=== PATIENT | female | born 1930 | race Caucasian/White ===

== ENCOUNTER 2017-07-23 19:52 | Emergency (ER) | payer MEDICARE, OTHER ==
[2017-07-23 20:24] LABS: #Basophils 0.1 thou/uL (0.0-0.2); #Eosinphils 0.2 thou/uL (0.0-0.7); #Lymphocytes 1.8 thou/uL (1.20-3.40); #Monocytes 0.6 thou/uL (0.11-0.59); #Neutrophils 4.8 thou/uL (1.40-6.50); %Basophils 0.7 % (0.0-1.0); %Eosinophils 2.1 % (0.0-10.0); %Lymphocytes 23.7 % (21.0-51.0); %Monocytes 8.1 % (0.0-10.0); %Neutrophils 65.4 % (42.0-75.0); Hemoglobin 13.2 g/dL (12.0-16.0); Mean Corpuscular HGB CONC 34.9 g/dL (32.0-36.0); Mean Corpuscular Hemoglobin 32.6 pg (27.0-31.0); Mean Corpuscular Volume 93.4 fl (81.0-99.0); Mean Platelet Volume 7.9 fL (7.4-10.4); Platelet Count 274 thou/uL (130-400); RBC Distribution Width 12.7 % (11.5-14.5); Red Blood Cell (RBC) Count 4.04 mill/uL (4.20-5.40); White Blood Cell (WBC) Count 7.4 thou/uL (4.8-10.8)
[2017-07-23 20:48] LABS: ALT (SGPT) 10 U/L (8-55); AST (SGOT) 12 U/L (5-34); Albumin 4.3 g/dL (3.4-4.8); Alkaline Phosphatase 98 U/L (40-150); Anion Gap 15 mmol/L (10-20); BUN (Urea Nitrogen) 11 mg/dL (9.8-20.1); Bilirubin, Total 0.3 mg/dL (0.2-1.2); CK (CPK) 121 U/L (29-168); Calc. Creatinine Clearance 0 mL/min (70-130); Carbon Dioxide 26 mmol/L (23-31); Chloride 98 mmol/L (98-107); Estimated GFR-MDRD 63; Globulin 3.3 g/dL (2.4-3.5); Glucose 270 mg/dL (83-110); Potassium 4.3 mmol/L (3.5-5.1); Protein, Total 7.6 g/dL (6.0-8.3); Sodium 135 mmol/L (136-145)
[2017-07-23 21:02] LABS: Bilirubin Negative (Negative); Blood, Urine Trace (Negative); Clarity CLOUDY (Clear); Glucose, Urine (Dipstick) 100 mg/dL (Negative); Leukocyte Trace (Negative); Nitrite Negative (Negative); Protein, Urine (Dipstick) Trace mg/dL (Neg-Trace); Specific Gravity, Urine 1.006 (1.002-1.036); Urobilinogen 0.2 mg/dL (0.2-1.0); pH, Urine 6.5 (5.0-9.0)
[2017-07-23 21:04] LABS: Bacteria/HPF None Seen HPF (None Seen); Hyaline Casts/LPF 0-3 HYALINE CAST LPF (0-3 Hyaline); Pathc Cast-AUWi Flag 0.14 (0-2.49); RBC/HPF 0-3 HPF (0-3); Squamous Epithelial 0-3 HPF (0-3)
[2017-07-23] MEDS ORDERED: Cyclobenzaprine 10 MG TAB ONE (22:18)
[2017-07-24 00:18] LABS: Lactic Acid 1.5 mmol/L (0.5-2.2)
== END 2017-07-24 00:30 | disposition home or self-care (01) ==
LOC: ERS 19:52
DX: M62.838 Other muscle spasm (principal); E78.5 Hyperlipidemia, unspecified; I10 Essential (primary) hypertension; F17.210 Nicotine dependence, cigarettes, uncomplicated; Z79.82 Long term (current) use of aspirin; Z79.899 Other long term (current) drug therapy; Z79.4 Long term (current) use of insulin
CPT/HCPCS: 36415; 80053; 81003; 81015; 82550; 83605; 85025; 87086; 93005; 96360; 96361; 99406

== ENCOUNTER 2018-03-22 16:27 | Emergency (ER) | payer MEDICARE, OTHER ==
[2018-03-22 17:18] LABS: #Eosinphils 0.3 thou/uL (0.0-0.7); #Monocytes 0.7 thou/uL (0.11-0.59); #Neutrophils 4.3 thou/uL (1.40-6.50); %Basophils 0.7 % (0.0-1.0); %Lymphocytes 27.3 % (21.0-51.0); %Monocytes 9.2 % (0.0-10.0); %Neutrophils 58.9 % (42.0-75.0); Hemoglobin 11.4 g/dL (12.0-16.0); Mean Corpuscular HGB CONC 34.7 g/dL (32.0-36.0); Mean Corpuscular Hemoglobin 31.7 pg (27.0-31.0); Mean Corpuscular Volume 91.3 fL (78.0-98.0); Mean Platelet Volume 7.8 fL (7.4-10.4); Platelet Count 289 thou/uL (130-400); RBC Distribution Width 13.3 % (11.5-14.5); Red Blood Cell (RBC) Count 3.59 mill/uL (4.20-5.40); White Blood Cell (WBC) Count 7.3 thou/uL (4.8-10.8)
[2018-03-22 17:45] LABS: ALT (SGPT) 10 U/L (8-55); AST (SGOT) 13 U/L (5-34); Alkaline Phosphatase 112 U/L (40-150); Anion Gap 14 mmol/L (10-20); BUN (Urea Nitrogen) 10 mg/dL (9.8-20.1); Bilirubin, Total 0.5 mg/dL (0.2-1.2); Calc. Creatinine Clearance 0 mL/min (70-130); Calcium 9.9 mg/dL (7.8-10.44); Carbon Dioxide 27 mmol/L (23-31); Chloride 98 mmol/L (98-107); Estimated GFR-MDRD 60; Globulin 3.2 g/dL (2.4-3.5); Glucose 147 mg/dL (83-110); Potassium 4.4 mmol/L (3.5-5.1); Protein, Total 7.2 g/dL (6.0-8.3); Sodium 135 mmol/L (136-145)
--- NOTE | 2018-03-22 18:06 | RAD ---
LEFT FOOT RADIOGRAPHS THREE VIEWS: 03/22/2018 PROVIDED CLINICAL HISTORY: Fifth digit ulcer. COMPARISON: 11/05/2016 FINDINGS: There is no evidence for fracture. There is no evidence for a lytic or blastic process. Alignment a ppears anatomic. Joint spaces appear preserved. There is a small metallic density, having the appea ame of a needle, measuring about 7 mm, at the plantar aspect of the great toe, in the region of the distal aspects of the proximal phalanx. Soft tissues appear otherwise unremarkable. Alignment appe ars anatomic. Joint spaces appear preserved. IMPRESSION: 1. No evidence for an acute osseous abnormality. 2. Soft tissue foreign body, as above. POS: [facility]
[2018-03-22 18:56] LABS: Bilirubin Negative (Negative); Blood, Urine Small (Negative); Clarity CLOUDY (Clear); Glucose, Urine (Dipstick) Negative (Negative); Leukocyte Large (Negative); Nitrite Negative (Negative); Protein, Urine (Dipstick) Negative (Neg-Trace); Specific Gravity, Urine 1.005 (1.002-1.036); Urobilinogen 0.2 mg/dL (0.2-1.0)
[2018-03-22 19:00] LABS: Bacteria/HPF Rare-Few HPF (None Seen); Hyaline Casts/LPF 0-3 HYALINE CAST LPF (0-3 Hyaline); WBC/HPF 21-50 HPF (0-3)
== END 2018-03-22 19:15 | disposition home or self-care (01) ==
LOC: ERS 16:27
DX: E11.621 Type 2 diabetes mellitus with foot ulcer (principal); Z79.4 Long term (current) use of insulin; E78.5 Hyperlipidemia, unspecified; I10 Essential (primary) hypertension; F17.210 Nicotine dependence, cigarettes, uncomplicated; Z79.899 Other long term (current) drug therapy; Z79.82 Long term (current) use of aspirin
CPT/HCPCS: 80053; 81003; 81015; 84484; 85025; 85652; 86140; 87086; 93005; 96360

== ENCOUNTER 2018-05-19 07:17 | Inpatient (IN) | payer MEDICARE, OTHER ==
[2018-05-19 08:01] LABS: #Basophils 0.1 thou/uL (0.0-0.2); #Eosinphils 0.2 thou/uL (0.0-0.7); #Lymphocytes 2.3 thou/uL (1.20-3.40); #Monocytes 0.8 thou/uL (0.11-0.59); #Neutrophils 3.1 thou/uL (1.40-6.50); %Basophils 1.3 % (0.0-1.0); %Eosinophils 3.2 % (0.0-10.0); %Lymphocytes 35.2 % (21.0-51.0); %Monocytes 12.1 % (0.0-10.0); %Neutrophils 48.2 % (42.0-75.0); Hemoglobin 11.6 g/dL (12.0-16.0); Mean Corpuscular HGB CONC 34.1 g/dL (32.0-36.0); Mean Corpuscular Hemoglobin 31.3 pg (27.0-31.0); Mean Corpuscular Volume 91.6 fL (78.0-98.0); Mean Platelet Volume 7.7 fL (7.4-10.4); Platelet Count 288 thou/uL (130-400); White Blood Cell (WBC) Count 6.4 thou/uL (4.8-10.8)
[2018-05-19 08:15] LABS: ALT (SGPT) 9 U/L (8-55); AST (SGOT) 12 U/L (5-34); Albumin 3.9 g/dL (3.4-4.8); Alkaline Phosphatase 109 U/L (40-150); Anion Gap 13 mmol/L (10-20); BUN (Urea Nitrogen) 14 mg/dL (9.8-20.1); Bilirubin, Total 0.2 mg/dL (0.2-1.2); CK (CPK) 62 U/L (29-168); Calc. Creatinine Clearance 0 mL/min (70-130); Calcium 9.8 mg/dL (7.8-10.44); Carbon Dioxide 28 mmol/L (23-31); Chloride 102 mmol/L (98-107); Estimated GFR-MDRD 64; Globulin 3.5 g/dL (2.4-3.5); Glucose 91 mg/dL (83-110); Lipase 17 U/L (8-78); Potassium 4.2 mmol/L (3.5-5.1); Protein, Total 7.4 g/dL (6.0-8.3); Sodium 139 mmol/L (136-145)
--- NOTE | 2018-05-19 08:29 | RAD ---
CHEST 1 VIEW: Date: 05/19/18 HISTORY: Chest pain. COMPARISON: Chest radiograph from 2012. FINDINGS: Heart size is enlarged. Mild pulmonary edema. Small effusions. No pneumothorax. Severe degenerative of the left glenohumeral joint with partial backing-out of the left superior tend on suture anchor. IMPRESSION: Cardiomegaly and mild pulmonary venous congestion. POS: [facility]
[2018-05-19] MEDS ORDERED: Ondansetron PF 4 MG/2 ML Vial ONE (09:49)
[2018-05-19] MEDS ORDERED: Aspirin Chewable 81 MG TAB ONE (10:12)
[2018-05-19] MEDS ORDERED: cefTRIAXone\\ROCEPHIN 2 GM VIAL ONE (10:12)
[2018-05-19] MEDS ORDERED: Morphine 4 MG/ML VIAL ONE (10:18)
[2018-05-19] MEDS ORDERED: Azithromycin 500 MG VIAL ONE (11:28)
[2018-05-19] MEDS ORDERED: Acetaminophen 650 MG Suppository PR PRN (11:36)
[2018-05-19] MEDS ORDERED: Acetaminophen 325 MG TAB PO PRN (11:36)
[2018-05-19] MEDS ORDERED: Bisacodyl 5 MG TAB PO PRN (11:36)
[2018-05-19] MEDS ORDERED: Ondansetron PF 4 MG/2 ML Vial IVP PRN (11:36)
[2018-05-19] MEDS ORDERED: Nitroglycerin 0.4 MG TAB (25 Tab Bottle) PO PRN (11:36)
[2018-05-19] MEDS ORDERED: Dextrose 5% in Water 1,000 ML IV PRN (11:44)
[2018-05-19] MEDS ORDERED: Dextrose 50% Abboject 50 ML SYRINGE SLOW IVP PRN (11:44)
[2018-05-19] MEDS ORDERED: HumaLOG 300 UNITS/3 ML VIAL SC PRN (11:44)
[2018-05-19] MEDS ORDERED: methylPREDNISolone Sod Succ 40 MG VIAL ONE (12:10)
[2018-05-19] MEDS: methylPREDNISolone Sod Succ 40 MG VIAL IVP SCH ×2 (12:51→20:08)
--- NOTE | 2018-05-19 14:09 | HP ---
PRIMARY CARE PROVIDER: Mellissa Engel DO CHIEF COMPLAINT: Chest pain. HISTORY OF PRESENT ILLNESS: Ms. Mckinnon is a pleasant 87-year-old lady, who was seen at [facility] on May 19, 2018 She reports that she had neck surgery in February 2015. At baseline, she does not walk but uses a wheelchair. She lives with her . She reports that she has had cough for the last one month, productive of clear sputum. She denies any wheezing. Emergency room physician reports that she had yellow sputum in the emergency room. Last night, Ms. Mckinnon made supper. When she went to her bedroom to watch TV, she had a strange feeling in her body, which she cannot describe. She found that her blood sugar was high. She took the insulin. Subsequently, her blood sugar went from 570s range to 270s range. She then started having retrosternal chest pressure. She describes it as constant, 9/10 at its worst, nonradiating, accompanied by nausea and palpitations. She denies any shortness of breath. She cannot recall any aggravating or relieving factors for the chest discomfort. REVIEW OF SYSTEMS: All systems were reviewed and found to be negative. PAST MEDICAL HISTORY: Coronary artery disease, COPD, degenerative joint disease , chronic pain, diabetes mellitus, central cord syndrome, cervical stenosis. PAST SURGICAL HISTORY: Bilateral total hip replacement, coronary artery bypass graft x3, right shoulder surgery, hysterectomy, and C-spine surgery. SOCIAL HISTORY: The patient reports occasional tobacco use. She denies any alcohol use or recreational drug use. She lives at home with her . CODE STATUS: I discussed her code status. She is full code. FAMILY HISTORY: Significant for heart disease on her mother's side. ALLERGIES: IODINE, SULFA, TORADOL, ZOLOFT. CURRENT MEDICATIONS: 1. Amlodipine 5 mg daily. 2. Atorvastatin 40 mg daily. 3. Duloxetine 60 mg daily. 4. Levemir insulin, dose unknown. 5. NovoLog insulin, dose unknown. 6. Labetalol 100 mg three times a day. 7. Aspirin 81 mg daily. 8. Flexeril 5 mg three times a day. PHYSICAL EXAMINATION: GENERAL: On examination, Ms. Mckinnon is awake and alert, not in acute distress. VITAL SIGNS: Blood pressure is 146/57, pulse 67, respiratory rate 19 and oxygen saturation 98% on room air. She is afebrile. EYES: No scleral icterus, no conjunctival pallor. ENT: Dry mucosal membranes, no oropharyngeal erythema or exudates. NECK: Supple, nontender, trachea is midline. RESPIRATORY: Accessory muscles of breathing are not active. Chest wall movements are symmetric bilaterally. Lung examination reveals expiratory wheezing. CARDIOVASCULAR: S1 and S2 are heard, regular. Peripheral pulses palpable. No carotid bruit. No pericardial rub. ABDOMEN: Soft, nontender, bowel sounds heard, no hepatomegaly, no splenomegaly. NEUROLOGIC: Cranial nerves 2 through 12 are intact. Deep tendon reflexes 2+. Power is 3/5 in the left lower extremity, 4/5 in the right lower extremity and 4 +/5 in both upper extremities. MUSCULOSKELETAL: Power in the four extremities as described above. SKIN: No rashes or subcutaneous nodules. LYMPHATIC: No cervical lymphadenopathy. PSYCHIATRIC: Normal mood, normal affect, the patient is oriented to person, place, and time. LABORATORY FINDINGS: Ms. Mckinnon' labs and investigations were reviewed. I reviewed her electrocardiogram, which shows normal sinus rhythm, no ST changes to suggest an acute coronary syndrome. I also reviewed her chest x-ray, which does not show any pulmonary infiltrates. She has normal white count, normocytic anemia with hemoglobin 11.6, normal platelet count, unremarkable comprehensive metabolic profile, normal BNP and normal troponin-I. ASSESSMENT AND PLAN: Ms. Mckinnon is a pleasant 87-year-old lady, who was seen at [facility] on May 19, 2018. Her problem list includes: 1. Chest pain: Etiology is unclear at this time. She will be admitted to the hospital for further investigations, including telemetry monitoring and stress test. Further management depending on outcome of the stress test. 2. Acute bronchitis: Ms. Mckinnon is also presenting with acute bronchitis. She reports receiving antibiotics as outpatient, but has not improved. She will be treated with ceftriaxone and azithromycin for now. She does not know the names of the antibiotic she has used as outpatient. 3. Diabetes mellitus type 2: We will start Accu-Chek and insulin sliding scale. 4. Hypertension: We will monitor vital signs and titrate antihypertensives as needed. 5. Dyslipidemia: We will continue statin. Many thanks for allowing me to participate in your patient's care. Please feel free to contact me with any questions or concerns. LEVEL OF RISK: High. LEVEL OF COMPLEXITY: High. Job ID: [id number] MTDD
[2018-05-19] MEDS ORDERED: Acetaminophen 325 MG TAB ONE (14:13)
[2018-05-19] MEDS ORDERED: Morphine 2 MG/ML SYRINGE ONE (15:03)
[2018-05-19 16:03] LABS: Troponin I 0.011 ng/mL (< 0.028)
[2018-05-19] MEDS: Sodium Chloride 0.9% 1,000 ML IV SCH (18:53)
[2018-05-19] MEDS: HumaLOG 300 UNITS/3 ML VIAL SC PRN (20:59)
[2018-05-19] MEDS: Nicotine 7 MG PATCH TOP SCH (22:27)
[2018-05-19] MEDS: Morphine 4 MG/ML VIAL SLOW IVP PRN (23:57)
[2018-05-20] MEDS: methylPREDNISolone Sod Succ 40 MG VIAL IVP SCH ×5 (00:42→22:59)
[2018-05-20] MEDS: HumaLOG 300 UNITS/3 ML VIAL SC PRN ×3 (06:11→22:52)
[2018-05-20 06:39] LABS: #Lymphocytes 0.9 thou/uL (1.20-3.40); #Monocytes 0.1 thou/uL (0.11-0.59); %Basophils 0.1 % (0.0-1.0); %Eosinophils 0.1 % (0.0-10.0); %Lymphocytes 10.9 % (21.0-51.0); %Monocytes 0.6 % (0.0-10.0); %Neutrophils 88.3 % (42.0-75.0); Mean Corpuscular Hemoglobin 31.4 pg (27.0-31.0); Mean Corpuscular Volume 94.9 fL (78.0-98.0); Mean Platelet Volume 8.4 fL (7.4-10.4); Platelet Count 271 thou/uL (130-400); RBC Distribution Width 13.1 % (11.5-14.5); Red Blood Cell (RBC) Count 3.82 mill/uL (4.20-5.40); White Blood Cell (WBC) Count 7.9 thou/uL (4.8-10.8)
[2018-05-20 06:52] LABS: Anion Gap 16 mmol/L (10-20); BUN (Urea Nitrogen) 16 mg/dL (9.8-20.1); Calc. Creatinine Clearance 55 mL/min (70-130); Calcium 9.8 mg/dL (7.8-10.44); Carbon Dioxide 23 mmol/L (23-31); Chloride 96 mmol/L (98-107); Estimated GFR-MDRD 55; Glucose 371 mg/dL (83-110); Potassium 4.2 mmol/L (3.5-5.1); Sodium 131 mmol/L (136-145)
[2018-05-20] MEDS ORDERED: Prevnar 13-Val Conj/PF 0.5 ML SYRINGE IM ONE (09:00)
[2018-05-20] MEDS: Morphine 4 MG/ML VIAL SLOW IVP PRN ×2 (09:14→20:28)
[2018-05-20] MEDS: Enoxaparin Sodium 40 MG/0.4 ML SYRINGE SC SCH (09:16)
[2018-05-20] MEDS: cefTRIAXone\\ROCEPHIN 1 GM in Sodium Chloride 0.9% 100 ML IVPB SCH (10:50)
[2018-05-20] MEDS ORDERED: Azithromycin 500 MG in Sodium Chloride 0.9% 250 ML 250 ML IVPB SCH (11:00)
[2018-05-20] MEDS: Sodium Chloride 0.9% 1,000 ML IV SCH (11:47)
[2018-05-20] MEDS ORDERED: HumaLOG 300 UNITS/3 ML VIAL SC SCH (13:15)
--- NOTE | 2018-05-20 15:47 | PDOC.PN ---
- Subjective Encounter Start Date: 05/20/18 Encounter Start Time: 10:40 Pt seen for followup re: chest pain. c/o L shoulder pain. No fevers or chills. - Objective Resuscitation Status - Order Detail: 05/19/18 11:36 Resuscitation Status Routine Resuscitation Status: FULL: Full Resuscitation Discussed with: patient ABE Reviewed: Yes Vital Signs & Weight: Vital Signs (12 hours) Temp Pulse Resp BP Pulse Ox 05/20/18 08:00 98.2 F 100 17 153/67 H 94 L 05/20/18 06:44 93 L 05/20/18 06:42 103 H 18 93 L 05/20/18 04:00 97.6 F 98 20 142/65 H 94 L Weight Weight 181 lb 9.6 oz I&O: 05/19/18 05/20/18 05/21/18 06:59 06:59 06:59 Intake Total 1080 Output Total 2150 Balance -1070 Result Diagrams: 05/20/18 04:55 05/20/18 04:55 Additional Labs: Accuchecks 05/20/18 05/20/18 05/20/18 10:44 05:38 00:42 POC Glucose 432 H 356 H 353 H 05/19/18 20:12 POC Glucose 446 H EKG Reviewed by me: Yes (Tele: NSR) Phys Exam - Physical Examination Constitutional: NAD HEENT: moist MMs Neck: supple Respiratory: clear to auscultation bilateral Cardiovascular: RRR Gastrointestinal: soft Neurological: moves all 4 limbs Psychiatric: normal affect Dx/Plan (1) Chest pain Code(s): R07.9 - CHEST PAIN, UNSPECIFIED Status: Acute Comment: awaiting stress test (2) HLD (hyperlipidemia) Code(s): E78.5 - HYPERLIPIDEMIA, UNSPECIFIED Status: Chronic Comment: continue statin (3) HTN (hypertension) Code(s): I10 - ESSENTIAL (PRIMARY) HYPERTENSION Status: Chronic Comment: resume home medications - Plan * . Review of Systems - Review of Systems Cardiovascular: negative: chest pain, palpitations, orthopnea, paroxysmal nocturnal dyspnea, edema, light headedness Gastrointestinal: negative: Nausea, Vomiting, Abdominal Pain, Diarrhea, Constipation, Melena, Hematochezia Musculoskeletal: Shoulder Pain - Medications/Allergies Allergies/Adverse Reactions: Allergies Allergy/AdvReac Type Severity Reaction Status Date / Time iodine Allergy Verified 05/19/18 20:35 ketorolac tromethamine Allergy Verified 05/19/18 20:35 [From Toradol] sertraline HCl [From Zoloft] Allergy Verified 05/19/18 20:35 Sulfa (Sulfonamide Allergy Verified 05/19/18 20:35 Antibiotics) Medications: Current Medications Acetaminophen (Tylenol) 650 mg PO Q4H PRN PRN Reason: Headache/Fever/Mild Pain (1-3) Acetaminophen (Tylenol) 650 mg MS Q4H PRN PRN Reason: Headache/Fever/Mild Pain (1-3) Albuterol/Ipratropium (Duoneb) 3 ml NEB [id number] [facility] Last Admin: 05/20/18 13:06 Dose: Not Given Albuterol/Ipratropium (Duoneb) 3 ml NEB [id number] PRN PRN Reason: SOB &/or Wheezing Bisacodyl (Dulcolax) 10 mg PO DAILYPRN PRN PRN Reason: Constipation Dextrose/Water (Dextrose 50%) 25 gm SLOW IVP PRN PRN PRN Reason: Hypoglycemia Enoxaparin Sodium (Lovenox) 40 mg SC 0900 [facility] Last Admin: 05/20/18 09:16 Dose: 40 mg Glucagon (Glucagon) 1 mg IM PRN PRN PRN Reason: Hypoglycemia Azithromycin 500 mg/ Sodium (Chloride) 250 mls @ 250 mls/hr IVPB Q24HR [facility] Last Admin: 05/20/18 11:47 Dose: Not Given Ceftriaxone Sodium 1 gm/ (Sodium Chloride) 100 mls @ 200 mls/hr IVPB Q24HR [facility] Last Admin: 05/20/18 10:50 Dose: 100 mls Dextrose/Water (D5w) 1,000 mls @ 0 mls/hr IV .Q0M PRN PRN Reason: Hypoglycemia Sodium Chloride (Normal Saline 0.9%) 1,000 mls @ 50 mls/hr IV .Q20H [facility] Last Admin: 05/20/18 11:47 Dose: Not Given Insulin Human Lispro (Humalog) 0 units SC .MODERATE SLIDING SC PRN PRN Reason: Moderate Correctional Scale Last Admin: 05/20/18 06:11 Dose: 10 unit Methylprednisolone Sodium Succinate (Solu-Medrol) 40 mg IVP Q6HR [facility] Last Admin: 05/20/18 12:00 Dose: Not Given Morphine Sulfate (Morphine) 2 mg SLOW IVP Q6H PRN PRN Reason: Moderate to Severe Pain (6-10) Last Admin: 05/20/18 09:14 Dose: 2 mg Nicotine (Nicoderm Patch) 7 mg TOP Q24HR [facility] Last Admin: 05/19/18 22:27 Dose: Not Given Nitroglycerin (Nitrostat) 0.4 mg PO Q5MIN PRN PRN Reason: Chest Pain Ondansetron HCl (Zofran) 4 mg IVP Q6H PRN PRN Reason: Nausea/Vomiting Last Admin: 05/20/18 14:55 Dose: 4 mg Sodium Chloride (Flush - Normal Saline) 10 ml IVF Q12HR [facility] Last Admin: 05/20/18 09:16 Dose: Not Given Sodium Chloride (Flush - Normal Saline) 10 ml IVF PRN PRN PRN Reason: Saline Flush Last Admin: 05/20/18 00:05 Dose: 10 ml
[2018-05-20] MEDS: Nicotine 7 MG PATCH TOP SCH (16:11)
--- NOTE | 2018-05-20 16:38 | NM ---
NUCLEAR MEDICINE CARDIAC STRESS TEST WITH EJECTION FRACTION 05/20/18 HISTORY: Chest pain. CABG, coronary artery disease, smoker, hypertension, COPD, dyslipidemia. COMPARISON: None available. TECHNIQUE: Stress and rest performed after the intravenous administration of 27 and 9.3 millicuries of technetiu m 99m Sestamibi, respectively. Nuclear medicine cardiac stress test with ejection fraction. FINDINGS: Stress and rest was performed after the intravenous administration of 27 and 9.3 millicuries techneti um 99m Sestamibi. On the stress images, there is ischemia of the apex and inferior wall which was not seen on the rest images. There is normal wall motion. Ejection fraction is 68%. IMPRESSION: Reversible ischemia, moderate volume, of inferior wall and apex. POS: [facility]
[2018-05-20] MEDS ORDERED: Regadenoson 0.4 MG/5 ML SYRINGE ONE (16:48)
[2018-05-20 18:04] LABS: Glucose 501 mg/dL (83-110)
[2018-05-20] MEDS: Azithromycin 500 MG in Sodium Chloride 0.9% 250 ML 250 ML IVPB SCH (18:12)
[2018-05-20] MEDS: Labetalol 100 MG TAB PO SCH (20:43)
[2018-05-20] MEDS ORDERED: Non-Formulary Item 1 EACH (Insulin Detemir [Levemir] 18 UNIT) SQ SCH (21:00)
[2018-05-20] MEDS: Insulin Glargine 18 UNITS in Pre-Filled Syringe 1 EACH SC SCH (22:27)
[2018-05-21] MEDS: Cyclobenzaprine 10 MG TAB PO PRN ×3 (01:19→23:28)
[2018-05-21] MEDS: Morphine 4 MG/ML VIAL SLOW IVP PRN ×2 (02:13→11:01)
[2018-05-21 05:14] LABS: #Lymphocytes 0.8 thou/uL (1.20-3.40); #Monocytes 0.3 thou/uL (0.11-0.59); #Neutrophils 9.4 thou/uL (1.40-6.50); %Basophils 0.1 % (0.0-1.0); %Eosinophils 0.1 % (0.0-10.0); %Lymphocytes 7.4 % (21.0-51.0); %Monocytes 2.5 % (0.0-10.0); %Neutrophils 89.9 % (42.0-75.0); Hemoglobin 11.7 g/dL (12.0-16.0); Mean Corpuscular HGB CONC 33.6 g/dL (32.0-36.0); Mean Corpuscular Hemoglobin 31.7 pg (27.0-31.0); Mean Corpuscular Volume 94.3 fL (78.0-98.0); Mean Platelet Volume 8.1 fL (7.4-10.4); Platelet Count 282 thou/uL (130-400); RBC Distribution Width 13.2 % (11.5-14.5); Red Blood Cell (RBC) Count 3.69 mill/uL (4.20-5.40); White Blood Cell (WBC) Count 10.5 thou/uL (4.8-10.8)
[2018-05-21 05:33] LABS: Anion Gap 14 mmol/L (10-20); BUN (Urea Nitrogen) 18 mg/dL (9.8-20.1); Calc. Creatinine Clearance 61 mL/min (70-130); Calcium 9.7 mg/dL (7.8-10.44); Carbon Dioxide 25 mmol/L (23-31); Chloride 99 mmol/L (98-107); Estimated GFR-MDRD 61; Glucose 373 mg/dL (83-110); Potassium 4.1 mmol/L (3.5-5.1); Sodium 134 mmol/L (136-145)
[2018-05-21] MEDS: methylPREDNISolone Sod Succ 40 MG VIAL IVP SCH ×3 (06:03→17:54)
[2018-05-21] MEDS: HumaLOG 300 UNITS/3 ML VIAL SC PRN ×3 (06:10→21:51)
[2018-05-21] MEDS ORDERED: Non-Formulary Item 1 EACH (Insulin Detemir [Levemir] 20 UNIT) SQ SCH (09:00)
[2018-05-21] MEDS: Amlodipine 5 MG TAB PO SCH (09:17)
[2018-05-21] MEDS: Atorvastatin Calcium 40 MG TAB PO SCH (09:17)
[2018-05-21] MEDS: Aspirin 81 mg Enteric Coated Tablet PO SCH (09:17)
[2018-05-21] MEDS: Labetalol 100 MG TAB PO SCH ×3 (09:17→21:51)
[2018-05-21] MEDS: DULoxetine 60 MG CAP PO SCH (09:17)
[2018-05-21] MEDS: Insulin Glargine 20 UNITS in Pre-Filled Syringe 1 EACH SC SCH ×2 (10:57→12:00)
[2018-05-21] MEDS: cefTRIAXone\\ROCEPHIN 1 GM in Sodium Chloride 0.9% 100 ML IVPB SCH (11:01)
[2018-05-21] MEDS: Enoxaparin Sodium 40 MG/0.4 ML SYRINGE SC SCH ×2 (11:02→15:44)
[2018-05-21] MEDS: Nicotine 7 MG PATCH TOP SCH (11:59)
[2018-05-21 13:43] VITALS: BMI 30.6
--- NOTE | 2018-05-21 15:40 | CON ---
DATE OF CONSULTATION: 05/21/2018 REASON FOR CONSULTATION: Abnormal stress study. HISTORY OF PRESENT ILLNESS: Ms. Mckinnon is an 87-year-old woman with previous history of CAD, status post bypass surgery in 2001. She had four-vessel bypass. She has been seen by Dr. Richmond Oleary per history. She recently presented with mainly shortness of breath. She has had cough and congestion. She has clear sputum at present. She then admitted to a chest pain. During my interview, she states her pain is mainly noted to the right and left shoulder. It is worse with movement. She states she did not have pain in her mid chest. Subsequently, she underwent a noninvasive stress study, and it was felt to be consistent with ischemia present along the inferior wall. LVEF was felt to be normal, estimated at 68%. PAST MEDICAL HISTORY: As described above including, 1. COPD. 2. Diabetes mellitus. 3. Cervical stenosis. 4. Previous neck surgery. SOCIAL HISTORY: Positive tobacco use. No alcohol use. ALLERGIES: TORADOL, ZOLOFT, AND IODINE. FAMILY HISTORY: Positive for CAD. HOME MEDICATIONS: Include, 1. Amlodipine. 2. Atorvastatin. 3. Duloxetine. 4. Levemir. 5. NovoLog. 6. Labetalol. 7. Aspirin. 8. Flexeril. REVIEW OF SYSTEMS: Ten-point review of systems is reviewed and as above, otherwise negative. PHYSICAL EXAMINATION: GENERAL: The patient is a pleasant female, who is in no acute distress. The patient appears their stated age. VITAL SIGNS: Blood pressure 147/65, pulse 81, and temperature 91. NEUROLOGIC: The patient is alert and oriented x3 with no focal neurologic deficits. HEENT: Sclerae without icterus. Mouth has moist mucous membranes with normal pallor. NECK: No JVD. Carotid upstroke brisk. No bruits bilaterally. LUNGS: Rhonchi and rales bilaterally. BACK: No scoliosis or kyphosis. CARDIAC: Regular rate and rhythm with normal S1 and S2. No S3 or S4 noted. No significant rubs, murmurs, thrills, or gallops noted throughout the precordium. PMI is not displaced. There is no parasternal heave. ABDOMEN: Soft, nontender, nondistended. No peritoneal signs present. No hepatosplenomegaly. No abnormal striae. EXTREMITIES: 2+ femoral and 2+ dorsalis pedis pulses. No cyanosis, clubbing, or edema. SKIN: No gross abnormalities. PERTINENT LABORATORY DATA: Hemoglobin 11.7, creatinine 0.88. Stress and rest myocardial perfusion study with ischemia present along the inferior wall. LVEF 68%. IMPRESSION: 1. Chest pain. 2. Abnormal stress study. 3. Coronary artery disease, status post bypass surgery. 4. Chronic obstructive pulmonary disease. 5. ? pneumonia. RECOMMENDATIONS: Ms. Munoz symptoms are not consistent with angina. Her symptoms are felt to be positional. She states that when she moves her left arm, she has significant pain. She admits to me of not having any chest pressure in the midsternal region. I discussed medical therapy versus coronary angiography. She does have a dye allergy. I would recommend a more conservative approach given the age of her grafts, no current symptoms of angina. It is important that she is to stop tobacco use. We would recommend statin therapy, aspirin, plus or minus beta amarilis therapy. There was no asthma present and may benefit. We will also recommend low-dose nitrates. We will make changes as above. If stable overnight, I would sign off and have the patient follow up with Dr. Richmond Oleary as an outpatient. Job ID: [id number]
[2018-05-21] MEDS: Sodium Chloride 0.9% 1,000 ML IV SCH ×2 (15:44→21:52)
[2018-05-21] MEDS: Azithromycin 500 MG in Sodium Chloride 0.9% 250 ML 250 ML IVPB SCH (17:54)
--- NOTE | 2018-05-21 19:49 | PDOC.PN ---
- Subjective Encounter Start Date: 05/21/18 Encounter Start Time: 19:47 (late entry) Subjective: feels well. does not want any cardiac w/u done -: explained the abnormal stress results but she feels it was her high blood u -: no ON events. no CP/SOB - Objective Resuscitation Status - Order Detail: 05/19/18 11:36 Resuscitation Status Routine Resuscitation Status: FULL: Full Resuscitation Discussed with: patient MAR Reviewed: Yes Vital Signs & Weight: Vital Signs (12 hours) Temp Pulse Resp BP Pulse Ox 05/21/18 18:17 69 18 94 L 05/21/18 16:00 98.2 F 85 18 147/66 H 94 L 05/21/18 15:44 85 05/21/18 12:45 85 20 95 05/21/18 12:00 98.1 F 81 18 147/65 H 93 L 05/21/18 09:17 89 05/21/18 08:00 98.0 F 92 16 158/60 H 94 L Weight Admit Weight 184 lb 2 oz Weight 178 lb 5 oz I&O: 05/20/18 05/21/18 05/22/18 06:59 06:59 06:59 Intake Total 1080 2310 720 Output Total 2150 2000 1000 Balance -1070 310 -280 Result Diagrams: 05/21/18 04:52 05/21/18 04:52 Additional Labs: Accuchecks 05/21/18 05/21/18 05/21/18 16:18 10:50 05:46 POC Glucose 333 H 263 H 393 H 05/20/18 21:17 POC Glucose 333 H Microbiology 05/19/18 10:34 Venous blood - Right Hand Blood Culture - Preliminary Specimen has been received and culture in progress. No Growth to date. 05/19/18 10:27 Venous blood - Right Arm Blood Culture - Preliminary Specimen has been received and culture in progress. No Growth to date. Laboratory Tests 05/19/18 05/19/18 05/19/18 07:45 11:55 15:28 Troponin I 0.015 Less than 0.010 0.011 Phys Exam - Physical Examination Constitutional: NAD HEENT: PERRLA, moist MMs, sclera anicteric, oral pharynx no lesions Neck: no nodes, no JVD, supple, full ROM Respiratory: no wheezing, no rales, no rhonchi, clear to auscultation bilateral Cardiovascular: RRR, no significant murmur, no rub Gastrointestinal: soft, non-tender, no distention, positive bowel sounds Musculoskeletal: no edema, pulses present Neurological: non-focal, normal sensation, moves all 4 limbs Psychiatric: normal affect, A&O x 3 Dx/Plan (1) Abnormal stress ECG Code(s): R94.39 - ABNORMAL RESULT OF OTHER CARDIOVASCULAR FUNCTION STUDY Status: Acute (2) Central cord syndrome Code(s): S14.129A - CENTRAL CORD SYND AT UNSP LEVEL OF CERV SPINAL CORD, INIT Status: Chronic (3) Cervical stenosis of spinal canal Code(s): M48.02 - SPINAL STENOSIS, CERVICAL REGION Status: Chronic (4) Anxiety Code(s): F41.9 - ANXIETY DISORDER, UNSPECIFIED Status: Chronic (5) CAD (coronary artery disease) Code(s): I25.10 - ATHSCL HEART DISEASE OF [place] CORONARY ARTERY W/O ANG PCTRS Status: Chronic (6) DM type 2 (diabetes mellitus, type 2) Status: Chronic Comment: uncontrolled (7) H/O TIA (transient ischemic attack) and stroke Code(s): Z86.73 - PRSNL HX OF TIA (TIA), AND CEREB INFRC W/O RESID DEFICITS Status: Chronic (8) HLD (hyperlipidemia) Code(s): E78.5 - HYPERLIPIDEMIA, UNSPECIFIED Status: Chronic Comment: continue statin (9) HTN (hypertension) Code(s): I10 - ESSENTIAL (PRIMARY) HYPERTENSION Status: Chronic Comment: resume home medications (10) History of right-sided carotid endarterectomy Code(s): Z98.89 - OTHER SPECIFIED POSTPROCEDURAL STATES * DO NOT USE * Status : Chronic (11) PVD (peripheral vascular disease) Code(s): I73.9 - PERIPHERAL VASCULAR DISEASE, UNSPECIFIED Status: Chronic - Plan DVT proph w/SCDs cardiology consult. NPO for now.cont medical management -: ASA,statin ,BB -: reduce solumedrol to PO -: taper ABx tomorrow if afebrile -: HD stable.tobacco cessation advised * . Review of Systems - Review of Systems Constitutional: negative: fever, chills, sweats, weakness, malaise, other Respiratory: negative: Cough, Dry, Shortness of Breath, Hemoptysis, SOB with Excertion, Pleuritic Pain, Sputum, Wheezing Cardiovascular: negative: chest pain, palpitations, orthopnea, paroxysmal nocturnal dyspnea, edema, light headedness, other Gastrointestinal: negative: Nausea, Vomiting, Abdominal Pain, Diarrhea, Constipation, Melena, Hematochezia, Other Genitourinary: negative: Dysuria, Frequency, Incontinence, Hematuria, Retention , Other Musculoskeletal: negative: Neck Pain, Shoulder Pain, Arm Pain, Back Pain, Hand Pain, Leg Pain, Foot Pain, Other Neurological: negative: Weakness, Numbness, Incoordination, Change in Speech, Confusion, Seizures, Other - Medications/Allergies Allergies/Adverse Reactions: Allergies Allergy/AdvReac Type Severity Reaction Status Date / Time iodine Allergy Verified 05/19/18 20:35 ketorolac tromethamine Allergy Verified 05/19/18 20:35 [From Toradol] sertraline HCl [From Zoloft] Allergy Verified 05/19/18 20:35 Sulfa (Sulfonamide Allergy Verified 05/19/18 20:35 Antibiotics) Medications: Current Medications Acetaminophen (Tylenol) 650 mg PO Q4H PRN PRN Reason: Headache/Fever/Mild Pain (1-3) Acetaminophen (Tylenol) 650 mg GA Q4H PRN PRN Reason: Headache/Fever/Mild Pain (1-3) Albuterol/Ipratropium (Duoneb) 3 ml NEB [id number] [facility] Last Admin: 05/21/18 18:17 Dose: 3 ml Albuterol/Ipratropium (Duoneb) 3 ml NEB [id number] PRN PRN Reason: SOB &/or Wheezing Amlodipine Besylate (Norvasc) 5 mg PO DAILY [facility] Last Admin: 05/21/18 09:17 Dose: 5 mg Aspirin (Ecotrin) 81 mg PO DAILY [facility] Last Admin: 05/21/18 09:17 Dose: 81 mg Atorvastatin Calcium (Lipitor) 40 mg PO DAILY [facility] Last Admin: 05/21/18 09:17 Dose: 40 mg Bisacodyl (Dulcolax) 10 mg PO DAILYPRN PRN PRN Reason: Constipation Cyclobenzaprine HCl (Flexeril) 10 mg PO TID PRN PRN Reason: Muscle Spasm Last Admin: 05/21/18 06:21 Dose: 10 mg Dextrose/Water (Dextrose 50%) 25 gm SLOW IVP PRN PRN PRN Reason: Hypoglycemia Duloxetine HCl (Cymbalta) 60 mg PO DAILY [facility] Last Admin: 05/21/18 09:17 Dose: 60 mg Enoxaparin Sodium (Lovenox) 40 mg SC 0900 [facility] Last Admin: 05/21/18 15:44 Dose: 40 mg Glucagon (Glucagon) 1 mg IM PRN PRN PRN Reason: Hypoglycemia Ceftriaxone Sodium 1 gm/ (Sodium Chloride) 100 mls @ 200 mls/hr IVPB Q24HR [facility] Last Admin: 05/21/18 11:01 Dose: 100 mls Dextrose/Water (D5w) 1,000 mls @ 0 mls/hr IV .Q0M PRN PRN Reason: Hypoglycemia Sodium Chloride (Normal Saline 0.9%) 1,000 mls @ 50 mls/hr IV .Q20H [facility] Last Admin: 05/21/18 15:44 Dose: 1,000 mls Insulin Glargine 18 units/ (Miscellaneous Medication) 0.18 mls @ 0 mls/hr SC HS [facility] Last Admin: 05/20/18 22:27 Dose: 0.18 mls Insulin Glargine 20 units/ (Miscellaneous Medication) 0.2 mls @ 0 mls/hr SC QAM [facility] Last Admin: 05/21/18 12:00 Dose: 0.2 mls Azithromycin 500 mg/ Sodium (Chloride) 250 mls @ 250 mls/hr IVPB Q24HR [facility] Last Admin: 05/21/18 17:54 Dose: 250 mls Insulin Human Lispro (Humalog) 0 units SC .MODERATE SLIDING SC PRN PRN Reason: Moderate Correctional Scale Last Admin: 05/21/18 17:55 Dose: 8 unit Insulin Human Lispro (Humalog) 0 units SC .BEDTIME SLIDING SC PRN PRN Reason: Bedtime Correctional Scale Last Admin: 05/20/18 22:52 Dose: 4 unit Labetalol HCl (Normodyne) 100 mg PO TID [facility] Last Admin: 05/21/18 15:44 Dose: 100 mg Morphine Sulfate (Morphine) 2 mg SLOW IVP Q6H PRN PRN Reason: Moderate to Severe Pain (6-10) Last Admin: 05/21/18 11:01 Dose: 2 mg Nicotine (Nicoderm Patch) 7 mg TOP Q24HR [facility] Last Admin: 05/21/18 11:59 Dose: 7 mg Nitroglycerin (Nitrostat) 0.4 mg PO Q5MIN PRN PRN Reason: Chest Pain Ondansetron HCl (Zofran) 4 mg IVP Q6H PRN PRN Reason: Nausea/Vomiting Last Admin: 05/20/18 14:55 Dose: 4 mg Prednisone (Prednisone) 40 mg PO QA-[facility] Sodium Chloride (Flush - Normal Saline) 10 ml IVF Q12HR [facility] Last Admin: 05/21/18 09:17 Dose: Not Given Sodium Chloride (Flush - Normal Saline) 10 ml IVF PRN PRN PRN Reason: Saline Flush Last Admin: 05/20/18 00:05 Dose: 10 ml
[2018-05-21] MEDS: Insulin Glargine 18 UNITS in Pre-Filled Syringe 1 EACH SC SCH (21:50)
[2018-05-22 07:56] LABS: #Lymphocytes 1.5 thou/uL (1.20-3.40); #Monocytes 0.8 thou/uL (0.11-0.59); #Neutrophils 7.3 thou/uL (1.40-6.50); %Eosinophils 0.2 % (0.0-10.0); %Lymphocytes 15.8 % (21.0-51.0); %Neutrophils 75.9 % (42.0-75.0); Hemoglobin 11.5 g/dL (12.0-16.0); Mean Corpuscular HGB CONC 32.8 g/dL (32.0-36.0); Mean Corpuscular Hemoglobin 30.9 pg (27.0-31.0); Mean Corpuscular Volume 94.2 fL (78.0-98.0); Mean Platelet Volume 8.1 fL (7.4-10.4); Platelet Count 277 thou/uL (130-400); RBC Distribution Width 12.7 % (11.5-14.5); Red Blood Cell (RBC) Count 3.72 mill/uL (4.20-5.40); White Blood Cell (WBC) Count 9.6 thou/uL (4.8-10.8)
[2018-05-22] MEDS ORDERED: predniSONE 20 MG TAB PO SCH (08:00)
[2018-05-22] MEDS: Labetalol 100 MG TAB PO SCH ×3 (08:14→21:33)
[2018-05-22] MEDS: Amlodipine 5 MG TAB PO SCH (08:14)
[2018-05-22] MEDS: Aspirin 81 mg Enteric Coated Tablet PO SCH (08:14)
[2018-05-22] MEDS: Atorvastatin Calcium 40 MG TAB PO SCH (08:14)
[2018-05-22] MEDS: DULoxetine 60 MG CAP PO SCH (08:14)
[2018-05-22] MEDS: HumaLOG 300 UNITS/3 ML VIAL SC PRN ×3 (08:15→21:33)
[2018-05-22] MEDS: Insulin Glargine 20 UNITS in Pre-Filled Syringe 1 EACH SC SCH (08:15)
[2018-05-22 08:19] LABS: Anion Gap 14 mmol/L (10-20); BUN (Urea Nitrogen) 19 mg/dL (9.8-20.1); Calc. Creatinine Clearance 61 mL/min (70-130); Calcium 9.2 mg/dL (7.8-10.44); Carbon Dioxide 24 mmol/L (23-31); Chloride 99 mmol/L (98-107); Estimated GFR-MDRD 63; Glucose 306 mg/dL (83-110); Potassium 3.7 mmol/L (3.5-5.1); Sodium 133 mmol/L (136-145)
[2018-05-22] MEDS: cefTRIAXone\\ROCEPHIN 1 GM in Sodium Chloride 0.9% 100 ML IVPB SCH (10:33)
--- NOTE | 2018-05-22 11:49 | PDOC.PN ---
- Subjective Encounter Start Date: 05/22/18 Encounter Start Time: 11:45 Ms. Mckinnon was seen today in follow-up of shortness of breath. She says she is about the same, but denies ever having shortness of breath. She says it was the spasms in her chest that she was concerned about. - Objective Resuscitation Status - Order Detail: 05/19/18 11:36 Resuscitation Status Routine Resuscitation Status: FULL: Full Resuscitation Discussed with: patient MAR Reviewed: Yes Vital Signs & Weight: Vital Signs (12 hours) Temp Pulse Resp BP BP Pulse Ox 05/22/18 08:14 84 174/74 H 05/22/18 08:00 96.3 F L 90 16 176/79 H 97 05/22/18 06:44 84 18 93 L 05/22/18 03:51 97.6 F 78 13 162/62 H 92 L 05/22/18 00:11 83 16 95 Weight Admit Weight 184 lb 2 oz Weight 177 lb I&O: 05/21/18 05/22/18 05/23/18 06:59 06:59 07:59 Intake Total 2310 1620 Output Total 2000 1450 Balance 310 170 Result Diagrams: 05/22/18 07:28 05/22/18 07:28 Additional Labs: Accuchecks 05/22/18 05/22/18 05/21/18 10:43 05:14 20:03 POC Glucose 283 H 304 H 427 H 05/21/18 16:18 POC Glucose 333 H Phys Exam - Physical Examination HEENT: PERRLA Respiratory: wheezing present, clear to auscultation bilateral Cardiovascular: RRR, no significant murmur, no rub Gastrointestinal: soft, non-tender, no distention, positive bowel sounds Musculoskeletal: no edema Dx/Plan (1) Chest pain Code(s): R07.9 - CHEST PAIN, UNSPECIFIED Status: Acute Comment: awaiting stress test (2) DM type 2 (diabetes mellitus, type 2) Status: Chronic Comment: uncontrolled (3) Former smoker Status: Chronic (4) HLD (hyperlipidemia) Code(s): E78.5 - HYPERLIPIDEMIA, UNSPECIFIED Status: Chronic Comment: continue statin (5) HTN (hypertension) Code(s): I10 - ESSENTIAL (PRIMARY) HYPERTENSION Status: Chronic Comment: resume home medications - Plan * Chest pain- probable non-cardiac- awaiting final Cardiology opinion regarding cath * HTN - blood pressure is a bit elevated- will continue her current medications today, and monitor the trend- may need to adjust her home medications * Acute bronchitis- can transition her to all oral medications- will therefore discontinue Rocephin and continue Azithromycin orally * CAD- stable * Hopefully home in the AM.
--- NOTE | 2018-05-22 11:51 | PDOC.CTH ---
Cardiology Progress Note - Subjective Patient without complaints. Reports no chest pain. - Objective Vital Signs Temp Pulse Resp BP BP Pulse Ox 05/22/18 08:14 84 174/74 H 05/22/18 08:00 96.3 F L 90 16 176/79 H 97 05/22/18 06:44 84 18 93 L 05/22/18 03:51 97.6 F 78 13 162/62 H 92 L 05/22/18 00:11 83 16 95 Admit Weight 184 lb 2 oz Weight 177 lb 05/21/18 05/22/18 05/23/18 06:59 06:59 07:59 Intake Total 2310 1620 Output Total 2000 1450 Balance 310 170 - Physical Examination General/Neuro: alert & oriented x3 Neck: no JVD present Lungs: CTA Heart: RRR Abdomen: NT/ND - Telemetry Telemetry Rhythm: SR - Labs Result Diagrams: 05/22/18 07:28 05/22/18 07:28 Troponin/CKMB Troponin I 0.011 ng/mL (< 0.028) 05/19/18 15:28 - Assessment/Plan 1. Abnormal stress test with inferior wall ischemia 2. HTN 3. CAD s/p CABG 4. DM Patient with history of contrast allergy and would prefer medical management. I think this is feasible as trops were negative and she is pain free. Will add ImDur. Ok for discharge if she remains pain free and HTN controlled. Can f/u with Dr. Oleary as outpatient. Pt seen and examined. Pt would like to proceed with meds. Agree with above. Fu with Dr. Oleary. PLease call if other questions arise.
[2018-05-22] MEDS: Nicotine 7 MG PATCH TOP SCH (12:46)
[2018-05-22] MEDS: Azithromycin 500 MG in Sodium Chloride 0.9% 250 ML 250 ML IVPB SCH (18:10)
--- NOTE | 2018-05-22 20:33 | EKG ---
Test Reason : Blood Pressure : / mmHG Vent. Rate : 072 BPM Atrial Rate : 072 BPM P-R Int : 132 ms QRS Dur : 118 ms QT Int : 448 ms P-R-T Axes : 086 -61 030 degrees QTc Int : 490 ms Normal sinus rhythm Pulmonary disease pattern Left anterior fascicular block Prolonged QT Abnormal ECG Confirmed by GERARDO MILES, HANY ([id number]), online content editor STEPHANY APARICIO ([id number]) on 05/22/2018 8:32:48 PM Referred By: Confirmed By:HANY CARRILLO MD
[2018-05-22] MEDS: Cyclobenzaprine 10 MG TAB PO PRN (21:33)
[2018-05-22] MEDS: Insulin Glargine 18 UNITS in Pre-Filled Syringe 1 EACH SC SCH (21:33)
[2018-05-23] MEDS: Morphine 4 MG/ML VIAL SLOW IVP PRN (00:17)
[2018-05-23] MEDS ORDERED: predniSONE 20 MG TAB PO SCH (08:00)
[2018-05-23] MEDS: Labetalol 100 MG TAB PO SCH ×2 (08:07→15:52)
[2018-05-23] MEDS: DULoxetine 60 MG CAP PO SCH (08:08)
[2018-05-23] MEDS: Amlodipine 5 MG TAB PO SCH (08:08)
[2018-05-23] MEDS: Aspirin 81 mg Enteric Coated Tablet PO SCH (08:08)
[2018-05-23] MEDS: Atorvastatin Calcium 40 MG TAB PO SCH (08:08)
[2018-05-23] MEDS: Insulin Glargine 20 UNITS in Pre-Filled Syringe 1 EACH SC SCH (08:09)
[2018-05-23] MEDS: Enoxaparin Sodium 40 MG/0.4 ML SYRINGE SC SCH (08:09)
--- NOTE | 2018-05-23 09:59 | PDOC.PN ---
- Subjective Encounter Start Date: 05/23/18 Encounter Start Time: 09:57 Ms. Mckinnon was seen today in follow-up of chest pain. She does not have any complaints today. - Objective Resuscitation Status - Order Detail: 05/19/18 11:36 Resuscitation Status Routine Resuscitation Status: FULL: Full Resuscitation Discussed with: patient ABE Reviewed: Yes Vital Signs & Weight: Vital Signs (12 hours) Temp Pulse Resp BP BP Pulse Ox 05/23/18 08:08 83 183/77 H 05/23/18 08:07 82 183/77 H 05/23/18 06:40 57 L 18 92 L 05/23/18 05:00 97.6 F 80 16 174/71 H 94 L 05/23/18 00:39 67 16 95 Weight Admit Weight 184 lb 2 oz Weight 177 lb I&O: 05/22/18 05/23/18 05/24/18 05:59 06:59 06:59 Intake Total Output Total Balance Result Diagrams: 05/22/18 07:28 05/22/18 07:28 Additional Labs: Accuchecks 05/23/18 05/22/18 05/22/18 05:11 20:08 16:32 POC Glucose 119 H 293 H 124 H 05/22/18 10:43 POC Glucose 283 H Phys Exam - Physical Examination HEENT: PERRLA Respiratory: no wheezing, no rales, no rhonchi, clear to auscultation bilateral Cardiovascular: RRR, no significant murmur, no rub Gastrointestinal: soft, non-tender, positive bowel sounds Musculoskeletal: no edema Dx/Plan (1) Chest pain Code(s): R07.9 - CHEST PAIN, UNSPECIFIED Status: Acute Comment: awaiting stress test (2) DM type 2 (diabetes mellitus, type 2) Status: Chronic Comment: uncontrolled (3) Former smoker Status: Chronic (4) HLD (hyperlipidemia) Code(s): E78.5 - HYPERLIPIDEMIA, UNSPECIFIED Status: Chronic Comment: continue statin (5) HTN (hypertension) Code(s): I10 - ESSENTIAL (PRIMARY) HYPERTENSION Status: Chronic Comment: resume home medications - Plan * Chest pain- ? etiology- patient does not want a cardiac cath. * Imdur will be added which may help with her blood pressure as well * Stable for discharge home.
[2018-05-23] MEDS: Nicotine 7 MG PATCH TOP SCH (15:51)
[2018-05-23 15:53] VITALS: BP 136/64
[2018-05-23 16:51] VITALS: TEMP 98.5
--- NOTE | 2018-05-24 11:56 | DIS ---
DATE OF ADMISSION: 05/21/2018 DATE OF DISCHARGE: 05/23/2018 PRIMARY CARE PHYSICIAN: Mellissa Engel, DISCHARGE DISPOSITION: Home. DISCHARGE DIAGNOSES: 1. Chest pain. 2. Acute bronchitis. 3. Coronary artery disease. 4. Chronic obstructive pulmonary disease. 5. Degenerative joint disease. 6. Diabetes mellitus, type 2. 7. Cervical spinal stenosis. DISCHARGE MEDICATIONS: Include; 1. Azithromycin 250 mg daily for 3 days. 2. Prednisone 10 mg daily for three days. 3. Imdur extended release 30 mg daily. 4. Aspirin 81 mg daily. 5. Labetalol 100 mg t.i.d. 6. Levemir insulin 20 units in the morning, 18 units in the evening. 7. Duloxetine 60 mg daily. 8. Flexeril 10 mg t.i.d. 9. Atorvastatin 40 mg daily. 10. Amlodipine 5 mg daily. PROCEDURES DONE DURING ADMISSION: The patient had a nuclear stress test in which there was some reversible ischemia, a moderate amount in the inferior wall and apex. CODE STATUS: Full code. ALLERGIES: TO IODINE, KETORALAC, SERTRALINE, AND SULFA. HOSPITAL COURSE: Ms. Mckinnon is a pleasant 87-year-old female who presented to the hospital due to an elevated blood glucose that she had noted and also due to some retrosternal chest pressure that she had, which was accompanied by nausea and palpitations. She was admitted and started on medications, sliding scale in order to control her blood glucose. She also had some wheezing on exam and it is felt that she likely has an acute bronchitis. She was treated with IV antibiotics, steroids, and DuoNeb. Due to the chest pain and her history of coronary artery disease, a stress test was obtained. She was found to have some reversible ischemia in the inferior wall and apex. For this reason, Cardiology was consulted. The patient was offered cardiac catheterization to further evaluate the abnormal stress test. However, the patient had concerns for iodine allergy and refused any further evaluation at this time. The patient was allowed to think about this again overnight. The following day, she continued to decline cardiac catheterization. Therefore, we will try to maximize her medical management and improve her blood pressure control as well as place her on Imdur hopefully to help with her angina symptoms, and she will also be sent home on antibiotics for continued treatment of the bronchitis. She is to follow up with her primary care physician in 1 to 2 weeks and also with Cardiology as recommended. Job ID: [id number]
== END 2018-05-23 16:45 | disposition home or self-care (01) | DRG 313 ==
LOC: ERS 07:17 → ERHOLD 12:09 → 2NO 17:35 → OBSVTOIN 05-21 11:09
PROVIDERS: ADMIT Internal Medicine; ATTEND Internal Medicine
DX: R07.9 Chest pain, unspecified (principal); J20.9 Acute bronchitis, unspecified; I25.10 Atherosclerotic heart disease of native coronary artery without angina pectoris; M19.90 Unspecified osteoarthritis, unspecified site; M48.02 Spinal stenosis, cervical region; I10 Essential (primary) hypertension; E78.5 Hyperlipidemia, unspecified; J44.9 Chronic obstructive pulmonary disease, unspecified; G89.29 Other chronic pain; F41.9 Anxiety disorder, unspecified; R94.39 Abnormal result of other cardiovascular function study; E11.51 Type 2 diabetes mellitus with diabetic peripheral angiopathy without gangrene; Z96.643 Presence of artificial hip joint, bilateral; Z88.2 Allergy status to sulfonamides; Z91.041 Radiographic dye allergy status; Z95.1 Presence of aortocoronary bypass graft; Z90.710 Acquired absence of both cervix and uterus; Z98.890 Other specified postprocedural states; Z86.73 Personal history of transient ischemic attack (TIA), and cerebral infarction without residual deficits; Z87.891 Personal history of nicotine dependence
CPT/HCPCS: 36415; 36416; 71045; 78452; 80048; 80053; 82550; 83690; 83880; 84484; 85025; 87040; 93005; 93017; 94640; 94760; 96361; 96365; 96367; 96375; 96376; A9500; J0456; J0696; J1650; J1825; J2270; J2405; J2785; J2920; J7050; J7620

== ENCOUNTER 2018-09-24 12:40 | Emergency (ER) | payer MEDICARE, OTHER ==
[2018-09-24] MEDS ORDERED: Ondansetron PF 4 MG/2 ML Vial ONE (15:05)
[2018-09-24 15:12] LABS: #Eosinphils 0.1 thou/uL (0.0-0.7); #Lymphocytes 1.4 thou/uL (1.20-3.40); #Monocytes 0.4 thou/uL (0.11-0.59); #Neutrophils 6.2 thou/uL (1.40-6.50); %Basophils 0.4 % (0.0-1.0); %Eosinophils 1.3 % (0.0-10.0); %Lymphocytes 17.2 % (21.0-51.0); %Monocytes 4.8 % (0.0-10.0); %Neutrophils 76.3 % (42.0-75.0); Hemoglobin 12.2 g/dL (12.0-16.0); Mean Corpuscular HGB CONC 33.8 g/dL (32.0-36.0); Mean Corpuscular Hemoglobin 31.1 pg (27.0-31.0); Mean Corpuscular Volume 92.2 fL (78.0-98.0); Mean Platelet Volume 7.3 fL (7.4-10.4); Platelet Count 315 thou/uL (130-400); RBC Distribution Width 12.6 % (11.5-14.5); Red Blood Cell (RBC) Count 3.93 mill/uL (4.20-5.40); White Blood Cell (WBC) Count 8.1 thou/uL (4.8-10.8)
--- NOTE | 2018-09-24 15:27 | CT ---
CT Stone Protocol HISTORY: Abdominal pain. History of allergy to contrast COMPARISON: 04/24/2012 study FINDINGS: A 3 to 4 mm right lower lobe pulmonary nodule and small 2 to 3 mm left pulmonary nodules ar e stable. No infiltrative process. Some mild interstitial scarring noted. The liver and spleen show no focal findings. Pancreas region is unremarkable as is the gallbladder. Right adrenal gland shows an area of dense calcification adjacent to the left adrenal is normal. Thes e findings are stable. Right and left kidneys are normal in size vascular calcifications are noted but no renal calculi. The re is no significant periaortic or mesenteric adenopathy. Fairly pronounced atherosclerotic disease of the aorta as well as the celiac and superior mesenteric arteries are present. CT of pelvis performed without contrast enhancement: There is no evidence of adenopathy, mass or free fluid. Bilateral hip prostheses are present. Artifact obscures some detail. Marked arthritic changes of the spine. IMPRESSION: No acute findings of the abdomen or pelvis.
[2018-09-24 15:35] LABS: ALT (SGPT) 9 U/L (8-55); AST (SGOT) 9 U/L (5-34); Alkaline Phosphatase 84 U/L (40-150); Anion Gap 13 mmol/L (10-20); BUN (Urea Nitrogen) 13 mg/dL (9.8-20.1); Bilirubin, Total 0.3 mg/dL (0.2-1.2); Calc. Creatinine Clearance 0 mL/min (70-130); Calcium 9.7 mg/dL (7.8-10.44); Carbon Dioxide 25 mmol/L (23-31); Chloride 97 mmol/L (98-107); Estimated GFR-MDRD 62; Globulin 3.2 g/dL (2.4-3.5); Glucose 299 mg/dL (83-110); Lipase 26 U/L (8-78); Potassium 4.4 mmol/L (3.5-5.1); Protein, Total 7.2 g/dL (6.0-8.3); Sodium 131 mmol/L (136-145)
[2018-09-24] MEDS ORDERED: methylPREDNISolone Sod Succ/PF 125 MG/2 ML VIAL ONE (16:33)
[2018-09-24] MEDS ORDERED: Ketorolac Tromethamine 30 MG/ML VIAL ONE (16:36)
--- NOTE | 2018-09-25 17:01 | EKG ---
Test Reason : Blood Pressure : / mmHG Vent. Rate : 071 BPM Atrial Rate : 071 BPM P-R Int : 156 ms QRS Dur : 112 ms QT Int : 432 ms P-R-T Axes : 080 -61 -04 degrees QTc Int : 469 ms Normal sinus rhythm Left axis deviation Pulmonary disease pattern Nonspecific ST abnormality Abnormal ECG Confirmed by ALBINA MILES, LEONARD ([id number]), editor at large LANI LIMON ([id number]) on 09/25/2018 5:00:50 PM Referred By: Confirmed By:LEONARD MONTEMAYOR MD
== END 2018-09-24 19:19 | disposition home or self-care (01) ==
LOC: ERS 12:40
DX: R51 Headache (principal); R10.9 Unspecified abdominal pain; E11.9 Type 2 diabetes mellitus without complications; E78.5 Hyperlipidemia, unspecified; I10 Essential (primary) hypertension; Z87.891 Personal history of nicotine dependence; Z79.899 Other long term (current) drug therapy; Z79.4 Long term (current) use of insulin; Z79.82 Long term (current) use of aspirin
CPT/HCPCS: 36415; 74176; 80053; 83690; 85025; 93005; 96374; 96375; J1885; J2405; J2930

== ENCOUNTER 2019-03-13 20:58 | Inpatient (IN) | payer MEDICARE, OTHER ==
[~2019-03-13 20:58] MED LIST: Iopamidol 370 76% 100 ML VIAL ONE
[2019-03-13] MEDS ORDERED: diphenhydrAMINE 50 MG/ML VIAL ONE (21:16)
[2019-03-13] MEDS ORDERED: Diltiazem 125 MG/25 ML ONE (21:16)
[2019-03-13] MEDS ORDERED: Famotidine/PF 20 mg/2ml Vial ONE (21:16)
[2019-03-13] MEDS ORDERED: Fentanyl 100 MCG/2 ML VIAL ONE ×2 (21:16→22:20)
[2019-03-13] MEDS ORDERED: methylPREDNISolone Sod Succ/PF 125 MG/2 ML VIAL ONE (21:16)
--- NOTE | 2019-03-13 21:35 | RAD ---
Portable frontal chest radiograph: 03/13/2019 COMPARISON: 11/13/2018 HISTORY: Rapid heart rate with shortness of breath and weakness FINDINGS: Diffuse increased linear interstitial density with pulmonary hyperinflation suggests COPD i n the proper clinical setting, stable. Stable shoulder arthroplasty on the right. No pneumothorax or pleural fluid. No lobar consolidation or alveolar edema. Stable enlargement of the cardiac silhoue tte. Midline sternotomy wires are noted. IMPRESSION: Chronic findings as detailed above.
[2019-03-13 21:37] LABS: INR-International Normal Ratio 1.1; PTT 39.7 SEC (22.9-36.1); Prothrombin Time 14.3 SEC (12.0-14.7)
[2019-03-13 21:44] LABS: #Eosinphils 0.2 thou/uL (0.0-0.7); #Lymphocytes 1.5 thou/uL (1.20-3.40); #Monocytes 0.8 thou/uL (0.11-0.59); #Neutrophils 5.2 thou/uL (1.40-6.50); %Basophils 0.5 % (0.0-1.0); %Eosinophils 2.4 % (0.0-10.0); %Lymphocytes 19.2 % (21.0-51.0); %Monocytes 10.5 % (0.0-10.0); %Neutrophils 67.4 % (42.0-75.0); Hemoglobin 11.5 g/dL (12.0-16.0); Mean Corpuscular HGB CONC 33.9 g/dL (32.0-36.0); Mean Corpuscular Hemoglobin 31.5 pg (27.0-31.0); Mean Corpuscular Volume 92.9 fL (78.0-98.0); Mean Platelet Volume 8.3 fL (7.4-10.4); Platelet Count 298 thou/uL (130-400); RBC Distribution Width 13.1 % (11.5-14.5); Red Blood Cell (RBC) Count 3.64 mill/uL (4.20-5.40); White Blood Cell (WBC) Count 7.7 thou/uL (4.8-10.8)
[2019-03-13 21:51] LABS: ALT (SGPT) 7 U/L (8-55); AST (SGOT) 8 U/L (5-34); Albumin 3.9 g/dL (3.4-4.8); Alkaline Phosphatase 102 U/L (40-110); Anion Gap 13 mmol/L (10-20); BUN (Urea Nitrogen) 12 mg/dL (9.8-20.1); Bilirubin, Total 0.4 mg/dL (0.2-1.2); Calc. Creatinine Clearance 0 mL/min (70-130); Calcium 9.5 mg/dL (7.8-10.44); Carbon Dioxide 26 mmol/L (23-31); Chloride 101 mmol/L (98-107); Estimated GFR-MDRD 70; Glucose 186 mg/dL (83-110); Lipase 31 U/L (8-78); Magnesium 1.6 mg/dL (1.6-2.6); Potassium 3.8 mmol/L (3.5-5.1); Protein, Total 6.9 g/dL (6.0-8.3); Sodium 136 mmol/L (136-145)
[2019-03-13] MEDS ORDERED: Ondansetron PF 4 MG/2 ML Vial ONE (21:57)
[2019-03-13] MEDS ORDERED: Furosemide 100 MG/10 ML VIAL ONE (23:02)
[2019-03-13 23:04] LABS: Bilirubin Negative (Negative); Blood, Urine Negative (Negative); Clarity Clear (Clear); Glucose, Urine (Dipstick) 50 mg/dL (Negative); Leukocyte Negative Leu/uL (Negative); Nitrite Negative (Negative); Protein, Urine (Dipstick) Negative (Neg-Trace); Urobilinogen Normal mg/dL (Less than 2)
--- NOTE | 2019-03-13 23:22 | CT ---
CT ANGIOGRAM OF THE ABDOMEN AND CHEST: Date: 03-13-19 Comparison: None History: Rapid heart rate for one week, evaluate for aortic dissection. Technique: Axial CT imaging at 2.5 mm intervals through the abdomen and chest with IV contrast using CT angiogram protocol with coronal and sagittal 3D reformatted imaging. FINDINGS: There is severe degenerative change involving the left shoulder. There is a right shoulder arthroplas ty. No axillary lymphadenopathy. Nonspecific mildly enlarged lymph nodes are noted in the AP window, right paratracheal region, subcarinal region. Lymph nodes measure up to 1.2 cm in short axis dimensio n within the subcarinal region. There is no evidence for aneurysm or dissection of the thoracic aorta . There is scattered atherosclerotic calcification of the distal aortic arch and the descending thora cic aorta. There is also diffuse atherosclerotic calcification of the coronary arterial vasculature. The patient is status post midline sternotomy. Small bilateral pleural effusions are noted. There is linear increased interstitial density noted alexandr aterally. This combination of findings suggest interstitial pulmonary edema. No focal consolidation i s seen. No discrete/dominant pulmonary parenchymal mass lesion or nodule noted. Peripheral nodularity within the anterior lateral upper aspect of the right middle lobe suggests mild volume loss or could be related to edema as well. The heart size appears enlarged. No free air or fluid seen in the abdomen. The pelvis is not imaged on this examination. There is wall thickening of the gallbladder and there is stranding of the fat adjacent to the gallbla dder extending into the fat inferior to the left lobe of the liver. Findings are suspicious for acute cholecystitis. The spleen, pancreas, adrenal glands, and kidneys demonstrate no acute findings. Ther e is atherosclerotic calcification involving the renal arterial structures. Nonspecific calcification is noted adjacent to the adrenal gland on the right which may reflect a remote insult. There is severe multifocal atherosclerotic calcification of the abdominal aorta and its branches. The re is severe stenosis at the origin of the superior mesenteric artery. There is severe stenosis invol ving the proximal aspect of the right renal artery and there are two left renal arteries, both of whi ch demonstrate probable hemodynamically significant stenosis. There is a focal non-flow limiting diss ection of the abdominal aorta in the infrarenal region, best seen on axial image 134 and coronal imag e 97. There is severe atherosclerotic calcification of the distal abdominal aorta and visualized port ions of bilateral common iliac arteries. Review of the osseous structures demonstrate severe degenerative change throughout the imaged spine. No worrisome lytic or blastic bone lesions. IMPRESSION: 1. Diffuse interstitial prominence with small bilateral pleural effusions and prominence of the heart suggests interstitial pulmonary edema. 2. The gallbladder wall appears thickened and there is pericholecystic inflammatory change. These fin dings are suspicious for acute cholecystitis. 3. Severe atherosclerotic disease as detailed above. No evidence for aortic aneurysm. 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 Code T POS: HAYLIE
[2019-03-13] MEDS ORDERED: HumaLOG 300 UNITS/3 ML VIAL SC PRN (23:26)
[2019-03-13] MEDS ORDERED: Acetaminophen 325 MG TAB PO PRN (23:26)
[2019-03-13] MEDS ORDERED: Bisacodyl 10 MG SUPP PR PRN (23:26)
[2019-03-13] MEDS ORDERED: Dextrose 5% in Water 1,000 ML IV PRN (23:26)
[2019-03-13] MEDS ORDERED: Ondansetron PF 4 MG/2 ML Vial IVP PRN (23:26)
[2019-03-13] MEDS ORDERED: Guaifenesin DM 100-10/5 ML UDCUP PO PRN (23:26)
[2019-03-13] MEDS ORDERED: Dextrose 50% Abboject 50 ML SYRINGE SLOW IVP PRN (23:26)
[2019-03-13] MEDS ORDERED: Enoxaparin Sodium 40 MG/0.4 ML SYRINGE SC SCH (23:30)
--- NOTE | 2019-03-13 23:57 | ULT ---
Right upper quadrant ultrasound: 03/13/2019 COMPARISON: None HISTORY: Right upper quadrant pain TECHNIQUE: Multiplanar grayscale sonographic imaging of the right upper quadrant provided. FINDINGS: The pancreas is poorly visualized secondary to bowel gas. No focal liver lesion is identifi ed. Partially visualized right pleural effusion noted. The appeals analyst reports a positive Bowles's sign. There is small volume pericholecystic fluid. There is prominent gallbladder wall thickening. No discrete gallstones noted. Common bile duct measures 5 mm, within normal limits. Right kidney measures 12.4 cm in craniocaudal dimension and demonstrates no stone, hydronephrosis, or mass lesion. IMPRESSION: Gallbladder wall thickening with pericholecystic fluid and positive Bowles's sign, suspic ious for acute cholecystitis. No cholelithiasis appreciated.
[2019-03-14] MEDS ORDERED: Piperacillin/Tazobactam 4.5 GM VIAL ONE (00:07)
--- NOTE | 2019-03-14 00:27 | HP ---
REASON FOR ADMISSION: Atrial fibrillation with RVR, CHF exacerbation, generalized anasarca, possible acute cholecystitis. HISTORY OF PRESENTING ILLNESS: The patient was initially sent over from her home by her home health nurse after she found her to be in atrial fibrillation with RVR. This has been ongoing off and on from last 2 days. The patient also developed generalized abdominal pain, which is nonspecific in any area as such. Her last bowel movement was this morning. She is also feeling tired and weak and developed palpitations at home. The patient mentions that she has been feeling weak for almost a week now. EMS found her to be in atrial fibrillation with RVR. They gave her 6 mg, then 12, and another 12 mg of adenosine, and 20 mg of Cardizem IV push prior to arrival here in the ER. On arrival, the patient was placed on Cardizem 5 mg an hour for atrial fibrillation. This is currently rate controlled around 86 per minute at present. Initial atrial fibrillation RVR in the EMS was 167 per minute. En route, the patient also developed some chest pressure for a few minutes, which has completely resolved at present. PAST MEDICAL AND SURGICAL HISTORY: History of CABG in 2001, coronary artery disease, bypass was four vessel disease, COPD, diabetes mellitus type 2, history of cervical stenosis, prior neck surgery. Prior stress test done in May 2018 showed reversible ischemia in the inferior wall and apex. Ejection fraction was 68%. Bilateral hip procedures, right shoulder surgery, hysterectomy. The patient has had C3-C6 posterior cervical laminectomy done by Dr. Boykin in February 2015, dyslipidemia, hypertension, peripheral vascular disease. Upper endoscopy done in April 2012 was normal. Had a HIDA scan in April 2012, which was normal, carpal tunnel surgery, left rotator cuff surgery done in March 2012, right carotid endarterectomy. PERSONAL HISTORY: Former smoker. Does not abuse alcohol or drugs. Lives with her . FAMILY HISTORY: Mother of heart disease in her 50s. Father from stroke in his 60s. Son of complications from diabetes. CURRENT MEDICATIONS: The patient is on; 1. Atorvastatin 40 mg p.o. daily. 2. Norvasc 5 mg p.o. daily. 3. Flexeril 10 mg p.o. three times daily p.r.n. 4. Duloxetine 60 mg p.o. daily. 5. Levemir 20 units subcu daily and 18 units subcu at bedtime. 6. Labetalol 100 mg p.o. three times daily. 7. Aspirin 81 mg p.o. daily. 8. Imdur extended release 30 mg p.o. daily. ALLERGIES: ALLERGIC TO IODINE, KETOROLAC, SERTRALINE, AND SULFA. CODE STATUS: Full. Power of attorney general is her . REVIEW OF SYSTEMS: CONSTITUTIONAL: Negative for weight loss or gain, ability to conduct usual activities. SKIN: Negative for rash, itching. EYES: Negative for double vision, pain. ENT/MOUTH: Negative for nose bleeding, neck stiffness, pain, tenderness. CARDIOVASCULAR: Negative for palpitations, dyspnea on exertion, orthopnea. RESPIRATORY: Negative for shortness of breath, wheezing, cough, hemoptysis, fever or night sweats. GASTROINTESTINAL: Negative for poor appetite, abdominal pain, heartburn, nausea , vomiting, constipation, or diarrhea. GENITOURINARY: Negative for urgency, frequency, dysuria, nocturia. MUSCULOSKELETAL: Negative for pain, swelling. NEUROLOGIC/PSYCHIATRIC: Negative for anxiety, depression. ALLERGY/IMMUNOLOGIC: Negative for skin rash, bleeding tendency. PHYSICAL EXAMINATION: GENERAL: The patient is an 88-year-old female, who is currently in mild abdominal distress. VITAL SIGNS: Blood pressure 152/50, pulse 106 per minute, respiratory rate 20 per minute, temperature 97.8 degrees Fahrenheit, saturating 96% on 2 L oxygen. NECK: Supple. No elevated JVD. HEENT: Eyes; extraocular muscles intact. Pupils reacting to light. Oral cavity, mucous membranes are dry. No exudates or congestion. CARDIOVASCULAR: S1 and S2 heard. Irregular rhythm. RESPIRATORY: Air entry 1+ bilateral. Scattered rhonchi plus. No rales or wheezes. ABDOMEN: Soft. There is mild tenderness, which is generalized. No rebound or guarding. EXTREMITIES: Left lower extremity is externally rotated and short. There is peripheral edema in both lower extremities. No calf tenderness. VASCULAR SYSTEM: Peripheral pulses 1+ bilateral. No ischemic ulcerations or gangrene. CENTRAL NERVOUS SYSTEM: No gross focal deficits noted. The patient is lethargic, but oriented well. PSYCHIATRIC: The patient's mood is euthymic. No hallucinations or delusions. LABORATORY DATA: Chest x-ray done shows signs of COPD. CT dissection protocol done shows interstitial prominence with small bilateral pleural effusion and pulmonary edema. Gallbladder wall appears to be thickened with pericholecystic fluid suspicious for acute cholecystitis. There is severe atherosclerosis seen. No aortic aneurysm seen. Right upper quadrant abdominal ultrasound results are pending. Urinalysis shows no evidence of UTI. TSH is 5.64, free T4 1.0, BNP 218. Liver enzymes are within normal limits. Albumin is 3.9, serum glucose 186, BUN 12, creatinine 0.7, T bilirubin 0.4, AST 8, ALT 7, alkaline phosphatase 102. Electrolytes stable. PT/INR 14 and 1.1, PTT 39. White count of 7, H and H 11 and 33, platelet count 298 with 67% neutrophils, MCV is 92. EKG done shows atrial fibrillation with ventricular rate of 90, incomplete LBBB seen. CLINICAL IMPRESSION AND PLAN: The patient will be admitted to telemetry for initial atrial fibrillation with RVR, which is rate controlled on Cardizem 5 mg an hour drip. We will continue her home dose of labetalol 100 mg three times daily. No anticoagulation will be given now in view of findings of acute cholecystitis on the CAT scan. We will also diurese her with Lasix 40 mg at 6 a.m. and 2 p.m. for a total of 4 doses. The patient is not sure if she is taking prednisone. In view of her current acute symptoms, we will not risk adrenal insufficiency and we will continue 10 mg for now. This needs to be confirmed with the pharmacy in the morning. We will also consult Dr. Berger, who is on-call for General Surgery. Echo with 2D Doppler for LV function. Bilateral lower extremity ultrasound to rule out DVT. Lipid profile with a repeat TSH in the morning. We will continue Lipitor, Flexeril p.r.n., Cymbalta, DuoNeb q.6 hourly, Imdur extended release 30 mg daily as before. She will be on Lantus 18 units subcu at bedtime along with Humalog moderate scale. The patient has multiple medical issues and will be a high risk for surgery. If the patient does have acute cholecystitis, she needs to be medically optimized prior to surgery. We will obtain consultation with Dr. Candelario for Cardiology as well. The patient apparently sees Dr. Richmond Oleary. Job ID: [id number] [facility]
[2019-03-14] MEDS ORDERED: Fentanyl 100 MCG/2 ML VIAL ONE ×2 (01:35→08:09)
[2019-03-14] MEDS: Fentanyl 100 MCG/2 ML VIAL SLOW IVP PRN ×2 (01:40→08:15)
[2019-03-14 03:15] LABS: #Lymphocytes 0.6 thou/uL (1.20-3.40); #Monocytes 0.1 thou/uL (0.11-0.59); #Neutrophils 7.7 thou/uL (1.40-6.50); %Basophils 0.5 % (0.0-1.0); %Eosinophils 0.3 % (0.0-10.0); %Monocytes 0.8 % (0.0-10.0); %Neutrophils 91.5 % (42.0-75.0); Hemoglobin 11.3 g/dL (12.0-16.0); Mean Corpuscular HGB CONC 33.9 g/dL (32.0-36.0); Mean Corpuscular Hemoglobin 31.4 pg (27.0-31.0); Mean Corpuscular Volume 92.6 fL (78.0-98.0); Mean Platelet Volume 8.1 fL (7.4-10.4); Platelet Count 292 thou/uL (130-400); RBC Distribution Width 13.1 % (11.5-14.5); White Blood Cell (WBC) Count 8.4 thou/uL (4.8-10.8)
[2019-03-14 03:50] LABS: Anion Gap 14 mmol/L (10-20); BUN (Urea Nitrogen) 12 mg/dL (9.8-20.1); Calc. Creatinine Clearance 0 mL/min (70-130); Calcium 9.7 mg/dL (7.8-10.44); Carbon Dioxide 29 mmol/L (23-31); Cardiac Risk 3.4 (Less than 4.5); Chloride 98 mmol/L (98-107); Cholesterol 137 mg/dl (< 200 Desired); Estimated GFR-MDRD 62; Glucose 313 mg/dL (83-110); HDL Cholesterol 40 mg/dL (>60 Neg Risk); LDL Cholesterol, Calculated 82 mg/dL; Sodium 137 mmol/L (136-145); Triglycerides 73 mg/dL (Less than 150)
[2019-03-14] MEDS ORDERED: Furosemide 40 MG/4 ML VIAL ONE (06:31)
[2019-03-14] MEDS ORDERED: Piperacillin/Tazobactam 3.375 GM VIAL ONE (06:31)
[2019-03-14] MEDS: Furosemide 40 MG/4 ML VIAL SLOW IVP SCH ×2 (06:39→15:36)
[2019-03-14] MEDS: Piperacillin/Tazobactam 3.375 GM in Sodium Chloride 0.9% 100 ML IVPB SCH ×3 (06:39→18:30)
[2019-03-14] MEDS ORDERED: Insulin Glargine 20 UNITS in Pre-Filled Syringe 1 EACH SC SCH (07:15)
[2019-03-14] MEDS ORDERED: predniSONE 5 MG TAB PO SCH (08:00)
[2019-03-14] MEDS ORDERED: predniSONE 20 MG TAB ONE (08:10)
[2019-03-14] MEDS ORDERED: Atorvastatin Calcium 40 MG TAB PO SCH (09:00)
[2019-03-14] MEDS ORDERED: Aspirin 81 mg Enteric Coated Tablet PO SCH (09:00)
--- NOTE | 2019-03-14 09:38 | CON ---
DATE OF CONSULTATION: 03/14/2019 CHIEF COMPLAINT: Rapid heart rate. HISTORY OF PRESENT ILLNESS: This is an 88-year-old female who presents with a history of atrial fibrillation and RVR, seen in the emergency department, where she was also found to have abdominal pain. The patient notes chronic abdominal pain that is more of a spasm. She relates this to chronic neck and back issues. She describes the abdominal pain is diffuse, mostly in the upper center of her abdomen, associated with nausea, no vomiting, no anorexia, no chronic diarrhea. She denies history of known jaundice, gallstones, pancreatitis. She did have an ultrasound in the emergency room, which showed pericholecystic fluid, gallbladder wall thickening, suspicious for cholecystitis. She had CT scan as well dissection protocol that showed similar findings around the gallbladder. Her liver function tests and lipase are normal. PAST MEDICAL HISTORY: Includes coronary artery disease, peripheral vascular disease, COPD, and cervical stenosis. PAST SURGICAL HISTORY: CABG in 2001, neck surgery, right shoulder, hysterectomy, bilateral hips, carpal tunnel, left rotator cuff, and right carotid endarterectomy. SOCIAL HISTORY: Former smoker. No alcohol or other drugs. Lives at home with her . FAMILY HISTORY: Noncontributory to GI malignancy or anesthetic-related complication. MEDICATIONS: At home: 1. Statin. 2. Norvasc. 3. Flexeril. 4. Duloxetine. 5. Levemir. 6. Labetalol. 7. Aspirin. 8. Imdur. ALLERGIES: IODINE, KETOROLAC, SERTRALINE, AND SULFA. REVIEW OF SYSTEMS: Review of systems is otherwise negative. 10-system review of systems is otherwise negative unless described above. PHYSICAL EXAMINATION: VITAL SIGNS: Her blood pressure is 140/80. Her pulse is 105. Respirations 12. She is afebrile. HEENT: Sclerae are anicteric. Oropharynx clear. NECK: No lymphadenopathy. CHEST: Clear. HEART: Increased rate. Regular rhythm. ABDOMEN: Soft. Diffusely more tender in the right upper quadrant. EXTREMITIES: No ischemia or edema to extremities. LABORATORY DATA: Her sodium is 137, potassium 4.0, creatinine 0.87. Liver function tests were normal. Lipase normal last night. DIAGNOSTIC DATA: Ultrasound and CT scan as above. ASSESSMENT: 1. Atrial fibrillation with rapid ventricular response. 2. History of coronary artery disease. 3. Hypertension. 4. Hyperlipidemia. 5. Right upper quadrant pain with ultrasound and CT findings consistent with acalculous cholecystitis. PLAN: Management options likely do not include surgery at this point. She could be managed medically with pain control and antibiotics. Alternatively, if symptoms persist, could have a cholecystostomy tube placed by Interventional Radiology. We will follow with you and decide once her condition stabilizes more. She certainly does not act septic at this time, so I do not think that she needs any urgent intervention in terms of the gallbladder today. Dr. Berger is going to be seen her for me in the next few days. We will discuss with him as well. Job ID: [id number]
[2019-03-14] MEDS: Isosorbide Mononitrate (ER) 30 MG TAB PO SCH (10:04)
[2019-03-14] MEDS: Senokot S 8.6-50 MG TAB PO SCH ×2 (10:04→21:00)
[2019-03-14] MEDS: Famotidine 20 MG TAB PO SCH ×2 (10:21→20:59)
[2019-03-14] MEDS: Labetalol 100 MG TAB PO SCH ×3 (10:21→21:00)
[2019-03-14] MEDS: DULoxetine 60 MG CAP PO SCH (10:21)
[2019-03-14] MEDS: Cyclobenzaprine 10 MG TAB PO PRN ×2 (10:22→21:00)
--- NOTE | 2019-03-14 12:09 | ULT ---
EXAM: Bilateral lower extremity venous ultrasound HISTORY: Bilateral lower extremity pain and edema COMPARISON: 02/28/2015 TECHNIQUE: Multiplanar grayscale and color Doppler images were obtained in a bilateral lower extremit y venous ultrasound. Spectral analysis of the Doppler waveforms were performed. FINDINGS: The bilateral common femoral vein, profunda femoral veins, superficial femoral veins, and p opliteal veins are normal in appearance without visible thrombus. These vessels demonstrate normal compression, flow, and augmentation. The bilateral posterior tibial veins and greater saphenous veins are patent without evidence of throm bus. IMPRESSION: No evidence of DVT.
[2019-03-14] MEDS: HumaLOG 300 UNITS/3 ML VIAL SC PRN ×4 (13:07→21:28)
[2019-03-14 13:46] LABS: Glucose Accucheck Confirmation 601 mg/dl (83-110)
--- NOTE | 2019-03-14 15:34 | PDOC.HOSPP ---
- Subjective Encounter Date: 03/14/19 Encounter Time: 15:32 Subjective: Continues to have some generalized abdominal pain. Had several days of pain and distention. Did not eat much. Was not constipated. - Objective Vital Signs & Weight: Vital Signs (12 hours) Temp Pulse Resp BP BP Pulse Ox 03/14/19 12:41 98.0 F 74 18 139/58 L 97 03/14/19 12:24 74 18 97 03/14/19 10:21 75 117/57 L 03/14/19 08:56 98.1 F 78 18 148/65 H 95 03/14/19 08:12 102 H 20 98 Weight Weight 186 lb 11.2 oz Result Diagrams: 03/14/19 02:54 03/14/19 02:54 Additional Labs: Accuchecks 03/14/19 03/14/19 11:01 06:45 POC Glucose Greater than 550 H* 386 H Hospitalist ROS - Medication Medications: Active Medications Generic Name Dose Route Start Last Admin Trade Name Freq PRN Reason Stop Dose Admin Albuterol/Ipratropium 3 ml 03/14/19 01:00 03/14/19 12:24 Duoneb NEB 3 ml [id number] VISHAL Administration Cyclobenzaprine HCl 10 mg 03/13/19 23:26 03/14/19 10:22 Flexeril PO 10 mg TID PRN Administration Muscle Spasm Duloxetine HCl 60 mg 03/14/19 09:00 03/14/19 10:21 Cymbalta PO 60 mg DAILY VISHAL Administration Famotidine 20 mg 03/14/19 09:00 03/14/19 10:21 Pepcid PO 20 mg BID VISHAL Administration Fentanyl 25 mcg 03/14/19 01:10 03/14/19 08:15 Sublimaze SLOW IVP 25 mcg Q6H PRN Administration Severe Pain (7-10) Furosemide 40 mg 03/14/19 06:00 03/14/19 06:39 Lasix SLOW IVP 03/15/19 14:01 40 mg 0600,1400 VISHAL Administration Piperacillin Sod/Tazobactam 100 mls @ 200 mls/hr 03/14/19 06:00 03/14/19 13: 11 Sod 3.375 gm/ Sodium Chloride IVPB 100 mls Q6HR VISHAL Administration Insulin Human Lispro 0 units 03/14/19 12:34 03/14/19 13:07 Humalog SC 13 unit .AGGRESSIVE SLIDING PRN Administration AGGRESSIVE SLIDING SCALE Protocol Isosorbide Mononitrate 30 mg 03/14/19 09:00 03/14/19 10:04 Imdur Er PO Not Given DAILY VISHAL Labetalol HCl 100 mg 03/14/19 09:00 03/14/19 10:21 Normodyne PO 100 mg TID VISHAL Administration Prednisone 10 mg 03/14/19 08:00 03/14/19 10:04 Prednisone PO Not Given QAM-WM VISHAL Senna/Docusate Sodium 2 tab 03/14/19 09:00 03/14/19 10:04 Senokot S PO Not Given BID VISHAL Sodium Chloride 10 ml 03/14/19 09:00 03/14/19 10:22 Flush - Normal Saline IVF 10 ml Q12HR VISHAL Administration - Exam General Appearance: NAD, awake alert, ill appearing Heart: no murmur, no gallops, no rubs, normal peripheral pulses, irregular Respiratory: CTAB, no wheezes, no rales, no ronchi, normal chest expansion, no tachypnea, normal percussion Gastrointestinal: soft, tender to palpation (diffusely.), distended (mildly, diffusely) Extremities: no cyanosis, no clubbing, no edema Musculoskeletal: normal tone Psychiatric: normal affect Hosp A/P (1) Abdominal pain Code(s): R10.9 - UNSPECIFIED ABDOMINAL PAIN Status: Acute (2) Cholecystitis Code(s): K81.9 - CHOLECYSTITIS, UNSPECIFIED Status: Acute (3) Atrial fibrillation with rapid ventricular response Code(s): I48.91 - UNSPECIFIED ATRIAL FIBRILLATION Status: Acute (4) DM type 2 (diabetes mellitus, type 2) Status: Chronic (5) H/O TIA (transient ischemic attack) and stroke Code(s): Z86.73 - PRSNL HX OF TIA (TIA), AND CEREB INFRC W/O RESID DEFICITS Status: Chronic (6) HLD (hyperlipidemia) Code(s): E78.5 - HYPERLIPIDEMIA, UNSPECIFIED Status: Chronic (7) HTN (hypertension) Code(s): I10 - ESSENTIAL (PRIMARY) HYPERTENSION Status: Chronic (8) PVD (peripheral vascular disease) Code(s): I73.9 - PERIPHERAL VASCULAR DISEASE, UNSPECIFIED Status: Chronic (9) S/P CABG (coronary artery bypass graft) Code(s): Z95.1 - PRESENCE OF AORTOCORONARY BYPASS GRAFT Status: Chronic - Plan Diffuse abdominal pain. D/W CVS. Mesenteric vessels with significant atherosclerotic dz, but had adequate flow. Not concerned with the very small infra-renal dissection. Surgery does not intend cholecystectomy. Continue IV Abx and monitoring. Pain control with IV morphine and bentyl. Good rate control now on Cardizem gtt. Cards consult pending. Blood sugars are very high. Received steroids in the ED. Not clear to me why. Will continue to pursue the hyperglycemia with aggressive insulin.
[2019-03-14] MEDS ORDERED: Morphine 2 MG/ML SYRINGE SLOW IVP SCH (16:15)
[2019-03-14 16:54] LABS: Troponin I 0.021 ng/mL (< 0.028)
[2019-03-14] MEDS: Atorvastatin Calcium 40 MG TAB PO SCH (21:00)
[2019-03-14] MEDS ORDERED: Non-Formulary Item 1 EACH (Insulin Detemir [Levemir] 18 UNIT) SQ SCH (21:00)
[2019-03-14] MEDS: Insulin Glargine 18 UNITS in Pre-Filled Syringe 1 EACH SC SCH (21:27)
[2019-03-14] MEDS: Morphine 2 MG/ML SYRINGE SLOW IVP PRN (23:31)
[2019-03-14] MEDS: Diltiazem 125 MG in Sodium Chloride 0.9% 100 ML IVPB SCH (23:31)
[2019-03-15 00:34] LABS: Troponin I 0.057 ng/mL (< 0.028)
[2019-03-15] MEDS: Piperacillin/Tazobactam 3.375 GM in Sodium Chloride 0.9% 100 ML IVPB SCH ×5 (01:22→23:31)
[2019-03-15] MEDS: Furosemide 40 MG/4 ML VIAL SLOW IVP SCH (05:50)
[2019-03-15 08:55] LABS: #Lymphocytes 1.8 thou/uL (1.20-3.40); #Monocytes 0.8 thou/uL (0.11-0.59); #Neutrophils 5.4 thou/uL (1.40-6.50); %Basophils 0.5 % (0.0-1.0); %Eosinophils 0.5 % (0.0-10.0); %Lymphocytes 22.8 % (21.0-51.0); %Monocytes 9.9 % (0.0-10.0); %Neutrophils 66.4 % (42.0-75.0); Mean Corpuscular Hemoglobin 31.8 pg (27.0-31.0); Mean Corpuscular Volume 96.3 fL (78.0-98.0); Mean Platelet Volume 8.2 fL (7.4-10.4); Platelet Count 322 thou/uL (130-400); RBC Distribution Width 13.3 % (11.5-14.5); Red Blood Cell (RBC) Count 3.45 mill/uL (4.20-5.40); White Blood Cell (WBC) Count 8.1 thou/uL (4.8-10.8)
[2019-03-15] MEDS: Labetalol 100 MG TAB PO SCH ×3 (09:07→21:13)
[2019-03-15] MEDS: Senokot S 8.6-50 MG TAB PO SCH ×2 (09:08→21:13)
[2019-03-15] MEDS: Famotidine 20 MG TAB PO SCH (09:08)
[2019-03-15] MEDS: DULoxetine 60 MG CAP PO SCH (09:08)
[2019-03-15] MEDS: Isosorbide Mononitrate (ER) 30 MG TAB PO SCH (09:09)
[2019-03-15 09:10] LABS: Anion Gap 20 mmol/L (10-20); BUN (Urea Nitrogen) 16 mg/dL (9.8-20.1); Calc. Creatinine Clearance 48 mL/min (70-130); Calcium 8.9 mg/dL (7.8-10.44); Carbon Dioxide 24 mmol/L (23-31); Chloride 95 mmol/L (98-107); Estimated GFR-MDRD 46; Glucose 216 mg/dL (83-110); Potassium 3.5 mmol/L (3.5-5.1); Sodium 135 mmol/L (136-145)
[2019-03-15] MEDS: Morphine 2 MG/ML SYRINGE SLOW IVP PRN ×3 (09:10→23:41)
[2019-03-15] MEDS: Cyclobenzaprine 10 MG TAB PO PRN ×2 (11:36→23:34)
[2019-03-15] MEDS: HumaLOG 300 UNITS/3 ML VIAL SC PRN ×3 (11:36→21:16)
--- NOTE | 2019-03-15 16:19 | PDOC.HOSPP ---
- Subjective Subjective: Doing a little better with her abdominal pain. Has had some shoulder pain and took her muscle relaxer for that. - Objective Vital Signs & Weight: Vital Signs (12 hours) Temp Pulse Pulse Pulse Resp BP BP 03/15/19 15:05 97.8 F 89 20 03/15/19 13:25 85 16 03/15/19 11:31 97.3 F L 77 20 03/15/19 09:38 89 87 112/56 L 137/62 03/15/19 08:55 97.7 F 87 20 03/15/19 07:14 79 20 BP Pulse Ox Pulse Ox Pulse Ox 03/15/19 15:05 149/65 H 96 03/15/19 13:25 94 L 03/15/19 11:31 128/61 98 03/15/19 09:38 95 97 03/15/19 08:55 143/65 H 96 03/15/19 07:14 95 Weight Admit Weight 186 lb 11.2 oz Weight 186 lb 11.2 oz I&O: 03/14/19 03/15/19 03/16/19 06:59 06:59 06:59 Intake Total 1340 Output Total 1600 Balance -260 Result Diagrams: 03/15/19 08:33 03/15/19 08:33 Additional Labs: Accuchecks 03/15/19 03/15/19 03/15/19 10:52 06:00 02:23 POC Glucose 237 H 174 H 135 H 03/14/19 03/14/19 03/14/19 21:17 18:08 12:39 POC Glucose 344 H 417 H Greater than 550 H* Hospitalist ROS - Medication Medications: Active Medications Generic Name Dose Route Start Last Admin Trade Name Freq PRN Reason Stop Dose Admin Albuterol/Ipratropium 3 ml 03/14/19 01:00 03/15/19 13:25 Duoneb NEB 3 ml [id number] VISHAL Administration Atorvastatin Calcium 40 mg 03/14/19 21:00 03/14/19 21:00 Lipitor PO 40 mg HS VISHAL Administration Cyclobenzaprine HCl 10 mg 03/13/19 23:26 03/15/19 11:36 Flexeril PO 10 mg TID PRN Administration Muscle Spasm Duloxetine HCl 60 mg 03/14/19 09:00 03/15/19 09:08 Cymbalta PO 60 mg DAILY VISHAL Administration Guaifenesin/Dextromethorphan 15 ml 03/13/19 23:26 03/15/19 15:08 Robitussin Dm PO 15 ml Q4H PRN Administration Cough Diltiazem HCl 125 mg/ Sodium 125 mls @ 5 mls/hr 03/13/19 23:30 03/14/19 23:31 Chloride IVPB 125 mls INF VISHAL Administration Protocol 5 MG/HR Insulin Glargine 18 units/ 0.18 mls @ 0 mls/hr 03/14/19 21:00 03/14/19 21:27 Miscellaneous Medication SC 0.18 mls HS VISHAL Administration Piperacillin Sod/Tazobactam 100 mls @ 200 mls/hr 03/14/19 06:00 03/15/19 11: 37 Sod 3.375 gm/ Sodium Chloride IVPB 100 mls Q6HR VISHAL Administration Insulin Human Lispro 0 units 03/14/19 12:34 03/15/19 11:36 Humalog SC 6 unit .AGGRESSIVE SLIDING PRN Administration AGGRESSIVE SLIDING SCALE Protocol Isosorbide Mononitrate 30 mg 03/14/19 09:00 03/15/19 09:09 Imdur Er PO Not Given DAILY VISHAL Labetalol HCl 100 mg 03/14/19 09:00 03/15/19 15:08 Normodyne PO 100 mg TID VISHAL Administration Morphine Sulfate 2 mg 03/14/19 15:53 03/15/19 15:08 Morphine SLOW IVP 2 mg Q4H PRN Administration Moderate to Severe Pain (6-10) Ondansetron HCl 4 mg 03/13/19 23:26 03/15/19 09:10 Zofran IVP 4 mg Q6H PRN Administration Nausea/Vomiting Senna/Docusate Sodium 2 tab 03/14/19 09:00 03/15/19 09:08 Senokot S PO 2 tab BID VISHAL Administration Sodium Chloride 10 ml 03/14/19 09:00 03/15/19 09:08 Flush - Normal Saline IVF 10 ml Q12HR VISHAL Administration - Exam General Appearance: NAD, awake alert Heart: no murmur, no gallops, no rubs, normal peripheral pulses, irregular Respiratory: CTAB, no wheezes, no rales, no ronchi, normal chest expansion, no tachypnea, normal percussion Gastrointestinal: soft Gastrointestinal - other findings: Hyperactive BS. Modest distention. Mild gen TTP. Decreased. Extremities: no cyanosis, no clubbing, no edema Musculoskeletal: normal tone, normal strength, no muscle wasting Psychiatric: normal affect, lethargic Hosp A/P (1) Abdominal pain Code(s): R10.9 - UNSPECIFIED ABDOMINAL PAIN Status: Acute (2) Cholecystitis Code(s): K81.9 - CHOLECYSTITIS, UNSPECIFIED Status: Acute (3) Atrial fibrillation with rapid ventricular response Code(s): I48.91 - UNSPECIFIED ATRIAL FIBRILLATION Status: Acute (4) DM type 2 (diabetes mellitus, type 2) Status: Chronic (5) H/O TIA (transient ischemic attack) and stroke Code(s): Z86.73 - PRSNL HX OF TIA (TIA), AND CEREB INFRC W/O RESID DEFICITS Status: Chronic (6) HLD (hyperlipidemia) Code(s): E78.5 - HYPERLIPIDEMIA, UNSPECIFIED Status: Chronic (7) HTN (hypertension) Code(s): I10 - ESSENTIAL (PRIMARY) HYPERTENSION Status: Chronic (8) PVD (peripheral vascular disease) Code(s): I73.9 - PERIPHERAL VASCULAR DISEASE, UNSPECIFIED Status: Chronic (9) S/P CABG (coronary artery bypass graft) Code(s): Z95.1 - PRESENCE OF AORTOCORONARY BYPASS GRAFT Status: Chronic - Plan Diffuse abdominal pain. D/W CVS. Mesenteric vessels with significant atherosclerotic dz, but had adequate flow. Not concerned with the very small infra-renal dissection. Surgery does not intend cholecystectomy. Continue IV Abx and monitoring. Pain control with IV morphine and bentyl. Seems to be little better today. Afebrile. Nml WBC. Good rate control now on Cardizem gtt. Cards consult pending. Blood sugars were very high. Now improved. Received steroids in the ED. Not clear to me why. Resume eye gtts for glaucoma.
[2019-03-15] MEDS: Dicyclomine 10 MG/5 ML UDCUP PO PRN (17:30)
[2019-03-15] MEDS: Insulin Glargine 18 UNITS in Pre-Filled Syringe 1 EACH SC SCH (21:12)
[2019-03-15] MEDS: Brimonidine Tartrate 0.2% Ophth Soln 5 ml Bottle EA EYE SCH (21:12)
[2019-03-15] MEDS: Atorvastatin Calcium 40 MG TAB PO SCH (21:12)
[2019-03-15] MEDS: Timolol 0.5% Ophth Soln 5 ml Bottle EA EYE SCH (21:13)
[2019-03-15] MEDS: Latanoprost 0.005% Ophth Soln 2.5 ml Bottle EA EYE SCH (21:16)
[2019-03-15] MEDS: Diltiazem 125 MG in Sodium Chloride 0.9% 100 ML IVPB SCH (23:32)
[2019-03-16] MEDS: Piperacillin/Tazobactam 3.375 GM in Sodium Chloride 0.9% 100 ML IVPB SCH ×4 (05:06→23:54)
[2019-03-16] MEDS: Morphine 2 MG/ML SYRINGE SLOW IVP PRN ×4 (05:06→17:18)
[2019-03-16 05:12] LABS: #Basophils 0.1 thou/uL (0.0-0.2); #Eosinphils 0.3 thou/uL (0.0-0.7); #Lymphocytes 2.4 thou/uL (1.20-3.40); #Neutrophils 3.9 thou/uL (1.40-6.50); %Eosinophils 3.4 % (0.0-10.0); %Lymphocytes 31.3 % (21.0-51.0); %Monocytes 13.3 % (0.0-10.0); Hemoglobin 10.7 g/dL (12.0-16.0); Mean Corpuscular HGB CONC 32.4 g/dL (32.0-36.0); Mean Corpuscular Hemoglobin 30.8 pg (27.0-31.0); Mean Platelet Volume 8.1 fL (7.4-10.4); Platelet Count 297 thou/uL (130-400); RBC Distribution Width 13.3 % (11.5-14.5); Red Blood Cell (RBC) Count 3.47 mill/uL (4.20-5.40); White Blood Cell (WBC) Count 7.6 thou/uL (4.8-10.8)
[2019-03-16 05:34] LABS: Anion Gap 13 mmol/L (10-20); BUN (Urea Nitrogen) 13 mg/dL (9.8-20.1); Calc. Creatinine Clearance 59 mL/min (70-130); Carbon Dioxide 33 mmol/L (23-31); Chloride 96 mmol/L (98-107); Estimated GFR-MDRD 59; Glucose 109 mg/dL (83-110); Potassium 3.2 mmol/L (3.5-5.1); Sodium 139 mmol/L (136-145)
[2019-03-16] MEDS ORDERED: Potassium Chloride 20 MEQ TAB PO SCH (07:45)
[2019-03-16] MEDS: Brimonidine Tartrate 0.2% Ophth Soln 5 ml Bottle EA EYE SCH ×2 (08:26→21:29)
[2019-03-16] MEDS: Famotidine 20 MG TAB PO SCH (08:27)
[2019-03-16] MEDS: DULoxetine 60 MG CAP PO SCH (08:27)
[2019-03-16] MEDS: Isosorbide Mononitrate (ER) 30 MG TAB PO SCH (08:27)
[2019-03-16] MEDS: Labetalol 100 MG TAB PO SCH ×3 (08:27→21:29)
[2019-03-16] MEDS: Timolol 0.5% Ophth Soln 5 ml Bottle EA EYE SCH ×2 (08:28→21:29)
[2019-03-16] MEDS: Senokot S 8.6-50 MG TAB PO SCH ×2 (08:28→21:30)
[2019-03-16] MEDS: Cyclobenzaprine 10 MG TAB PO PRN ×2 (09:36→17:08)
[2019-03-16] MEDS: HumaLOG 300 UNITS/3 ML VIAL SC PRN ×2 (11:31→21:30)
[2019-03-16] MEDS: Dicyclomine 10 MG/5 ML UDCUP PO PRN (12:33)
--- NOTE | 2019-03-16 20:54 | PDOC.HOSPP ---
- Subjective Subjective: Continues to report generalized abdominal pain. Does not feel that it is localized. Says at home she is able to get to her wheelchair, but that is about all of the activity she gets. Has had normal bowel movements. - Objective Vital Signs & Weight: Vital Signs (12 hours) Temp Pulse Resp BP BP Pulse Ox 03/16/19 19:31 97.7 F 80 20 116/53 L 98 03/16/19 19:05 16 03/16/19 15:17 97.5 F L 76 18 122/60 95 03/16/19 14:33 79 119/58 L 03/16/19 12:45 84 16 03/16/19 11:24 97.2 F L 74 18 114/56 L 96 Weight Admit Weight 186 lb 11.2 oz Weight 186 lb 11.2 oz I&O: 03/15/19 03/16/19 03/17/19 06:59 06:59 06:59 Intake Total 1340 1600 1180 Output Total 1600 2750 1050 Balance -260 -1150 130 Result Diagrams: 03/16/19 04:33 03/16/19 04:32 Additional Labs: Accuchecks 03/16/19 03/16/19 03/16/19 16:39 10:29 05:41 POC Glucose 140 H 259 H 133 H 03/15/19 20:08 POC Glucose 297 H Hospitalist ROS - Medication Medications: Active Medications Generic Name Dose Route Start Last Admin Trade Name Freq PRN Reason Stop Dose Admin Albuterol/Ipratropium 3 ml 03/14/19 01:00 03/16/19 19:05 Duoneb NEB 3 ml [id number] VISHAL Administration Atorvastatin Calcium 40 mg 03/14/19 21:00 03/15/19 21:12 Lipitor PO 40 mg HS VISHAL Administration Brimonidine Tartrate 0 drop 03/15/19 21:00 03/16/19 08:26 Alphagan 0.2% Ophth Soln EA EYE 1 drop BID VISHAL Administration Cyclobenzaprine HCl 10 mg 03/13/19 23:26 03/16/19 17:08 Flexeril PO 10 mg TID PRN Administration Muscle Spasm Dicyclomine HCl 10 mg 03/14/19 15:53 03/16/19 12:33 Bentyl PO 10 mg QIDPRN PRN Administration Pain Duloxetine HCl 60 mg 03/14/19 09:00 03/16/19 08:27 Cymbalta PO 60 mg DAILY VISHAL Administration Famotidine 20 mg 03/16/19 09:00 03/16/19 08:27 Pepcid PO 20 mg DAILY VISHAL Administration Guaifenesin/Dextromethorphan 15 ml 03/13/19 23:26 03/15/19 15:08 Robitussin Dm PO 15 ml Q4H PRN Administration Cough Insulin Glargine 18 units/ 0.18 mls @ 0 mls/hr 03/14/19 21:00 03/15/19 21:12 Miscellaneous Medication SC 0.18 mls HS VISHAL Administration Piperacillin Sod/Tazobactam 100 mls @ 200 mls/hr 03/14/19 06:00 03/16/19 17: 02 Sod 3.375 gm/ Sodium Chloride IVPB 100 mls Q6HR VISHAL Administration Insulin Human Lispro 0 units 03/13/19 23:26 03/15/19 21:16 Humalog SC 3 unit .BEDTIME SLIDING SC PRN Administration Bedtime Correctional Scale Insulin Human Lispro 0 units 03/14/19 12:34 03/16/19 11:31 Humalog SC 9 unit .AGGRESSIVE SLIDING PRN Administration AGGRESSIVE SLIDING SCALE Protocol Isosorbide Mononitrate 30 mg 03/14/19 09:00 03/16/19 08:27 Imdur Er PO 30 mg DAILY VISHAL Administration Labetalol HCl 100 mg 03/14/19 09:00 03/16/19 14:33 Normodyne PO 100 mg TID VISHAL Administration Latanoprost 1 drop 03/15/19 21:00 03/15/19 21:16 Xalatan 0.005% Ophth Soln EA EYE 1 drop HS VISHAL Administration Morphine Sulfate 2 mg 03/14/19 15:53 03/16/19 17:18 Morphine SLOW IVP 2 mg Q4H PRN Administration Moderate to Severe Pain (6-10) Ondansetron HCl 4 mg 03/13/19 23:26 03/15/19 09:10 Zofran IVP 4 mg Q6H PRN Administration Nausea/Vomiting Senna/Docusate Sodium 2 tab 03/14/19 09:00 03/16/19 08:28 Senokot S PO Not Given BID VISHAL Sodium Chloride 10 ml 03/14/19 09:00 03/16/19 08:28 Flush - Normal Saline IVF 10 ml Q12HR VISHAL Administration Timolol Maleate 0 drop 03/15/19 21:00 03/16/19 08:28 Timoptic 0.5% Ophth Soln EA EYE 1 drop BID VISHAL Administration - Exam General Appearance: NAD, awake alert General - other findings: Uncomfortable feeling. Heart: no murmur, irregular Respiratory: CTAB, no wheezes, no rales, no ronchi, normal chest expansion, no tachypnea, normal percussion Gastrointestinal: normal bowel sounds, no palpable masses, no hepatomegaly, no splenomegaly, no bruit Extremities: no cyanosis, no clubbing, no edema Skin: normal turgor Musculoskeletal: generalized weakness Hosp A/P (1) Abdominal pain Code(s): R10.9 - UNSPECIFIED ABDOMINAL PAIN Status: Acute Qualifiers: Abdominal location: generalized Qualified Code(s): R10.84 - Generalized abdominal pain (2) Cholecystitis Code(s): K81.9 - CHOLECYSTITIS, UNSPECIFIED Status: Acute (3) Atrial fibrillation with rapid ventricular response Code(s): I48.91 - UNSPECIFIED ATRIAL FIBRILLATION Status: Acute (4) DM type 2 (diabetes mellitus, type 2) Status: Chronic (5) H/O TIA (transient ischemic attack) and stroke Code(s): Z86.73 - PRSNL HX OF TIA (TIA), AND CEREB INFRC W/O RESID DEFICITS Status: Chronic (6) HLD (hyperlipidemia) Code(s): E78.5 - HYPERLIPIDEMIA, UNSPECIFIED Status: Chronic (7) HTN (hypertension) Code(s): I10 - ESSENTIAL (PRIMARY) HYPERTENSION Status: Chronic (8) PVD (peripheral vascular disease) Code(s): I73.9 - PERIPHERAL VASCULAR DISEASE, UNSPECIFIED Status: Chronic (9) S/P CABG (coronary artery bypass graft) Code(s): Z95.1 - PRESENCE OF AORTOCORONARY BYPASS GRAFT Status: Chronic (10) CAD (coronary artery disease) Code(s): I25.10 - ATHSCL HEART DISEASE OF [place] CORONARY ARTERY W/O ANG PCTRS Status: Chronic (11) Cervical stenosis of spinal canal Code(s): M48.02 - SPINAL STENOSIS, CERVICAL REGION Status: Chronic - Plan Diffuse abdominal pain. D/W CVS. Mesenteric vessels with significant atherosclerotic dz, but had adequate flow. Not concerned with the very small infra-renal dissection. Surgery does not intend cholecystectomy. Continue IV Abx and monitoring. Pain control with IV morphine. Will stop bentyl as she says it waters her stomach. Afebrile. Nml WBC. Normal BM's. Etiology is unclear. Pain is diffuse. TTP is diffuse. Imaging concerning for cholecystitis, but exam is not consistent. Nothing else showing up. May need to consider gabapentin or Lyrica if she does not improve. Good rate control. Stopped the Cardizem gtt as she had relative hypotension. Cards consult pending. Lovenox for therapeutic level anticoagulation. Blood sugars were very high. Now improved. Resume eye gtts for glaucoma.
[2019-03-16] MEDS: Enoxaparin Sodium 80 MG/0.8 ML SYRINGE SC SCH (21:28)
[2019-03-16] MEDS: Latanoprost 0.005% Ophth Soln 2.5 ml Bottle EA EYE SCH (21:29)
[2019-03-16] MEDS: Atorvastatin Calcium 40 MG TAB PO SCH (21:29)
[2019-03-16] MEDS: Insulin Glargine 18 UNITS in Pre-Filled Syringe 1 EACH SC SCH (21:30)
--- NOTE | 2019-03-17 00:25 | CON ---
DATE OF CONSULTATION: PRIMARY CARE PHYSICIAN: Mellissa Engel DO at [place]. PRIMARY LOCKER ROOM ATTENDANT: Nomi Garrison MD PRIMARY GI DOCTOR: Diomedes Eagle MD REASON FOR CARDIOLOGY CONSULTATION: New onset atrial fibrillation with rapid ventricular response. HISTORY OF PRESENT ILLNESS: Ms. Mckinnon is a very present 88-year-old female with a significant history of multiple back surgeries, cervical surgery, bilateral hip surgery, coronary artery disease with history of CABG x4 in 2001, hypertension, hyperlipidemia, diabetes, and COPD with home O2. The patient was doing relatively well until 2 weeks ago when she started having abdominal bloating and at the same time she started having palpitation with heart rate up to 140 when the patient's home health nurse checked the patient's vital signs. However, the patient refused to present to the emergency department for further evaluation at that time because that time was a holiday season and she would like to stay in home. She started having pain in the right upper quadrant area, palpitation, and worsening of shortness of breath since last Thursday. From last Thursday, her shortness of breath has been getting worse, she started feeling more weak and also worsening of dizziness. Due to those symptoms, the patient decided to present to the emergency department for further evaluation and treatment. The patient was found to have atrial fibrillation with rapid ventricular response with heart rate of 167. After the patient received several medications, the Cardizem IV push and after the patient was placed on the Cardizem drip, the patient's heart rate was stabilized with heart rate around 70s to 80s. At this moment, the Cardizem drip is off due to hypotension. Also, the patient was found to have acute cholecystitis and the patient was already consulted by the surgeon, Dr. Eagle. The patient was recommended to continue medical treatment at this moment. The patient states the abdominal pain is getting better improved today. The patient denies any chest pain, heaviness, tightness, or numbness in the left upper arm, nauseated, vomited prior to and during the initial cardiology consult assessment. The patient underwent a CABG x4 in 2001. At that time, the patient was seen by Dr. Oleary in [place], [place]. Since then, she has not had followup with Dr. Oleary or any other cardiologists until May of this year when patient came to the hospital for chest pain. She was seen by Dr. Garrison. The patient's stress test was done in May 2018, with no ischemia with EF 68%. The patient had echocardiograms done in February 2019 with EF 50% to 55%, irregular heart rate, moderate dilated left atrium, mild mitral valve regurgitation, mild tricuspid regurgitation, and moderately elevated pulmonary artery pressures. The patient had a venogram done today for elevated D-dimer showing no evidence of thrombosis. PAST MEDICAL HISTORY: 1. Coronary artery disease, status post CABG x4 in 2001. 2. Hypertension. 3. Hyperlipidemia. 4. Diabetes. 5. Gout. 6. COPD with home O2. 7. Peripheral vascular disease. 8. Cervical stenosis. PAST SURGICAL HISTORY: 1. CABG x4 in 2001. 2. Cervical surgery. 3. Bilateral shoulder surgery. 4. Hysterectomy. 5. Bilateral hip surgery. 6. Carpal tunnel surgery. 7. Right carotid endarterectomy. 8. Cataract surgery. 9. Two back surgeries. FAMILY HISTORY: There are significant heart related history in her maternal side. The patient's mother has a medical history of diabetes and myocardial infarction. The patient's 2 sons has history of complication of diabetes and cardiac related disease. The patient's father has a history of CVA. SOCIAL HISTORY: The patient lives with her . She is wheelchair-bound due to multiple history of back and neck surgeries. The patient has 3 children, the patient's 2 sons due to diabetes complications. The patient is an ex-smoker. Quit smoking in 2016. She used to smoke 5 cigarettes to 1 pack a day. The patient denies ETOH or illicit drug abuse. The patient drinks at least 3 cups of coffee. Again, the patient is wheelchair-bound due to multiple history of back surgery and neck surgery. ALLERGIES: THE PATIENT IS ALLERGIC TO IODINE, KETOROLAC, AND SULFA. HOME MEDICATIONS: 1. Labetalol 100 mg 3 times a day. 2. Duloxetine 60 mg daily. 3. Atorvastatin 40 mg once a day. 4. Norvasc 5 mg once a day. 5. Aspirin 81 mg once a day. 6. Levemir 20 units subcu every day. 7. Flexeril 10 mg 3 times a day as needed. 8. Levemir 15 units at night. 9. NovoLog, dependent as sliding scale. 10. Timolol one drop both eyes every 12 hours. REVIEW OF SYSTEMS: A 12-point review of systems negative unless otherwise mentioned in the HPI. The patient wear glasses for reading. The patient is a wheelchair bound due to complication from a previous back surgery and neck surgery. She feel numbness in her extremities. She cannot feel well so she had to use a wheelchair. Otherwise, she denies any constipation, diarrhea, hematuria, hematochezia or any other complaints. PHYSICAL EXAMINATION: VITAL SIGNS: Blood pressure 122/60, temperature 97.5, pulse is 76, aflutter, respiratory rate 18, O2 saturation 95% on 2 L nasal cannula. GENERAL: The patient is alert and oriented x4, not in acute distress. HEAD: Normocephalic, atraumatic. EYES: Extraocular muscle movement intact. ENT AND MOUTH: Oral and nasal mucosa is moist without lesion. NECK: Supple. Normal range of motion. No JVD. RESPIRATORY: Clear to auscultate bilaterally, but very diminished at the bases. The patient uses 2 L nasal cannula at home. No wheezing, rales, or rhonchi noted. CARDIOVASCULAR: Irregularly irregular. No S3 or S4. No significant murmur, hives, or thrill noted. 2+ pulses in bilateral upper and lower extremities. No edema in the lower extremities. Carotid pulses are present without bruit or thrill. No edema in the lower extremities. ABDOMEN: Really distended and hard to palpate the patient, but no mass present. Bowel sounds are present. SKIN: The patient had multiple skin rash in upper extremities. MUSCULOSKELETAL: The patient is able to move all extremities. At this moment, the patient denied claudication. NEUROLOGIC: The patient is alert and oriented x4. Nonfocal. PSYCHIATRIC: The patient's mood is appropriate. LABORATORY DATA: WBC 7.6, hemoglobin 10.7, hematocrit 33.0, platelet 297. Sodium 139, potassium 3.2. BUN 13, creatinine 0.91, glucose 109. Lactic acid 1.9. AST 8, ALT 7. BNP is 118. TSH 2.5263. Cholesterol 137, triglycerides 73, HDL 40, and LDL 82. UA is negative. ASSESSMENT AND PLAN: 1. Atrial fibrillation with rapid ventricular response. At this moment, the patient's heart rate is stable with labetalol 100 mg 3 times a day. At this time, she is off the med at this moment due to the hypotension. She is in atrial flutter with a well-controlled heart rate. We would like to request EP consult for new onset of atrial flutter for this patient and we would like to start some Lovenox for stroke prevention. The patient is asymptomatic at this moment. 2. Coronary artery disease with history of coronary artery bypass graft x4 in 2001. The patient is asymptomatic at this moment. She is on labetalol, atorvastatin, and isosorbide. 3. Hypertension. The patient's blood pressure is stable at this moment with current medication. 4. Hyperlipidemia. The patient is on a statin. 5. Cholecystitis. The patient is going to continue medical treatment only at this moment. 6. Chronic obstructive pulmonary disease. The patient's respiratory status is stable with 2 L nasal cannula at this moment. Thank you very much for Cardiology Service to participate in the care of this patient. We will follow along the patient's care team and make further recommendations as appropriate. Job ID: [id number]
[2019-03-17] MEDS: Diltiazem HCl 125 MG, Admixture Fee 1 EACH in Sodium Chloride 0.9% 100 ML IVPB SCH (01:37)
[2019-03-17] MEDS: Morphine 2 MG/ML SYRINGE SLOW IVP PRN ×4 (04:28→22:51)
[2019-03-17] MEDS: Piperacillin/Tazobactam 3.375 GM in Sodium Chloride 0.9% 100 ML IVPB SCH ×3 (04:29→18:11)
[2019-03-17 05:12] LABS: Anion Gap 13 mmol/L (10-20); BUN (Urea Nitrogen) 8 mg/dL (9.8-20.1); Calc. Creatinine Clearance 67 mL/min (70-130); Calcium 9.2 mg/dL (7.8-10.44); Carbon Dioxide 31 mmol/L (23-31); Chloride 96 mmol/L (98-107); Estimated GFR-MDRD 68; Glucose 166 mg/dL (83-110); Potassium 3.8 mmol/L (3.5-5.1); Sodium 136 mmol/L (136-145)
[2019-03-17] MEDS: Cyclobenzaprine 10 MG TAB PO PRN ×2 (05:17→12:24)
[2019-03-17] MEDS: Brimonidine Tartrate 0.2% Ophth Soln 5 ml Bottle EA EYE SCH ×2 (09:27→21:11)
[2019-03-17] MEDS: Enoxaparin Sodium 80 MG/0.8 ML SYRINGE SC SCH ×2 (09:28→21:21)
[2019-03-17] MEDS: DULoxetine 60 MG CAP PO SCH (09:28)
[2019-03-17] MEDS: Famotidine 20 MG TAB PO SCH (09:29)
[2019-03-17] MEDS: Labetalol 100 MG TAB PO SCH ×3 (09:31→21:08)
[2019-03-17] MEDS: Isosorbide Mononitrate (ER) 30 MG TAB PO SCH (09:31)
[2019-03-17] MEDS: Senokot S 8.6-50 MG TAB PO SCH ×2 (09:32→21:09)
[2019-03-17] MEDS: Timolol 0.5% Ophth Soln 5 ml Bottle EA EYE SCH ×2 (09:35→21:09)
[2019-03-17] MEDS: HumaLOG 300 UNITS/3 ML VIAL SC PRN ×2 (11:47→18:13)
--- NOTE | 2019-03-17 11:52 | CON ---
DATE OF CONSULTATION: 03/17/2019 HISTORY OF PRESENT ILLNESS: I am seeing Ms. Mckinnon at our [facility] as an electrophysiology tax consultant. Her problems are: 1. Atrial fibrillation/flutter with rapid rates. 2. Generalized abdominal pain, possibly related to cholecystitis. 3. History of coronary artery disease. a. Coronary artery bypass grafting surgery about 10 years ago. b. Preserved LVEF by 2D echo on 03/14/2019 at 50% to 55%, mild TR, moderate pulmonary pressure elevation, mild MR, left atrium moderately dilated. c. Nuclear stress test in 05/2018 showed inferior wall and apical reversible ischemia, treated medically. 4. History of COPD. 5. Type 2 diabetes. 6. Elevated BMI. ALLERGIES: IODINE, KETOROLAC TROMETHAMINE, SERTRALINE, AND SULFA. MEDICATIONS AT HOME: Included: 1. Lipitor. 2. Norvasc. 3. Flexeril. 4. Duloxetine. 5. Levemir. 6. Labetalol. 7. Aspirin. 8. Imdur. SUBJECTIVE: Ms. Mckinnon is here after developing abdominal distention and rapid palpitations. She has decreased appetite despite of Stacia food readily available at her house. She could not eat any. She also felt weak and tired for the last week. EMS found her to be in atrial fibrillation with RVR, they tried adenosine. Eventually Cardizem IV push slowed her heart rate down. She is on monitor, on diltiazem drip and intermittently it turns into sinus rhythm. She does not pass out with these episodes. Her blood pressure is relatively high. No stroke-like symptoms. No neurological deficits. Denies angina. Moderate dyspnea. REVIEW OF SYSTEMS: Rest of 12-point system otherwise unremarkable. PAST HISTORY: As above, also has history of cervical stenosis, prior neck surgery, stress test in 05/2018 as above. PRIOR PROCEDURES: 1. Right shoulder surgery. 2. Hysterectomy. 3. C3 through C6 posterior cervical laminectomy. 4. HIDA scan in April was normal. 5. Carpal tunnel surgery. 6. Left rotator cuff surgery. 7. Right carotid endarterectomy in the past. SOCIAL HISTORY: The patient is a prior smoker. Denies EtOH or drug abuse. Lives with her . FAMILY HISTORY: Significant for mother dying of heart disease in the 50s and from a stroke in a 60s. Son from complication of diabetes. OBJECTIVE DATA: VITAL SIGNS: Blood pressure is 165/72, heart rate 88, respirations 18, and temperature 97.5 degrees Fahrenheit. GENERAL: This is an alert and oriented woman with markedly elevated BMI, in no apparent distress. NECK: Supple. Jugular veins difficult to visualize. CHEST: Coarse without crackles. HEART: Sounds are regular to rate and rhythm. I do not hear murmur or gallop. Distant heart sounds are heard. PMI is nonpalpable. ABDOMEN: Distended, obese. Bowel sounds are positive. EXTREMITIES: Lower extremities without edema, clubbing, or cyanosis. Pulses are adequate. NEUROLOGIC: Nonfocal. MUSCULOSKELETAL: Without joint swelling or deformity. SKIN: Without rash. DATABASE: EKG is reviewed. Initial EKG reveals atrial fibrillation with rapid rates by EMS, left axis deviation, QRS duration 110 milliseconds. Subsequent EKGs revealed continued atrial fibrillation/ventricular flutter with variable AV conduction, rate of 90 beats per minute, occasional rare PVCs are seen. There is also episode of sinus rhythm seen on the monitor, but most recent telemetry strips again revealed atrial flutter with controlled rate. CT of the chest from 03/12/2019 is suggestive of diffuse interstitial prominence, bilateral pleural effusions, suggestive of pulmonary edema, thickened gallbladder with severe atherosclerotic disease. LABORATORY DATA: White blood cell count 7.6, hemoglobin 10.7, and platelet count is 297. Sodium 136, potassium 3.8, BUN is 8, and creatinine 0.8. The troponin-I was 0.021, 0.04, 0.057. BNP is 218 on admission on the . ASSESSMENT AND PLAN: Mrs. Mckinnon is a pleasant 88-year-old woman with history of diabetes, coronary artery disease, preserved left ventricular ejection fraction, mild ischemia on recent workup, on medical management, who presents with abdominal discomfort as well as palpitations. She is found to be in atrial fibrillation/flutter, appears to be paroxysmal, but now reasonably rate controlled with current regimen of IV diltiazem. She is anticoagulated with Lovenox and the abdominal pain persist at this point on medical management for cholecystitis. My plan will be at this point: I will continue rate control. She may benefit from consideration for Multaq in addition to her regimen. Liver functions might need to be monitored especially in view of the cholecystitis. I agree with the anticoagulation, which could be converted to oral anticoagulants if felt necessary. At this point, she is a poor candidate for any ablation procedures due to advanced age and comorbidities. We will follow with you. Thank you for the consultation. Job ID: [id number]
--- NOTE | 2019-03-17 12:29 | PDOC.CPN ---
- Subjective Date: 03/17/19 Time: 12:38 Interval history: The pt seen and examined. No overnight events. No cardiac complaints. - Objective Allergies/Adverse Reactions: Allergies Allergy/AdvReac Type Severity Reaction Status Date / Time iodine Allergy Verified 03/14/19 09:17 ketorolac tromethamine Allergy Verified 03/14/19 09:17 [From Toradol] sertraline HCl [From Zoloft] Allergy Verified 03/14/19 09:17 Sulfa (Sulfonamide Allergy Verified 03/14/19 09:17 Antibiotics) Visit Medications: Current Medications Acetaminophen (Tylenol) 650 mg PO Q4H PRN PRN Reason: Headache/Fever/Mild Pain (1-3) Albuterol/Ipratropium (Duoneb) 3 ml NEB [id number] [facility] Last Admin: 03/17/19 06:53 Dose: 3 ml Atorvastatin Calcium (Lipitor) 40 mg PO HS [facility] Last Admin: 03/16/19 21:29 Dose: 40 mg Bisacodyl (Dulcolax) 10 mg NM DAILYPRN PRN PRN Reason: Constipation Brimonidine Tartrate (Alphagan 0.2% Ophth Soln) 0 drop EA EYE BID [facility] Last Admin: 03/17/19 09:27 Dose: 1 drop Cyclobenzaprine HCl (Flexeril) 10 mg PO TID PRN PRN Reason: Muscle Spasm Last Admin: 03/17/19 12:24 Dose: 10 mg Dextrose/Water (Dextrose 50%) 25 gm SLOW IVP PRN PRN PRN Reason: Hypoglycemia Dicyclomine HCl (Bentyl) 10 mg PO QIDPRN PRN PRN Reason: Pain Last Admin: 03/16/19 12:33 Dose: 10 mg Duloxetine HCl (Cymbalta) 60 mg PO DAILY [facility] Last Admin: 03/17/19 09:28 Dose: 60 mg Enoxaparin Sodium (Lovenox) 80 mg SC 0900,2100 [facility] Last Admin: 03/17/19 09:28 Dose: 80 mg Famotidine (Pepcid) 20 mg PO DAILY [facility] Last Admin: 03/17/19 09:29 Dose: 20 mg Glucagon (Glucagon) 1 mg IM PRN PRN PRN Reason: Hypoglycemia Guaifenesin/Dextromethorphan (Robitussin Dm) 15 ml PO Q4H PRN PRN Reason: Cough Last Admin: 03/15/19 15:08 Dose: 15 ml Dextrose/Water (D5w) 1,000 mls @ 0 mls/hr IV .Q0M PRN PRN Reason: Hypoglycemia Insulin Glargine 18 units/ (Miscellaneous Medication) 0.18 mls @ 0 mls/hr SC [facility] Last Admin: 03/16/19 21:30 Dose: 0.18 mls Piperacillin Sod/Tazobactam (Sod 3.375 gm/ Sodium Chloride) 100 mls @ 200 mls/ hr IVPB Q6HR [facility] Last Admin: 03/17/19 12:23 Dose: 100 mls Diltiazem HCl 125 mg/Miscellaneous Medication 1 each/ Sodium Chloride 125 mls @ 5 mls/hr IVPB INF [facility]; Protocol Last Admin: 03/17/19 01:37 Dose: 125 mls Insulin Human Lispro (Humalog) 0 units SC .BEDTIME SLIDING SC PRN PRN Reason: Bedtime Correctional Scale Last Admin: 03/16/19 21:30 Dose: 4 unit Insulin Human Lispro (Humalog) 0 units SC .AGGRESSIVE SLIDING PRN; Protocol PRN Reason: AGGRESSIVE SLIDING SCALE Last Admin: 03/17/19 11:47 Dose: 9 unit Isosorbide Mononitrate (Imdur Er) 30 mg PO DAILY [facility] Last Admin: 03/17/19 09:31 Dose: 30 mg Labetalol HCl (Normodyne) 100 mg PO TID [facility] Last Admin: 03/17/19 09:31 Dose: 100 mg Latanoprost (Xalatan 0.005% [facility] Soln) 1 drop EA EYE [facility] Last Admin: 03/16/19 21:29 Dose: 1 drop Morphine Sulfate (Morphine) 2 mg SLOW IVP Q4H PRN PRN Reason: Moderate to Severe Pain (6-10) Last Admin: 03/17/19 10:13 Dose: 2 mg Ondansetron HCl (Zofran) 4 mg IVP Q6H PRN PRN Reason: Nausea/Vomiting Last Admin: 03/15/19 09:10 Dose: 4 mg Senna/Docusate Sodium (Senokot S) 2 tab PO BID [facility] Last Admin: 03/17/19 09:32 Dose: Not Given Sodium Chloride (Flush - Normal Saline) 10 ml IVF Q12HR [facility] Last Admin: 03/17/19 09:35 Dose: 10 ml Sodium Chloride (Flush - Normal Saline) 10 ml IVF PRN PRN PRN Reason: Saline Flush Timolol Maleate (Timoptic 0.5% Ophth Soln) 0 drop EA EYE BID [facility] Last Admin: 03/17/19 09:35 Dose: 1 drop Vital Signs & Weight: Vital Signs Temp Pulse Resp BP BP Pulse Ox 03/17/19 11:44 97.7 F 79 16 122/56 L 98 03/17/19 09:31 82 128/62 03/17/19 07:09 97.5 F L 88 18 165/72 H 97 03/17/19 06:53 87 18 100 03/17/19 04:15 97.4 F L 88 20 166/73 H 97 03/17/19 00:38 88 20 98 Admit Weight 186 lb 11.2 oz Weight 186 lb 11.2 oz - Physical Exam General: alert & oriented x3 HEENT: mucus membranes moist Neck: supple neck Cardiac: irregularly regular Lungs: decreased breath sounds Neuro: cranial nerve 2-12 intact - Labs Result Diagrams: 03/16/19 04:33 03/17/19 04:29 Troponin/CKMB Troponin I 0.057 ng/mL (< 0.028) H 03/15/19 00:01 - Telemetry Supraventricular conduction: atrial fibrillation - Assessment/Plan Assessment/Plan: 1. New onset Afib with RVR - well controlled HR with cardizem drip; Per EP, cont. possible DCCV with OAC for 4-6 wks. 2. Cholecystitis 3. CAD with hx of CABG x4 in 2001 - 4. HTN - stable 5. HLD - 6. COPD MAR reviewed
--- NOTE | 2019-03-17 19:36 | PDOC.HOSPP ---
- Subjective Subjective: Continues to have abdominal pain diffusely. Still does not localize. Has been tolerating clear liquids well. Reports having nml BM's. She has some skin lesions on her chest. Says that Dr. Engel had put her on some po antibiotics prior to this admission. Messaged Dr. Engel. She indicated it was Keflex and that was in January. - Objective Vital Signs & Weight: Vital Signs (12 hours) Temp Pulse Resp BP BP Pulse Ox 03/17/19 18:35 75 16 97 03/17/19 15:33 97.9 F 84 18 130/62 95 03/17/19 13:34 68 20 99 03/17/19 11:44 97.7 F 79 16 122/56 L 98 03/17/19 09:31 82 128/62 Weight Admit Weight 186 lb 11.2 oz Weight 186 lb 11.2 oz I&O: 03/16/19 03/17/19 03/18/19 06:59 06:59 06:59 Intake Total 1600 2180 820 Output Total 2750 1950 700 Balance -1150 230 120 Result Diagrams: 03/16/19 04:33 03/17/19 04:29 Additional Labs: Accuchecks 03/17/19 03/17/19 03/17/19 16:39 10:45 05:43 POC Glucose 163 H 276 H 239 H 03/17/19 03/16/19 03/14/19 01:28 20:32 15:34 POC Glucose 98 305 H 545 H Hospitalist ROS - Medication Medications: Active Medications Generic Name Dose Route Start Last Admin Trade Name Freq PRN Reason Stop Dose Admin Albuterol/Ipratropium 3 ml 03/14/19 01:00 03/17/19 18:35 Duoneb NEB 3 ml [id number] VISHAL Administration Atorvastatin Calcium 40 mg 03/14/19 21:00 03/16/19 21:29 Lipitor PO 40 mg HS VISHAL Administration Brimonidine Tartrate 0 drop 03/15/19 21:00 03/17/19 09:27 Alphagan 0.2% Ophth Soln EA EYE 1 drop BID VISHAL Administration Cyclobenzaprine HCl 10 mg 03/13/19 23:26 03/17/19 12:24 Flexeril PO 10 mg TID PRN Administration Muscle Spasm Dicyclomine HCl 10 mg 03/14/19 15:53 03/16/19 12:33 Bentyl PO 10 mg QIDPRN PRN Administration Pain Duloxetine HCl 60 mg 03/14/19 09:00 03/17/19 09:28 Cymbalta PO 60 mg DAILY VISHAL Administration Enoxaparin Sodium 80 mg 03/16/19 21:00 03/17/19 09:28 Lovenox SC 80 mg 0900,2100 VISHAL Administration Famotidine 20 mg 03/16/19 09:00 03/17/19 09:29 Pepcid PO 20 mg DAILY VISHAL Administration Guaifenesin/Dextromethorphan 15 ml 03/13/19 23:26 03/15/19 15:08 Robitussin Dm PO 15 ml Q4H PRN Administration Cough Insulin Glargine 18 units/ 0.18 mls @ 0 mls/hr 03/14/19 21:00 03/16/19 21:30 Miscellaneous Medication SC 0.18 mls HS VISHAL Administration Piperacillin Sod/Tazobactam 100 mls @ 200 mls/hr 03/14/19 06:00 03/17/19 18: 11 Sod 3.375 gm/ Sodium Chloride IVPB 100 mls Q6HR VISHAL Administration Diltiazem HCl 125 mg/ 125 mls @ 5 mls/hr 03/17/19 01:30 03/17/19 01:37 Miscellaneous Medication 1 IVPB 125 mls each/ Sodium Chloride INF VISHAL Administration Protocol Insulin Human Lispro 0 units 03/13/19 23:26 03/16/19 21:30 Humalog SC 4 unit .BEDTIME SLIDING SC PRN Administration Bedtime Correctional Scale Insulin Human Lispro 0 units 03/14/19 12:34 03/17/19 18:13 Humalog SC 3 unit .AGGRESSIVE SLIDING PRN Administration AGGRESSIVE SLIDING SCALE Protocol Isosorbide Mononitrate 30 mg 03/14/19 09:00 03/17/19 09:31 Imdur Er PO 30 mg DAILY VISHAL Administration Labetalol HCl 100 mg 03/14/19 09:00 03/17/19 15:38 Normodyne PO 100 mg TID VISHAL Administration Latanoprost 1 drop 03/15/19 21:00 03/16/19 21:29 Xalatan 0.005% Ophth Soln EA EYE 1 drop HS VISHAL Administration Morphine Sulfate 2 mg 03/14/19 15:53 03/17/19 15:47 Morphine SLOW IVP 2 mg Q4H PRN Administration Moderate to Severe Pain (6-10) Ondansetron HCl 4 mg 03/13/19 23:26 03/15/19 09:10 Zofran IVP 4 mg Q6H PRN Administration Nausea/Vomiting Senna/Docusate Sodium 2 tab 03/14/19 09:00 03/17/19 09:32 Senokot S PO Not Given BID VISHAL Sodium Chloride 10 ml 03/14/19 09:00 03/17/19 09:35 Flush - Normal Saline IVF 10 ml Q12HR VISHAL Administration Timolol Maleate 0 drop 03/15/19 21:00 03/17/19 09:35 Timoptic 0.5% Ophth Soln EA EYE 1 drop BID VISHAL Administration - Exam General Appearance: NAD, awake alert General - other findings: appears less uncomfortable than usual. Heart: no murmur, irregular Respiratory: CTAB, no wheezes, no rales, no ronchi, normal chest expansion, no tachypnea, normal percussion Gastrointestinal: soft, non-distended, normal bowel sounds, no palpable masses, tender to palpation (diffusely.) Extremities: no cyanosis, no clubbing, no edema Skin: normal turgor Skin - other findings: Scabbed skin lesions on the chest. Picking them. Musculoskeletal: normal tone Psychiatric: normal affect, normal behavior Hosp A/P (1) Abdominal pain Code(s): R10.9 - UNSPECIFIED ABDOMINAL PAIN Status: Acute Qualifiers: Abdominal location: generalized Qualified Code(s): R10.84 - Generalized abdominal pain (2) Cholecystitis Code(s): K81.9 - CHOLECYSTITIS, UNSPECIFIED Status: Acute (3) Atrial fibrillation with rapid ventricular response Code(s): I48.91 - UNSPECIFIED ATRIAL FIBRILLATION Status: Acute (4) DM type 2 (diabetes mellitus, type 2) Status: Chronic (5) H/O TIA (transient ischemic attack) and stroke Code(s): Z86.73 - PRSNL HX OF TIA (TIA), AND CEREB INFRC W/O RESID DEFICITS Status: Chronic (6) HLD (hyperlipidemia) Code(s): E78.5 - HYPERLIPIDEMIA, UNSPECIFIED Status: Chronic (7) HTN (hypertension) Code(s): I10 - ESSENTIAL (PRIMARY) HYPERTENSION Status: Chronic (8) PVD (peripheral vascular disease) Code(s): I73.9 - PERIPHERAL VASCULAR DISEASE, UNSPECIFIED Status: Chronic (9) S/P CABG (coronary artery bypass graft) Code(s): Z95.1 - PRESENCE OF AORTOCORONARY BYPASS GRAFT Status: Chronic (10) CAD (coronary artery disease) Code(s): I25.10 - ATHSCL HEART DISEASE OF [place] CORONARY ARTERY W/O ANG PCTRS Status: Chronic (11) Cervical stenosis of spinal canal Code(s): M48.02 - SPINAL STENOSIS, CERVICAL REGION Status: Chronic - Plan Diffuse abdominal pain. D/W CVS. Mesenteric vessels with significant atherosclerotic dz, but had adequate flow. Not concerned with the very small infra-renal dissection. Surgery does not intend cholecystectomy. If evidence of cholecystitis worsened, consider cholecystostomy drain. Continue IV Abx and monitoring. Pain control with IV morphine. Will stop bentyl as she says it waters her stomach. Afebrile. Nml WBC. Normal BM's. Etiology is unclear. Pain is diffuse. TTP is diffuse. Imaging concerning for cholecystitis, but exam is not consistent. Initiating Lyrica. Advance diet. Good rate control. Stopped the Cardizem gtt as she had relative hypotension. Apparently had some recurrence of the tachycardia and it was resumed. Cards consult noted. EP consult noted. No changes made in meds. I will start po cardizem. Lovenox for therapeutic level anticoagulation. Blood sugars well controlled now. Resume eye gtts for glaucoma.
[2019-03-17] MEDS ORDERED: Pregabalin 25 MG CAP PO SCH (19:45)
[2019-03-17] MEDS: Atorvastatin Calcium 40 MG TAB PO SCH (21:08)
[2019-03-17] MEDS: Latanoprost 0.005% Ophth Soln 2.5 ml Bottle EA EYE SCH (21:09)
[2019-03-17] MEDS: Insulin Glargine 18 UNITS in Pre-Filled Syringe 1 EACH SC SCH (21:10)
[2019-03-18] MEDS: Piperacillin/Tazobactam 3.375 GM in Sodium Chloride 0.9% 100 ML IVPB SCH ×5 (01:22→23:23)
[2019-03-18 05:27] LABS: ALT (SGPT) Less than 7 U/L (8-55); AST (SGOT) 5 U/L (5-34); Albumin 3.3 g/dL (3.4-4.8); Alkaline Phosphatase 69 U/L (40-110); Bilirubin, Direct 0.2 mg/dL (0.1-0.3); Bilirubin, Total 0.4 mg/dL (0.2-1.2); Protein, Total 5.9 g/dL (6.0-8.3)
[2019-03-18] MEDS: Diltiazem HCl 125 MG, Admixture Fee 1 EACH in Sodium Chloride 0.9% 100 ML IVPB SCH (06:03)
[2019-03-18] MEDS: Brimonidine Tartrate 0.2% Ophth Soln 5 ml Bottle EA EYE SCH ×2 (08:52→21:21)
[2019-03-18] MEDS: DULoxetine 60 MG CAP PO SCH (08:52)
[2019-03-18] MEDS: Isosorbide Mononitrate (ER) 30 MG TAB PO SCH (08:53)
[2019-03-18] MEDS: Enoxaparin Sodium 80 MG/0.8 ML SYRINGE SC SCH (08:53)
[2019-03-18] MEDS: Famotidine 20 MG TAB PO SCH (08:53)
[2019-03-18] MEDS: Labetalol 100 MG TAB PO SCH ×3 (08:53→21:20)
[2019-03-18] MEDS: Senokot S 8.6-50 MG TAB PO SCH (08:54)
[2019-03-18] MEDS: Timolol 0.5% Ophth Soln 5 ml Bottle EA EYE SCH ×2 (08:54→21:22)
--- NOTE | 2019-03-18 11:26 | PDOC.EP ---
- Subjective Date: 03/18/19 Time: 11:24 Interval History: follow up for atrial arrhythmias. Patient sleeping somewhat fitfully and appears tired and slightly pained. She denies any heat racing, palpitations, chest pain/pressure, syncope, or stroke like symptoms. - Review of Systems Constitutional: reports: malaise, weakness. denies: chills, fever, sweats, other Respiratory: denies: cough, dry, hemoptysis, pleuritic pain, shortness of breath , SOB with excertion, sputum, wheezing, other Cardiology: denies: chest pain, edema, heart racing, light headedness, palpitations, passing out Gastrointestinal: reports: abdominal pain. denies: melena, vomitting - Objective Allergies/Adverse Reactions: Allergies Allergy/AdvReac Type Severity Reaction Status Date / Time iodine Allergy Verified 03/14/19 09:17 ketorolac tromethamine Allergy Verified 03/14/19 09:17 [From Toradol] sertraline HCl [From Zoloft] Allergy Verified 03/14/19 09:17 Sulfa (Sulfonamide Allergy Verified 03/14/19 09:17 Antibiotics) Current Medications Acetaminophen (Tylenol) 650 mg PO Q4H PRN PRN Reason: Headache/Fever/Mild Pain (1-3) Albuterol/Ipratropium (Duoneb) 3 ml NEB [id number] [facility] Last Admin: 03/18/19 07:13 Dose: 3 ml Atorvastatin Calcium (Lipitor) 40 mg PO HS [facility] Last Admin: 03/17/19 21:08 Dose: 40 mg Bisacodyl (Dulcolax) 10 mg MO DAILYPRN PRN PRN Reason: Constipation Brimonidine Tartrate (Alphagan 0.2% Ophth Soln) 0 drop EA EYE BID [facility] Last Admin: 03/18/19 08:52 Dose: Not Given Cyclobenzaprine HCl (Flexeril) 10 mg PO TID PRN PRN Reason: Muscle Spasm Last Admin: 03/17/19 12:24 Dose: 10 mg Dextrose/Water (Dextrose 50%) 25 gm SLOW IVP PRN PRN PRN Reason: Hypoglycemia Dicyclomine HCl (Bentyl) 10 mg PO QIDPRN PRN PRN Reason: Pain Last Admin: 03/16/19 12:33 Dose: 10 mg Diltiazem HCl (Cardizem) 30 mg PO ACHS [facility] Last Admin: 03/18/19 08:52 Dose: 30 mg Dronedarone (Multaq) 400 mg PO BID-[facility] Duloxetine HCl (Cymbalta) 60 mg PO DAILY [facility] Last Admin: 03/18/19 08:52 Dose: 60 mg Enoxaparin Sodium (Lovenox) 80 mg SC 0900,2100 [facility] Last Admin: 03/18/19 08:53 Dose: 80 mg Famotidine (Pepcid) 20 mg PO DAILY [facility] Last Admin: 03/18/19 08:53 Dose: 20 mg Glucagon (Glucagon) 1 mg IM PRN PRN PRN Reason: Hypoglycemia Guaifenesin/Dextromethorphan (Robitussin Dm) 15 ml PO Q4H PRN PRN Reason: Cough Last Admin: 03/15/19 15:08 Dose: 15 ml Dextrose/Water (D5w) 1,000 mls @ 0 mls/hr IV .Q0M PRN PRN Reason: Hypoglycemia Insulin Glargine 18 units/ (Miscellaneous Medication) 0.18 mls @ 0 mls/hr SC [facility] Last Admin: 03/17/19 21:10 Dose: 0.18 mls Piperacillin Sod/Tazobactam (Sod 3.375 gm/ Sodium Chloride) 100 mls @ 200 mls/ hr IVPB Q6HR [facility] Last Admin: 03/18/19 05:41 Dose: 100 mls Insulin Human Lispro (Humalog) 0 units SC .BEDTIME SLIDING SC PRN PRN Reason: Bedtime Correctional Scale Last Admin: 03/16/19 21:30 Dose: 4 unit Insulin Human Lispro (Humalog) 0 units SC .AGGRESSIVE SLIDING PRN; Protocol PRN Reason: AGGRESSIVE SLIDING SCALE Last Admin: 03/17/19 18:13 Dose: 3 unit Isosorbide Mononitrate (Imdur Er) 30 mg PO DAILY [facility] Last Admin: 03/18/19 08:53 Dose: 30 mg Labetalol HCl (Normodyne) 100 mg PO TID [facility] Last Admin: 03/18/19 08:53 Dose: 100 mg Latanoprost (Xalatan 0.005% Ophth Soln) 1 drop EA EYE [facility] Last Admin: 03/17/19 21:09 Dose: Not Given Morphine Sulfate (Morphine) 2 mg SLOW IVP Q4H PRN PRN Reason: Moderate to Severe Pain (6-10) Last Admin: 03/17/19 22:51 Dose: 2 mg Ondansetron HCl (Zofran) 4 mg IVP Q6H PRN PRN Reason: Nausea/Vomiting Last Admin: 03/15/19 09:10 Dose: 4 mg Pregabalin (Lyrica) 25 mg PO BID [facility] Senna/Docusate Sodium (Senokot S) 2 tab PO BID [facility] Last Admin: 03/18/19 08:54 Dose: Not Given Sodium Chloride (Flush - Normal Saline) 10 ml IVF Q12HR [facility] Last Admin: 03/18/19 08:54 Dose: 10 ml Sodium Chloride (Flush - Normal Saline) 10 ml IVF PRN PRN PRN Reason: Saline Flush Timolol Maleate (Timoptic 0.5% Ophth Soln) 0 drop EA EYE BID [facility] Last Admin: 03/18/19 08:54 Dose: Not Given Vital Signs & Weight: Vital Signs Temp Pulse Resp BP Pulse Ox 03/18/19 07:13 87 18 100 03/18/19 07:06 97.5 F L 80 18 145/67 H 95 03/18/19 04:11 97.4 F L 79 16 157/66 H 98 03/17/19 23:52 76 16 97 03/17/19 23:27 119/57 L Admit Weight 186 lb 11.2 oz Weight 194 lb 4.8 oz I/O: I/O 03/17/19 03/18/19 03/19/19 06:59 06:59 06:59 Intake Total 2180 1320 Output Total 1950 1350 Balance 230 -30 - Physical Exam General: alert & oriented x3, no apparent distress, speech clear HEENT: mucus membranes moist, normocephaly. negative: oral lesions Neck: supple neck, no JVD/HJR, no lymphadenopathy. negative: JVD/HJR Cardiology: no murmur, regular rate. negative: regular rhythm Lungs: clear to auscultation, no wheeze, rales, rhonchi Neurology: cranial nerve 2-12 intact, grossly intact, sensory function intact - Chadsvasc Risk factors Age >75: 2 Diabetes mellitus: 1 Vascular disease: 1 Female: 1 Risk Score: 5 - Labs Result Diagrams: 03/16/19 04:33 03/17/19 04:29 - EKG Interpretation EKG shows: Atypical atrial flutter - Assessment/Plan Assessment/Plan: 1. Atrial flutter, atypical - rate controlled with diltiazem 30mg PO QID - LFTs stable 2. CHADS2-VASC:5 - on lovenox. Requires OAC longterm upon DC 3. Cholicystitis 4. Obesity Atypical atrial flutter persists, now rate controlled. Duration of AFlutter is unknown with no sinus rhythm seen on tele. For now rate control and add OAC. She is largely asymptomatic with atrial flutter. Consider addition of multaq with CV after 30 days of OAC. Started on Eliquis 5mg PO BID, stopped lovenox. Also started on low dose diltiazem 30mg PO QID this AM. Titrate up as needed for rate control, BP permitting. If RVR recurs and BP low, may add Digoxin 125mcg daily. Will see Thursday if she remains IP, or in clinic in 6 weeks. My DC on OAC if rate controlled.
--- NOTE | 2019-03-18 13:40 | NM ---
HEPATOBILIARY SCAN: HISTORY:Right upper quadrant pain and concern for cholecystitis. RADIOPHARMACEUTICAL: 4.6 mCi Technetium 99m Mebrofenin injected intravenously CCK-8: Patient was pretreated with 1.7 mcg of 30 minute IV infusion are the injection of the radiopha rmaceutical and fibular 30 minute IV infusion of 1.7 mcg 1 hour after the injection of the radiopharmaceutical. FINDINGS: There is normal tracer extraction by the liver with normal excretion into the biliary tracts and smal l bowel loops and normal filling of the gallbladder. The calculated gallbladder ejection fraction following an oral fatty meal measures 60%. IMPRESSION:Normal exam.
[2019-03-18] MEDS: Pregabalin 25 MG CAP PO SCH ×2 (13:53→21:21)
[2019-03-18] MEDS: Morphine 2 MG/ML SYRINGE SLOW IVP PRN (15:14)
--- NOTE | 2019-03-18 15:20 | PDOC.CPN ---
- Subjective Date: 03/18/19 Time: 10:00 Interval history: The pt seen and examined. No overnight events. No cardiac complaints. - Objective Allergies/Adverse Reactions: Allergies Allergy/AdvReac Type Severity Reaction Status Date / Time iodine Allergy Verified 03/14/19 09:17 ketorolac tromethamine Allergy Verified 03/14/19 09:17 [From Toradol] sertraline HCl [From Zoloft] Allergy Verified 03/14/19 09:17 Sulfa (Sulfonamide Allergy Verified 03/14/19 09:17 Antibiotics) Visit Medications: Current Medications Acetaminophen (Tylenol) 650 mg PO Q4H PRN PRN Reason: Headache/Fever/Mild Pain (1-3) Albuterol/Ipratropium (Duoneb) 3 ml NEB [id number] [facility] Last Admin: 03/18/19 13:05 Dose: Not Given Apixaban (Eliquis) 5 mg PO BID [facility] Atorvastatin Calcium (Lipitor) 40 mg PO HS [facility] Last Admin: 03/17/19 21:08 Dose: 40 mg Bisacodyl (Dulcolax) 10 mg [place] DAILYPRN PRN PRN Reason: Constipation Brimonidine Tartrate (Alphagan 0.2% Ophth Soln) 0 drop EA EYE BID [facility] Last Admin: 03/18/19 08:52 Dose: Not Given Cyclobenzaprine HCl (Flexeril) 10 mg PO TID PRN PRN Reason: Muscle Spasm Last Admin: 03/17/19 12:24 Dose: 10 mg Dextrose/Water (Dextrose 50%) 25 gm SLOW IVP PRN PRN PRN Reason: Hypoglycemia Dicyclomine HCl (Bentyl) 10 mg PO QIDPRN PRN PRN Reason: Pain Last Admin: 03/16/19 12:33 Dose: 10 mg Diltiazem HCl (Cardizem) 30 mg PO ACHS [facility] Last Admin: 03/18/19 13:53 Dose: 30 mg Duloxetine HCl (Cymbalta) 60 mg PO DAILY [facility] Last Admin: 03/18/19 08:52 Dose: 60 mg Famotidine (Pepcid) 20 mg PO DAILY [facility] Last Admin: 03/18/19 08:53 Dose: 20 mg Glucagon (Glucagon) 1 mg IM PRN PRN PRN Reason: Hypoglycemia Guaifenesin/Dextromethorphan (Robitussin Dm) 15 ml PO Q4H PRN PRN Reason: Cough Last Admin: 03/15/19 15:08 Dose: 15 ml Dextrose/Water (D5w) 1,000 mls @ 0 mls/hr IV .Q0M PRN PRN Reason: Hypoglycemia Insulin Glargine 18 units/ (Miscellaneous Medication) 0.18 mls @ 0 mls/hr SC [facility] Last Admin: 03/17/19 21:10 Dose: 0.18 mls Piperacillin Sod/Tazobactam (Sod 3.375 gm/ Sodium Chloride) 100 mls @ 200 mls/ hr IVPB Q6HR [facility] Last Admin: 03/18/19 13:52 Dose: 100 mls Insulin Human Lispro (Humalog) 0 units SC .BEDTIME SLIDING SC PRN PRN Reason: Bedtime Correctional Scale Last Admin: 03/16/19 21:30 Dose: 4 unit Insulin Human Lispro (Humalog) 0 units SC .AGGRESSIVE SLIDING PRN; Protocol PRN Reason: AGGRESSIVE SLIDING SCALE Last Admin: 03/17/19 18:13 Dose: 3 unit Isosorbide Mononitrate (Imdur Er) 30 mg PO DAILY [facility] Last Admin: 03/18/19 08:53 Dose: 30 mg Labetalol HCl (Normodyne) 100 mg PO TID [facility] Last Admin: 03/18/19 15:14 Dose: 100 mg Latanoprost (Xalatan 0.005% Ophth Soln) 1 drop EA EYE [facility] Last Admin: 03/17/19 21:09 Dose: Not Given Morphine Sulfate (Morphine) 2 mg SLOW IVP Q4H PRN PRN Reason: Moderate to Severe Pain (6-10) Last Admin: 03/18/19 15:14 Dose: 2 mg Ondansetron HCl (Zofran) 4 mg IVP Q6H PRN PRN Reason: Nausea/Vomiting Last Admin: 03/15/19 09:10 Dose: 4 mg Pregabalin (Lyrica) 25 mg PO BID [facility] Last Admin: 03/18/19 13:53 Dose: 25 mg Senna/Docusate Sodium (Senokot S) 2 tab PO BID [facility] Last Admin: 03/18/19 08:54 Dose: Not Given Sodium Chloride (Flush - Normal Saline) 10 ml IVF Q12HR [facility] Last Admin: 03/18/19 08:54 Dose: 10 ml Sodium Chloride (Flush - Normal Saline) 10 ml IVF PRN PRN PRN Reason: Saline Flush Timolol Maleate (Timoptic 0.5% Ophth Soln) 0 drop EA EYE BID [facility] Last Admin: 03/18/19 08:54 Dose: Not Given Vital Signs & Weight: Vital Signs Temp Pulse Resp BP Pulse Ox 03/18/19 15:11 97.8 F 79 18 134/63 97 03/18/19 13:49 97.4 F L 94 18 144/65 H 97 03/18/19 07:13 87 18 100 03/18/19 07:06 97.5 F L 80 18 145/67 H 95 03/18/19 04:11 97.4 F L 79 16 157/66 H 98 Admit Weight 186 lb 11.2 oz Weight 194 lb 4.8 oz - Physical Exam General: alert & oriented x3 HEENT: mucus membranes moist Neck: supple neck Cardiac: irregularly regular Lungs: decreased breath sounds Extremities: no edema - Labs Result Diagrams: 03/16/19 04:33 03/17/19 04:29 Troponin/CKMB Troponin I 0.057 ng/mL (< 0.028) H 03/15/19 00:01 - Telemetry Supraventricular conduction: atrial flutter - Assessment/Plan Assessment/Plan: 1. New onset Afib/flutter with RVR - well controlled HR with cardizem drip; Per EP, cont. possible DCCV with OAC for 4-6 wks. 2. Cholecystitis 3. CAD with hx of CABG x4 in 2001 - 4. HTN - stable 5. HLD - 6. COPD MAR reviewed Pt. seen and eval. by me. I agree with the A/P by the ADMINISTRATION MANAGER. Pt. also being seen by EP. Seems to be tolerating the fib/flutter reasonably well. Agree with plan to attempt cardioversion after a month. emma
--- NOTE | 2019-03-18 15:22 | PDOC.HOSPP ---
- Subjective Subjective: Doing about the same. She tells me that we should not be afraid to give her pain meds. She has had 23 surgeries and never become addicted. No change in her symptoms. - Objective Vital Signs & Weight: Vital Signs (12 hours) Temp Pulse Resp BP Pulse Ox 03/18/19 15:11 97.8 F 79 18 134/63 97 03/18/19 13:49 97.4 F L 94 18 144/65 H 97 03/18/19 07:13 87 18 100 03/18/19 07:06 97.5 F L 80 18 145/67 H 95 03/18/19 04:11 97.4 F L 79 16 157/66 H 98 Weight Admit Weight 186 lb 11.2 oz Weight 194 lb 4.8 oz I&O: 03/17/19 03/18/19 03/19/19 06:59 06:59 06:59 Intake Total 2180 1320 Output Total 1950 1350 Balance 230 -30 Result Diagrams: 03/16/19 04:33 03/17/19 04:29 Additional Labs: Accuchecks 03/18/19 03/18/19 03/17/19 09:13 05:24 20:06 POC Glucose 123 H 95 190 H 03/17/19 16:39 POC Glucose 163 H Hospitalist ROS - Medication Medications: Active Medications Generic Name Dose Route Start Last Admin Trade Name Freq PRN Reason Stop Dose Admin Albuterol/Ipratropium 3 ml 03/14/19 01:00 03/18/19 13:05 Duoneb NEB Not Given [id number] [facility] Atorvastatin Calcium 40 mg 03/14/19 21:00 03/17/19 21:08 Lipitor PO 40 mg HS [facility] Administration Brimonidine Tartrate 0 drop 03/15/19 21:00 03/18/19 08:52 Alphagan 0.2% Ophth Soln EA EYE Not Given BID [facility] Cyclobenzaprine HCl 10 mg 03/13/19 23:26 03/17/19 12:24 Flexeril PO 10 mg TID PRN Administration Muscle Spasm Dicyclomine HCl 10 mg 03/14/19 15:53 03/16/19 12:33 Bentyl PO 10 mg QIDPRN PRN Administration Pain Diltiazem HCl 30 mg 03/18/19 07:30 03/18/19 13:53 Cardizem PO 30 mg ACHS [facility] Administration Duloxetine HCl 60 mg 03/14/19 09:00 03/18/19 08:52 Cymbalta PO 60 mg DAILY [facility] Administration Famotidine 20 mg 03/16/19 09:00 03/18/19 08:53 Pepcid PO 20 mg DAILY [facility] Administration Guaifenesin/Dextromethorphan 15 ml 03/13/19 23:26 03/15/19 15:08 Robitussin Dm PO 15 ml Q4H PRN Administration Cough Insulin Glargine 18 units/ 0.18 mls @ 0 mls/hr 03/14/19 21:00 03/17/19 21:10 Miscellaneous Medication SC 0.18 mls HS [facility] Administration Piperacillin Sod/Tazobactam 100 mls @ 200 mls/hr 03/14/19 06:00 03/18/19 13: 52 Sod 3.375 gm/ Sodium Chloride IVPB 100 mls Q6HR [facility] Administration Insulin Human Lispro 0 units 03/13/19 23:26 03/16/19 21:30 Humalog SC 4 unit .BEDTIME SLIDING SC PRN Administration Bedtime Correctional Scale Insulin Human Lispro 0 units 03/14/19 12:34 03/17/19 18:13 Humalog SC 3 unit .AGGRESSIVE SLIDING PRN Administration AGGRESSIVE SLIDING SCALE Protocol Isosorbide Mononitrate 30 mg 03/14/19 09:00 03/18/19 08:53 Imdur Er PO 30 mg DAILY [facility] Administration Labetalol HCl 100 mg 03/14/19 09:00 03/18/19 15:14 Normodyne PO 100 mg TID [facility] Administration Latanoprost 1 drop 03/15/19 21:00 03/17/19 21:09 Xalatan 0.005% Ophth Soln EA EYE Not Given HS [facility] Morphine Sulfate 2 mg 03/14/19 15:53 03/18/19 15:14 Morphine SLOW IVP 2 mg Q4H PRN Administration Moderate to Severe Pain (6-10) Ondansetron HCl 4 mg 03/13/19 23:26 03/15/19 09:10 Zofran IVP 4 mg Q6H PRN Administration Nausea/Vomiting Pregabalin 25 mg 03/18/19 09:00 03/18/19 13:53 Lyrica PO 25 mg BID [facility] Administration Senna/Docusate Sodium 2 tab 03/14/19 09:00 03/18/19 08:54 Senokot S PO Not Given BID [facility] Sodium Chloride 10 ml 03/14/19 09:00 03/18/19 08:54 Flush - Normal Saline IVF 10 ml Q12HR [facility] Administration Timolol Maleate 0 drop 03/15/19 21:00 03/18/19 08:54 Timoptic 0.5% Ophth Soln EA EYE Not Given BID [facility] - Exam General Appearance: NAD, awake alert Heart: no murmur, irregular Respiratory: CTAB, no wheezes, no rales, no ronchi, normal chest expansion, no tachypnea, normal percussion Gastrointestinal: normal bowel sounds, tender to palpation (Diffusely to mild palpation.) Extremities: no cyanosis, no clubbing, no edema Skin: normal turgor, no lesions, no rashes Musculoskeletal: generalized weakness Psychiatric: normal affect Hosp A/P (1) Abdominal pain Code(s): R10.9 - UNSPECIFIED ABDOMINAL PAIN Status: Acute Qualifiers: Qualified Code(s): R10.84 - Generalized abdominal pain (2) Cholecystitis Code(s): K81.9 - CHOLECYSTITIS, UNSPECIFIED Status: Acute (3) Atrial fibrillation with rapid ventricular response Code(s): I48.91 - UNSPECIFIED ATRIAL FIBRILLATION Status: Acute (4) DM type 2 (diabetes mellitus, type 2) Status: Chronic (5) H/O TIA (transient ischemic attack) and stroke Code(s): Z86.73 - PRSNL HX OF TIA (TIA), AND CEREB INFRC W/O RESID DEFICITS Status: Chronic (6) HLD (hyperlipidemia) Code(s): E78.5 - HYPERLIPIDEMIA, UNSPECIFIED Status: Chronic (7) HTN (hypertension) Code(s): I10 - ESSENTIAL (PRIMARY) HYPERTENSION Status: Chronic (8) PVD (peripheral vascular disease) Code(s): I73.9 - PERIPHERAL VASCULAR DISEASE, UNSPECIFIED Status: Chronic (9) S/P CABG (coronary artery bypass graft) Code(s): Z95.1 - PRESENCE OF AORTOCORONARY BYPASS GRAFT Status: Chronic (10) CAD (coronary artery disease) Code(s): I25.10 - ATHSCL HEART DISEASE OF [place] CORONARY ARTERY W/O ANG PCTRS Status: Chronic (11) Cervical stenosis of spinal canal Code(s): M48.02 - SPINAL STENOSIS, CERVICAL REGION Status: Chronic - Plan Diffuse abdominal pain. D/W CVS. Mesenteric vessels with significant atherosclerotic dz, but had adequate flow. Not concerned with the very small infra-renal dissection. Surgery does not intend cholecystectomy. If evidence of cholecystitis worsened, consider cholecystostomy drain. HIDA negative 03/18/19 Continue IV Abx and monitoring. Pain control with IV morphine. Added Lyrica. Afebrile. Nml WBC. Normal BM's. Etiology is unclear. Pain is diffuse. TTP is diffuse. Imaging concerning for cholecystitis, but exam is not consistent. Discussed with Dr. Trivedi. Concern for possible slow transit, especially with CCB and MSO4. Concern for ischemic with the atherosclerotic disease of the mesentery, the poor cardiac function exacerbated by afib with RVR. Still some concern regarding the GB. Will ask surgery to reassess regarding the possibility of cholecystostomy. Good rate control. Changed to po Cardizem. Cards consult noted. EP consult noted. Adding Multaq. Lovenox for therapeutic level anticoagulation. Blood sugars well controlled now. Resume eye gtts for glaucoma.
--- NOTE | 2019-03-18 16:39 | PDOC.EVN ---
Event Note - Event Note Event Note: Discussed with Frances Krause. There was concern that she might be having some NSR. Wanted to keep the patient anticoagulated for 30 days prior to her converting, so the Multaq is stopped. They believe she is otherwise asymptomatic from afib. Recommendation is to continue the po cardizem and add dig if she gets a recurrence of the tachycardia.
[2019-03-18] MEDS ORDERED: Dronedarone HCl 400 MG TAB PO SCH (17:00)
[2019-03-18] MEDS ORDERED: Senokot S 8.6-50 MG TAB PO PRN (17:18)
[2019-03-18] MEDS: HumaLOG 300 UNITS/3 ML VIAL SC PRN ×2 (17:36→21:22)
--- NOTE | 2019-03-18 20:49 | CON ---
DATE OF CONSULTATION: 03/18/2019 REASON FOR CONSULTATION: Abdominal pain (generalized). CONSULTING PROVIDER: Dr. Renan Davis. HISTORY OF PRESENT ILLNESS: The patient is an 88-year-old female with past medical history of coronary artery disease, status post 4-vessel CABG; COPD; diabetes; TIA; cervical stenosis; atrial fibrillation; congestive heart failure; hyperlipidemia; hypertension; and peripheral vascular disease, who initially presented to the hospital with atrial fibrillation with RVR. The patient states that she had been having increased abdominal girth/bloating intermittently for the last month that had been mildly discomforting to the patient, but did not necessarily manifest as abdominal pain. However, shortly before admission, the patient experienced increased fatigue, weakness, and palpitations with EMS evaluation at home showing the patient to be in atrial fibrillation with RVR. When the patient began to experience the symptoms as above, she also experienced increased periumbilical abdominal pain that would radiate to the generalized abdomen. This pain was characterized as a pressure/tightness, it was constant with waxing and waning severity, and reached a severity of 8/10. This pain was worse with ingestion of solid foods (did not worsen with ingestion of liquids), increased physical movement, and ingestion of spicy food. The pain was better with the administration of morphine during this admission, but no other alleviating factors were stated. This was associated with decreased appetite, nausea, subjective chills, and she did have a black semi-stool approximately 1 week ago that did not recur (the patient had been placed on iron supplementation in the past). Otherwise, she denies any vomiting, fevers, hematemesis, dysphagia, odynophagia, or weight loss. During the course of this admission, the patient was initially found to have a CT scan showing gallbladder wall thickening as well as fat stranding adjacent to the gallbladder concerning for the presence of acute cholecystitis. However, given her significant medical comorbidity, she was deemed to be not a suitable candidate for cholecystectomy, but rather, the option for more conservative management was taken. During the course of this hospitalization despite administration of antibiotics, administration of dicyclomine, and having a bowel movement every day, she continues to have this generalized abdominal pain that is unchanged in character and severity. REVIEW OF SYSTEMS: A 10-category review of systems was obtained with all responses negative except for the pertinent positives as listed in the HPI. PAST MEDICAL HISTORY: As per HPI. PAST SURGICAL HISTORY: 4-vessel CABG in 2001, prior neck surgery secondary to cervical stenosis, bilateral hip surgeries, right shoulder surgery, hysterectomy, C3 through C6 posterior cervical laminectomy in 2014, EGD in April 2012 was normal, carpal tunnel release surgery, left rotator cuff surgery, and right carotid endarterectomy. FAMILY HISTORY: She states that her paternal aunt was diagnosed with colorectal cancer at the age of 95, but otherwise denies any other GI malignancies. SOCIAL HISTORY: Denies any tobacco, alcohol, or illicit drug use. OUTPATIENT MEDICATIONS: Reviewed. ALLERGIES: IODINE, KETOROLAC, SERTRALINE, AND SULFA. PHYSICAL EXAMINATION: VITAL SIGNS: Temperature 97.8, pulse 79, blood pressure 134/63, respiratory rate 18, saturating 97% on 2 L nasal cannula. GENERAL: The patient was lying in bed, in no acute distress. Alert and oriented x4. HEENT: Normocephalic and atraumatic. NECK: Supple. No JVD or scleral icterus noted. CARDIOVASCULAR: Regular rate and rhythm with no discernible murmurs, gallops, or rubs. RESPIRATORY: Clear to auscultation bilaterally with no discernible wheezes or rales, although, poor inspiratory effort. ABDOMEN: Normoactive bowel sounds. Soft. Mild abdominal distention. Significant tender to palpation in all abdominal quadrants to both light and deep palpation. EXTREMITIES: No cyanosis or clubbing, but mild pedal edema in the bilateral lower extremities. LABORATORY DATA: Most recent CBC on March 16, 2019, showed a white blood cell count of 7.6, hemoglobin 10.7, hematocrit 33, and platelets 297. ESR obtained today of 26. Chemistry obtained today with an AST of 5, ALT less than 7, alkaline phosphatase 69, total bilirubin 0.4. Most recent electrolyte chemistry was on March 17, which showed a sodium of 136, potassium 3.8, chloride 96, CO2 of 31, BUN 8, creatinine 0.8, glucose 166. IMAGING DATA: CT dissection protocol was obtained on March 13, 2019, which showed diffuse atherosclerotic calcification throughout the upper body, interstitial pulmonary edema. It also showed thickening of the gallbladder wall fat stranding adjacent to the gallbladder. 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 A right upper quadrant ultrasound was obtained on March 13, 2019, which showed small volume of pericholecystic fluid as well as gallbladder wall thickening and a common bile duct measuring 5 mm in size. HIDA scan was obtained on March 18, 2019, which showed a normal examination with gallbladder ejection fraction following an oral fatty meal measuring 60%. ASSESSMENT AND PLAN: The patient is an 88-year-old female with past medical history of coronary artery disease, status post 4-vessel coronary artery bypass grafting; chronic obstructive pulmonary disease; transient ischemic attack; diabetes; cervical stenosis; atrial fibrillation; congestive heart failure; hyperlipidemia; hypertension; and peripheral vascular disease/peripheral arterial disease, presenting with increased generalized abdominal pain. Generalized abdominal pain: The patient states that she has been having increased abdominal discomfort over the last month that she characterized more as a bloating/"tightness," however, approximately 1 week ago, she had an episode of atrial fibrillation with rapid ventricular response and at that time had significant worsening of her abdominal pain, now having generalized pressure/tightness type pain that was constant and reaching a severity of 8/10. On evaluation in the ER, she had a CT dissection protocol performed, which showed evidence of gallbladder wall thickening and fat stranding adjacent to the gallbladder concerning for cholecystitis. However, the patient has not had an elevated white blood cell count nor did she have any elevation of her liver enzymes during the course of this admission that might confirm this diagnosis. She also had a HIDA scan obtained on March 18, 2019, which again showed no significant pathology associated with the gallbladder. Given the exacerbating factors of consumption of solid food and more specifically spicy food, gastroesophageal reflux disease is on the differential, but given her significant abdominal pain to both light and deep palpation, it is also concerning for the presence of either abdominal wall pain (less likely) or mesenteric ischemia. At this point, the differential could include cholecystitis (less likely), constipation (noted on CT scan), mesenteric ischemia, ischemic colitis, infectious etiology (less likely), gastroesophageal reflux disease, median arcuate ligament syndrome (less likely), decreased perfusion of the abdominal organ secondary to paroxysmal atrial fibrillation, functional abdominal pain, and/or GI neoplasm (less likely). RECOMMENDATIONS: 1. I would start by placing the patient on a suitable bowel regimen to include MiraLAX daily to facilitate having a bowel movement secondary to constipation. 2. I would adhere to more of a FODMAP diet while inpatient to decrease intestinal gas formation. 3. We will place the patient on pantoprazole 40 mg daily in light of possible acid reflux. 4. Would confer with General Surgery Service about the possibility of cholecystitis (although, it seems unlikely given her LFT pattern and normal HIDA scan). 5. Pain control per primary team. 6. We would hold on endoscopic evaluation at this time given her significant medical comorbidities and higher risk of dat-procedural complications. However, if the patient does not respond to more conservative management, we would reconsider endoscopic management at that time. 7. Given the higher likelihood of mesenteric ischemia secondary to intraabdominal atherosclerosis/SMA narrowing, endovascular intervention could be considered. However, again given the patient's significant medical comorbidities, any procedure would be high risk. We will continue to follow. Please call with any questions. Job ID: [id number]
[2019-03-18] MEDS: Atorvastatin Calcium 40 MG TAB PO SCH (21:20)
[2019-03-18] MEDS: Apixaban 5 MG TAB PO SCH (21:20)
[2019-03-18] MEDS: Insulin Glargine 18 UNITS in Pre-Filled Syringe 1 EACH SC SCH (21:21)
[2019-03-18] MEDS: Latanoprost 0.005% Ophth Soln 2.5 ml Bottle EA EYE SCH (21:22)
[2019-03-19] MEDS: Piperacillin/Tazobactam 3.375 GM in Sodium Chloride 0.9% 100 ML IVPB SCH ×3 (05:46→17:50)
[2019-03-19] MEDS: Morphine 2 MG/ML SYRINGE SLOW IVP PRN (07:44)
[2019-03-19 08:13] LABS: #Eosinphils 0.3 thou/uL (0.0-0.7); #Lymphocytes 1.6 thou/uL (1.20-3.40); #Monocytes 0.6 thou/uL (0.11-0.59); #Neutrophils 4.4 thou/uL (1.40-6.50); %Basophils 0.4 % (0.0-1.0); %Eosinophils 4.2 % (0.0-10.0); %Lymphocytes 22.9 % (21.0-51.0); %Monocytes 8.8 % (0.0-10.0); %Neutrophils 63.7 % (42.0-75.0); Mean Corpuscular HGB CONC 33.1 g/dL (32.0-36.0); Mean Corpuscular Hemoglobin 30.2 pg (27.0-31.0); Platelet Count 230 thou/uL (130-400); RBC Distribution Width 12.8 % (11.5-14.5); Red Blood Cell (RBC) Count 3.66 mill/uL (4.20-5.40)
[2019-03-19 08:28] LABS: Anion Gap 14 mmol/L (10-20); BUN (Urea Nitrogen) 6 mg/dL (9.8-20.1); Calc. Creatinine Clearance 73 mL/min (70-130); Calcium 9.3 mg/dL (7.8-10.44); Carbon Dioxide 27 mmol/L (23-31); Chloride 99 mmol/L (98-107); Estimated GFR-MDRD 72; Glucose 164 mg/dL (83-110); Lipase 5 U/L (8-78); Magnesium 1.6 mg/dL (1.6-2.6); Potassium 3.9 mmol/L (3.5-5.1); Sodium 136 mmol/L (136-145)
[2019-03-19] MEDS ORDERED: Magnesium 2 GM/50 ML 2 GM in Premix Bag 1 BAG IVPB SCH (09:30)
[2019-03-19] MEDS: Saccharomyces boulardii 250 MG CAP PO SCH (09:39)
[2019-03-19] MEDS: Famotidine 20 MG TAB PO SCH (09:39)
[2019-03-19] MEDS: DULoxetine 60 MG CAP PO SCH (09:39)
[2019-03-19] MEDS: Pantoprazole 40 MG VIAL IVP SCH (09:39)
[2019-03-19] MEDS: Pregabalin 25 MG CAP PO SCH ×2 (09:39→22:28)
[2019-03-19] MEDS: Apixaban 5 MG TAB PO SCH ×2 (09:39→21:30)
[2019-03-19] MEDS: Isosorbide Mononitrate (ER) 30 MG TAB PO SCH (09:39)
[2019-03-19] MEDS: Brimonidine Tartrate 0.2% Ophth Soln 5 ml Bottle EA EYE SCH ×2 (09:40→21:27)
[2019-03-19] MEDS: Labetalol 100 MG TAB PO SCH ×3 (09:40→21:27)
[2019-03-19] MEDS: Timolol 0.5% Ophth Soln 5 ml Bottle EA EYE SCH ×2 (09:41→21:26)
[2019-03-19] MEDS: Polyethylene Glycol 3350 17 GM Packet PO SCH (09:41)
[2019-03-19] MEDS: HumaLOG 300 UNITS/3 ML VIAL SC PRN ×3 (09:52→17:52)
[2019-03-19 11:14] LABS: ALT (SGPT) Less than 7 U/L (8-55); AST (SGOT) 6 U/L (5-34); Albumin 3.5 g/dL (3.4-4.8); Alkaline Phosphatase 80 U/L (40-110); Bilirubin, Direct 0.2 mg/dL (0.1-0.3); Bilirubin, Total 0.5 mg/dL (0.2-1.2); Phosphorus 2.5 mg/dL (2.3-4.7); Protein, Total 6.5 g/dL (6.0-8.3)
--- NOTE | 2019-03-19 13:14 | PDOC.HOSPP ---
- Subjective Encounter Date: 03/19/19 Encounter Time: 12:00 Subjective: Patient seen and examined for Afib/abd pain. Abd pain worsening after food. No N /V. No other complaints. No overnight events - Objective Vital Signs & Weight: Vital Signs (12 hours) Temp Pulse Pulse Pulse Resp BP BP 03/19/19 12:52 98.4 F 76 20 03/19/19 10:00 83 86 162/73 H 171/68 H 03/19/19 07:44 03/19/19 07:43 86 20 03/19/19 07:21 98.5 F 80 19 03/19/19 04:00 97.5 F L 73 18 BP Pulse Ox 03/19/19 12:52 139/62 96 03/19/19 10:00 03/19/19 07:44 98 03/19/19 07:43 98 03/19/19 07:21 190/78 H 95 03/19/19 04:00 174/77 H 95 Weight Admit Weight 186 lb 11.2 oz Weight 190 lb 14.4 oz I&O: 03/18/19 03/19/19 03/20/19 06:59 06:59 06:59 Intake Total 1320 1200 Output Total 1350 1400 Balance -30 -200 Result Diagrams: 03/19/19 07:57 03/19/19 07:57 Additional Labs: Accuchecks 03/19/19 03/19/19 03/18/19 11:01 05:53 20:53 POC Glucose 233 H 201 H 245 H 03/18/19 03/18/19 16:27 10:31 POC Glucose 252 H 107 EKG Reviewed by me: Yes (Tele Aflutter) Hospitalist ROS - Review of Systems Respiratory: denies: cough, dry, shortness of breath, hemoptysis, SOB with excertion, pleuritic pain, sputum, wheezing, other Cardiovascular: denies: chest pain, palpitations, orthopnea, paroxysmal noc. dyspnea, edema, light headedness, other - Medication Medications: Active Medications Generic Name Dose Route Start Last Admin Trade Name Freq PRN Reason Stop Dose Admin Albuterol/Ipratropium 3 ml 03/14/19 01:00 03/19/19 07:43 Duoneb NEB 3 ml [id number] VISHAL Administration Apixaban 5 mg 03/18/19 21:00 03/19/19 09:39 Eliquis PO 5 mg BID VISHAL Administration Atorvastatin Calcium 40 mg 03/14/19 21:00 03/18/19 21:20 Lipitor PO 40 mg HS VISHAL Administration Brimonidine Tartrate 0 drop 03/15/19 21:00 03/19/19 09:40 Alphagan 0.2% Ophth Soln EA EYE Not Given BID VISHAL Cyclobenzaprine HCl 10 mg 03/13/19 23:26 03/17/19 12:24 Flexeril PO 10 mg TID PRN Administration Muscle Spasm Diltiazem HCl 30 mg 03/18/19 07:30 03/19/19 12:33 Cardizem PO 30 mg ACHS VISHAL Administration Duloxetine HCl 60 mg 03/14/19 09:00 03/19/19 09:39 Cymbalta PO 60 mg DAILY VISHAL Administration Guaifenesin/Dextromethorphan 15 ml 03/13/19 23:26 03/15/19 15:08 Robitussin Dm PO 15 ml Q4H PRN Administration Cough Insulin Glargine 18 units/ 0.18 mls @ 0 mls/hr 03/14/19 21:00 03/18/19 21:21 Miscellaneous Medication SC 0.18 mls HS VISHAL Administration Piperacillin Sod/Tazobactam 100 mls @ 200 mls/hr 03/14/19 06:00 03/19/19 12: 34 Sod 3.375 gm/ Sodium Chloride IVPB 100 mls Q6HR VISHAL Administration Insulin Human Lispro 0 units 03/13/19 23:26 03/18/19 21:22 Humalog SC 2 unit .BEDTIME SLIDING SC PRN Administration Bedtime Correctional Scale Insulin Human Lispro 0 units 03/14/19 12:34 03/19/19 12:35 Humalog SC 6 unit .AGGRESSIVE SLIDING PRN Administration AGGRESSIVE SLIDING SCALE Protocol Isosorbide Mononitrate 60 mg 03/19/19 09:00 03/19/19 09:39 Imdur Er PO 60 mg DAILY VISHAL Administration Labetalol HCl 100 mg 03/14/19 09:00 03/19/19 09:40 Normodyne PO 100 mg TID VISHAL Administration Latanoprost 1 drop 03/15/19 21:00 03/18/19 21:22 Xalatan 0.005% Ophth Soln EA EYE Not Given HS VISHAL Morphine Sulfate 2 mg 03/14/19 15:53 03/19/19 07:44 Morphine SLOW IVP 2 mg Q4H PRN Administration Moderate to Severe Pain (6-10) Ondansetron HCl 4 mg 03/13/19 23:26 03/15/19 09:10 Zofran IVP 4 mg Q6H PRN Administration Nausea/Vomiting Pantoprazole Sodium 40 mg 03/19/19 09:00 03/19/19 09:39 Protonix IVP 40 mg DAILY VISHAL Administration Polyethylene Glycol 17 gm 03/19/19 09:00 03/19/19 09:41 Miralax PO 17 gm DAILY VISHAL Administration Pregabalin 25 mg 03/18/19 09:00 03/19/19 09:39 Lyrica PO 25 mg BID VISHAL Administration Saccharomyces Boulardii 250 mg 03/19/19 09:00 03/19/19 09:39 Florastor PO 250 mg DAILY VISHAL Administration Sodium Chloride 10 ml 03/14/19 09:00 03/19/19 09:42 Flush - Normal Saline IVF 10 ml Q12HR VISHAL Administration Timolol Maleate 0 drop 03/15/19 21:00 03/19/19 09:41 Timoptic 0.5% Ophth Soln EA EYE Not Given BID VISHAL - Exam General Appearance: NAD Heart: no rubs, irregular Respiratory: no wheezes, no rales, no ronchi Gastrointestinal: non-distended, no guarding, no rigidity, tender to palpation Extremities: no cyanosis, no clubbing Hosp A/P - Plan Afib/Aflutter with RVR requiring Cardizem drip Abd pain due to ?Acalculous cholecystitis vs Mesenteric ischemia Hypomagnesemia CAD HTN HLD DM2 h/o TIA PLAN: Cont IV Zosyn On Eliquis Cont PO Labetalol/Cardizem Imdur dose increased Restart ASA Replace Magnesium Cont PPI Cont sliding scale Cont other meds as above
[2019-03-19] MEDS: Acetaminophen 325 MG TAB PO SCH ×2 (15:40→21:29)
[2019-03-19] MEDS: Cyclobenzaprine 10 MG TAB PO PRN (16:17)
--- NOTE | 2019-03-19 16:48 | PRG ---
DATE OF SERVICE: 03/19/2019 REASON FOR CONSULTATION: Abdominal pain (generalized)/probable mesenteric ischemia. SUBJECTIVE: With the ingestion of breakfast this morning, the patient experienced acute increase in her abdominal pain generalized to the entire abdomen and fairly unchanged in terms of character and severity when compared to previous. She has had approximately 2 semi-solid bowel movements within the last 24 hours with no difficulty with defecation. She has been consuming primarily a clear liquid diet without difficulty as well. Otherwise, she denies any nausea, vomiting, fevers, chills, hematemesis, melena, or hematochezia. OBJECTIVE: VITAL SIGNS: Temperature 97.5, pulse 77, blood pressure 146/65, respiratory rate 18, saturating 95% on 1 L nasal cannula. GENERAL: The patient was lying in bed, in mild distress but alert and oriented x4. CARDIOVASCULAR: Regular rate and rhythm. RESPIRATORY: Clear to auscultation bilaterally, although with poor inspiratory effort. ABDOMEN: Normoactive bowel sounds, soft, mild abdominal distention. Significant tenderness to palpation in all abdominal quadrants with both light and deep palpation. However, the degree of pain was not elicited with distraction. EXTREMITIES: No cyanosis, clubbing, or edema, but mild pedal edema to bilateral lower extremities. LABORATORY DATA: CBC with a white blood cell count of 7, hemoglobin 11, hematocrit 33.3, platelets 230. Chemistry with a sodium of 136, potassium 3.9, chloride 99, CO2 of 27, BUN 6, creatinine 0.76, glucose 164, calcium 9.3. AST 6, ALT less than 7, alkaline phosphatase 80, total bilirubin 0.5, albumin 3.5, lipase 5. IMAGING DATA: No current GI imaging is available for review. ASSESSMENT AND PLAN: The patient is an 88-year-old female with past medical history of coronary artery disease status post four vessel coronary artery bypass grafting, chronic obstructive pulmonary disease, transient ischemic attack, diabetes, cervical stenosis, atrial fibrillation, congestive heart failure, hyperlipidemia, hypertension, and peripheral vascular disease/peripheral arterial disease, presenting with increased generalized abdominal pain most consistent with mesenteric ischemia. Generalized abdominal pain/mesenteric ischemia. The patient has been having progressively worsening abdominal pain over the last month, but increased in terms of its severity with her episode of atrial fibrillation with rapid ventricular response. On admission, she was noted to have significant fat stranding around the gallbladder concerning for acalculous cholecystitis but with a HIDA scan obtained during this admission that was normal and makes cholecystitis much less likely. 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 At this time, she does not have any signs or symptoms consistent with ischemic colitis. However, the differential could also include acalculous cholecystitis, constipation (less likely), mesenteric ischemia, GERD (less likely), decreased perfusion secondary to paroxysmal atrial fibrillation (less likely), functional abdominal pain and/or GI neoplasm. RECOMMENDATIONS: 1. Would continue patient on MiraLAX daily as part of a bowel regimen to prevent constipation. 2. Would attempt to adhere to a FODMAP diet to decrease intestinal gas formation and hopefully alleviate pain. 3. Continue pantoprazole 40 mg daily. 4. Pain control per primary team. 5. We will consider consultation of Vascular Surgery Service for evaluation of the severe stenosis associated with the superior mesenteric artery and whether or not this patient is a candidate for endovascular angioplasty. We will continue to follow. Please call with any questions. Job ID: [id number]
[2019-03-19] MEDS: Insulin Glargine 18 UNITS in Pre-Filled Syringe 1 EACH SC SCH (21:23)
[2019-03-19] MEDS: Latanoprost 0.005% Ophth Soln 2.5 ml Bottle EA EYE SCH (21:26)
[2019-03-19] MEDS: Atorvastatin Calcium 40 MG TAB PO SCH (21:29)
[2019-03-20] MEDS: Piperacillin/Tazobactam 3.375 GM in Sodium Chloride 0.9% 100 ML IVPB SCH ×4 (00:30→17:55)
[2019-03-20] MEDS: Cyclobenzaprine 10 MG TAB PO PRN (01:19)
[2019-03-20 04:39] LABS: #Eosinphils 0.3 thou/uL (0.0-0.7); #Lymphocytes 1.9 thou/uL (1.20-3.40); #Monocytes 0.8 thou/uL (0.11-0.59); %Basophils 0.7 % (0.0-1.0); %Eosinophils 4.8 % (0.0-10.0); %Lymphocytes 27.5 % (21.0-51.0); Hemoglobin 9.9 g/dL (12.0-16.0); Mean Corpuscular HGB CONC 32.8 g/dL (32.0-36.0); Mean Corpuscular Hemoglobin 30.4 pg (27.0-31.0); Mean Corpuscular Volume 92.7 fL (78.0-98.0); Mean Platelet Volume 8.4 fL (7.4-10.4); Platelet Count 234 thou/uL (130-400); RBC Distribution Width 12.8 % (11.5-14.5); Red Blood Cell (RBC) Count 3.26 mill/uL (4.20-5.40); White Blood Cell (WBC) Count 7.1 thou/uL (4.8-10.8)
[2019-03-20 05:08] LABS: ALT (SGPT) 7 U/L (8-55); AST (SGOT) 12 U/L (5-34); Albumin 3.2 g/dL (3.4-4.8); Alkaline Phosphatase 78 U/L (40-110); Anion Gap 12 mmol/L (10-20); BUN (Urea Nitrogen) 6 mg/dL (9.8-20.1); Bilirubin, Total 0.3 mg/dL (0.2-1.2); Calc. Creatinine Clearance 74 mL/min (70-130); Calcium 8.9 mg/dL (7.8-10.44); Carbon Dioxide 27 mmol/L (23-31); Chloride 99 mmol/L (98-107); Estimated GFR-MDRD 73; Globulin 2.7 g/dL (2.4-3.5); Glucose 204 mg/dL (83-110); Magnesium 1.8 mg/dL (1.6-2.6); Protein, Total 5.9 g/dL (6.0-8.3); Sodium 134 mmol/L (136-145)
[2019-03-20] MEDS: Acetaminophen 325 MG TAB PO SCH ×3 (09:30→21:47)
[2019-03-20] MEDS: Isosorbide Mononitrate (ER) 30 MG TAB PO SCH (09:31)
[2019-03-20] MEDS: DULoxetine 60 MG CAP PO SCH (09:31)
[2019-03-20] MEDS: Labetalol 100 MG TAB PO SCH ×3 (09:31→21:46)
[2019-03-20] MEDS: Aspirin 81 mg Enteric Coated Tablet PO SCH (09:31)
[2019-03-20] MEDS: Apixaban 5 MG TAB PO SCH ×2 (09:31→21:47)
[2019-03-20] MEDS: Saccharomyces boulardii 250 MG CAP PO SCH (09:32)
[2019-03-20] MEDS: Pantoprazole 40 MG VIAL IVP SCH (09:32)
[2019-03-20] MEDS: Pregabalin 25 MG CAP PO SCH ×2 (09:32→21:55)
[2019-03-20] MEDS: Timolol 0.5% Ophth Soln 5 ml Bottle EA EYE SCH ×2 (09:34→21:48)
[2019-03-20] MEDS: Brimonidine Tartrate 0.2% Ophth Soln 5 ml Bottle EA EYE SCH ×2 (09:34→21:48)
[2019-03-20] MEDS: Polyethylene Glycol 3350 17 GM Packet PO SCH (09:40)
--- NOTE | 2019-03-20 11:22 | CON ---
DATE OF CONSULTATION: HISTORY OF PRESENT ILLNESS: Ms. Mckinnon has been in the hospital since March 13 with abdominal pain. She has had numerous studies and [employer] consultant see her. She has gained weight in the hospital. Historically, she says that her abdomen hurts for a long time chronically all the time. She says that it hurts when she eats, but has not seemed to avoid eating while in the hospital. She has gained weight while she has been in the hospital. Part of her admission studies was a CT dissection study which shows a widely patent celiac artery. She has proximal disease in her SMA, but has good flow through this area into the distal branches of the superior mesenteric artery. I have been asked to see her to consider mesenteric ischemia as a cause for her abdominal pain. PAST MEDICAL HISTORY: 1. She is a former smoker. 2. Coronary artery disease status post CABG in 2001. 3. COPD. 4. Diabetes mellitus. 5. Spinal stenosis with previous cervical spine surgery. PAST SURGICAL HISTORY: 1. Bilateral hip replacements with 4 operations on her left hip and subsequent removal-she is currently wheelchair bound. 2. Carotid disease, status post right carotid endarterectomy. 3. Left rotator cuff surgery. 4. Carpal tunnel surgery. CURRENT MEDICATIONS: Noted. ALLERGIES: 1. IODINE. 2. SERTRALINE. 3. SULFA. 4. KETOROLAC. PHYSICAL EXAMINATION: GENERAL: This is an elderly woman in bed. I woke her from sleep to interview. VITAL SIGNS: Her temperature is 97.5, pulse is 72, blood pressure is 166/70, oxygen saturation is 97% on nasal cannula, her height is 5 feet 4 inches, and weight is 190 pounds. NECK: Supple with bilateral soft bruits. CHEST: Clear bilaterally. HEART: Rhythm is regular without murmur. ABDOMEN: On touching the skin of her abdomen, she jerked and tensed her abdomen. She could not relax her abdomen enough to allow for a true abdominal exam, but she seems to be tender with minimal palpation all over her abdomen. EXTREMITIES: There is no edema. LABORATORY DATA: Her white blood cell count is 7, hemoglobin is 10.9, platelet count is 234,000. Potassium is 4.0, glucose is 204, creatinine is 0.75, albumin is 3.5. Her lipase is 5. Bilirubin is 0.4, AST is 5, ALT is less than 7, and alkaline phosphatase is 69, all have been normal. IMAGING STUDIES: I reviewed her CTA angiogram. ASSESSMENT AND PLAN: While we were talking, Ms. Mckinnon wanted something to drink. She drank some tea without pain in her abdomen other than what she has on a chronic basis. She also started to eat her breakfast while I was in the room. She obviously has chronic abdominal pain, although I am not sure of the source. With a widely patent celiac artery and the SMA with very good flow in it as evidenced on her CT angiogram, I would not think that mesenteric ischemia, based on her history and x-ray findings, would be the source of her abdominal pain. Job ID: [id number]
[2019-03-20] MEDS: Morphine 2 MG/ML SYRINGE SLOW IVP PRN (11:39)
[2019-03-20] MEDS ORDERED: GoLYTELY 4,000 ml Bottle PO SCH (12:00)
--- NOTE | 2019-03-20 12:31 | PRG ---
DATE OF SERVICE: 03/20/2019 REASON FOR CONSULTATION: Abdominal pain (generalized)/probable mesenteric ischemia. SUBJECTIVE: The patient states that again with ingestion of breakfast this morning, she had an increase in her abdominal pain that she considers unchanged in terms of character and severity when compared to previous. She has had approximately 1 to 2 semi-solid bowel movements within the last 24 hours with no difficulty with defecation as well. She has been consuming primarily a liquid diet with minimal increases in her pain with consumption of that particular diet, however, when she does consume any solid type foods, it significantly increases her pain. Otherwise, she denies any nausea, vomiting, fevers, chills, hematemesis, melena, or hematochezia. OBJECTIVE: VITAL SIGNS: Temperature 97.5, pulse 72, blood pressure 140/60, respiratory rate 18, and saturating 97% on 1 L nasal cannula. GENERAL: The patient is lying in bed, in no acute distress. Alert and oriented x4. CARDIOVASCULAR: Regular rate and rhythm. RESPIRATORY: Clear to auscultation bilaterally. ABDOMEN: Normoactive bowel sounds. Soft. Mild abdominal distention. Significant tenderness to palpation in all abdominal quadrants with both light and deep palpation. EXTREMITIES: No cyanosis, clubbing, or edema, but mild pedal edema in her bilateral feet. LABORATORY DATA: CBC with a white blood cell count of 7.1, hemoglobin 9.9, hematocrit 30.2, and platelets 234. Chemistry with a sodium of 134, potassium 4, chloride 99, CO2 of 27, BUN 6, creatinine 0.75, and glucose 204. AST 12, ALT 7, alkaline phosphatase 78, and total bilirubin 0.3. IMAGING DATA: No current GI imaging is available for review. ASSESSMENT AND PLAN: The patient is an 88-year-old female with past medical history of coronary artery disease, status post 4-vessel coronary artery bypass grafting, chronic obstructive pulmonary disease, transient ischemic attack, diabetes, cervical spine stenosis, atrial fibrillation, congestive heart failure, hyperlipidemia, hypertension, and peripheral vascular disease/peripheral arterial disease presenting with increased generalized abdominal pain. Generalized abdominal pain: The patient is presenting with a stated history of worsening abdominal pain over the last month, but worsening in terms of severity over the last week with her episode of atrial fibrillation with rapid ventricular response. She was also noted to have significant fat stranding around the gallbladder concerning for acalculous cholecystitis, but a HIDA scan obtained during this admission was normal making this a less likely diagnosis. 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 However, she has been evaluated by the Vascular Surgery Service at this time, who feels that her degree of stenosis is not significant enough to generate her abdominal pain. At this time, the differential could include acalculous cholecystitis, constipation (less likely), mesenteric ischemia, ischemic colitis (less likely), gastroesophageal reflux disease (less likely), decreased gut perfusion secondary to her paroxysmal atrial fibrillation (less likely given stabilization and rate control currently). Functional abdominal pain and/or gastrointestinal neoplasm. RECOMMENDATIONS: 1. We will continue the patient on MiraLAX daily as part of bowel regimen to prevent constipation. 2. Continue FODMAP diet to decrease intestinal gas formation. 3. Continue pantoprazole 40 mg daily. 4. Pain control per primary team. 5. Given the lack of efficacy to more conservative management and no plans for intervention via the Vascular Surgery Service, we would then consider EGD and colonoscopy for further evaluation of this abdominal pain. If negative, then I would defer to possible ischemic type change related to decreased vascular flow within the gut. We will continue to follow. Please call with any questions. Job ID: [id number]
[2019-03-20] MEDS: HumaLOG 300 UNITS/3 ML VIAL SC PRN ×2 (12:52→21:49)
--- NOTE | 2019-03-20 14:55 | PDOC.HOSPP ---
- Subjective Encounter Date: 03/20/19 Encounter Time: 09:00 Subjective: Patient seen and examined for abd pain. No improvement in abd pain. No other complaints. No overnight events - Objective Vital Signs & Weight: Vital Signs (12 hours) Temp Pulse Resp BP Pulse Ox 03/20/19 13:55 73 16 03/20/19 12:05 97.9 F 16 147/65 H 98 03/20/19 11:45 72 140/60 03/20/19 09:18 97.5 F L 72 18 166/70 H 97 03/20/19 07:57 72 16 03/20/19 03:24 98.1 F 70 17 150/65 H 94 L Weight Admit Weight 186 lb 11.2 oz Weight 190 lb 14.4 oz I&O: 03/19/19 03/20/19 03/21/19 06:59 06:59 06:59 Intake Total 1200 855 Output Total 1400 3100 Balance -200 -2245 Result Diagrams: 03/20/19 04:03 03/20/19 04:03 Additional Labs: Accuchecks 03/20/19 03/20/19 03/20/19 12:04 10:45 05:52 POC Glucose 295 H 253 H 190 H 03/19/19 03/19/19 20:06 16:17 POC Glucose 232 H 238 H EKG Reviewed by me: Yes (Tele Aflutter ) Hospitalist ROS - Review of Systems Cardiovascular: denies: chest pain, palpitations, orthopnea, paroxysmal noc. dyspnea, edema, light headedness, other Gastrointestinal: denies: nausea, vomiting, abdominal pain, diarrhea, constipation, melena, hematochezia, other - Medication Medications: Active Medications Generic Name Dose Route Start Last Admin Trade Name Freq PRN Reason Stop Dose Admin Acetaminophen 650 mg 03/19/19 15:00 03/20/19 09:30 Tylenol PO 650 mg TID VISHAL Administration Albuterol/Ipratropium 3 ml 03/14/19 01:00 03/20/19 13:55 Duoneb NEB 3 ml I2II-UP VISHAL Administration Apixaban 5 mg 03/18/19 21:00 03/20/19 09:31 Eliquis PO 5 mg BID VISHAL Administration Aspirin 81 mg 03/20/19 09:00 03/20/19 09:31 Ecotrin PO 81 mg DAILY VISHAL Administration Atorvastatin Calcium 40 mg 03/14/19 21:00 03/19/19 21:29 Lipitor PO 40 mg HS VISHAL Administration Brimonidine Tartrate 0 drop 03/15/19 21:00 03/20/19 09:34 Alphagan 0.2% Ophth Soln EA EYE 1 drop BID VISHAL Administration Cyclobenzaprine HCl 10 mg 03/13/19 23:26 03/20/19 01:19 Flexeril PO 10 mg TID PRN Administration Muscle Spasm Diltiazem HCl 30 mg 03/18/19 07:30 03/20/19 12:52 Cardizem PO 30 mg ACHS VISHAL Administration Duloxetine HCl 60 mg 03/14/19 09:00 03/20/19 09:31 Cymbalta PO 60 mg DAILY VISHAL Administration Guaifenesin/Dextromethorphan 15 ml 03/13/19 23:26 03/15/19 15:08 Robitussin Dm PO 15 ml Q4H PRN Administration Cough Insulin Glargine 18 units/ 0.18 mls @ 0 mls/hr 03/14/19 21:00 03/19/19 21:23 Miscellaneous Medication SC 0.18 mls HS VISHAL Administration Piperacillin Sod/Tazobactam 100 mls @ 200 mls/hr 03/14/19 06:00 03/20/19 12: 52 Sod 3.375 gm/ Sodium Chloride IVPB 100 mls Q6HR VISHAL Administration Insulin Human Lispro 0 units 03/13/19 23:26 03/18/19 21:22 Humalog SC 2 unit .BEDTIME SLIDING SC PRN Administration Bedtime Correctional Scale Insulin Human Lispro 0 units 03/14/19 12:34 03/20/19 12:52 Humalog SC 9 unit .AGGRESSIVE SLIDING PRN Administration AGGRESSIVE SLIDING SCALE Protocol Isosorbide Mononitrate 60 mg 03/19/19 09:00 03/20/19 09:31 Imdur Er PO 60 mg DAILY VISHAL Administration Labetalol HCl 100 mg 03/14/19 09:00 03/20/19 09:31 Normodyne PO 100 mg TID VISHAL Administration Latanoprost 1 drop 03/15/19 21:00 03/19/19 21:26 Xalatan 0.005% Ophth Soln EA EYE 1 drop HS VISHAL Administration Morphine Sulfate 2 mg 03/14/19 15:53 03/20/19 11:39 Morphine SLOW IVP 2 mg Q4H PRN Administration Moderate to Severe Pain (6-10) Ondansetron HCl 4 mg 03/13/19 23:26 03/15/19 09:10 Zofran IVP 4 mg Q6H PRN Administration Nausea/Vomiting Pantoprazole Sodium 40 mg 03/19/19 09:00 03/20/19 09:32 Protonix IVP 40 mg DAILY VISHAL Administration Polyethylene Glycol 17 gm 03/19/19 09:00 03/20/19 09:40 Miralax PO Not Given DAILY VISHAL Pregabalin 25 mg 03/18/19 09:00 03/20/19 09:32 Lyrica PO 25 mg BID VISHAL Administration Saccharomyces Boulardii 250 mg 03/19/19 09:00 03/20/19 09:32 Florastor PO 250 mg DAILY VISHAL Administration Sodium Chloride 10 ml 03/14/19 09:00 03/20/19 09:34 Flush - Normal Saline IVF 10 ml Q12HR VISHAL Administration Timolol Maleate 0 drop 03/15/19 21:00 03/20/19 09:34 Timoptic 0.5% Ophth Soln EA EYE 1 drop BID VISHAL Administration - Exam General Appearance: NAD Heart: no gallops, irregular Respiratory: no wheezes, no rales Gastrointestinal: soft, normal bowel sounds, no guarding, no rigidity, tender to palpation Extremities: no cyanosis, no clubbing Hosp A/P - Plan Afib/Aflutter with RVR requiring Cardizem drip Abd pain due to ?Acalculous cholecystitis Hypomagnesemia - replaced CAD HTN HLD DM2 h/o TIA PLAN: Cont IV Zosyn On Eliquis Cont PO Labetalol/Cardizem/Imdur No intervention per CV Cont sliding scale Cont other meds as above
[2019-03-20] MEDS: traMADol HCl 50 MG TAB PO PRN ×2 (15:26→21:47)
[2019-03-20] MEDS: Atorvastatin Calcium 40 MG TAB PO SCH (21:47)
[2019-03-20] MEDS: Latanoprost 0.005% Ophth Soln 2.5 ml Bottle EA EYE SCH (21:48)
[2019-03-20] MEDS: Insulin Glargine 18 UNITS in Pre-Filled Syringe 1 EACH SC SCH (21:49)
[2019-03-21] MEDS: Piperacillin/Tazobactam 3.375 GM in Sodium Chloride 0.9% 100 ML IVPB SCH ×4 (00:36→18:22)
[2019-03-21] MEDS: traMADol HCl 50 MG TAB PO PRN (04:16)
[2019-03-21 04:28] LABS: #Eosinphils 0.3 thou/uL (0.0-0.7); #Monocytes 0.8 thou/uL (0.11-0.59); #Neutrophils 3.3 thou/uL (1.40-6.50); %Basophils 0.6 % (0.0-1.0); %Eosinophils 4.9 % (0.0-10.0); %Lymphocytes 30.8 % (21.0-51.0); %Monocytes 12.1 % (0.0-10.0); %Neutrophils 51.7 % (42.0-75.0); Mean Corpuscular HGB CONC 32.7 g/dL (32.0-36.0); Mean Corpuscular Hemoglobin 30.4 pg (27.0-31.0); Mean Corpuscular Volume 93.1 fL (78.0-98.0); Mean Platelet Volume 8.2 fL (7.4-10.4); Platelet Count 243 thou/uL (130-400); RBC Distribution Width 12.9 % (11.5-14.5); Red Blood Cell (RBC) Count 3.27 mill/uL (4.20-5.40); White Blood Cell (WBC) Count 6.4 thou/uL (4.8-10.8)
[2019-03-21 04:49] LABS: Anion Gap 11 mmol/L (10-20); BUN (Urea Nitrogen) 5 mg/dL (9.8-20.1); Calc. Creatinine Clearance 71 mL/min (70-130); Calcium 8.8 mg/dL (7.8-10.44); Carbon Dioxide 29 mmol/L (23-31); Chloride 99 mmol/L (98-107); Estimated GFR-MDRD 70; Glucose 260 mg/dL (83-110); Potassium 3.7 mmol/L (3.5-5.1); Sodium 135 mmol/L (136-145)
[2019-03-21] MEDS: Morphine 2 MG/ML SYRINGE SLOW IVP PRN (06:33)
[2019-03-21] MEDS: Labetalol 100 MG TAB PO SCH ×3 (08:10→20:57)
[2019-03-21] MEDS ORDERED: ePHEDrine/0.9% NaCl/PF SYRINGE 50 mg/10 ml ONE (09:47)
[2019-03-21] MEDS ORDERED: PROPOFOL 200 MG/20 ML VIAL ONE (09:47)
--- NOTE | 2019-03-21 11:17 | PRG ---
DATE OF SERVICE: 03/19/2019 The nurses called and asked that I reevaluate the patient as she has not been seen by Surgery in a few days. CHIEF COMPLAINT: "I don't feel well." HISTORY OF PRESENT ILLNESS: The patient has been in the hospital for several days now. She still describes diffuse abdominal pain that seems to be more in the lower quadrants. She also points to the upper abdomen as well. There does not appear to be a timing with the pain. It is fairly constant. She feels full. She states that she has no nausea. She has been having bowel movements. Pain is dull and 4 or 5 out of 10. OBJECTIVE: VITAL SIGNS: Temperature 98.5, heart rate 80, blood pressure 170/77. GENERAL: She appears somewhat somnolent - nurses state that they just recently given her some morphine. NECK: Supple with midline trachea. HEART: Regularly regular. LUNGS: Clear to auscultation bilaterally, somewhat limited by body habitus. ABDOMEN: Round and soft. The patient has diffuse tenderness to palpation in all quadrants without localization. No skin changes. No peritoneal signs. SKIN: Good turgor. No jaundice. PSYCHIATRIC: The patient appears to answer questions appropriately, did just receive some pain medicine. LABORATORY DATA: White blood cell count 7, H and H are 11 and 33. RADIOLOGY DATA: I reviewed all the radiology imaging and reports since the patient has been in the hospital. When the patient presented on the 13 of March, a CT scan to rule out dissection was obtained. Amongst the findings, was thickened gallbladder with some surrounding fluid. This had some concern for cholecystitis, which was then led to an ultrasound several hours later. There was a thickened gallbladder wall with no evidence of gallstones. Common bile duct was normal. Several days into the hospitalization, there seemed to be a concern, so a HIDA scan was obtained on the 18 of March, which demonstrated flow into the gallbladder and an ejection fraction of 60%. ASSESSMENT: Abdominal pain - I reviewed the consultation note from Gastroenterology. Differential diagnosis seems fairly long. Fortunately, cholecystitis has been ruled out in this patient. She does not have gallstones. The spectre of acalculous cholecystitis has been ruled out with a HIDA scan. Given that she has flow into and out of her gallbladder, this would, again rule out cholecystitis. I do not think an operation nor a cholecystostomy tube is going to help this patient. There was some question or concern about placing the patient back on anticoagulation. I would not plan on intervening on this patient. Therefore, anticoagulation can be restarted from the surgical perspective. PLAN: No surgical intervention for her gallbladder percutaneously or operatively. Diet as tolerated. Other recommendations per GI. Job ID: [id number]
[2019-03-21] MEDS ORDERED: Ketamine 50 MG/ML (10ML VIAL) ONE (11:20)
[2019-03-21] MEDS ORDERED: Phenylephrine HCL 10 MG/ML VIAL ONE (11:28)
[2019-03-21] MEDS ORDERED: PHENYLEPHRINE-NS 100 MCG/ML 10 ML SYRINGE ONE (11:29)
[2019-03-21] MEDS: Apixaban 5 MG TAB PO SCH ×3 (13:09→20:58)
[2019-03-21] MEDS: Isosorbide Mononitrate (ER) 30 MG TAB PO SCH ×2 (13:10→14:38)
[2019-03-21] MEDS: Pantoprazole 40 MG VIAL IVP SCH (13:20)
--- NOTE | 2019-03-21 13:58 | CT ---
Exam: Head CT without contrast HISTORY: Altered mental status. Unresponsive. Code stroke. COMPARISON: 11/11/2017 FINDINGS: Hemorrhage: No intraparenchymal hemorrhage or extra-axial hematoma. Brain parenchyma: Cortical chacko-white matter differentiation is preserved. No mass effect or midline shift. Basilar cisterns are patent.Stable remote lacunar infarcts involving the left etienne radiata. Ventricular system: Ventricles and sulci are patent and symmetric. Calvarium: Intact. Sinuses and mastoid air cells: Adequate aeration. IMPRESSION: No acute intracranial process. Results study discussed with Dr. Talamantes03/21/2019 1:53 PM Code CR
[2019-03-21] MEDS: Pregabalin 25 MG CAP PO SCH ×2 (14:16→20:58)
[2019-03-21] MEDS: Acetaminophen 325 MG TAB PO SCH ×3 (14:17→20:57)
[2019-03-21] MEDS: HumaLOG 300 UNITS/3 ML VIAL SC PRN ×2 (14:20→17:50)
[2019-03-21] MEDS: Brimonidine Tartrate 0.2% Ophth Soln 5 ml Bottle EA EYE SCH ×2 (14:24→21:30)
[2019-03-21] MEDS: Timolol 0.5% Ophth Soln 5 ml Bottle EA EYE SCH ×2 (14:24→21:31)
[2019-03-21] MEDS: DULoxetine 60 MG CAP PO SCH (14:25)
[2019-03-21] MEDS: Aspirin 81 mg Enteric Coated Tablet PO SCH (14:25)
[2019-03-21] MEDS: Polyethylene Glycol 3350 17 GM Packet PO SCH (14:26)
[2019-03-21] MEDS: Saccharomyces boulardii 250 MG CAP PO SCH (14:26)
[2019-03-21 15:10] LABS: ALT (SGPT) 11 U/L (8-55); AST (SGOT) 19 U/L (5-34); Albumin 3.7 g/dL (3.4-4.8); Alkaline Phosphatase 80 U/L (40-110); Anion Gap 18 mmol/L (10-20); BUN (Urea Nitrogen) 5 mg/dL (9.8-20.1); Bilirubin, Total 0.5 mg/dL (0.2-1.2); Calc. Creatinine Clearance 73 mL/min (70-130); Calcium 9.3 mg/dL (7.8-10.44); Carbon Dioxide 24 mmol/L (23-31); Chloride 98 mmol/L (98-107); Estimated GFR-MDRD 73; Globulin 3.3 g/dL (2.4-3.5); Glucose 190 mg/dL (83-110); Magnesium 1.6 mg/dL (1.6-2.6); Potassium 4.1 mmol/L (3.5-5.1); Sodium 136 mmol/L (136-145)
--- NOTE | 2019-03-21 15:22 | OP ---
DATE OF PROCEDURE: 03/21/2019 PROCEDURES PERFORMED: 1. Esophagogastroduodenoscopy (diagnostic). 2. Colonoscopy (incomplete). INDICATIONS FOR PROCEDURE: Generalized abdominal pain. DESCRIPTION OF PROCEDURE: After the risks and benefits of the procedures were explained to the patient including risks of bleeding, infection, perforation, reactions to anesthesia, aspiration, and/or pain, informed consent was obtained. The patient was then taken to the endoscopy suite, where she was placed in the left lateral decubitus position, followed by introduction of deep sedation via propofol and ketamine via Anesthesia support. Once adequate sedation was achieved, the standard gastroscope was introduced into the mouth with intubation of the esophagus, stomach, and the proximal small intestines. During this portion of the procedure, the patient did experience acute oxygen desaturation, that responded to medical management and mask oxygenation with the deoxygenation period no longer than 2 to 3 minutes. After the patient's oxygen saturation and blood pressure were more normal levels, the EGD portion of the examination was completed, at which point all equipment was removed from the patient and the bed was rotated 180 degrees in anticipation of the colonoscopy. After a digital rectal examination was performed, the standard colonoscope was introduced into the rectum and advanced to the distal descending/proximal sigmoid colon with further passage of the scope unable to be completed due to significant tortuosity of the colon, redundancy of the colon, and significant looping of the colonoscope itself despite abdominal pressure to facilitate passage of the scope. The quality of the prep was fair to poor with a large amount of retained stool within the rectum and sigmoid, but was amenable to aggressive irrigation and suctioning. The patient tolerated this portion of the procedure well with no immediate perioperative complications. Upon conclusion of the procedure, all equipment was removed from the patient and she was transferred to PACU in satisfactory condition. EGD FINDINGS: Esophagus: Normal-appearing mucosa was seen in the proximal, mid, and distal esophagus. There was no evidence of erosions, ulcerations, mass lesions, or active/recent bleeding. Stomach: Normal-appearing mucosa was seen in the gastric cardia, fundus, body, greater curvature, antrum, and incisura. There was no evidence of erosions, ulcerations, mass lesions, or active/recent bleeding. A small hiatal hernia was seen on gastric retroflexion. Duodenum: Normal-appearing mucosa was seen in the duodenal bulb, 2nd portion, and then extending into the 3rd portion of the duodenum. There was no evidence of erosions, ulcerations, mass lesions, or active/recent bleeding. IMPRESSION: 1. Small hiatal hernia seen on gastric retroflexion. 2. No etiology for the patient's abdominal pain was seen during this examination. COLONOSCOPY FINDINGS: Digital rectal exam: Small external hemorrhoids were seen on external examination with relatively normal sphincter tone and no masses palpated. Colon findings: The standard colonoscope was unable to be traversed past the proximal sigmoid/distal descending colon due to redundancy of the colon, tortuosity of the colon, and significant looping of the colonoscope that was not amenable to abdominal pressure to facilitate passage of the scope. The quality of the prep was also poor with a moderate amount of retained semi-solid stool seen in the rectum and sigmoid, but was amenable to aggressive irrigation and suctioning. The patient tolerated this portion of the procedure well with no immediate perioperative complications. Upon conclusion of the procedure, other views obtained within the sigmoid colon and rectum. Normal mucosa was seen in these areas. Small internal hemorrhoids were seen on rectal retroflexion. IMPRESSION: 1. Inability to traverse past 45 cm due to significant tortuosity, redundancy of the colon, and significant looping of the colonoscope itself. 2. Otherwise normal-appearing mucosa in the sigmoid colon and rectum. 3. Small internal and external hemorrhoids. 4. No etiology for the patient's abdominal pain was seen during this examination. RECOMMENDATIONS: 1. Would consider obtaining a repeat dedicated CT scan of the abdomen and pelvis with contrast for better visualization of the intraabdominal contents as well as the vasculature that might be contributing to her abdominal pain. 2. Pain control per primary team. 3. Continue pantoprazole 40 mg daily for possible acid reflux. 4. Continue the patient on daily bowel regimen for constipation. 5. Could consider the use of low-dose amitriptyline as part of pain modulation, although given the patient's cardiac medical comorbidities, this may not be the best option. 6. Would consider re-engage in General Surgery Service if the repeat CT scan is still showing abnormalities within the gallbladder. Given lack of obvious findings on the upper endoscopy and failure to more conservative medical management per our service, we will follow peripherally for now. Please call with any additional questions. Job ID: [id number]
[2019-03-21 16:12] LABS: #Eosinphils 0.2 thou/uL (0.0-0.7); #Lymphocytes 1.2 thou/uL (1.20-3.40); #Monocytes 0.7 thou/uL (0.11-0.59); #Neutrophils 8.7 thou/uL (1.40-6.50); %Basophils 0.3 % (0.0-1.0); %Eosinophils 1.6 % (0.0-10.0); %Lymphocytes 10.9 % (21.0-51.0); %Monocytes 6.8 % (0.0-10.0); %Neutrophils 80.5 % (42.0-75.0); Hemoglobin 11.6 g/dL (12.0-16.0); Mean Corpuscular HGB CONC 32.8 g/dL (32.0-36.0); Mean Corpuscular Hemoglobin 30.4 pg (27.0-31.0); Mean Corpuscular Volume 92.6 fL (78.0-98.0); Mean Platelet Volume 8.2 fL (7.4-10.4); Platelet Count 265 thou/uL (130-400); RBC Distribution Width 12.9 % (11.5-14.5); Red Blood Cell (RBC) Count 3.83 mill/uL (4.20-5.40); White Blood Cell (WBC) Count 10.8 thou/uL (4.8-10.8)
[2019-03-21 16:16] LABS: INR-International Normal Ratio 1.1; Prothrombin Time 14.5 SEC (12.0-14.7)
[2019-03-21 16:17] LABS: PTT 46.3 SEC (22.9-36.1)
--- NOTE | 2019-03-21 17:15 | PDOC.EP ---
- Subjective Date: 03/21/19 Time: 17:13 - Objective Allergies/Adverse Reactions: Allergies Allergy/AdvReac Type Severity Reaction Status Date / Time iodine Allergy Verified 03/14/19 09:17 ketorolac tromethamine Allergy Verified 03/14/19 09:17 [From Toradol] sertraline HCl [From Zoloft] Allergy Verified 03/14/19 09:17 Sulfa (Sulfonamide Allergy Verified 03/14/19 09:17 Antibiotics) Current Medications Acetaminophen (Tylenol) 650 mg PO Q4H PRN PRN Reason: Headache/Fever/Mild Pain (1-3) Acetaminophen (Tylenol) 650 mg PO TID [facility] Last Admin: 03/21/19 14:39 Dose: Not Given Albuterol/Ipratropium (Duoneb) 3 ml NEB [id number] [facility] Last Admin: 03/21/19 14:38 Dose: 3 ml Apixaban (Eliquis) 5 mg PO BID [facility] Last Admin: 03/21/19 14:20 Dose: 5 mg Aspirin (Ecotrin) 81 mg PO DAILY [facility] Last Admin: 03/21/19 14:25 Dose: 81 mg Atorvastatin Calcium (Lipitor) 40 mg PO HS [facility] Last Admin: 03/20/19 21:47 Dose: 40 mg Bisacodyl (Dulcolax) 10 mg [place] DAILYPRN PRN PRN Reason: Constipation Brimonidine Tartrate (Alphagan 0.2% Ophth Soln) 0 drop EA EYE BID [facility] Last Admin: 03/21/19 14:24 Dose: Not Given Cyclobenzaprine HCl (Flexeril) 10 mg PO TID PRN PRN Reason: Muscle Spasm Last Admin: 03/20/19 01:19 Dose: 10 mg Dextrose/Water (Dextrose 50%) 25 gm SLOW IVP PRN PRN PRN Reason: Hypoglycemia Diltiazem HCl (Cardizem) 30 mg PO ACHS [facility] Last Admin: 03/21/19 14:18 Dose: 30 mg Duloxetine HCl (Cymbalta) 60 mg PO DAILY [facility] Last Admin: 03/21/19 14:25 Dose: 60 mg Glucagon (Glucagon) 1 mg IM PRN PRN PRN Reason: Hypoglycemia Guaifenesin/Dextromethorphan (Robitussin Dm) 15 ml PO Q4H PRN PRN Reason: Cough Last Admin: 03/15/19 15:08 Dose: 15 ml Dextrose/Water (D5w) 1,000 mls @ 0 mls/hr IV .Q0M PRN PRN Reason: Hypoglycemia Insulin Glargine 18 units/ (Miscellaneous Medication) 0.18 mls @ 0 mls/hr SC [facility] Last Admin: 03/20/19 21:49 Dose: 0.18 mls Piperacillin Sod/Tazobactam (Sod 3.375 gm/ Sodium Chloride) 100 mls @ 200 mls/ hr IVPB Q6HR [facility] Last Admin: 03/21/19 14:18 Dose: 100 mls Insulin Human Lispro (Humalog) 0 units SC .BEDTIME SLIDING SC PRN PRN Reason: Bedtime Correctional Scale Last Admin: 03/21/19 14:20 Dose: 2 unit Insulin Human Lispro (Humalog) 0 units [place] .AGGRESSIVE SLIDING PRN; Protocol PRN Reason: AGGRESSIVE SLIDING SCALE Last Admin: 03/20/19 12:52 Dose: 9 unit Isosorbide Mononitrate (Imdur Er) 60 mg PO DAILY [facility] Last Admin: 03/21/19 14:38 Dose: Not Given Labetalol HCl (Normodyne) 100 mg PO TID [facility] Last Admin: 03/21/19 14:18 Dose: Not Given Latanoprost (Xalatan 0.005% [facility] Soln) 1 drop EA EYE [facility] Last Admin: 03/20/19 21:48 Dose: 1 drop Morphine Sulfate (Morphine) 2 mg SLOW IVP Q4H PRN PRN Reason: Moderate to Severe Pain (6-10) Last Admin: 03/21/19 06:33 Dose: 2 mg Ondansetron HCl (Zofran) 4 mg IVP Q6H PRN PRN Reason: Nausea/Vomiting Last Admin: 03/15/19 09:10 Dose: 4 mg Pantoprazole Sodium (Protonix) 40 mg IVP DAILY [facility] Last Admin: 03/21/19 13:20 Dose: 40 mg Polyethylene Glycol (Miralax) 17 gm PO DAILY [facility] Last Admin: 03/21/19 14:26 Dose: Not Given Pregabalin (Lyrica) 25 mg PO BID [facility] Last Admin: 03/21/19 14:16 Dose: 25 mg Saccharomyces Boulardii (Florastor) 250 mg PO DAILY [facility] Last Admin: 03/21/19 14:26 Dose: 250 mg Senna/Docusate Sodium (Senokot S) 2 tab PO BIDPRN PRN PRN Reason: Constipation Sodium Chloride (Flush - Normal Saline) 10 ml IVF Q12HR [facility] Last Admin: 03/21/19 14:23 Dose: 10 ml Sodium Chloride (Flush - Normal Saline) 10 ml IVF PRN PRN PRN Reason: Saline Flush Timolol Maleate (Timoptic 0.5% Ophth Soln) 0 drop EA EYE BID [facility] Last Admin: 03/21/19 14:24 Dose: Not Given Tramadol HCl (Ultram) 50 mg PO Q4H PRN PRN Reason: Moderate Pain (4-6) Last Admin: 03/21/19 04:16 Dose: 50 mg Vital Signs & Weight: Vital Signs Temp Pulse Resp BP BP BP Pulse Ox 03/21/19 16:00 97.3 F L 85 14 152/67 H 97 03/21/19 14:56 74 18 167/72 H 100 03/21/19 14:38 73 18 96 03/21/19 13:35 84 16 184/79 H 93 L 03/21/19 13:13 71 03/21/19 12:58 97.4 F L 71 16 159/67 H 94 L 03/21/19 08:10 80 138/60 03/21/19 07:52 97.5 F L 75 16 138/60 97 03/21/19 07:20 75 18 95 Admit Weight 186 lb 11.2 oz Weight 188 lb 6.4 oz I/O: I/O 03/20/19 03/21/19 03/22/19 06:59 06:59 06:59 Intake Total 855 1320 Output Total 3100 4255 Balance -8178 -3540 - Medication Contraindications No Anticoagulant reason: Medical contraindication (GI workup in progress) - Physical Exam General: alert & oriented x3 Neck: supple neck Lungs: clear to auscultation Abdomen: soft Extremities: warm Musculoskeletal: no pain - Chadsvasc Risk factors Congestive heart failure: 1 Hypertension: 1 Age >75: 2 Diabetes mellitus: 1 Female: 1 Risk Score: 6 - Labs Result Diagrams: 03/21/19 16:04 03/21/19 13:49 - EKG Interpretation EKG Method: Telemetry (AFLUTTER) - Assessment/Plan Assessment/Plan: 1. Atrial flutter, atypical - rate controlled with diltiazem 30mg PO QID - LFTs stable 2. CHADS2-VASC:5 - on lovenox. Requires OAC jail upon DC 3. Abdominal dyscomfort. Gi eval w EGD planned. 4. Obesity Atypical atrial flutter persists, now rate controlled. Duration of AFlutter is unknown with no sinus rhythm seen on tele. For now rate control and add OAC. She is largely asymptomatic with atrial flutter. Consider addition of multaq with CV after 30 days of OAC. Started on Eliquis 5mg PO BID, stopped lovenox. Also started on low dose diltiazem 30mg PO QID this AM. Titrate up as needed for rate control, BP permitting. If RVR recurs and BP low, may add Digoxin 125mcg daily. Will see Thursday if she remains IP, or in clinic in 6 weeks. My DC on OAC if rate controlled.
[2019-03-21] MEDS ORDERED: Metoprolol Tartrate 5 MG/5 ML VIAL IVP SCH (18:45)
--- NOTE | 2019-03-21 18:57 | PDOC.HOSPP ---
- Subjective Encounter Date: 03/21/19 Encounter Time: 13:45 Subjective: Patient seen and examined during the code green/stroke alert after EGD/Colon. Unable to move left side. Drowsy. No overnight events - Objective Vital Signs & Weight: Vital Signs (12 hours) Temp Pulse Resp BP BP BP Pulse Ox 03/21/19 18:44 83 133/60 03/21/19 16:00 97.3 F L 85 14 152/67 H 97 03/21/19 14:56 74 18 167/72 H 100 03/21/19 14:38 73 18 96 03/21/19 13:35 84 16 184/79 H 93 L 03/21/19 13:13 71 03/21/19 12:58 97.4 F L 71 16 159/67 H 94 L 03/21/19 08:10 80 138/60 03/21/19 07:52 97.5 F L 75 16 138/60 97 03/21/19 07:20 75 18 95 Weight Admit Weight 186 lb 11.2 oz Weight 188 lb 6.4 oz I&O: 03/20/19 03/21/19 03/22/19 06:59 06:59 06:59 Intake Total 855 1320 Output Total 3100 2975 Balance -7643 -6304 Result Diagrams: 03/21/19 16:04 03/21/19 13:49 Additional Labs: Accuchecks 03/21/19 03/21/19 03/21/19 17:04 13:22 04:36 POC Glucose 282 H 203 H 265 H 03/20/19 21:45 POC Glucose 213 H Radiology Reviewed by me: Yes (CT brain - neg) EKG Reviewed by me: Yes (Tele Aflutter) Hospitalist ROS - Review of Systems ROS unobtainable: due to mental status - Medication Medications: Active Medications Generic Name Dose Route Start Last Admin Trade Name Freq PRN Reason Stop Dose Admin Acetaminophen 650 mg 03/19/19 15:00 03/21/19 14:39 Tylenol PO Not Given TID VISHAL Albuterol/Ipratropium 3 ml 03/14/19 01:00 03/21/19 14:38 Duoneb NEB 3 ml [id number] VISHAL Administration Apixaban 5 mg 03/18/19 21:00 03/21/19 14:20 Eliquis PO 5 mg BID VISHAL Administration Aspirin 81 mg 03/20/19 09:00 03/21/19 14:25 Ecotrin PO 81 mg DAILY VISHAL Administration Atorvastatin Calcium 40 mg 03/14/19 21:00 03/20/19 21:47 Lipitor PO 40 mg HS VISHAL Administration Brimonidine Tartrate 0 drop 03/15/19 21:00 03/21/19 14:24 Alphagan 0.2% Ophth Soln EA EYE Not Given BID [facility] Cyclobenzaprine HCl 10 mg 03/13/19 23:26 03/20/19 01:19 Flexeril PO 10 mg TID PRN Administration Muscle Spasm Diltiazem HCl 30 mg 03/18/19 07:30 03/21/19 17:49 Cardizem PO Not Given ACHS [facility] Diltiazem HCl 10 mg 03/21/19 18:45 03/21/19 18:39 Cardizem SLOW IVP 03/21/19 21:00 10 mg NOW VISHAL Administration Duloxetine HCl 60 mg 03/14/19 09:00 03/21/19 14:25 Cymbalta PO 60 mg DAILY [facility] Administration Guaifenesin/Dextromethorphan 15 ml 03/13/19 23:26 03/15/19 15:08 Robitussin Dm PO 15 ml Q4H PRN Administration Cough Insulin Glargine 18 units/ 0.18 mls @ 0 mls/hr 03/14/19 21:00 03/20/19 21:49 Miscellaneous Medication SC 0.18 mls HS VISHAL Administration Piperacillin Sod/Tazobactam 100 mls @ 200 mls/hr 03/14/19 06:00 03/21/19 18: 22 Sod 3.375 gm/ Sodium Chloride IVPB 100 mls Q6HR VISHAL Administration Insulin Human Lispro 0 units 03/13/19 23:26 03/21/19 17:50 Humalog SC 3 unit .BEDTIME SLIDING SC PRN Administration Bedtime Correctional Scale Insulin Human Lispro 0 units 03/14/19 12:34 03/20/19 12:52 Humalog SC 9 unit .AGGRESSIVE SLIDING PRN Administration AGGRESSIVE SLIDING SCALE Protocol Labetalol HCl 100 mg 03/14/19 09:00 03/21/19 14:18 Normodyne PO Not Given TID [facility] Latanoprost 1 drop 03/15/19 21:00 03/20/19 21:48 Xalatan 0.005% Ophth Soln EA EYE 1 drop HS VISHAL Administration Morphine Sulfate 2 mg 03/14/19 15:53 03/21/19 06:33 Morphine SLOW IVP 2 mg Q4H PRN Administration Moderate to Severe Pain (6-10) Ondansetron HCl 4 mg 03/13/19 23:26 03/15/19 09:10 Zofran IVP 4 mg Q6H PRN Administration Nausea/Vomiting Polyethylene Glycol 17 gm 03/19/19 09:00 03/21/19 14:26 Miralax PO Not Given DAILY [facility] Pregabalin 25 mg 03/18/19 09:00 03/21/19 14:16 Lyrica PO 25 mg BID V[facility]AL Administration Saccharomyces Boulardii 250 mg 03/19/19 09:00 03/21/19 14:26 Florastor PO 250 mg DAILY V[facility]AL Administration Sodium Chloride 10 ml 03/14/19 09:00 03/21/19 14:23 Flush - Normal Saline IVF 10 ml Q12HR [facility]AL Administration Timolol Maleate 0 drop 03/15/19 21:00 03/21/19 14:24 Timoptic 0.5% Ophth Soln EA EYE Not Given BID [facility]AL Tramadol HCl 50 mg 03/19/19 12:24 03/21/19 04:16 Ultram PO 50 mg Q4H PRN Administration Moderate Pain (4-6) - Exam General Appearance: NAD Heart: no gallops, no rubs, normal peripheral pulses, irregular Respiratory: no wheezes, no rales, no ronchi, normal chest expansion Gastrointestinal: soft, non-distended, normal bowel sounds, no guarding, no rigidity Extremities: no cyanosis, no clubbing Psychiatric: normal affect, A&O x 3 (after 10-15 min - symptoms resolved) Hosp A/P - Plan s/p TIA Afib/Aflutter with RVR requiring Cardizem drip Abd pain due to ?Acalculous cholecystitis Hypomagnesemia CAD HTN HLD DM2 h/o TIA PLAN: CT brain negative Cont Eliquis - Case d/w Cardiology Cont ASA Replace Magnessium Cont IV Zosyn Cont PO Labetalol/Cardizem/Imdur Cont other meds as above
[2019-03-21] MEDS ORDERED: Magnesium Sulfate 4 GM in Sodium Chloride 0.9% 250 ML 250 ML IVPB SCH (19:00)
[2019-03-21] MEDS: Atorvastatin Calcium 40 MG TAB PO SCH (20:57)
[2019-03-21] MEDS: Latanoprost 0.005% Ophth Soln 2.5 ml Bottle EA EYE SCH (21:00)
[2019-03-21] MEDS: Insulin Glargine 18 UNITS in Pre-Filled Syringe 1 EACH SC SCH (21:30)
--- NOTE | 2019-03-21 22:58 | CON ---
DATE OF CONSULTATION: 03/16/2019 HISTORY OF PRESENT ILLNESS: The patient, Mrs. Shayna Mckinnon. She is a patient I believe of Dr. Garrison. We were asked to see her due to atrial fibrillation with rapid ventricular response. She has been seen by my nurse practitioner. We have discussed this patient in detail. I would agree with the assessment and plan and physical examination of this patient. She is a very pleasant 88-year-old female, who at sometimes was confused, but otherwise has been relatively stable. I would agree with the assessment and also the plan with her atrial fibrillation. We will control the heart rate. We will request EP to see the patient. We will start anticoagulation for DVT prophylaxis as well as for prevention of embolic phenomenon associated with the atrial fibrillation. 1. Coronary artery disease. She has undergone bypass grafting in 2001. This remains stable at this time. We will need further evaluation in the future when she is more stable, perhaps at this time from a coronary artery disease appears to be relatively stable. 2. Hypertension. We will continue her present medications. 3. Dyslipidemia. We will maintain her medications with statins. 4. Chronic obstructive pulmonary disease, which is chronic. This will be dealt with by the primary care service and with pulmonology, if indicated. Otherwise, she remains stable and we have discussed this patient in detail. We have examined the patient and I would agree with our plan and assessment at this time. Job ID: [id number]
[2019-03-22] MEDS: Piperacillin/Tazobactam 3.375 GM in Sodium Chloride 0.9% 100 ML IVPB SCH ×4 (00:25→17:39)
[2019-03-22 04:47] LABS: #Eosinphils 0.3 thou/uL (0.0-0.7); #Lymphocytes 1.6 thou/uL (1.20-3.40); #Monocytes 0.8 thou/uL (0.11-0.59); #Neutrophils 4.3 thou/uL (1.40-6.50); %Basophils 0.5 % (0.0-1.0); %Eosinophils 3.6 % (0.0-10.0); %Lymphocytes 22.4 % (21.0-51.0); %Monocytes 11.8 % (0.0-10.0); %Neutrophils 61.7 % (42.0-75.0); Mean Corpuscular HGB CONC 32.7 g/dL (32.0-36.0); Mean Corpuscular Hemoglobin 29.9 pg (27.0-31.0); Mean Corpuscular Volume 91.5 fL (78.0-98.0); Platelet Count 251 thou/uL (130-400); RBC Distribution Width 12.8 % (11.5-14.5); Red Blood Cell (RBC) Count 3.69 mill/uL (4.20-5.40)
[2019-03-22 05:12] LABS: Anion Gap 14 mmol/L (10-20); BUN (Urea Nitrogen) 5 mg/dL (9.8-20.1); Calc. Creatinine Clearance 78 mL/min (70-130); Calcium 9.4 mg/dL (7.8-10.44); Carbon Dioxide 27 mmol/L (23-31); Chloride 99 mmol/L (98-107); Estimated GFR-MDRD 79; Glucose 164 mg/dL (83-110); Potassium 3.6 mmol/L (3.5-5.1); Sodium 136 mmol/L (136-145)
[2019-03-22] MEDS: Aspirin 81 mg Enteric Coated Tablet PO SCH (08:23)
[2019-03-22] MEDS: Labetalol 100 MG TAB PO SCH ×3 (08:23→21:38)
[2019-03-22] MEDS: DULoxetine 60 MG CAP PO SCH (08:23)
[2019-03-22] MEDS: Acetaminophen 325 MG TAB PO SCH ×3 (08:23→21:38)
[2019-03-22] MEDS: Apixaban 5 MG TAB PO SCH (08:23)
[2019-03-22] MEDS: Isosorbide Mononitrate (ER) 30 MG TAB PO SCH (08:23)
[2019-03-22] MEDS: traMADol HCl 50 MG TAB PO PRN ×2 (08:24→16:15)
[2019-03-22] MEDS: Polyethylene Glycol 3350 17 GM Packet PO SCH (08:24)
[2019-03-22] MEDS: Saccharomyces boulardii 250 MG CAP PO SCH (08:24)
[2019-03-22] MEDS: HumaLOG 300 UNITS/3 ML VIAL SC PRN ×3 (08:25→17:39)
[2019-03-22] MEDS: Timolol 0.5% Ophth Soln 5 ml Bottle EA EYE SCH ×2 (08:25→21:41)
[2019-03-22] MEDS: Brimonidine Tartrate 0.2% Ophth Soln 5 ml Bottle EA EYE SCH ×2 (08:25→21:40)
[2019-03-22] MEDS: Pregabalin 25 MG CAP PO SCH ×2 (08:38→21:39)
[2019-03-22] MEDS: Cyclobenzaprine 10 MG TAB PO PRN (08:38)
[2019-03-22] MEDS: Morphine 2 MG/ML SYRINGE SLOW IVP PRN (11:06)
--- NOTE | 2019-03-22 11:11 | EKG ---
Test Reason : Blood Pressure : / mmHG Vent. Rate : 072 BPM Atrial Rate : 300 BPM P-R Int : 000 ms QRS Dur : 128 ms QT Int : 438 ms P-R-T Axes : 000 -62 079 degrees QTc Int : 479 ms Atrial fibrillation Intraventricular conduction delay Abnormal ECG When compared with ECG of 13-MAR-2019 21:05, (Unconfirmed) No significant change was found Confirmed by DR. Kaylie BECERRA ([id number]) on 03/22/2019 11:10:54 AM Referred By: MAGEN Confirmed By:DR. Kaylie BECERRA
--- NOTE | 2019-03-22 11:12 | EKG ---
Test Reason : RHYTHM COMFORMATION Blood Pressure : / mmHG Vent. Rate : 087 BPM Atrial Rate : 105 BPM P-R Int : 000 ms QRS Dur : 120 ms QT Int : 414 ms P-R-T Axes : 000 -66 089 degrees QTc Int : 498 ms Atrial fibrillation Left axis deviation Incomplete left bundle branch block Abnormal ECG When compared with ECG of 21-MAR-2019 14:35, (Unconfirmed) No significant change was found Confirmed by DR. Kaylie BECERRA ([id number]) on 03/22/2019 11:12:22 AM Referred By: DISHA Confirmed By:DR. Kaylie BECERRA
--- NOTE | 2019-03-22 14:07 | PRG ---
DATE OF SERVICE: 03/22/2019 SUBJECTIVE: I was asked to see this patient by because Dr. Eagle was out of town. This patient continues to have abdominal pain, that began before [place], comes in waves. She says it usually starts kind of periumbilical, then migrated to the epigastrium, and then around her entire abdomen associated with some nausea, but no vomiting. She has been through an extensive workup including a CT scan of the abdomen that showed some thickening of the gallbladder wall and some stranding. She had a gallbladder ultrasound showing some probably pericholecystic fluid, but no stones. She had a venogram, no DVT. She had a HIDA scan showing normal gallbladder, normal ejection fraction. She had an EGD, negative; colonoscopy, negative. She had a code green and stroke alert shortly after that anesthesia. The patient is at high risk for surgery with underlying coronary artery disease, atrial fibrillation with rapid ventricular response, hypertension, diabetes, and COPD, on home O2. OBJECTIVE: VITAL SIGNS: Today, she is afebrile, pulse 72, blood pressure 118/56. GENERAL: She is awake, alert. ABDOMEN: Obese, soft. No significant tenderness. She has a well-healed surgical scar at low midline. LABORATORY DATA: Her white count is 7, H and H are 11 and 33, platelet count of 251. Her electrolytes are fine, elevated glucose at 230. LFTs are normal. ASSESSMENT AND PLAN: I have no surgical indication to do anything. There is no evidence of bowel obstruction. There is no evidence of tumor. There is no evidence of gallbladder pathology, possibly this could be some low-grade ischemic event in her intestinal system, I do not know, but I really cannot offer any kind of treatment for that at this point, so from a surgical standpoint, I just have nothing to offer. She may need further evaluation with a repeat CT to see if something has developed since it has been a couple of weeks since the last one. Job ID: [id number]
[2019-03-22 14:39] LABS: Hemoglobin 10.5 g/dL (12.0-16.0); Platelet Count 272 thou/uL (130-400)
--- NOTE | 2019-03-22 15:05 | RAD ---
EXAM: Portable chest PROVIDED CLINICAL HISTORY: Shortness of breath COMPARISON: 03/13/2019 FINDINGS: Cardiac and mediastinal silhouette unchanged in appearance. Median sternotomy changes are redemonstra lissett. No focal consolidation, pleural fluid or pneumothorax evident. IMPRESSION: No evidence for an acute cardiopulmonary process.
--- NOTE | 2019-03-22 16:43 | PDOC.EP ---
- Subjective Date: 03/22/19 Time: 08:00 Interval History: follow up for atrial flutter and medication management. Had EGD yesterday with concern for TIA. Abdominal pain continues - Review of Systems Constitutional: reports: malaise, weakness. denies: chills, fever, sweats Respiratory: reports: shortness of breath. denies: cough, dry, hemoptysis, pleuritic pain, sputum, wheezing Cardiology: reports: palpitations. denies: chest pain, edema, heart racing, light headedness, orthopnea, paroxysmal noc. dyspnea, passing out Gastrointestinal: reports: abdominal pain. denies: constipation, diarrhea, nausea, vomitting - Objective Allergies/Adverse Reactions: Allergies Allergy/AdvReac Type Severity Reaction Status Date / Time iodine Allergy Verified 03/14/19 09:17 ketorolac tromethamine Allergy Verified 03/14/19 09:17 [From Toradol] sertraline HCl [From Zoloft] Allergy Verified 03/14/19 09:17 Sulfa (Sulfonamide Allergy Verified 03/14/19 09:17 Antibiotics) Current Medications Acetaminophen (Tylenol) 650 mg PO Q4H PRN PRN Reason: Headache/Fever/Mild Pain (1-3) Acetaminophen (Tylenol) 650 mg PO TID [facility] Last Admin: 03/22/19 16:13 Dose: 650 mg Albuterol/Ipratropium (Duoneb) 3 ml NEB [id number]-PG [facility] Last Admin: 03/22/19 13:49 Dose: 3 ml Apixaban (Eliquis) 5 mg PO BID [facility] Last Admin: 03/22/19 08:23 Dose: 5 mg Aspirin (Ecotrin) 81 mg PO DAILY [facility] Last Admin: 03/22/19 08:23 Dose: 81 mg Atorvastatin Calcium (Lipitor) 40 mg PO HS [facility] Last Admin: 03/21/19 20:57 Dose: 40 mg Bisacodyl (Dulcolax) 10 mg HI DAILYPRN PRN PRN Reason: Constipation Brimonidine Tartrate (Alphagan 0.2% Ophth Soln) 0 drop EA EYE BID [facility] Last Admin: 03/22/19 08:25 Dose: 1 drop Cyclobenzaprine HCl (Flexeril) 10 mg PO TID PRN PRN Reason: Muscle Spasm Last Admin: 03/22/19 08:38 Dose: 10 mg Dextrose/Water (Dextrose 50%) 25 gm SLOW IVP PRN PRN PRN Reason: Hypoglycemia Diltiazem HCl (Cardizem) 30 mg PO ACHS [facility] Last Admin: 03/22/19 16:13 Dose: 30 mg Duloxetine HCl (Cymbalta) 60 mg PO DAILY [facility] Last Admin: 03/22/19 08:23 Dose: 60 mg Glucagon (Glucagon) 1 mg IM PRN PRN PRN Reason: Hypoglycemia Guaifenesin/Dextromethorphan (Robitussin Dm) 15 ml PO Q4H PRN PRN Reason: Cough Last Admin: 03/15/19 15:08 Dose: 15 ml Dextrose/Water (D5w) 1,000 mls @ 0 mls/hr IV .Q0M PRN PRN Reason: Hypoglycemia Insulin Glargine 18 units/ (Miscellaneous Medication) 0.18 mls @ 0 mls/hr [facility] Last Admin: 03/21/19 21:30 Dose: 0.18 mls Piperacillin Sod/Tazobactam (Sod 3.375 gm/ Sodium Chloride) 100 mls @ 200 mls/ hr IVPB Q6HR [facility] Last Admin: 03/22/19 11:06 Dose: 100 mls Insulin Human Lispro (Humalog) 0 units SC .BEDTIME SLIDING SC PRN PRN Reason: Bedtime Correctional Scale Last Admin: 03/21/19 17:50 Dose: 3 unit Insulin Human Lispro (Humalog) 0 units SC .AGGRESSIVE SLIDING PRN; Protocol PRN Reason: AGGRESSIVE SLIDING SCALE Last Admin: 03/22/19 11:04 Dose: 6 unit Isosorbide Mononitrate (Imdur Er) 30 mg PO DAILY [facility] Last Admin: 03/22/19 08:23 Dose: 30 mg Labetalol HCl (Normodyne) 100 mg PO TID [facility] Last Admin: 03/22/19 16:13 Dose: 100 mg Latanoprost (Xalatan 0.005% Oph Soln) 1 drop EA EYE [facility] Last Admin: 03/21/19 21:00 Dose: 1 drop Morphine Sulfate (Morphine) 2 mg SLOW IVP Q4H PRN PRN Reason: Moderate to Severe Pain (6-10) Last Admin: 03/22/19 11:06 Dose: 2 mg Ondansetron HCl (Zofran) 4 mg IVP Q6H PRN PRN Reason: Nausea/Vomiting Last Admin: 03/15/19 09:10 Dose: 4 mg Pantoprazole Sodium (Protonix) 40 mg PO DAILY [facility] Last Admin: 03/22/19 08:24 Dose: 40 mg Polyethylene Glycol (Miralax) 17 gm PO DAILY [facility] Last Admin: 03/22/19 08:24 Dose: 17 gm Pregabalin (Lyrica) 25 mg PO BID [facility] Last Admin: 03/22/19 08:38 Dose: 25 mg Saccharomyces Boulardii (Florastor) 250 mg PO DAILY [facility] Last Admin: 03/22/19 08:24 Dose: 250 mg Senna/Docusate Sodium (Senokot S) 2 tab PO BIDPRN PRN PRN Reason: Constipation Sodium Chloride (Flush - Normal Saline) 10 ml IVF Q12HR [facility] Last Admin: 03/22/19 08:39 Dose: 10 ml Sodium Chloride (Flush - Normal Saline) 10 ml IVF PRN PRN PRN Reason: Saline Flush Timolol Maleate (Timoptic 0.5% Ophth Soln) 0 drop EA EYE BID [facility] Last Admin: 03/22/19 08:25 Dose: 1 drop Tramadol HCl (Ultram) 50 mg PO Q4H PRN PRN Reason: Moderate Pain (4-6) Last Admin: 03/22/19 16:15 Dose: 50 mg Vital Signs & Weight: Vital Signs Temp Pulse Resp BP Pulse Ox 03/22/19 15:48 97.1 F L 70 19 165/72 H 96 03/22/19 13:49 78 18 94 L 03/22/19 11:14 97.8 F 72 16 118/56 L 97 03/22/19 08:40 99 18 100 03/22/19 07:46 97.9 F 76 17 158/71 H 96 Admit Weight 186 lb 11.2 oz Weight 188 lb I/O: I/O 03/21/19 03/22/19 03/23/19 06:59 06:59 06:59 Intake Total 1320 1440 Output Total 2975 1200 Balance -1655 240 - Medication Contraindications No Anticoagulant reason: Medical contraindication (GI workup in progress) - Physical Exam General: alert & oriented x3, speech clear, affect appropriate HEENT: mucus membranes moist, normocephaly, pallor. negative: jaundice Neck: supple neck, midline trachea, no JVD/HJR, no lymphadenopathy, no thromegaly Cardiology: no murmur, regular rate. negative: regular rhythm Lungs: clear to auscultation, no wheeze, rales, rhonchi Neurology: cranial nerve 2-12 intact, grossly intact, sensory function intact Abdomen: unremarkable, active bowel sounds, no pulsations/bruits, no hepatosplenomegaly Extremities: dry, strong pulses, warm - Chadsvasc Risk factors Age >75: 2 Diabetes mellitus: 1 Vascular disease: 1 Female: 1 Risk Score: 5 - Labs Result Diagrams: 03/22/19 14:27 03/22/19 04:26 - EKG Interpretation EKG Method: Telemetry EKG shows: Atypical atrial flutter - Assessment/Plan Assessment/Plan: 1. Atrial flutter, atypical - rate controlled with diltiazem 30mg PO QID - LFTs stable 2. CHADS2-VASC:5 - on lovenox. Requires OAC detention upon DC 3. Abdominal dyscomfort. -GI eval w EGD done 03/21. inconclusive 4. Obesity Atypical atrial flutter persists, now rate controlled. Duration of AFlutter is unknown with no sinus rhythm seen on tele. For now rate control and add OAC. She is largely asymptomatic with atrial flutter. Consider addition of multaq with CV after 30 days of OAC. Started on Eliquis 5mg PO BID on 03/18/2019. Also started on low dose diltiazem 30mg PO QID this AM. Titrate up as needed for rate control, BP permitting. If RVR recurs and BP low, may add Digoxin 125mcg daily. There is some concern that she suffered a TIA yesterday following her EGD. MAR shows she continued to receive eliquis over the weekend. If true neuologic symptoms or concerns are seen, consider neuro evaluation or addition of Aspirin. Continue Eliquis 5mg BID
[2019-03-22 19:53] LABS: Hemoglobin 10.5 g/dL (12.0-16.0); Platelet Count 262 thou/uL (130-400)
[2019-03-22] MEDS: Atorvastatin Calcium 40 MG TAB PO SCH (21:38)
[2019-03-22] MEDS: Latanoprost 0.005% Ophth Soln 2.5 ml Bottle EA EYE SCH (21:39)
--- NOTE | 2019-03-22 21:40 | PDOC.HOSPP ---
- Subjective Encounter Date: 03/22/19 Encounter Time: 17:00 Subjective: Patient seen and examined for Abd pain. Coughing up fresh blood - sudden onset. Abd pain - same. No other complaints. No overnight events - Objective Vital Signs & Weight: Vital Signs (12 hours) Temp Pulse Resp BP Pulse Ox 03/22/19 19:05 98.2 F 75 18 155/70 H 97 03/22/19 15:48 97.1 F L 70 19 165/72 H 96 03/22/19 13:49 78 18 94 L 03/22/19 11:14 97.8 F 72 16 118/56 L 97 Weight Admit Weight 186 lb 11.2 oz Weight 188 lb I&O: 03/21/19 03/22/19 03/23/19 06:59 06:59 06:59 Intake Total 1320 1440 1150 Output Total 2975 1200 1200 Balance -1655 240 -50 Result Diagrams: 03/23/19 04:25 03/23/19 04:25 Additional Labs: Accuchecks 03/22/19 03/22/19 03/21/19 10:42 05:21 20:36 POC Glucose 234 H 167 H 260 H EKG Reviewed by me: Yes (Tele Aflutter) Hospitalist ROS - Review of Systems Respiratory: denies: cough, dry, shortness of breath, hemoptysis, SOB with excertion, pleuritic pain, sputum, wheezing, other Cardiovascular: denies: chest pain, palpitations, orthopnea, paroxysmal noc. dyspnea, edema, light headedness, other Gastrointestinal: denies: nausea, vomiting, abdominal pain, diarrhea, constipation, melena, hematochezia, other - Medication Medications: Active Medications Generic Name Dose Route Start Last Admin Trade Name Freq PRN Reason Stop Dose Admin Acetaminophen 650 mg 03/19/19 15:00 03/22/19 16:13 Tylenol PO 650 mg TID V[facility]AL Administration Albuterol/Ipratropium 3 ml 03/14/19 01:00 03/22/19 19:30 Duoneb NEB Not Given [id number] VISHAL Apixaban 5 mg 03/18/19 21:00 03/22/19 08:23 Eliquis PO 5 mg BID [facility] Administration Aspirin 81 mg 03/20/19 09:00 03/22/19 08:23 Ecotrin PO 81 mg DAILY [facility] Administration Atorvastatin Calcium 40 mg 03/14/19 21:00 03/21/19 20:57 Lipitor PO 40 mg HS [facility] Administration Brimonidine Tartrate 0 drop 03/15/19 21:00 03/22/19 08:25 Alphagan 0.2% Ophth Soln EA EYE 1 drop BID [facility] Administration Cyclobenzaprine HCl 10 mg 03/13/19 23:26 03/22/19 08:38 Flexeril PO 10 mg TID PRN Administration Muscle Spasm Diltiazem HCl 30 mg 03/18/19 07:30 03/22/19 16:13 Cardizem PO 30 mg ACHS [facility] Administration Duloxetine HCl 60 mg 03/14/19 09:00 03/22/19 08:23 Cymbalta PO 60 mg DAILY [facility] Administration Guaifenesin/Dextromethorphan 15 ml 03/13/19 23:26 03/15/19 15:08 Robitussin Dm PO 15 ml Q4H PRN Administration Cough Insulin Glargine 18 units/ 0.18 mls @ 0 mls/hr 03/14/19 21:00 03/21/19 21:30 Miscellaneous Medication SC 0.18 mls HS VISHAL Administration Insulin Human Lispro 0 units 03/13/19 23:26 03/21/19 17:50 Humalog SC 3 unit .BEDTIME SLIDING SC PRN Administration Bedtime Correctional Scale Insulin Human Lispro 0 units 03/14/19 12:34 03/22/19 17:39 Humalog SC 3 unit .AGGRESSIVE SLIDING PRN Administration AGGRESSIVE SLIDING SCALE Protocol Isosorbide Mononitrate 30 mg 03/22/19 09:00 03/22/19 08:23 Imdur Er PO 30 mg DAILY [facility] Administration Labetalol HCl 100 mg 03/14/19 09:00 03/22/19 16:13 Normodyne PO 100 mg TID [facility] Administration Latanoprost 1 drop 03/15/19 21:00 03/21/19 21:00 Xalatan 0.005% Ophth Soln EA EYE 1 drop HS VISHAL Administration Morphine Sulfate 2 mg 03/14/19 15:53 03/22/19 11:06 Morphine SLOW IVP 2 mg Q4H PRN Administration Moderate to Severe Pain (6-10) Ondansetron HCl 4 mg 03/13/19 23:26 03/15/19 09:10 Zofran IVP 4 mg Q6H PRN Administration Nausea/Vomiting Pantoprazole Sodium 40 mg 03/22/19 09:00 03/22/19 08:24 Protonix PO 40 mg DAILY [facility] Administration Polyethylene Glycol 17 gm 03/19/19 09:00 03/22/19 08:24 Miralax PO 17 gm DAILY [facility] Administration Pregabalin 25 mg 03/18/19 09:00 03/22/19 08:38 Lyrica PO 25 mg BID [facility] Administration Saccharomyces Boulardii 250 mg 03/19/19 09:00 03/22/19 08:24 Florastor PO 250 mg DAILY [facility] Administration Sodium Chloride 10 ml 03/14/19 09:00 03/22/19 08:39 Flush - Normal Saline IVF 10 ml Q12HR [facility] Administration Timolol Maleate 0 drop 03/15/19 21:00 03/22/19 08:25 Timoptic 0.5% Ophth Soln EA EYE 1 drop BID [facility] Administration Tramadol HCl 50 mg 03/19/19 12:24 03/22/19 16:15 Ultram PO 50 mg Q4H PRN Administration Moderate Pain (4-6) - Exam General Appearance: NAD ENT: no oropharyngeal lesions, moist mucosa ENT - other findings: fresh blood over the pharynx Neck: no JVD Heart: no gallops, no rubs, normal peripheral pulses, irregular Respiratory: no wheezes, normal chest expansion, rales, rhonchi Gastrointestinal: soft, non-tender, non-distended, normal bowel sounds Extremities: no cyanosis, no clubbing, no edema Neurological: no new deficit Psychiatric: normal affect, A&O x 3 Hosp A/P - Plan DVT proph w/SCDs ?Epistaxis Acute blood loss anemia TIA unlikely - most likely transient encephalopathy due to Ketamine - resolved Afib/Aflutter with RVR requiring Cardizem drip Abd pain of unclear etio Hypomagnesemia - replaced CAD HTN HLD DM2 h/o TIA PLAN: Hold Eliquis/ASA due to ongoing bleeding - Patient understands the risk of CVA Monitor HH, Type and screen Family updated Consult ENT Cont PO Labetalol/Cardizem/Imdur and other meds as above
[2019-03-22] MEDS: Insulin Glargine 18 UNITS in Pre-Filled Syringe 1 EACH SC SCH (21:41)
[2019-03-23 04:39] LABS: #Eosinphils 0.3 thou/uL (0.0-0.7); #Lymphocytes 1.9 thou/uL (1.20-3.40); #Monocytes 0.8 thou/uL (0.11-0.59); #Neutrophils 2.8 thou/uL (1.40-6.50); %Basophils 0.6 % (0.0-1.0); %Eosinophils 4.4 % (0.0-10.0); %Lymphocytes 32.7 % (21.0-51.0); %Neutrophils 49.3 % (42.0-75.0); Mean Corpuscular HGB CONC 32.9 g/dL (32.0-36.0); Mean Corpuscular Hemoglobin 30.2 pg (27.0-31.0); Mean Corpuscular Volume 91.8 fL (78.0-98.0); Mean Platelet Volume 7.8 fL (7.4-10.4); Platelet Count 241 thou/uL (130-400); RBC Distribution Width 12.9 % (11.5-14.5); Red Blood Cell (RBC) Count 3.63 mill/uL (4.20-5.40); White Blood Cell (WBC) Count 5.7 thou/uL (4.8-10.8)
[2019-03-23 04:57] LABS: ALT (SGPT) 8 U/L (8-55); AST (SGOT) 9 U/L (5-34); Albumin 3.5 g/dL (3.4-4.8); Alkaline Phosphatase 76 U/L (40-110); Anion Gap 10 mmol/L (10-20); BUN (Urea Nitrogen) 7 mg/dL (9.8-20.1); Bilirubin, Total 0.4 mg/dL (0.2-1.2); Calc. Creatinine Clearance 72 mL/min (70-130); Calcium 9.8 mg/dL (7.8-10.44); Carbon Dioxide 31 mmol/L (23-31); Chloride 100 mmol/L (98-107); Estimated GFR-MDRD 74; Glucose 140 mg/dL (83-110); Magnesium 1.8 mg/dL (1.6-2.6); Potassium 4.1 mmol/L (3.5-5.1); Protein, Total 6.5 g/dL (6.0-8.3); Sodium 137 mmol/L (136-145)
[2019-03-23] MEDS: Pregabalin 25 MG CAP PO SCH ×2 (08:11→20:51)
[2019-03-23] MEDS: DULoxetine 60 MG CAP PO SCH (08:11)
[2019-03-23] MEDS: Acetaminophen 325 MG TAB PO SCH ×3 (08:11→20:50)
[2019-03-23] MEDS: Labetalol 100 MG TAB PO SCH ×3 (08:11→20:51)
[2019-03-23] MEDS: Isosorbide Mononitrate (ER) 30 MG TAB PO SCH (08:11)
[2019-03-23] MEDS: Saccharomyces boulardii 250 MG CAP PO SCH (08:12)
[2019-03-23] MEDS: Timolol 0.5% Ophth Soln 5 ml Bottle EA EYE SCH ×2 (08:12→20:52)
[2019-03-23] MEDS: Polyethylene Glycol 3350 17 GM Packet PO SCH (08:13)
[2019-03-23] MEDS: Brimonidine Tartrate 0.2% Ophth Soln 5 ml Bottle EA EYE SCH ×2 (08:13→20:50)
[2019-03-23] MEDS: Morphine 2 MG/ML SYRINGE SLOW IVP PRN ×2 (08:27→14:14)
--- NOTE | 2019-03-23 08:33 | PDOC.HOSPP ---
- Subjective Encounter Date: 03/23/19 Encounter Time: 08:30 Subjective: Patient seen and examined for multiple issues. Coughing up old blood. No CP. No other complaints. No overnight events - Objective Vital Signs & Weight: Vital Signs (12 hours) Temp Pulse Resp BP BP Pulse Ox 03/23/19 07:59 97.6 F 98 22 H 140/66 75 L 03/23/19 07:23 76 16 03/23/19 04:00 97.4 F L 79 20 157/80 H 98 03/23/19 00:10 56 L 16 100 03/22/19 23:00 72 178/81 H 03/22/19 21:41 75 155/70 H 03/22/19 21:38 75 155/70 H Weight Admit Weight 186 lb 11.2 oz Weight 183 lb 3.2 oz I&O: 03/22/19 03/23/19 03/24/19 06:59 06:59 06:59 Intake Total 1440 1450 Output Total 1200 2100 Balance 240 -650 Result Diagrams: 03/23/19 04:25 03/23/19 04:25 Additional Labs: Accuchecks 03/23/19 03/22/19 03/22/19 05:36 20:31 17:38 POC Glucose 152 H 191 H 180 H 03/22/19 10:42 POC Glucose 234 H EKG Reviewed by me: Yes (Tele Aflutter) Hospitalist ROS - Review of Systems Cardiovascular: denies: chest pain, palpitations, orthopnea, paroxysmal noc. dyspnea, edema, light headedness, other Gastrointestinal: denies: nausea, vomiting, abdominal pain, diarrhea, constipation, melena, hematochezia, other - Medication Medications: Active Medications Generic Name Dose Route Start Last Admin Trade Name Freq PRN Reason Stop Dose Admin Acetaminophen 650 mg 03/19/19 15:00 03/23/19 08:11 Tylenol PO 650 mg TID VISHAL Administration Albuterol/Ipratropium 3 ml 03/14/19 01:00 03/23/19 07:23 Duoneb NEB 3 ml [id number] VISHAL Administration Apixaban 5 mg 03/18/19 21:00 03/22/19 08:23 Eliquis PO 5 mg BID VISHAL Administration Aspirin 81 mg 03/20/19 09:00 03/22/19 08:23 Ecotrin PO 81 mg DAILY VISHAL Administration Atorvastatin Calcium 40 mg 03/14/19 21:00 03/22/19 21:38 Lipitor PO 40 mg HS VISHAL Administration Brimonidine Tartrate 0 drop 03/15/19 21:00 03/23/19 08:13 Alphagan 0.2% Ophth Soln EA EYE 1 drop BID VISHAL Administration Cyclobenzaprine HCl 10 mg 03/13/19 23:26 03/22/19 08:38 Flexeril PO 10 mg TID PRN Administration Muscle Spasm Diltiazem HCl 30 mg 03/18/19 07:30 03/23/19 08:11 Cardizem PO 30 mg ACHS VISHAL Administration Duloxetine HCl 60 mg 03/14/19 09:00 03/23/19 08:11 Cymbalta PO 60 mg DAILY VISHAL Administration Guaifenesin/Dextromethorphan 15 ml 03/13/19 23:26 03/15/19 15:08 Robitussin Dm PO 15 ml Q4H PRN Administration Cough Insulin Glargine 18 units/ 0.18 mls @ 0 mls/hr 03/14/19 21:00 03/22/19 21:41 Miscellaneous Medication SC 0.18 mls HS VISHAL Administration Insulin Human Lispro 0 units 03/13/19 23:26 03/21/19 17:50 Humalog SC 3 unit .BEDTIME SLIDING SC PRN Administration Bedtime Correctional Scale Insulin Human Lispro 0 units 03/14/19 12:34 03/22/19 17:39 Humalog SC 3 unit .AGGRESSIVE SLIDING PRN Administration AGGRESSIVE SLIDING SCALE Protocol Isosorbide Mononitrate 30 mg 03/22/19 09:00 03/23/19 08:11 Imdur Er PO 30 mg DAILY VISHAL Administration Labetalol HCl 100 mg 03/14/19 09:00 03/23/19 08:11 Normodyne PO 100 mg TID VISHAL Administration Latanoprost 1 drop 03/15/19 21:00 03/22/19 21:39 Xalatan 0.005% Ophth Soln EA EYE 1 drop HS VISHAL Administration Morphine Sulfate 2 mg 03/14/19 15:53 03/22/19 11:06 Morphine SLOW IVP 2 mg Q4H PRN Administration Moderate to Severe Pain (6-10) Ondansetron HCl 4 mg 03/13/19 23:26 03/15/19 09:10 Zofran IVP 4 mg Q6H PRN Administration Nausea/Vomiting Pantoprazole Sodium 40 mg 03/22/19 09:00 03/23/19 08:11 Protonix PO 40 mg DAILY VISHAL Administration Polyethylene Glycol 17 gm 03/19/19 09:00 03/23/19 08:13 Miralax PO Not Given DAILY VISHAL Pregabalin 25 mg 03/18/19 09:00 03/23/19 08:11 Lyrica PO 25 mg BID VISHAL Administration Saccharomyces Boulardii 250 mg 03/19/19 09:00 03/23/19 08:12 Florastor PO 250 mg DAILY VISHAL Administration Sodium Chloride 10 ml 03/14/19 09:00 03/23/19 08:12 Flush - Normal Saline IVF 10 ml Q12HR VISHAL Administration Timolol Maleate 0 drop 03/15/19 21:00 03/23/19 08:12 Timoptic 0.5% Ophth Soln EA EYE 1 drop BID VISHAL Administration Tramadol HCl 50 mg 03/19/19 12:24 03/22/19 16:15 Ultram PO 50 mg Q4H PRN Administration Moderate Pain (4-6) - Exam General Appearance: NAD Heart: no gallops, no rubs, irregular Respiratory: no wheezes, no rales Gastrointestinal: soft, non-tender, normal bowel sounds Extremities: no edema Hosp A/P - Plan DVT proph w/SCDs Hemoptysis - resolved Mild acute blood loss anemia TIA unlikely - most likely transient encephalopathy due to Ketamine - resolved Afib/Aflutter with RVR requiring Cardizem drip Abd pain of unclear etio - slowly improving Hypomagnesemia - replaced CAD HTN HLD DM2 h/o TIA PLAN: ASA/Eliquis on hold - Patient understands the risk of CVA I d/w [facility] - will advance to full liqd for now. Advance to [facility] soft - ground in 2-3 days Start clear liqd diet Hold Pulmonary consultation since hemoptysis has resolved Case d/w GI Family updated ENT/Surg input appreciated Cont other meds including Labetalol/Cardizem/Imdur DC planning
[2019-03-23] MEDS ORDERED: Ipratropium Bromide 2.5 ml Neb NEB SCH (10:30)
[2019-03-23] MEDS: HumaLOG 300 UNITS/3 ML VIAL SC PRN ×2 (11:03→17:00)
[2019-03-23] MEDS: traMADol HCl 50 MG TAB PO PRN (11:13)
[2019-03-23 12:06] VITALS: BMI 31.4
--- NOTE | 2019-03-23 12:25 | PDOC.EP ---
- Subjective Date: 03/23/19 Time: 12:23 Interval History: follow up for atrial flutter and medication management. Was coughing up fresh blood and clots yesterday. Eliquis/ ASA on hold Abdominal pain continues - Review of Systems Constitutional: denies: chills, fever, malaise, sweats, weakness, other Respiratory: reports: cough, dry, hemoptysis, shortness of breath. denies: pleuritic pain, SOB with excertion, sputum, wheezing Cardiology: denies: chest pain, edema, heart racing, palpitations Gastrointestinal: reports: abdominal pain, vomitting. denies: constipation, diarrhea, nausea - Objective Allergies/Adverse Reactions: Allergies Allergy/AdvReac Type Severity Reaction Status Date / Time iodine Allergy Verified 03/14/19 09:17 ketorolac tromethamine Allergy Verified 03/14/19 09:17 [From Toradol] sertraline HCl [From Zoloft] Allergy Verified 03/14/19 09:17 Sulfa (Sulfonamide Allergy Verified 03/14/19 09:17 Antibiotics) Current Medications Acetaminophen (Tylenol) 650 mg PO Q4H PRN PRN Reason: Headache/Fever/Mild Pain (1-3) Last Admin: 03/23/19 11:12 Dose: 650 mg Acetaminophen (Tylenol) 650 mg PO TID [facility] Last Admin: 03/23/19 08:11 Dose: 650 mg Albuterol/Ipratropium (Duoneb) 3 ml NEB [id number] [facility] Last Admin: 03/23/19 07:23 Dose: 3 ml Apixaban (Eliquis) 5 mg PO BID [facility] Last Admin: 03/22/19 08:23 Dose: 5 mg Aspirin (Ecotrin) 81 mg PO DAILY [facility] Last Admin: 03/22/19 08:23 Dose: 81 mg Atorvastatin Calcium (Lipitor) 40 mg PO HS [facility] Last Admin: 03/22/19 21:38 Dose: 40 mg Bisacodyl (Dulcolax) 10 mg FL DAILYPRN PRN PRN Reason: Constipation Brimonidine Tartrate (Alphagan 0.2% Ophth Soln) 0 drop EA EYE BID [facility] Last Admin: 03/23/19 08:13 Dose: 1 drop Cyclobenzaprine HCl (Flexeril) 10 mg PO TID PRN PRN Reason: Muscle Spasm Last Admin: 03/22/19 08:38 Dose: 10 mg Dextrose/Water (Dextrose 50%) 25 gm SLOW IVP PRN PRN PRN Reason: Hypoglycemia Diltiazem HCl (Cardizem) 30 mg PO ACHS [facility] Last Admin: 03/23/19 11:03 Dose: 30 mg Duloxetine HCl (Cymbalta) 60 mg PO DAILY [facility] Last Admin: 03/23/19 08:11 Dose: 60 mg Glucagon (Glucagon) 1 mg IM PRN PRN PRN Reason: Hypoglycemia Guaifenesin (Mucinex) 600 mg PO Q12HR [facility] Guaifenesin/Dextromethorphan (Robitussin Dm) 15 ml PO Q4H PRN PRN Reason: Cough Last Admin: 03/15/19 15:08 Dose: 15 ml Dextrose/Water (D5w) 1,000 mls @ 0 mls/hr IV .Q0M PRN PRN Reason: Hypoglycemia Insulin Glargine 18 units/ (Miscellaneous Medication) 0.18 mls @ 0 mls/hr SC [facility] Last Admin: 03/22/19 21:41 Dose: 0.18 mls Insulin Glargine 10 units/ (Miscellaneous Medication) 0.1 mls @ 0 mls/hr SC QAM [facility] Insulin Human Lispro (Humalog) 0 units SC .BEDTIME SLIDING SC PRN PRN Reason: Bedtime Correctional Scale Last Admin: 03/21/19 17:50 Dose: 3 unit Insulin Human Lispro (Humalog) 0 units SC .MODERATE SLIDING SC PRN PRN Reason: Moderate Correctional Scale Isosorbide Mononitrate (Imdur Er) 30 mg PO DAILY [facility] Last Admin: 03/23/19 08:11 Dose: 30 mg Labetalol HCl (Normodyne) 100 mg PO TID [facility] Last Admin: 03/23/19 08:11 Dose: 100 mg Latanoprost (Xalatan 0.005% Oph Soln) 1 drop EA EYE [facility] Last Admin: 03/22/19 21:39 Dose: 1 drop Morphine Sulfate (Morphine) 2 mg SLOW IVP Q4H PRN PRN Reason: Moderate to Severe Pain (6-10) Last Admin: 03/23/19 08:27 Dose: 2 mg Ondansetron HCl (Zofran) 4 mg IVP Q6H PRN PRN Reason: Nausea/Vomiting Last Admin: 03/15/19 09:10 Dose: 4 mg Pantoprazole Sodium (Protonix) 40 mg PO DAILY [facility] Last Admin: 03/23/19 08:11 Dose: 40 mg Polyethylene Glycol (Miralax) 17 gm PO DAILY [facility] Last Admin: 03/23/19 08:13 Dose: Not Given Pregabalin (Lyrica) 25 mg PO BID [facility] Last Admin: 03/23/19 08:11 Dose: 25 mg Saccharomyces Boulardii (Florastor) 250 mg PO DAILY [facility] Last Admin: 03/23/19 08:12 Dose: 250 mg Senna/Docusate Sodium (Senokot S) 2 tab PO BIDPRN PRN PRN Reason: Constipation Sodium Chloride (Flush - Normal Saline) 10 ml IVF Q12HR [facility] Last Admin: 03/23/19 08:12 Dose: 10 ml Sodium Chloride (Flush - Normal Saline) 10 ml IVF PRN PRN PRN Reason: Saline Flush Timolol Maleate (Timoptic 0.5% Ophth Soln) 0 drop EA EYE BID [facility] Last Admin: 03/23/19 08:12 Dose: 1 drop Tramadol HCl (Ultram) 50 mg PO Q4H PRN PRN Reason: Moderate Pain (4-6) Last Admin: 03/23/19 11:13 Dose: 50 mg Vital Signs & Weight: Vital Signs Temp Pulse Pulse Pulse Resp BP BP 03/23/19 11:30 98.3 F 86 15 03/23/19 11:02 97.5 F L 64 18 03/23/19 09:28 74 79 110/56 L 129/61 03/23/19 07:59 97.6 F 75 22 H 03/23/19 07:23 76 16 03/23/19 04:00 97.4 F L 79 20 BP BP Pulse Ox 03/23/19 11:30 105/60 95 03/23/19 11:02 107/53 L 100 03/23/19 09:28 03/23/19 07:59 140/66 98 03/23/19 07:23 03/23/19 04:00 157/80 H 98 Admit Weight 186 lb 11.2 oz Weight 183 lb 3.2 oz I/O: I/O 03/22/19 03/23/19 03/24/19 06:59 06:59 06:59 Intake Total 1440 1450 Output Total 1200 2100 Balance 240 -650 - Medication Contraindications No Anticoagulant reason: Medical contraindication (GI workup in progress) - Physical Exam General: alert & oriented x3, appears well, no apparent distress, speech clear, affect appropriate HEENT: mucus membranes moist, normocephaly Neck: supple neck, midline trachea, no lymphadenopathy Cardiology: regular rate, PMI nondisplaced. negative: regular rhythm Lungs: clear to auscultation, normal breath sounds, no wheeze, rales, rhonchi Neurology: cranial nerve 2-12 intact, grossly intact, sensory function intact Abdomen: active bowel sounds, no hepatosplenomegaly, HJR negative Extremities: dry, strong pulses, warm - Labs Result Diagrams: 03/24/19 05:10 03/24/19 05:10 - EKG Interpretation EKG Method: Telemetry EKG shows: Atrial fibrillation, Atypical atrial flutter - Assessment/Plan Assessment/Plan: 1. Atrial flutter, atypical - rate controlled with diltiazem 30mg PO QID - LFTs stable 2. CHADS2-VASC:5 - on lovenox. Requires OAC mcc upon DC 3. Abdominal discomfort. -GI eval w EGD done 03/21. inconclusive 4. Obesity 5. Hemoptysis - ASA/OAC on hold. Possible epistaxis vs post EGD bleed. No longer coughing up blood. Atypical atrial flutter and a.fib persists, remains well rate controlled on low dose diltiazem. Duration of AFlutter is unknown with no sinus rhythm seen on tele. She is largely asymptomatic with atrial flutter. Consider addition of multaq with CV after 30 days of OAC. Started on Eliquis 5mg PO BID on 03/18/2019 which was on hold starting 1/7 PM due to coughing up blood. If RVR recurs and BP low cannot tolerate higher diltiazem, may add Digoxin 125mcg daily. Discussed stroke risk without OAC. intermediate designer OAC is indicated once bleeding issues resolve. If concern for epistaxis, could consider ENT consult. Participated in the exam/formulation of the plan above. Agree with Mrs Varma.
[2019-03-23] MEDS: guaiFENesin ER 600 MG TAB PO SCH (20:50)
[2019-03-23] MEDS: Atorvastatin Calcium 40 MG TAB PO SCH (20:50)
[2019-03-23] MEDS: Insulin Glargine 18 UNITS in Pre-Filled Syringe 1 EACH SC SCH (20:50)
[2019-03-23] MEDS: Latanoprost 0.005% Ophth Soln 2.5 ml Bottle EA EYE SCH (20:51)
--- NOTE | 2019-03-23 23:21 | PRG ---
DATE OF SERVICE: 03/23/2019 REASON FOR CONSULTATION: Abdominal pain (generalized)/possible mesenteric ischemia. SUBJECTIVE: Yesterday, the patient exhibited mildly altered mental status in the post procedure period concerning for possible TIA/CVA. She ultimately underwent workup for possible stroke with negative imaging consistent with that diagnosis. This spontaneous resolved over the course of the day and the patient has not had any further recurrences in the last 12 to 24 hours. However, she did have some bleeding yesterday and today from the mouth immediately after the procedure. Upon review of the procedure notes itself and per count, the patient did have some increased bleeding from her mouth post endoscopies, but had stopped on its own. During the course of the day today, the patient states that her abdominal pain was somewhat worse with the ingestion of breakfast and lunch, but is relatively unchanged from previous. Currently, she denies any nausea, vomiting, fevers, chills, or GI bleeding. OBJECTIVE: VITAL SIGNS: Temperature 97.8, pulse 80, blood pressure 132/59, respiratory rate 18, and saturating 98% on 1.5 L nasal cannula. GENERAL: The patient was lying in bed, in no acute distress. Alert and oriented x4. CARDIOVASCULAR: Regular rate and rhythm. RESPIRATORY: Clear to auscultation bilaterally, although with poor inspiratory effort. ABDOMEN: Normoactive bowel sounds. Soft. Mild abdominal distention. Significant tenderness to palpation in all abdominal quadrants with both light and deep palpation. Positive Carnett sign. EXTREMITIES: No cyanosis, clubbing, or edema, but mild pedal edema in her bilateral feet. LABORATORY DATA: CBC with white blood cell count of 5.7, hemoglobin 11, hematocrit 33.4, platelets 241. Chemistry with a sodium of 137, potassium 4.1, chloride 100, CO2 of 31, BUN 7, creatinine 0.74, glucose 140, AST 9, ALT 8, alkaline phosphatase 76, total bilirubin 0.4. IMAGING DATA: No current GI imaging is available for review. ASSESSMENT AND PLAN: The patient is an 88-year-old female with past medical history of coronary artery disease, status post four-vessel coronary artery bypass graft, chronic obstructive pulmonary disease, transient ischemic attack, diabetes, cervical spine stenosis, atrial fibrillation on anticoagulation, congestive heart failure, hyperlipidemia, hypertension, and peripheral vascular disease/peripheral arterial disease, presenting with increased generalized abdominal pain. Generalized abdominal pain: The patient initially presented with a long-term history of worsening abdominal pain over the last month, but increasing in severity for the week prior to admission. This was associated with an episode of atrial fibrillation with rapid ventricular response and with both these conditions, it prompted her to seek healthcare assistance. On admission, she was noted to have significant fat stranding around the gallbladder concerning for acalculous cholecystitis, but a HIDA scan obtained during this admission was normal, making this a less likely diagnosis. 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 However, she was evaluated by the Vascular Surgery Service, who feels that her degree of stenosis is not significant enough to generate her current constellation of symptoms. Upon physical examination today, the patient did exhibit Carnett sign positive (increased pain with palpation upon bearing down), making the diagnosis of abdominal wall pain more likely as well. At this time, the differential could include abdominal wall pain (more likely), acalculous cholecystitis, mesenteric ischemia (still likely diagnosis), ischemic colitis (less likely given negative colonoscopy, although was incomplete study), and/or GI malignancy (less likely). Differential could also include functional abdominal pain given the lack of organic findings contributing to her current diagnosis. RECOMMENDATIONS: 1. Would continue the patient on bowel regimen to prevent constipation and further exacerbation of her abdominal pain. 2. Continue the patient on a FODMAP diet guidance to decrease intestinal gas formation. 3. Continue pantoprazole 40 mg daily. 4. Pain control per primary team. 5. Could consider placing the patient on medications for pain modulation (amitriptyline), but would confer with Cardiology given this drug class side effects on the heart. 6. We would attempt to advance the patient's diet as tolerated. 7. Given the higher likelihood of either mesenteric ischemia versus abdominal wall pain, we have no additional recommendations. We will sign off at this time. Please call with any questions. Job ID: [id number]
[2019-03-24 05:33] LABS: #Basophils 0.1 thou/uL (0.0-0.2); #Eosinphils 0.3 thou/uL (0.0-0.7); #Monocytes 0.9 thou/uL (0.11-0.59); #Neutrophils 3.6 thou/uL (1.40-6.50); %Basophils 0.8 % (0.0-1.0); %Eosinophils 3.9 % (0.0-10.0); %Lymphocytes 29.7 % (21.0-51.0); %Monocytes 12.9 % (0.0-10.0); %Neutrophils 52.7 % (42.0-75.0); Hemoglobin 10.3 g/dL (12.0-16.0); Mean Corpuscular HGB CONC 32.9 g/dL (32.0-36.0); Mean Corpuscular Hemoglobin 30.6 pg (27.0-31.0); Mean Platelet Volume 7.9 fL (7.4-10.4); Platelet Count 262 thou/uL (130-400); RBC Distribution Width 13.1 % (11.5-14.5); Red Blood Cell (RBC) Count 3.38 mill/uL (4.20-5.40); White Blood Cell (WBC) Count 6.8 thou/uL (4.8-10.8)
[2019-03-24] MEDS: HumaLOG 300 UNITS/3 ML VIAL SC PRN ×2 (05:34→13:00)
[2019-03-24 05:54] LABS: ALT (SGPT) 8 U/L (8-55); AST (SGOT) 10 U/L (5-34); Albumin 3.4 g/dL (3.4-4.8); Alkaline Phosphatase 76 U/L (40-110); Anion Gap 11 mmol/L (10-20); BUN (Urea Nitrogen) 7 mg/dL (9.8-20.1); Bilirubin, Total 0.3 mg/dL (0.2-1.2); Calc. Creatinine Clearance 76 mL/min (70-130); Calcium 9.4 mg/dL (7.8-10.44); Carbon Dioxide 28 mmol/L (23-31); Chloride 99 mmol/L (98-107); Estimated GFR-MDRD 79; Globulin 2.7 g/dL (2.4-3.5); Glucose 153 mg/dL (83-110); Potassium 3.9 mmol/L (3.5-5.1); Protein, Total 6.1 g/dL (6.0-8.3); Sodium 134 mmol/L (136-145)
[2019-03-24] MEDS: Saccharomyces boulardii 250 MG CAP PO SCH (08:40)
[2019-03-24] MEDS: Insulin Glargine 10 UNITS in Pre-Filled Syringe 1 EACH SC SCH (08:40)
[2019-03-24] MEDS: DULoxetine 60 MG CAP PO SCH (08:40)
[2019-03-24] MEDS: Labetalol 100 MG TAB PO SCH ×3 (08:41→19:50)
[2019-03-24] MEDS: guaiFENesin ER 600 MG TAB PO SCH ×2 (08:41→19:50)
[2019-03-24] MEDS: Acetaminophen 325 MG TAB PO SCH ×3 (08:41→19:49)
[2019-03-24] MEDS: Isosorbide Mononitrate (ER) 30 MG TAB PO SCH (08:41)
[2019-03-24] MEDS: Polyethylene Glycol 3350 17 GM Packet PO SCH (08:42)
[2019-03-24] MEDS: Brimonidine Tartrate 0.2% Ophth Soln 5 ml Bottle EA EYE SCH ×2 (08:42→19:50)
[2019-03-24] MEDS: Pregabalin 25 MG CAP PO SCH ×3 (08:43→20:09)
[2019-03-24] MEDS: Timolol 0.5% Ophth Soln 5 ml Bottle EA EYE SCH ×2 (08:44→19:51)
--- NOTE | 2019-03-24 08:45 | CON ---
DATE OF CONSULTATION: 03/23/2019 CHIEF COMPLAINT: Continually coughing up blood. HISTORY OF PRESENT ILLNESS: The patient is an 88-year-old female, who is complaining of continually coughing up blood. She was also recently evaluated with an EGD, but no bleeding was seen. The patient has significant medical comorbidities including coronary artery disease, hypertension, hyperlipidemia, COPD with a history of smoking, but currently is not an active smoker. Given the patient's significant bleeding and negative EGD, myself Dr. Bryant, was evaluated for nasal endoscopy and flexible laryngoscopy to evaluate bleeding source coming from the sinuses and nasal cavity. PAST MEDICAL HISTORY: Please see HPI. PAST SURGICAL HISTORY: No head and neck surgeries. CURRENT MEDICATIONS: Please see electronic medical record. ALLERGIES: NO KNOWN DRUG ALLERGIES. SOCIAL AND FAMILY HISTORY: Noncontributory. REVIEW OF SYSTEMS: SKIN: Negative. EYES: Negative. EARS, NOSE, AND THROAT: Please see HPI. RESPIRATORY: Negative. CARDIOVASCULAR: Negative. GASTROINTESTINAL: Hemoptysis. MUSCULOSKELETAL: Negative. NEUROLOGIC: Negative. HEMATOLOGIC: Negative. LYMPHATIC: Negative. IMMUNOLOGIC: Negative. ENDOCRINE: Negative. PHYSICAL EXAMINATION: GENERAL: No acute distress. The patient is alert and oriented. However, patient is distressed with some coughing of blood. HEAD AND FACE: Normocephalic, atraumatic. No facial skin lesions. No maxillary or frontal tenderness. Parotid gland and submandibular glands have no masses. EYES: Extraocular movements are intact. Pupils are equally round and reactive to light. EARS: Right and left pinna are normal. EACs are clear. NOSE: External nose is normal. Nasal mucosa is healthy. ORAL CAVITY: Has some bleeding as the patient is spitting up some blood. However, the oral mucosa is moist and there are no masses in the oral cavity. Tongue is fully mobile and floor of mouth is soft. Palate and uvula elevate symmetrically. Nasal cavity, nasopharynx, hypopharynx, and larynx. The nasal cavity is clear of any bleeding. The turbinates and septum are normal. No blood is seen in the nasal cavity or the sinuses. Nasopharynx is clear of any bleeding and there is no significant masses or lesions. Pharynx is without masses or lesions. Epiglottis is visible in the base of tongue, as well as the piriform sinuses are visible. There is some blood that is covering the larynx, which obscures some from viewing. The patient was having difficulty tolerating the procedure. However, no significant masses or lesions were seen. There is somewhat limited exam view of the piriform sinuses and the larynx given patient movement and bleeding. NECK: No lymphadenopathy. Trachea is midline. No masses or lesions. NEUROLOGIC: Cranial nerves 2 through 12 are grossly intact. Mood and affect are normal. PROCEDURE: Nasal endoscopy and flexible laryngoscopy. The patient's nasal cavity was evaluated bilaterally with flexible scope. No visible bleeding was seen. The patient had mild irritation during the scope exam, however, tolerated well. Flexible laryngoscopy was also performed and there was no significant masses or lesions in the nasopharynx, pharynx are visible in the larynx. The patient had moderate difficulty tolerating the scope procedure and eventually asked for no further procedure to be performed. Laryngoscopy equipment was removed from the right naris with no bleeding seen. ASSESSMENT AND PLAN: The patient is an 88-year-old female with some hemoptysis and coughing with recent negative EGD. The patient has had some concern for epistaxis, so Otolaryngology was consulted. Flexible nasopharyngosopcy and laryngosocpy was performed. Given scope evaluation, there is no evidence of any bleeding from the nasal cavity, nasopharynx, and pharynx. No masses or lesions in the oral cavity that could be causing bleeding. Given recent bleeding, recommend re-evaluating pulmonary source or GI source with concern of an occult area of bleeding and holding any anti-platelet or anticoagulation medications until active bleeding has decreased or stopped completely. Job ID: [id number] [facility]
[2019-03-24] MEDS: traMADol HCl 50 MG TAB PO PRN (09:38)
[2019-03-24] MEDS: Morphine 2 MG/ML SYRINGE SLOW IVP PRN (11:05)
[2019-03-24] MEDS ORDERED: Cyanocobalamin 1000 MCG/ML VIAL IM SCH (19:00)
--- NOTE | 2019-03-24 19:04 | PDOC.HOSPP ---
- Subjective Encounter Date: 03/24/19 Encounter Time: 11:00 Subjective: Patient seen and examined for multiple issues. No new bleeding. Abd pain still persistent - required Morphine IV. No other complaints. No overnight events - Objective Vital Signs & Weight: Vital Signs (12 hours) Temp Pulse Resp BP BP Pulse Ox 03/24/19 18:34 78 14 96 03/24/19 16:35 79 03/24/19 16:00 98.2 F 79 16 102/65 97 03/24/19 12:47 80 16 95 03/24/19 11:26 98.1 F 82 16 110/68 99 03/24/19 08:44 68 03/24/19 08:41 68 03/24/19 07:41 96.6 F L 68 16 134/80 99 Weight Admit Weight 186 lb 11.2 oz Weight 156 lb 12.8 oz I&O: 03/23/19 03/24/19 03/25/19 06:59 06:59 06:59 Intake Total 1450 420 860 Output Total 2100 2545 1250 Balance -650 -1755 -390 Result Diagrams: 03/24/19 05:10 03/24/19 05:10 Additional Labs: Accuchecks 03/24/19 03/24/19 03/24/19 16:07 11:34 04:20 POC Glucose 123 H 207 H 203 H 03/23/19 19:42 POC Glucose 206 H Hospitalist ROS - Review of Systems Respiratory: denies: cough, dry, shortness of breath, hemoptysis, SOB with excertion, pleuritic pain, sputum, wheezing, other Cardiovascular: denies: chest pain, palpitations, orthopnea, paroxysmal noc. dyspnea, edema, light headedness, other - Medication Medications: Active Medications Generic Name Dose Route Start Last Admin Trade Name Freq PRN Reason Stop Dose Admin Acetaminophen 650 mg 03/13/19 23:26 03/23/19 11:12 Tylenol PO 650 mg Q4H PRN Administration Headache/Fever/Mild Pain (1-3) Acetaminophen 650 mg 03/19/19 15:00 03/24/19 16:33 Tylenol PO 650 mg TID VISHAL Administration Albuterol/Ipratropium 3 ml 03/14/19 01:00 03/24/19 18:34 Duoneb NEB 3 ml [id number] VISHAL Administration Apixaban 5 mg 03/18/19 21:00 03/22/19 08:23 Eliquis PO 5 mg BID VISHAL Administration Aspirin 81 mg 03/20/19 09:00 03/22/19 08:23 Ecotrin PO 81 mg DAILY VISHAL Administration Atorvastatin Calcium 40 mg 03/14/19 21:00 03/23/19 20:50 Lipitor PO 40 mg HS VISHAL Administration Brimonidine Tartrate 0 drop 03/15/19 21:00 03/24/19 08:42 Alphagan 0.2% Ophth Soln EA EYE 1 drop BID VISHAL Administration Cyclobenzaprine HCl 10 mg 03/13/19 23:26 03/22/19 08:38 Flexeril PO 10 mg TID PRN Administration Muscle Spasm Diltiazem HCl 30 mg 03/18/19 07:30 03/24/19 16:32 Cardizem PO 30 mg ACHS VISHAL Administration Duloxetine HCl 60 mg 03/14/19 09:00 03/24/19 08:40 Cymbalta PO 60 mg DAILY VISHAL Administration Guaifenesin 600 mg 03/23/19 21:00 03/24/19 08:41 Mucinex PO 600 mg Q12HR VISHAL Administration Guaifenesin/Dextromethorphan 15 ml 03/13/19 23:26 03/15/19 15:08 Robitussin Dm PO 15 ml Q4H PRN Administration Cough Insulin Glargine 18 units/ 0.18 mls @ 0 mls/hr 03/14/19 21:00 03/23/19 20:50 Miscellaneous Medication SC 0.18 mls HS VISHAL Administration Insulin Glargine 10 units/ 0.1 mls @ 0 mls/hr 03/24/19 09:00 03/24/19 08:40 Miscellaneous Medication SC 0.1 mls QAM VISHAL Administration Insulin Human Lispro 0 units 03/13/19 23:26 03/21/19 17:50 Humalog SC 3 unit .BEDTIME SLIDING SC PRN Administration Bedtime Correctional Scale Insulin Human Lispro 0 units 03/23/19 11:09 03/24/19 13:00 Humalog SC 4 unit .MODERATE SLIDING SC PRN Administration Moderate Correctional Scale Isosorbide Mononitrate 30 mg 03/22/19 09:00 03/24/19 08:41 Imdur Er PO 30 mg DAILY VISHAL Administration Labetalol HCl 100 mg 03/14/19 09:00 03/24/19 16:35 Normodyne PO 100 mg TID VISHAL Administration Latanoprost 1 drop 03/15/19 21:00 03/23/19 20:51 Xalatan 0.005% Ophth Soln EA EYE 1 drop HS VISHAL Administration Morphine Sulfate 2 mg 03/14/19 15:53 03/24/19 11:05 Morphine SLOW IVP 2 mg Q4H PRN Administration Moderate to Severe Pain (6-10) Ondansetron HCl 4 mg 03/13/19 23:26 03/15/19 09:10 Zofran IVP 4 mg Q6H PRN Administration Nausea/Vomiting Pantoprazole Sodium 40 mg 03/22/19 09:00 03/24/19 08:41 Protonix PO 40 mg DAILY VISHAL Administration Polyethylene Glycol 17 gm 03/19/19 09:00 03/24/19 08:42 Miralax PO 17 gm DAILY VISHAL Administration Pregabalin 25 mg 03/24/19 15:00 03/24/19 16:33 Lyrica PO 25 mg TID VISHAL Administration Saccharomyces Boulardii 250 mg 03/19/19 09:00 03/24/19 08:40 Florastor PO 250 mg DAILY VISHAL Administration Sodium Chloride 10 ml 03/14/19 09:00 03/24/19 08:43 Flush - Normal Saline IVF 10 ml Q12HR VISHAL Administration Timolol Maleate 0 drop 03/15/19 21:00 03/24/19 08:44 Timoptic 0.5% Ophth Soln EA EYE 1 drop BID VISHAL Administration Tramadol HCl 50 mg 03/19/19 12:24 03/24/19 09:38 Ultram PO 50 mg Q4H PRN Administration Moderate Pain (4-6) - Exam General Appearance: NAD Neck: supple, no JVD Heart: no gallops, irregular Respiratory: no wheezes, no rales Gastrointestinal: soft, normal bowel sounds, no guarding, no rigidity Neurological: no new deficit Hosp A/P - Plan Abd pain of unclear etio - slowly improving - prob due to abd wall pain vs mesenteric ischemia Mild acute blood loss anemia due to Hemoptysis - resolved TIA unlikely - most likely transient encephalopathy due to Ketamine - resolved Afib/Aflutter with RVR requiring Cardizem drip Hypomagnesemia - replaced CAD HTN HLD DM2 h/o TIA PLAN: Resume ASA/Eliquis Monitor overnight for new bleeding DC in 1-2 days if stable Increase Lyrica Cont full liqd for now. Advance to [facility] soft - ground in 2-3 days Cont other meds including Labetalol/Cardizem/Imdur
[2019-03-24] MEDS: Apixaban 5 MG TAB PO SCH (19:49)
[2019-03-24] MEDS: Atorvastatin Calcium 40 MG TAB PO SCH (19:49)
[2019-03-24] MEDS: Insulin Glargine 18 UNITS in Pre-Filled Syringe 1 EACH SC SCH (19:50)
[2019-03-24] MEDS: Latanoprost 0.005% Ophth Soln 2.5 ml Bottle EA EYE SCH (19:51)
[2019-03-25] MEDS: Morphine 2 MG/ML SYRINGE SLOW IVP PRN ×2 (04:18→12:05)
[2019-03-25] MEDS: HumaLOG 300 UNITS/3 ML VIAL SC PRN ×2 (05:11→12:06)
[2019-03-25] MEDS: Labetalol 100 MG TAB PO SCH ×3 (09:03→20:48)
[2019-03-25] MEDS: Pregabalin 50 MG CAP PO SCH ×2 (09:03→20:51)
[2019-03-25] MEDS: Isosorbide Mononitrate (ER) 30 MG TAB PO SCH (09:03)
[2019-03-25] MEDS: Folic Acid 1 MG TAB PO SCH (09:03)
[2019-03-25] MEDS: Cyanocobalamin (Vitamin B-12) 1,000 MCG TAB PO SCH (09:03)
[2019-03-25] MEDS: DULoxetine 60 MG CAP PO SCH (09:03)
[2019-03-25] MEDS: Aspirin 81 mg Enteric Coated Tablet PO SCH (09:03)
[2019-03-25] MEDS: Saccharomyces boulardii 250 MG CAP PO SCH (09:03)
[2019-03-25] MEDS: Polyethylene Glycol 3350 17 GM Packet PO SCH (09:04)
[2019-03-25] MEDS: Insulin Glargine 10 UNITS in Pre-Filled Syringe 1 EACH SC SCH (09:04)
[2019-03-25] MEDS: Apixaban 5 MG TAB PO SCH ×2 (09:04→20:50)
[2019-03-25] MEDS: guaiFENesin ER 600 MG TAB PO SCH ×2 (09:04→20:50)
[2019-03-25] MEDS: Timolol 0.5% Ophth Soln 5 ml Bottle EA EYE SCH ×2 (10:05→20:51)
[2019-03-25] MEDS: Brimonidine Tartrate 0.2% Ophth Soln 5 ml Bottle EA EYE SCH ×2 (10:05→20:50)
[2019-03-25] MEDS: Acetaminophen 325 MG TAB PO SCH ×3 (10:05→20:49)
[2019-03-25] MEDS: Atorvastatin Calcium 40 MG TAB PO SCH (20:50)
[2019-03-25] MEDS: Insulin Glargine 18 UNITS in Pre-Filled Syringe 1 EACH SC SCH (20:50)
[2019-03-25] MEDS: Latanoprost 0.005% Ophth Soln 2.5 ml Bottle EA EYE SCH (20:51)
[2019-03-25] MEDS: Acetaminophen/Codeine 30-300mg Tablet PO PRN (23:38)
[2019-03-26] MEDS: HumaLOG 300 UNITS/3 ML VIAL SC PRN ×2 (06:13→11:36)
--- NOTE | 2019-03-26 06:53 | PDOC.HOSPP ---
- Subjective Encounter Date: 03/25/19 Encounter Time: 16:00 Subjective: Patient seen and examined for abd pain. Abd pain improving. No new bleeding. Toleraing full liqd diet. No new complaints. No overnight events - Objective Vital Signs & Weight: Vital Signs (12 hours) Temp Pulse Resp BP BP Pulse Ox 03/26/19 00:31 75 14 96 03/25/19 20:51 79 126/66 03/25/19 20:48 79 129/66 03/25/19 20:00 96 03/25/19 19:48 98.1 F 79 18 129/66 96 Weight Admit Weight 186 lb 11.2 oz Weight 183 lb 4.8 oz I&O: 03/24/19 03/25/19 03/26/19 06:59 06:59 06:59 Intake Total 420 1340 1130 Output Total 2175 2250 3000 Balance -1755 -910 -1870 Result Diagrams: 03/24/19 05:10 03/24/19 05:10 Additional Labs: Accuchecks 03/26/19 03/25/19 03/25/19 04:08 19:49 16:27 POC Glucose 190 H 238 H 137 H 03/25/19 11:06 POC Glucose 275 H Hospitalist ROS - Review of Systems Cardiovascular: denies: chest pain, palpitations, orthopnea, paroxysmal noc. dyspnea, edema, light headedness, other Gastrointestinal: denies: nausea, vomiting, abdominal pain, diarrhea, constipation, melena, hematochezia, other - Medication Medications: Active Medications Generic Name Dose Route Start Last Admin Trade Name Freq PRN Reason Stop Dose Admin Acetaminophen 650 mg 03/13/19 23:26 03/23/19 11:12 Tylenol PO 650 mg Q4H PRN Administration Headache/Fever/Mild Pain (1-3) Acetaminophen 650 mg 03/19/19 15:00 03/25/19 20:49 Tylenol PO 650 mg TID VISHAL Administration Acetaminophen/Codeine Phosphate 1 tab 03/25/19 13:44 03/25/19 23:38 Tylenol #3 PO 1 tab Q4H PRN Administration Severe Pain (7-10) Albuterol/Ipratropium 3 ml 03/14/19 01:00 03/26/19 00:31 Duoneb NEB 3 ml [id number] VISHAL Administration Apixaban 5 mg 03/18/19 21:00 03/25/19 20:50 Eliquis PO 5 mg BID VISHAL Administration Aspirin 81 mg 03/20/19 09:00 03/25/19 09:03 Ecotrin PO 81 mg DAILY VISHAL Administration Atorvastatin Calcium 40 mg 03/14/19 21:00 03/25/19 20:50 Lipitor PO 40 mg HS VISHAL Administration Brimonidine Tartrate 0 drop 03/15/19 21:00 03/25/19 20:50 Alphagan 0.2% Ophth Soln EA EYE 1 drop BID VISHAL Administration Cyanocobalamin 1,000 mcg 03/25/19 09:00 03/25/19 09:03 Vitamin B-12 PO 1,000 mcg DAILY VISHAL Administration Cyclobenzaprine HCl 10 mg 03/13/19 23:26 03/22/19 08:38 Flexeril PO 10 mg TID PRN Administration Muscle Spasm Diltiazem HCl 30 mg 03/18/19 07:30 03/25/19 20:50 Cardizem PO 30 mg ACHS VISHAL Administration Duloxetine HCl 60 mg 03/14/19 09:00 03/25/19 09:03 Cymbalta PO 60 mg DAILY VISHAL Administration Folic Acid 1 mg 03/25/19 09:00 03/25/19 09:03 Folvite PO 1 mg DAILY VISHAL Administration Guaifenesin 600 mg 03/23/19 21:00 03/25/19 20:50 Mucinex PO 600 mg Q12HR VISHAL Administration Guaifenesin/Dextromethorphan 15 ml 03/13/19 23:26 03/15/19 15:08 Robitussin Dm PO 15 ml Q4H PRN Administration Cough Insulin Glargine 18 units/ 0.18 mls @ 0 mls/hr 03/14/19 21:00 03/25/19 20:50 Miscellaneous Medication SC 0.18 mls HS VISHAL Administration Insulin Glargine 10 units/ 0.1 mls @ 0 mls/hr 03/24/19 09:00 03/25/19 09:04 Miscellaneous Medication SC 0.1 mls QAM VISHAL Administration Insulin Human Lispro 0 units 03/13/19 23:26 03/21/19 17:50 Humalog SC 3 unit .BEDTIME SLIDING SC PRN Administration Bedtime Correctional Scale Insulin Human Lispro 0 units 03/23/19 11:09 03/26/19 06:13 Humalog SC 2 unit .MODERATE SLIDING SC PRN Administration Moderate Correctional Scale Isosorbide Mononitrate 30 mg 03/22/19 09:00 03/25/19 09:03 Imdur Er PO 30 mg DAILY VISHAL Administration Labetalol HCl 100 mg 03/14/19 09:00 03/25/19 20:48 Normodyne PO 100 mg TID VISHAL Administration Latanoprost 1 drop 03/15/19 21:00 03/25/19 20:51 Xalatan 0.005% Ophth Soln EA EYE 1 drop HS VISHAL Administration Ondansetron HCl 4 mg 03/13/19 23:26 03/15/19 09:10 Zofran IVP 4 mg Q6H PRN Administration Nausea/Vomiting Pantoprazole Sodium 40 mg 03/22/19 09:00 03/25/19 09:04 Protonix PO 40 mg DAILY VISHAL Administration Polyethylene Glycol 17 gm 03/19/19 09:00 03/25/19 09:04 Miralax PO 17 gm DAILY VISHAL Administration Pregabalin 50 mg 03/25/19 09:00 03/25/19 20:51 Lyrica PO 50 mg BID VISHAL Administration Saccharomyces Boulardii 250 mg 03/19/19 09:00 03/25/19 09:03 Florastor PO 250 mg DAILY VISHAL Administration Sodium Chloride 10 ml 03/14/19 09:00 03/25/19 20:51 Flush - Normal Saline IVF 10 ml Q12HR VISHAL Administration Timolol Maleate 0 drop 03/15/19 21:00 03/25/19 20:51 Timoptic 0.5% Ophth Soln EA EYE 1 drop BID VISHAL Administration Tramadol HCl 50 mg 03/19/19 12:24 03/24/19 09:38 Ultram PO 50 mg Q4H PRN Administration Moderate Pain (4-6) - Exam General Appearance: NAD Heart: no gallops, irregular Respiratory: no wheezes, no rales Gastrointestinal: soft, normal bowel sounds Gastrointestinal - other findings: mild gen tenderness Extremities: no edema Hosp A/P - Plan Abd pain of unclear etio - slowly improving - prob due to abd wall pain vs mesenteric ischemia Mild acute blood loss anemia due to Hemoptysis - resolved TIA unlikely - most likely transient encephalopathy due to Ketamine - resolved Afib/Aflutter with RVR requiring Cardizem drip Hypomagnesemia - replaced CAD HTN HLD DM2 h/o TIA PLAN: Cont ASA/Eliquis DC in AM if stable Cont Lyrica 50 mg BID I d/w Pain sp - He recommended to change IV Morphine to Tylenol #3 Advance diet to Mech soft - ground Cont other meds as above
[2019-03-26 07:51] VITALS: BP 122/67; TEMP 97.6
[2019-03-26] MEDS: Aspirin 81 mg Enteric Coated Tablet PO SCH (09:09)
[2019-03-26] MEDS: Isosorbide Mononitrate (ER) 30 MG TAB PO SCH (09:09)
[2019-03-26] MEDS: Pregabalin 50 MG CAP PO SCH (09:09)
[2019-03-26] MEDS: DULoxetine 60 MG CAP PO SCH (09:09)
[2019-03-26] MEDS: Saccharomyces boulardii 250 MG CAP PO SCH (09:09)
[2019-03-26] MEDS: Folic Acid 1 MG TAB PO SCH (09:10)
[2019-03-26] MEDS: guaiFENesin ER 600 MG TAB PO SCH (09:10)
[2019-03-26] MEDS: Labetalol 100 MG TAB PO SCH ×2 (09:11→16:19)
[2019-03-26] MEDS: Brimonidine Tartrate 0.2% Ophth Soln 5 ml Bottle EA EYE SCH (09:11)
[2019-03-26] MEDS: Polyethylene Glycol 3350 17 GM Packet PO SCH (09:11)
[2019-03-26] MEDS: Cyanocobalamin (Vitamin B-12) 1,000 MCG TAB PO SCH (09:11)
[2019-03-26] MEDS: Timolol 0.5% Ophth Soln 5 ml Bottle EA EYE SCH (09:12)
[2019-03-26] MEDS: Insulin Glargine 10 UNITS in Pre-Filled Syringe 1 EACH SC SCH (09:12)
[2019-03-26] MEDS: Acetaminophen 325 MG TAB PO SCH ×2 (09:18→16:18)
[2019-03-26] MEDS: Apixaban 5 MG TAB PO SCH (09:18)
[2019-03-26] MEDS: Acetaminophen/Codeine 30-300mg Tablet PO PRN (11:35)
--- NOTE | 2019-03-26 15:01 | PDOC.HOSPP ---
- Subjective Encounter Date: 03/26/19 Encounter Time: 14:59 Subjective: Ms. Mckinnon was seen today in follow-up of abdominal pain. She does not have any new complaints. She says she ate ok last night with no problems, but today she had some abdominal discomfort after lunch. Howdver, she admits this has been a problem for " years ". - Objective Vital Signs & Weight: Vital Signs (12 hours) Temp Pulse Resp BP Pulse Ox 03/26/19 14:41 76 16 98 03/26/19 09:12 80 03/26/19 09:11 80 03/26/19 07:48 97.6 F 80 16 122/67 96 03/26/19 06:54 80 14 95 Weight Admit Weight 186 lb 11.2 oz Weight 183 lb 4.8 oz I&O: 03/25/19 03/26/19 03/27/19 06:59 06:59 06:59 Intake Total 1340 1130 Output Total 2250 3000 Balance -910 -1870 Result Diagrams: 03/24/19 05:10 03/24/19 05:10 Additional Labs: Accuchecks 03/26/19 03/26/19 03/25/19 11:38 04:08 19:49 POC Glucose 237 H 190 H 238 H 03/25/19 16:27 POC Glucose 137 H Hospitalist ROS - Medication Medications: Active Medications Generic Name Dose Route Start Last Admin Trade Name Freq PRN Reason Stop Dose Admin Acetaminophen 650 mg 03/13/19 23:26 03/23/19 11:12 Tylenol PO 650 mg Q4H PRN Administration Headache/Fever/Mild Pain (1-3) Acetaminophen 650 mg 03/19/19 15:00 03/26/19 09:18 Tylenol PO 650 mg TID VISHAL Administration Acetaminophen/Codeine Phosphate 1 tab 03/25/19 13:44 03/26/19 11:35 Tylenol #3 PO 1 tab Q4H PRN Administration Severe Pain (7-10) Albuterol/Ipratropium 3 ml 03/14/19 01:00 03/26/19 14:41 Duoneb NEB 3 ml [id number] VISHAL Administration Apixaban 5 mg 03/18/19 21:00 03/26/19 09:18 Eliquis PO 5 mg BID VISHAL Administration Aspirin 81 mg 03/20/19 09:00 03/26/19 09:09 Ecotrin PO 81 mg DAILY VISHAL Administration Atorvastatin Calcium 40 mg 03/14/19 21:00 03/25/19 20:50 Lipitor PO 40 mg HS VISHAL Administration Brimonidine Tartrate 0 drop 03/15/19 21:00 03/26/19 09:11 Alphagan 0.2% Ophth Soln EA EYE 1 drop BID VISHAL Administration Cyanocobalamin 1,000 mcg 03/25/19 09:00 03/26/19 09:11 Vitamin B-12 PO 1,000 mcg DAILY VISHAL Administration Cyclobenzaprine HCl 10 mg 03/13/19 23:26 03/22/19 08:38 Flexeril PO 10 mg TID PRN Administration Muscle Spasm Diltiazem HCl 30 mg 03/18/19 07:30 03/26/19 11:37 Cardizem PO 30 mg ACHS VISHAL Administration Duloxetine HCl 60 mg 03/14/19 09:00 03/26/19 09:09 Cymbalta PO 60 mg DAILY VISHAL Administration Folic Acid 1 mg 03/25/19 09:00 03/26/19 09:10 Folvite PO 1 mg DAILY VISHAL Administration Guaifenesin 600 mg 03/23/19 21:00 03/26/19 09:10 Mucinex PO 600 mg Q12HR VISHAL Administration Guaifenesin/Dextromethorphan 15 ml 03/13/19 23:26 03/15/19 15:08 Robitussin Dm PO 15 ml Q4H PRN Administration Cough Insulin Glargine 18 units/ 0.18 mls @ 0 mls/hr 03/14/19 21:00 03/25/19 20:50 Miscellaneous Medication SC 0.18 mls HS VISHAL Administration Insulin Glargine 10 units/ 0.1 mls @ 0 mls/hr 03/24/19 09:00 03/26/19 09:12 Miscellaneous Medication SC 0.1 mls QAM VISHAL Administration Insulin Human Lispro 0 units 03/13/19 23:26 03/26/19 11:36 Humalog SC 2 unit .BEDTIME SLIDING SC PRN Administration Bedtime Correctional Scale Insulin Human Lispro 0 units 03/23/19 11:09 03/26/19 06:13 Humalog SC 2 unit .MODERATE SLIDING SC PRN Administration Moderate Correctional Scale Isosorbide Mononitrate 30 mg 03/22/19 09:00 03/26/19 09:09 Imdur Er PO 30 mg DAILY VISHAL Administration Labetalol HCl 100 mg 03/14/19 09:00 03/26/19 09:11 Normodyne PO 100 mg TID VISHAL Administration Latanoprost 1 drop 03/15/19 21:00 03/25/19 20:51 Xalatan 0.005% Ophth Soln EA EYE 1 drop HS VISHAL Administration Ondansetron HCl 4 mg 03/13/19 23:26 03/15/19 09:10 Zofran IVP 4 mg Q6H PRN Administration Nausea/Vomiting Pantoprazole Sodium 40 mg 03/22/19 09:00 03/26/19 09:10 Protonix PO 40 mg DAILY VISHAL Administration Polyethylene Glycol 17 gm 03/19/19 09:00 03/26/19 09:11 Miralax PO 17 gm DAILY VISHAL Administration Pregabalin 50 mg 03/25/19 09:00 03/26/19 09:09 Lyrica PO 50 mg BID VISHAL Administration Saccharomyces Boulardii 250 mg 03/19/19 09:00 03/26/19 09:09 Florastor PO 250 mg DAILY VISHAL Administration Sodium Chloride 10 ml 03/14/19 09:00 03/26/19 09:13 Flush - Normal Saline IVF 10 ml Q12HR VISHAL Administration Timolol Maleate 0 drop 03/15/19 21:00 03/26/19 09:12 Timoptic 0.5% Ophth Soln EA EYE 1 drop BID VISHAL Administration Tramadol HCl 50 mg 03/19/19 12:24 03/24/19 09:38 Ultram PO 50 mg Q4H PRN Administration Moderate Pain (4-6) - Exam Eye: PERRL Heart: RRR, no murmur, no gallops, no rubs, normal peripheral pulses Respiratory: CTAB, no wheezes, no rales, normal chest expansion Gastrointestinal: soft, non-distended, normal bowel sounds Extremities: no cyanosis, no clubbing, no edema Hosp A/P (1) Abdominal pain Code(s): R10.9 - UNSPECIFIED ABDOMINAL PAIN Status: Acute Qualifiers: Abdominal location: generalized Qualified Code(s): R10.84 - Generalized abdominal pain (2) DM type 2 (diabetes mellitus, type 2) Status: Chronic (3) HTN (hypertension) Code(s): I10 - ESSENTIAL (PRIMARY) HYPERTENSION Status: Chronic (4) PVD (peripheral vascular disease) Code(s): I73.9 - PERIPHERAL VASCULAR DISEASE, UNSPECIFIED Status: Chronic (5) Physical deconditioning Code(s): R53.81 - OTHER MALAISE Status: Chronic - Plan * Abdominal pain- ? etiology * Will give a trail of * She has been able however to tolerate a solid diet * I suspect she is stable for discharge with close outpatient follow-up.
[2019-03-26] MEDS ORDERED: Donnatal Elixir 16.2 MG/5 ML UDCUP PO SCH (17:00)
--- NOTE | 2019-03-27 16:56 | PDOC.EVN ---
Event Note - Event Note Event Note: Patient's Eliquis and Cardizem were omitted from her discharge medications. These has been sent into her pharmacy today. I have tried to call the patient, but her number was listed as not a working number. I have left a message on her daughter's voice mail to call- and that her medications have been sent. Narayan Mery Law. ( [phone]) as well as Edwige Hood ([phone]).
--- NOTE | 2019-03-27 22:37 | PQF ---
KARLA LOVELL TONI MD [id number] [facility]-263 [id number] CLINICAL DOCUMENTATION CLARIFICATION FORM: POST DISCHARGE Addendum to original discharge summary date: ____ Late entry note date: __ DATE:03/27/2019 ATTN: Kit Bhatt Please exercise your independent, professional judgment in responding to the clarification form. Clinical indicators are provided on the bottom of this form for your review Please check appropriate box(s) to clarify if the following diagnosis has been ruled in or ruled out: SEPSIS [ ] Ruled in diagnosis [ ] Continue to treat [ ] Resolved [ X ] Ruled out diagnosis [ ] Cannot rule out diagnosis [ ] Other diagnosis [ ] Unable to determine In addition, please specify: Present on Admission (POA): [ X ] Yes [ ] No [ ] Unable to determine For continuity of documentation, please document condition throughout progress notes and discharge summary. Thank You. CLINICAL INDICATORS - SIGNS / SYMPTOMS / LABS ED Notes 03/13 "sepsis" ED Notes 03/13 "suspect the AF with RVR was due to sepsis" ED Notes 03/13 "Rapid heart rate" ED Vital Signs 03/13: RQ=421/50 Johuk=388 Respi=24 PN 03/25 "transient encephalopathy" RISK FACTORS ED Notes 03/13-88 years old female ED Notes 03/13-DM PN 03/25-ABLA HP 03/13-Former smoker TREATMENTS MAY 25-Zosyn 3.375gm IV MAY 25-IVF (This form is maintained as a part of the permanent medical record) 2014 [employer]. All Rights Reserved [email or web address] [not provided] MTDD
--- NOTE | 2019-03-27 22:41 | PQF ---
KARLA LOVELL TONI MD [id number] [facility]-263 [id number] CLINICAL DOCUMENTATION CLARIFICATION FORM: POST DISCHARGE Addendum to original discharge summary date: ____ Late entry note date: __ DATE: 03/27/2019 ATTN: Kit Bhatt Please exercise your independent, professional judgment in responding to the clarification form. Clinical indicators are provided on the bottom of this form for your review Based on your clinical judgment, can you please specify etiology of patient's abdominal pain? Please check appropriate box(s): [ ] Mesenteric ischemia [ ] Hiatal hernia [ ] Tortuous colon [X ] Abdominal pain unknown etiology [ ] Other diagnosis [ ] Unable to determine For continuity of documentation, please document condition throughout progress notes and discharge summary. Thank You. CLINICAL INDICATORS - SIGNS / SYMPTOMS / LABS HP 03/13 "patient also developed generalized abdominal pain, which is nonspecific in any area" Consult 03/17 "generalized abdominal pain possibly related to cholecystitis" PN 03/19 "abdominal pain due to ?acalculous cholecystitis vs mesenteric ischemia " PN 03/19 "HIDA scan obtained during this admission that was normal and makes cholecystitis much less likely" PN 03/22 "abdominal pain of unclear etiology" RISK FACTORS ED Notes 03/13-88 years old female ED Notes 03/13-DM HP 03/13-Former smoker OP Note 03/21-Hiatal hernia TREATMENTS: MAY 25-Zosyn 3.375gm IV MAY 25-IVF Collected 03/13-Abdomen Ultrasound PN 03/19-Gastroenterology consult OP Note 03/21-EGD and colonoscopy MAY 14-Protonix 40mg Oral (This form is maintained as a part of the permanent medical record) 2014 [employer]. All Rights Reserved [email or web address] [not provided] ANNETTA
--- NOTE | 2019-03-28 07:48 | DIS ---
DATE OF ADMISSION: 03/13/2019 DATE OF DISCHARGE: 03/26/2019 DISCHARGE DISPOSITION: Home. DISCHARGE DIAGNOSES: 1. Abdominal pain. 2. Atrial fibrillation. 3. Dyslipidemia. 4. Coronary artery disease. 5. Diabetes mellitus, type 2. 6. History of cervical stenosis. 7. Hypertension. 8. Peripheral vascular disease. DISCHARGE MEDICATIONS: Include; 1. Lyrica 50 mg p.o. twice daily. 2. Cardizem 30 mg q.i.d. 3. Elixir one teaspoon t.i.d. as needed. 4. Eliquis 5 mg p.o. twice daily. 5. Labetalol 100 mg p.o. t.i.d. 6. Latanoprost 0.05% in each eye at bedtime. 7. Levemir insulin 15 units subcu at bedtime and 20 units subcu daily. 8. NovoLog insulin as directed. 9. Duloxetine 60 mg daily. 10. Flexeril 10 mg p.o. t.i.d. 11. Atorvastatin 40 mg at bedtime. 12. Timolol eye drops q.12. 13. Amlodipine 5 mg daily. IMAGING AND PROCEDURES: The patient had a CT dissection protocol in which there was diffuse interstitial prominence and small bilateral pleural effusions to suggest interstitial pulmonary edema. The gallbladder appeared thickened and there was pericholecystic inflammatory changes and there was severe atherosclerotic disease. The patient had an abdominal ultrasound showing gallbladder wall thickening with pericholecystic fluid and a positive Bowles's sign suspicious for acute cholecystitis. The patient had a lower extremity venous Doppler showing no evidence of deep venous thrombosis. The patient had an echocardiogram showing an ejection fraction estimated at 50% to 55% and irregular heart rate was noted. CODE STATUS: Full code. ALLERGIES: TO IODINE, KETORALAC, SERTRALINE, AND SULFA. HOSPITAL COURSE: Ms. Mckinnon is a pleasant 88-year-old female, who was admitted to the hospital initially with complaints of abdominal pain. She was also found to be in atrial fibrillation with rapid ventricular response. She was admitted and seen by General Surgery initially due to the abdominal pain. There was concern that it could be related to her gallbladder. This was essentially ruled out and the patient was evaluated by the inseminator. She underwent an upper endoscopy as well as colonoscopy. On the upper endoscopy, there was a small hiatal hernia and no etiology for the abdominal pain. On colonoscopy, there was no evidence of any etiology that would explain her pain. There is otherwise normal-looking mucosa. The patient was evaluated by Cardiology as well as Electrophysiology and it was felt best to manage her with rate control due to her multiple medical problems at this time and then postdischarge, the plan was for her to follow up with Cardiology for potential cardioversion at a later date once the abdominal pain was better controlled. The patient was discharged home in stable condition on 03/27/2019. Job ID: [id number]
--- NOTE | 2019-03-28 11:36 | PDOC.EVN ---
Event Note - Event Note Event Note: I was able to reach Ms. Mckinnon. Her phone number was not correct in our system. I obtained the correct one from Dr. Engel's office. [phone]. I informed her of the medications Eliquis and Tonyzem. Discussed risk /benefits and she voiced understanding. I instructed her to start the medication tonight.
== END 2019-03-26 17:49 | disposition home health service (06) | DRG 391 ==
LOC: ERS 20:58 → ERHOLD 23:35 → 2NO 03-14 08:51 → T4-B 03-23 15:37
PROVIDERS: ADMIT Internal Medicine; ATTEND Internal Medicine
PROC: 0DJ08ZZ Inspection of Upper Intestinal Tract, Via Natural or Artificial Opening Endoscopic (ICD-10-PCS; principal; 2019-03-21)
PROC: 0DJD8ZZ Inspection of Lower Intestinal Tract, Via Natural or Artificial Opening Endoscopic (ICD-10-PCS; 2019-03-21)
PROC: 09JK8ZZ Inspection of Nasal Mucosa and Soft Tissue, Via Natural or Artificial Opening Endoscopic (ICD-10-PCS; 2019-03-25)
PROC: 0CJS8ZZ Inspection of Larynx, Via Natural or Artificial Opening Endoscopic (ICD-10-PCS; 2019-03-25)
DX: R10.9 Unspecified abdominal pain (principal); G92 Toxic encephalopathy; D62 Acute posthemorrhagic anemia; R04.2 Hemoptysis; I48.4 Atypical atrial flutter; I48.0 Paroxysmal atrial fibrillation; I25.10 Atherosclerotic heart disease of native coronary artery without angina pectoris; J44.9 Chronic obstructive pulmonary disease, unspecified; E11.51 Type 2 diabetes mellitus with diabetic peripheral angiopathy without gangrene; E78.5 Hyperlipidemia, unspecified; I11.0 Hypertensive heart disease with heart failure; I50.9 Heart failure, unspecified; Z96.611 Presence of right artificial shoulder joint; F41.9 Anxiety disorder, unspecified; G89.29 Other chronic pain; E11.65 Type 2 diabetes mellitus with hyperglycemia; I08.1 Rheumatic disorders of both mitral and tricuspid valves; I49.3 Ventricular premature depolarization; M10.9 Gout, unspecified; M48.02 Spinal stenosis, cervical region; H40.9 Unspecified glaucoma; E66.9 Obesity, unspecified; E83.42 Hypomagnesemia; Z96.643 Presence of artificial hip joint, bilateral; K44.9 Diaphragmatic hernia without obstruction or gangrene; K64.4 Residual hemorrhoidal skin tags; K64.8 Other hemorrhoids; K63.89 Other specified diseases of intestine; T41.295A Adverse effect of other general anesthetics, initial encounter; Z90.49 Acquired absence of other specified parts of digestive tract; Z90.710 Acquired absence of both cervix and uterus; Z95.1 Presence of aortocoronary bypass graft; Z87.891 Personal history of nicotine dependence; Z88.2 Allergy status to sulfonamides; Z88.8 Allergy status to other drugs, medicaments and biological substances; Z91.041 Radiographic dye allergy status; Z79.82 Long term (current) use of aspirin; Z79.4 Long term (current) use of insulin; Z79.899 Other long term (current) drug therapy; Z86.73 Personal history of transient ischemic attack (TIA), and cerebral infarction without residual deficits; Z99.81 Dependence on supplemental oxygen; Z68.31 Body mass index [BMI] 31.0-31.9, adult
CPT/HCPCS: 36415; 36416; 51701; 70450; 71045; 71275; 72191; 74175; 76705; 78227; 80048; 80053; 80061; 80076; 81003; 82550; 83605; 83690; 83735; 83880; 84100; 84439; 84443; 84484; 85025; 85610; 85652; 85730; 86850; 86900; 86901; 86922; 93005; 93010; 93306; 93970; 94640; 94760; 96365; 96366; 96375; 96376; A4353; A9537; C9113; J1200; J1650; J1815; J1940; J2270; J2370; J2405; J2543; J2704; J2930; J3010; J3420; J3475; J3490; J7050; J7512; J7620; Q9967; S0028

== ENCOUNTER 2019-04-08 05:13 | Inpatient (IN) | payer MEDICARE, OTHER ==
[2019-04-08 05:51] LABS: #Eosinphils 0.2 thou/uL (0.0-0.7); #Lymphocytes 1.1 thou/uL (1.20-3.40); #Monocytes 0.8 thou/uL (0.11-0.59); #Neutrophils 9.7 thou/uL (1.40-6.50); %Basophils 0.4 % (0.0-1.0); %Lymphocytes 9.2 % (21.0-51.0); %Monocytes 6.7 % (0.0-10.0); %Neutrophils 81.7 % (42.0-75.0); Hemoglobin 9.3 g/dL (12.0-16.0); Mean Corpuscular HGB CONC 33.8 g/dL (32.0-36.0); Mean Corpuscular Hemoglobin 32.4 pg (27.0-31.0); Mean Corpuscular Volume 95.6 fL (78.0-98.0); Mean Platelet Volume 7.9 fL (7.4-10.4); Platelet Count 324 thou/uL (130-400); RBC Distribution Width 14.8 % (11.5-14.5); Red Blood Cell (RBC) Count 2.86 mill/uL (4.20-5.40); White Blood Cell (WBC) Count 11.9 thou/uL (4.8-10.8)
[2019-04-08 06:14] LABS: ALT (SGPT) Less than 7 U/L (8-55); AST (SGOT) 8 U/L (5-34); Albumin 3.9 g/dL (3.4-4.8); Alkaline Phosphatase 101 U/L (40-110); Anion Gap 15 mmol/L (10-20); BUN (Urea Nitrogen) 18 mg/dL (9.8-20.1); Bilirubin, Total 0.5 mg/dL (0.2-1.2); Calc. Creatinine Clearance 0 mL/min (70-130); Calcium 9.5 mg/dL (7.8-10.44); Carbon Dioxide 26 mmol/L (23-31); Chloride 96 mmol/L (98-107); Estimated GFR-MDRD 56; Globulin 2.9 g/dL (2.4-3.5); Glucose 404 mg/dL (83-110); Magnesium 1.7 mg/dL (1.6-2.6); Potassium 4.6 mmol/L (3.5-5.1); Protein, Total 6.8 g/dL (6.0-8.3); Sodium 132 mmol/L (136-145)
[2019-04-08 06:37] LABS: CKMB 1.3 ng/mL (0-6.6)
[2019-04-08] MEDS ORDERED: Insulin Regular 300 UNITS/3 ML VIAL ONE (06:49)
[2019-04-08] MEDS ORDERED: Nitroglycerin 2% Ointment 1 INCH/1 GM Packet ONE (07:38)
--- NOTE | 2019-04-08 08:13 | CT ---
CT abdomen and pelvis noncontrast HISTORY: Flank pain. COMPARISON: 03/13/2019. FINDINGS: Bilateral pleural fluid is similar in appearance to the prior study. Each renal collecting system, ureter, and the urinary bladder are decompressed without stone evident. Calcifications at each renal hilum favored to be arterial in origin. Lack of contrast limits evaluation of the soft tissues. Dystrophic calcification associated with the right adrenal gland is stable. There is prominent calcification throughout the arterial structures. Prominent degenerative changes lumbar spine. Small pocket of gas within the anterior right central sp inal canal at the lumbosacral junction has a appearance of a disc herniation with slight superior extension. Nonenlarged, nonspecific lymph nodes throughout the retroperitoneum are similar in appeara nce to the previous exam. The previous study showed inflamed appearance of the gallbladder that is no longer present. Large amount of stool is seen throughout the colon. No focal inflammation. Gas-gregory led diverticulum projects superiorly from the second portion of the duodenum. IMPRESSION: No evidence of urinary tract obstruction calcification. Prominent atherosclerosis. Disc herniation at the lumbosacral junction, possibly compressing the right S1 nerve root origin. Constipation. Chronic-type findings are stable.
--- NOTE | 2019-04-08 09:09 | RAD ---
RADIOGRAPH CHEST 1 VIEW: Date: 04/08/2019. Time: 8:00 AM. HISTORY: An 88-year-old female with atrial fibrillation. COMPARISON: 03/22/2019. FINDINGS: Magnification of cardiac shadow. Sternotomy wires. Diffuse prominent interstitial markings. Area o f mildly increased attenuation at the right medial lung base, apparently new, but no obvious large pn eumothorax. IMPRESSION: 1. Questionable new mild early right medial basilar lower lobe infiltrate. 2. Prominent interstitial markings. 3. Previous open heart surgery. JN [] POS: CET
[2019-04-08] MEDS ORDERED: Morphine 4 MG/ML VIAL ONE ×2 (10:07→15:28)
[2019-04-08 10:22] LABS: Troponin I 0.965 ng/mL (< 0.028)
[2019-04-08] MEDS ORDERED: Aspirin Chewable 81 MG TAB ONE (10:39)
[2019-04-08 13:14] LABS: Troponin I 1.892 ng/mL (< 0.028)
[2019-04-08] MEDS ORDERED: Acetaminophen 650 MG Suppository PR PRN (15:00)
[2019-04-08] MEDS ORDERED: Nitroglycerin 0.4 MG TAB (25 Tab Bottle) PO PRN (15:00)
[2019-04-08] MEDS ORDERED: Ondansetron PF 4 MG/2 ML Vial IVP PRN (15:00)
[2019-04-08] MEDS ORDERED: Acetaminophen 325 MG TAB PO PRN (15:00)
[2019-04-08] MEDS ORDERED: Senokot S 8.6-50 MG TAB PO PRN (15:00)
--- NOTE | 2019-04-08 15:22 | PDOC.HHP ---
Hospitalist HPI - History of Present Illness palpitations sob History of Present Illness: Case of an 88y/o female with pmhx of htn copd hypercholesterolemia cad dm pvd and chronic afib on eliquis who comes to hospital due to palpitations. patient refers she was on her usual state of health until yesterday night when she started with palpitation general malaise and chest tightness, she went to sleep and symptoms were persistent on the morning and she started with sob and abd pain for which she called the ems. upon evaluation by ems patient was cardioverted and brought to hospital for further evaluation. Here patient states that palpitation resolved but she continues with the chest pressure that radiates to her abdomen and sob. due to persistent chest pressure hospitalist was consulted for further evaluation and management. patient denies n/v diarrhea or diaphoresis . Hospitalist ROS - Review of Systems Constitutional: denies: fever, chills, sweats, weakness, malaise, other Eyes: denies: pain, vision change, conjunctivae inflammation, eyelid inflammation, redness, other ENT: denies: ear pain, ear discharge, nose pain, nose discharge, nose congestion , mouth pain, mouth swelling, throat pain, throat swelling, other Respiratory: reports: shortness of breath. denies: cough, dry, hemoptysis Cardiovascular: reports: chest pain, palpitations Gastrointestinal: reports: abdominal pain. denies: diarrhea, constipation, melena Genitourinary: denies: dysuria, frequency, incontinence, hematuria, retention, other Musculoskeletal: denies: neck pain, shoulder pain, arm pain, back pain, hand pain, leg pain, foot pain, other Skin: reports: lesions Neurological: denies: weakness, numbness, incoordination, change in speech, confusion, seizures, other Hospitalist History - Past Medical History Source: patient Cardiac: reports: AFIB, CAD, HTN, Hyperlipidemia Pulmonary: reports: CVA/TIA/stroke, high cholesterol Musculoskeletal: reports: Chronic low back pain - Past Surgical History Past Surgical History: reports: Total Hip Replacement - Social History Smoking Status: Former smoker Alcohol: reports: None Drugs: reports: none Living Situation: With Family Activity level: independent ambulation - Exam Eye: PERRL, anicteric sclera ENT: normocephalic atraumatic, no oropharyngeal lesions, moist mucosa Neck: supple, symmetric, no JVD, no thyromegaly Heart: RRR, murmur present Respiratory: CTAB, no wheezes, no rales, no ronchi Gastrointestinal: soft, non-tender, non-distended, normal bowel sounds, no palpable masses, no hepatomegaly, no splenomegaly Extremities: no cyanosis, no clubbing, no edema Skin: normal turgor, no rashes Neurological: cranial nerve grossly intact Musculoskeletal: normal tone, normal strength, no muscle wasting Psychiatric: normal affect, normal behavior, A&O x 3 Hospitalist Results - Labs Result Diagrams: 04/08/19 05:38 04/08/19 05:38 Lab results: WBC 11.9 thou/uL (4.8-10.8) H 04/08/19 05:38 Hgb 9.3 g/dL (12.0-16.0) L 04/08/19 05:38 Hct 27.4 % (36.0-47.0) L 04/08/19 05:38 MCV 95.6 fL (78.0-98.0) 04/08/19 05:38 Plt Count 324 thou/uL (130-400) 04/08/19 05:38 Neutrophils % 81.7 % (42.0-75.0) H 04/08/19 05:38 Sodium 132 mmol/L (136-145) L 04/08/19 05:38 Potassium 4.6 mmol/L (3.5-5.1) 04/08/19 05:38 Chloride 96 mmol/L (98-107) L 04/08/19 05:38 Carbon Dioxide 26 mmol/L (23-31) 04/08/19 05:38 BUN 18 mg/dL (9.8-20.1) 04/08/19 05:38 Creatinine 0.94 mg/dL (0.6-1.1) 04/08/19 05:38 Glucose 404 mg/dL (83-110) H 04/08/19 05:38 Calcium 9.5 mg/dL (7.8-10.44) 04/08/19 05:38 Total Bilirubin 0.5 mg/dL (0.2-1.2) 04/08/19 05:38 AST 8 U/L (5-34) 04/08/19 05:38 ALT Less than 7 U/L (8-55) L 04/08/19 05:38 Alkaline Phosphatase 101 U/L (40-110) 04/08/19 05:38 CK-MB (CK-2) 1.3 ng/mL (0-6.6) 04/08/19 05:38 Troponin I 1.892 ng/mL (< 0.028) H* 04/08/19 12:34 B-Natriuretic Peptide 179.4 pg/mL (0-100) H 04/08/19 05:38 Serum Total Protein 6.8 g/dL (6.0-8.3) 04/08/19 05:38 Albumin 3.9 g/dL (3.4-4.8) 04/08/19 05:38 - EKG Interpretation EKG: shows normal sinus rhythm, Rate (beats per minute): 96, with premature atrial complexes, - Radiology Interpretation Chest x-ray Status: image reviewed by me (Magnification of cardiac shadow. Sternotomy wires. Diffuse prominent interstitial markings. Area of mildly increased attenuation at the right medial lung base, apparently new, but no obvious large pneumothorax.), report reviewed by me Hospitalist H&P A/P - Problem (1) Chest pain Code(s): R07.9 - CHEST PAIN, UNSPECIFIED Status: Acute (2) Uncontrolled diabetes mellitus Code(s): E11.65 - TYPE 2 DIABETES MELLITUS WITH HYPERGLYCEMIA Status: Acute (3) Atrial fibrillation with rapid ventricular response Code(s): I48.91 - UNSPECIFIED ATRIAL FIBRILLATION Status: Acute (4) CAD (coronary artery disease) Code(s): I25.10 - ATHSCL HEART DISEASE OF [place] CORONARY ARTERY W/O ANG PCTRS Status: Chronic (5) HTN (hypertension) Code(s): I10 - ESSENTIAL (PRIMARY) HYPERTENSION Status: Chronic (6) HLD (hyperlipidemia) Code(s): E78.5 - HYPERLIPIDEMIA, UNSPECIFIED Status: Chronic - Plan Plan: 88y/o fem with the stated pmhx, who comes to hospital after been cardioverted by ems. currently on nsr hospitalist called for evaluation due to persistent chest pain -obs telemetry -cardiology evaluation -troponin trend - currently in uptrend but expected after cardioversion -nitro patch -continue home meds for chronic condtions -insulin scale + basal insulin -patient with recent hospitalization for afib in [place] this month -02 supplementation -dvt/gi prophylaxis -continue beta amarilis and anticoagulation
[2019-04-08] MEDS ORDERED: Dextrose 50% Abboject 50 ML SYRINGE SLOW IVP PRN (15:42)
[2019-04-08] MEDS ORDERED: Dextrose 5% in Water 1,000 ML IV PRN (15:42)
[2019-04-08] MEDS: HYDROcodone/Acetaminophen 5/325 mg Tablet PO PRN ×2 (17:54→22:50)
[2019-04-08] MEDS: Insulin Glargine 30 UNITS in Pre-Filled Syringe SC SCH (21:08)
[2019-04-08] MEDS: Atorvastatin Calcium 40 MG TAB PO SCH (21:09)
[2019-04-08] MEDS: Pregabalin 50 MG CAP PO SCH (21:10)
[2019-04-08] MEDS: Labetalol 100 MG TAB PO SCH (21:11)
[2019-04-08] MEDS: Apixaban 5 MG TAB PO SCH (21:12)
[2019-04-08] MEDS: Latanoprost 0.005% Ophth Soln 2.5 ml Bottle EA EYE SCH (21:14)
[2019-04-08] MEDS: Timolol 0.5% Ophth Soln 5 ml Bottle EA EYE SCH (21:16)
[2019-04-08] MEDS: Brimonidine Tartrate 0.2% Ophth Soln 5 ml Bottle EA EYE SCH (21:16)
[2019-04-08] MEDS: Ondansetron ODT 4 MG TAB PO PRN (23:08)
[2019-04-09 04:26] LABS: #Eosinphils 0.3 thou/uL (0.0-0.7); #Lymphocytes 1.6 thou/uL (1.20-3.40); #Monocytes 0.7 thou/uL (0.11-0.59); #Neutrophils 4.1 thou/uL (1.40-6.50); %Basophils 0.5 % (0.0-1.0); %Eosinophils 4.9 % (0.0-10.0); %Lymphocytes 23.1 % (21.0-51.0); %Monocytes 10.9 % (0.0-10.0); %Neutrophils 60.6 % (42.0-75.0); Hemoglobin 7.8 g/dL (12.0-16.0); Mean Corpuscular HGB CONC 32.7 g/dL (32.0-36.0); Mean Corpuscular Hemoglobin 30.8 pg (27.0-31.0); Mean Platelet Volume 7.3 fL (7.4-10.4); Platelet Count 272 thou/uL (130-400); RBC Distribution Width 14.7 % (11.5-14.5); Red Blood Cell (RBC) Count 2.52 mill/uL (4.20-5.40); White Blood Cell (WBC) Count 6.7 thou/uL (4.8-10.8)
[2019-04-09 04:47] LABS: ALT (SGPT) Less than 7 U/L (8-55); AST (SGOT) 11 U/L (5-34); Albumin 3.5 g/dL (3.4-4.8); Alkaline Phosphatase 85 U/L (40-110); Anion Gap 11 mmol/L (10-20); BUN (Urea Nitrogen) 15 mg/dL (9.8-20.1); Bilirubin, Total 0.5 mg/dL (0.2-1.2); Calc. Creatinine Clearance 71 mL/min (70-130); Calcium 9.3 mg/dL (7.8-10.44); Carbon Dioxide 29 mmol/L (23-31); Cardiac Risk 4.5 (Less than 4.5); Chloride 98 mmol/L (98-107); Cholesterol 127 mg/dl (< 200 Desired); Estimated GFR-MDRD 74; Globulin 2.7 g/dL (2.4-3.5); Glucose 235 mg/dL (83-110); HDL Cholesterol 28 mg/dL (>60 Neg Risk); LDL Cholesterol, Calculated 71 mg/dL; Potassium 4.1 mmol/L (3.5-5.1); Protein, Total 6.2 g/dL (6.0-8.3); Sodium 134 mmol/L (136-145); Triglycerides 141 mg/dL (Less than 150)
[2019-04-09] MEDS: Apixaban 5 MG TAB PO SCH (08:14)
[2019-04-09] MEDS: Labetalol 100 MG TAB PO SCH ×3 (08:14→21:18)
[2019-04-09] MEDS: Aspirin 81 mg Enteric Coated Tablet PO SCH (08:14)
[2019-04-09] MEDS: DULoxetine 60 MG CAP PO SCH (08:14)
[2019-04-09] MEDS: Pregabalin 50 MG CAP PO SCH ×2 (08:15→21:17)
[2019-04-09] MEDS: Famotidine 20 MG TAB PO SCH (08:15)
[2019-04-09] MEDS: Amlodipine 5 MG TAB PO SCH (08:15)
[2019-04-09] MEDS: Timolol 0.5% Ophth Soln 5 ml Bottle EA EYE SCH ×3 (08:16→21:19)
[2019-04-09] MEDS: Brimonidine Tartrate 0.2% Ophth Soln 5 ml Bottle EA EYE SCH ×2 (08:23→21:18)
[2019-04-09] MEDS: Ondansetron ODT 4 MG TAB PO PRN (11:02)
[2019-04-09] MEDS: HYDROcodone/Acetaminophen 5/325 mg Tablet PO PRN ×2 (11:02→21:29)
[2019-04-09] MEDS: HumaLOG 300 UNITS/3 ML VIAL SC PRN (12:53)
[2019-04-09 13:38] VITALS: BMI 30.7
[2019-04-09 14:42] LABS: CKMB 3.1 ng/mL (0-6.6)
[2019-04-09 14:47] LABS: Troponin I 0.708 ng/mL (< 0.028)
--- NOTE | 2019-04-09 15:12 | CON ---
DATE OF CONSULTATION: 04/09/2019 REASON FOR CONSULTATION: Elevated troponin and chest tightness. HISTORY OF PRESENT ILLNESS: Ms. Mckinnon is an 88-year-old woman with a history of CAD, status post bypass surgery. She has been seen and evaluated by Dr. Richmond Oleary in the past. She states she has had abdominal discomfort since the end of February. It has been ongoing. She has had a long and complex workup that has been negative so far. She states she recently presented to the emergency room with a heart fluttering and palpitation. She also had lower chest/upper epigastric pressure. Her troponin was elevated at 1.3. She has a history of CAD, status post bypass surgery in 2001. She had a saphenous vein graft to the proximal LAD, SALAZAR to the distal LAD, saphenous vein graft to the diagonal branch, and saphenous vein graft to the PDA. The PDA was a very small vessel and previously occluded. Ms. Mckinnon has also had a drop in her hemoglobin from 9.3 to 7.8 over the last 24 hours. She has a baseline hemoglobin of 11.0 on 03/23/2019. PAST MEDICAL HISTORY: Atrial fibrillation; CAD, as described above; hypertension; CVA; hyperlipidemia; chronic low back pain; and abdominal pain of unknown etiology. ALLERGIES: IODINE. SOCIAL HISTORY: No current tobacco or alcohol use. REVIEW OF SYSTEMS: A 10-point review of systems is reviewed and as above, otherwise negative. HOME MEDICATIONS: 1. Gabapentin. 2. Eliquis. 3. Levemir. 4. NovoLog. 5. Flexeril. 6. Atorvastatin. 7. Aspirin. 8. Eliquis. 9. Amlodipine. 10. . 11. Diltiazem. PHYSICAL EXAMINATION: GENERAL: Patient is a pleasant female who is in no acute distress. The patient appears their stated age. VITAL SIGNS: Blood pressure 119/65, pulse 76, and temperature 97.9. NEUROLOGIC: The patient is alert and oriented x3 with no focal neurologic deficits. HEENT: Sclerae without icterus. Mouth has moist mucous membranes with normal pallor. NECK: No JVD. Carotid upstroke brisk. No bruits bilaterally. LUNGS: Clear to auscultation with unlabored respirations. BACK: No scoliosis or kyphosis. CARDIAC: Regular rate and rhythm with normal S1 and S2. No S3 or S4 noted. No significant rubs, murmurs, thrills, or gallops noted throughout the precordium. PMI is not displaced. There is no parasternal heave. ABDOMEN: Diffuse pain noted to gizv-[id number]-wkyrwnbj palpation in the upper mid-epigastric region and upper left epigastric region. Bowel sounds present. Non-tympanic. EXTREMITIES: 2+ femoral and 2+ dorsalis pedis pulses. No cyanosis, clubbing, or edema. SKIN: No gross abnormalities. DIAGNOSTIC STUDIES: EKG, no acute ST-T wave changes. PERTINENT LABORATORY DATA: Hemoglobin 9.3 to 7.8. Creatinine 0.74. Troponin 1.8. CK-MB 1.3. IMPRESSION: 1. Elevated troponin. 2. Atrial fibrillation with rapid ventricular response, now controlled. 3. Abdominal pain of unknown etiology. 4. Coronary artery disease. 5. Status post bypass surgery. RECOMMENDATIONS: Certainly, a complex situation with Ms. Mckinnon. She has been taking Eliquis and does have an iodine allergy. Her symptoms are not felt to be anginal. She has reproducible pain present. She likely had type 2 TN from demand ischemia from tachycardia and current pain. At this point, would recommend conservative therapy. Her grafts are 18 years old and previously had an occluded PDA. As far as I can see, she has not had a repeat angiogram to reassess her coronary anatomy. This is certainly a possibility, but at this point given her hemoglobin, iodine allergy, and Eliquis treatment, would recommend medical therapy, given no acute ST-T wave changes are present. We will repeat her troponin and CK-MB. Job ID: [id number]
--- NOTE | 2019-04-09 15:14 | PRG ---
DATE OF SERVICE: 04/09/2019 SUBJECTIVE: The patient is seen and examined at the bedside. She is still complaining about some abdominal discomfort. Apparently, she was discharged from the hospital just a couple of weeks ago after she was scoped from above and below and there was not found any good reason for her abdominal discomfort except for possible biliary source of her problem. She does not have any more complaints to offer at this point. She does not have any palpitations anymore. OBJECTIVE: VITAL SIGNS: Blood pressure is 119/65, pulse is 76, temperature is 97.9, respirations 20, and O2 saturation 95% on 2 L by nasal cannula. HEENT: Head is atraumatic and normocephalic. She looks somewhat sick and tired. Sclerae are nonicteric. Oral mucosa is slightly dry. NECK: Supple. LUNGS: Breath sounds diminished at both bases with some crackles at the right base. HEART: S1, S2 normal. No S3. No S4. Somewhat distant. ABDOMEN: Soft. Mildly tender in the epigastric area. No guarding. No masses. Bowel sounds are present. EXTREMITIES: No clubbing, cyanosis, or edema. NEUROLOGIC: She is alert and oriented x4. There is no any motor deficits. LABORATORY DATA: Labs showed white count of 6.7, hemoglobin 7.8, hematocrit 23.7, platelet count 272,000. Sodium of 134, potassium 4.1, chloride 98, CO2 of 29, BUN 15, creatinine 0.74, glucose 235. Accu-Chek ranges from 249 to 337. ALT less than 7. Three sets of troponins 0.032, then 0.965, then 1.892. Triglycerides 141, total cholesterol 127, LDL 71, HDL 28. IMPRESSION: 1. Atrial fibrillation with rapid ventricular response, status post electrical cardioversion by EMS. 2. Most likely type 2 eyp-HW-javvhub elevation myocardial infarction. 3. Uncontrolled diabetes mellitus. 4. Coronary artery disease. 5. Hypertension. 6. Hyperlipidemia. 7. Anemia with hemoglobin drop by 1.5 g in 24 hours. PLAN: The Apixaban was stopped by Cardiology, who is consulted, and we will obtain guaiac on her to make sure she is not bleeding and we will follow up with H and H in the morning. She is in sinus rhythm at this point. I am going to switch her to full liquid diet since she is not doing well on a heart healthy diet. Most likely, her gallbladder is still not functioning properly and most likely this is going to be the cause of her abdominal discomfort. We will step up her insulin coverage. She was given 30 units of long-acting insulin Lantus for basal coverage and moderate sliding scale for premeal glycemia. We will continue that and we will get PT and OT. We will get nystatin for her groins since she has some intertrigo, and as I mentioned above, we will switch her to full liquid diet. Job ID: [id number]
[2019-04-09] MEDS: Insulin Glargine 30 UNITS in Pre-Filled Syringe SC SCH (21:17)
[2019-04-09] MEDS: Latanoprost 0.005% Ophth Soln 2.5 ml Bottle EA EYE SCH (21:18)
[2019-04-09] MEDS: Atorvastatin Calcium 40 MG TAB PO SCH (21:18)
[2019-04-09] MEDS: Nystatin Powder 15 GM BOT TOP SCH (21:19)
[2019-04-10] MEDS: HYDROcodone/Acetaminophen 5/325 mg Tablet PO PRN ×3 (03:56→15:41)
[2019-04-10] MEDS: Amlodipine 5 MG TAB PO SCH (09:20)
[2019-04-10] MEDS: Pregabalin 50 MG CAP PO SCH ×2 (09:20→20:47)
[2019-04-10] MEDS: Famotidine 20 MG TAB PO SCH (09:20)
[2019-04-10] MEDS: Aspirin 81 mg Enteric Coated Tablet PO SCH (09:20)
[2019-04-10] MEDS: Labetalol 100 MG TAB PO SCH ×2 (09:20→15:41)
[2019-04-10] MEDS: DULoxetine 60 MG CAP PO SCH (09:20)
[2019-04-10] MEDS: Timolol 0.5% Ophth Soln 5 ml Bottle EA EYE SCH ×2 (09:21→20:55)
[2019-04-10] MEDS: Brimonidine Tartrate 0.2% Ophth Soln 5 ml Bottle EA EYE SCH ×2 (09:21→20:55)
[2019-04-10] MEDS: Nystatin Powder 15 GM BOT TOP SCH ×2 (09:21→20:51)
--- NOTE | 2019-04-10 09:58 | PDOC.CPN ---
- Subjective Date: 04/10/19 Time: 09:50 Interval history: Patient with no overnight events. Rhythm stable. CP improved. - Review of Systems General: denies: fever/chills, weight/appetite/sleep changes, night sweats, fatigue Respiratory: denies: cough, congestion, shortness of breath, exercise intolerance Cardiovascular: reports: chest pain Gastrointestinal: denies: nausea, vomiting, diarrhea, constipation, abd pain, GI bleeding Musculoskeletal: denies: pain, tenderness, stiffness, swelling, arthritis/ arthralgias Neurological: denies: numbness, syncope, seizure, weakness - Objective Allergies/Adverse Reactions: Allergies Allergy/AdvReac Type Severity Reaction Status Date / Time iodine Allergy Verified 04/08/19 17:20 ketorolac tromethamine Allergy Verified 04/08/19 17:20 [From Toradol] sertraline HCl [From Zoloft] Allergy Verified 04/08/19 17:20 Sulfa (Sulfonamide Allergy Verified 04/08/19 17:20 Antibiotics) Visit Medications: Current Medications Acetaminophen (Tylenol) 650 mg PO Q4H PRN PRN Reason: Headache/Fever/Mild Pain (1-3) Acetaminophen (Tylenol) 650 mg NM Q4H PRN PRN Reason: Headache/Fever/Mild Pain (1-3) Hydrocodone Bitart/Acetaminophen ([place] 5/325) 1 tab PO Q4H PRN PRN Reason: Moderate Pain (4-6) Last Admin: 04/10/19 03:56 Dose: 1 tab Aspirin (Ecotrin) 81 mg PO DAILY [facility] Last Admin: 04/10/19 09:20 Dose: 81 mg Atorvastatin Calcium (Lipitor) 40 mg PO HS [facility] Last Admin: 04/09/19 21:18 Dose: 40 mg Brimonidine Tartrate (Alphagan 0.2% Ophth Soln) 1 drop EA EYE Q12HR [facility] Last Admin: 04/10/19 09:21 Dose: Not Given Dextrose/Water (Dextrose 50%) 25 gm SLOW IVP PRN PRN PRN Reason: Hypoglycemia Diltiazem HCl (Cardizem) 60 mg PO QID [facility] Duloxetine HCl (Cymbalta) 60 mg PO DAILY [facility] Last Admin: 04/10/19 09:20 Dose: 60 mg Famotidine (Pepcid) 20 mg PO DAILY [facility] Last Admin: 04/10/19 09:20 Dose: 20 mg Glucagon (Glucagon) 1 mg IM PRN PRN PRN Reason: Hypoglycemia Dextrose/Water (D5w) 1,000 mls @ 0 mls/hr IV .Q0M PRN PRN Reason: Hypoglycemia Insulin Glargine 30 units/ (Miscellaneous Medication) 0.3 mls @ 0 mls/hr SC [facility] Last Admin: 04/09/19 21:17 Dose: 0.3 mls Insulin Human Lispro (Humalog) 0 units SC .MODERATE SLIDING SC PRN PRN Reason: Moderate Correctional Scale Last Admin: 04/09/19 12:53 Dose: 4 unit Labetalol HCl (Normodyne) 100 mg PO TID [facility] Last Admin: 04/10/19 09:20 Dose: 100 mg Latanoprost (Xalatan 0.005% Ophth Soln) 1 drop EA EYE [facility] Last Admin: 04/09/19 21:18 Dose: Not Given Nitroglycerin (Nitrostat) 0.4 mg PO Q5MIN PRN PRN Reason: Chest Pain Nystatin (Mycostatin Powder) 0 gm TOP BID [facility] Last Admin: 04/10/19 09:21 Dose: 1 applic Ondansetron HCl (Zofran Odt) 4 mg PO Q6H PRN PRN Reason: Nausea/Vomiting Last Admin: 04/09/19 11:02 Dose: 4 mg Ondansetron HCl (Zofran) 4 mg IVP Q6H PRN PRN Reason: Nausea/Vomiting Last Admin: 04/09/19 21:30 Dose: 4 mg Pregabalin (Lyrica) 50 mg PO BID [facility] Last Admin: 04/10/19 09:20 Dose: 50 mg Senna/Docusate Sodium (Senokot S) 2 tab PO BIDPRN PRN PRN Reason: Constipation Sodium Chloride (Flush - Normal Saline) 10 ml IVF Q12HR [facility] Last Admin: 04/10/19 09:21 Dose: 10 ml Sodium Chloride (Flush - Normal Saline) 10 ml IVF PRN PRN PRN Reason: Saline Flush Timolol Maleate (Timoptic 0.5% Ophth Soln) 1 drop EA EYE Q12HR [facility] Last Admin: 04/10/19 09:21 Dose: Not Given Vital Signs & Weight: Vital Signs Temp Pulse Resp BP Pulse Ox 04/10/19 09:21 68 04/10/19 09:20 68 04/10/19 03:54 97.6 F 68 14 108/53 L 94 L Admit Weight 179 lb Weight 179 lb 1.6 oz - Physical Exam General: alert & oriented x3, no apparent distress HEENT: mucus membranes moist Neck: no masses Cardiac: regular rate and rhythm Lungs: clear to auscultation Neuro: grossly intact Abdomen: active bowel sounds, soft Extremities: no edema Skin: clear Musculoskeletal: no pain - Labs Result Diagrams: 04/10/19 04:24 04/09/19 04:10 Troponin/CKMB CK-MB (CK-2) 3.1 ng/mL (0-6.6) 04/09/19 14:03 Troponin I 0.708 ng/mL (< 0.028) H* 04/09/19 14:03 - Assessment/Plan Assessment/Plan: 1. NSTEMI - II 2. Paroxysmal AFib 3. HTN 4. Anemia 5. History of CAD s/p CABG Patient with decreased trop and improved pain. Given anemia and improvement would recommend conservative treatment only for now. Continue ASA, bblocker, statin. Will stop norvasc and increase diltiazem dosage. Eliquis held due to anemia. ? GI work-up.
[2019-04-10] MEDS: Ondansetron ODT 4 MG TAB PO PRN (10:39)
[2019-04-10] MEDS ORDERED: Cyclobenzaprine 10 MG TAB PO SCH (11:30)
[2019-04-10] MEDS ORDERED: Magnesium Oxide 400 MG TAB PO SCH (11:30)
--- NOTE | 2019-04-10 12:20 | PRG ---
DATE OF SERVICE: 04/10/2019 SUBJECTIVE: The patient is seen and examined at the bedside. She is crying. She has muscle spasms in her calves, right and left lower extremity involving. OBJECTIVE: VITAL SIGNS: Blood pressure is 155/67, pulse is 90, respirations 20, O2 saturation 96% on 2 L by nasal cannula, and temperature is 97.2, maximal temperature is 97.8. HEENT: Her head is atraumatic and normocephalic. Eyes are PERRLA. Sclerae are nonicteric. Oral mucosa is slightly dry. NECK: Supple. Obese. LUNGS: Breath sounds diminished at both bases. HEART: S1, S2 normal. Regular. No S3. No S4. ABDOMEN: Soft, obese, nontender. EXTREMITIES: No clubbing, cyanosis, or edema. NEUROLOGIC: She follows my commands. She moves her all 4 extremities. There are no any motor deficits. LABORATORY DATA: Hemoglobin of 8.0, hematocrit 24.5. Glycemia is ranging from 130 to 248. Last troponin I 0.708, CK-MB 3.1. IMPRESSION: 1. Atrial fibrillation with rapid ventricular response and converted to sinus post electrical cardioversion. 2. Type 2 myocardial infarction. 3. Diabetes mellitus, improved and controlled. 4. Coronary artery disease. 5. Muscular spasms in the lower extremities. 6. Hypertension. 7. Hyperlipidemia. 8. Anemia with hemoglobin at 8.0 today. PLAN: The patient is going to have Flexeril 5 mg daily, first dose now for her [place] horses, and we will check her stool for guaiac along with additional anemia workup on her blood. We will give her magnesium 400 mg daily p.o., and we will continue her current regimen with long-acting and short-acting insulin. Her glycemia is improving. We will see whether she needs to have additional workup on her anemia after the testing is done on her blood and her stool and continue a recommended regimen per Cardiology with high dose of Cardizem to prevent AFib from coming back along with statin and aspirin daily. Job ID: [id number]
[2019-04-10] MEDS: HumaLOG 300 UNITS/3 ML VIAL SC PRN (18:10)
[2019-04-10] MEDS ORDERED: Sodium Chloride 0.9% 250 ML IV SCH (20:45)
[2019-04-10] MEDS: Atorvastatin Calcium 40 MG TAB PO SCH (20:47)
[2019-04-10] MEDS: Latanoprost 0.005% Ophth Soln 2.5 ml Bottle EA EYE SCH (20:51)
[2019-04-10] MEDS: Insulin Glargine 30 UNITS in Pre-Filled Syringe SC SCH (20:56)
[2019-04-11 04:58] LABS: Iron 27 ug/dL (50-170); Iron Binding Capacity, Total 304 mcg/dL (265-497)
--- NOTE | 2019-04-11 06:52 | PDOC.CPN ---
- Subjective Date: 04/11/19 Time: 10:22 Interval history: Pt with less abdomnal pain but still present. No CP. - Objective Allergies/Adverse Reactions: Allergies Allergy/AdvReac Type Severity Reaction Status Date / Time iodine Allergy Verified 04/08/19 17:20 ketorolac tromethamine Allergy Verified 04/08/19 17:20 [From Toradol] sertraline HCl [From Zoloft] Allergy Verified 04/08/19 17:20 Sulfa (Sulfonamide Allergy Verified 04/08/19 17:20 Antibiotics) Visit Medications: Current Medications Acetaminophen (Tylenol) 650 mg PO Q4H PRN PRN Reason: Headache/Fever/Mild Pain (1-3) Acetaminophen (Tylenol) 650 mg IN Q4H PRN PRN Reason: Headache/Fever/Mild Pain (1-3) Hydrocodone Bitart/Acetaminophen ([place] 5/325) 1 tab PO Q4H PRN PRN Reason: Moderate Pain (4-6) Last Admin: 04/10/19 15:41 Dose: 1 tab Aspirin (Ecotrin) 81 mg PO DAILY [facility] Last Admin: 04/10/19 09:20 Dose: 81 mg Atorvastatin Calcium (Lipitor) 40 mg PO [facility] Last Admin: 04/10/19 20:47 Dose: 40 mg Brimonidine Tartrate (Alphagan 0.2% Oph Soln) 1 drop EA EYE Q12HR [facility] Last Admin: 04/10/19 20:55 Dose: Not Given Cyclobenzaprine HCl (Flexeril) 5 mg PO DAILY [facility] Dextrose/Water (Dextrose 50%) 25 gm SLOW IVP PRN PRN PRN Reason: Hypoglycemia Duloxetine HCl (Cymbalta) 60 mg PO DAILY [facility] Last Admin: 04/10/19 09:20 Dose: 60 mg Famotidine (Pepcid) 20 mg PO DAILY [facility] Last Admin: 04/10/19 09:20 Dose: 20 mg Glucagon (Glucagon) 1 mg IM PRN PRN PRN Reason: Hypoglycemia Dextrose/Water (D5w) 1,000 mls @ 0 mls/hr IV .Q0M PRN PRN Reason: Hypoglycemia Insulin Glargine 30 units/ (Miscellaneous Medication) 0.3 mls @ 0 mls/hr SC [facility] Last Admin: 04/10/19 20:56 Dose: 0.3 mls Insulin Human Lispro (Humalog) 0 units SC .MODERATE SLIDING SC PRN PRN Reason: Moderate Correctional Scale Last Admin: 04/10/19 18:10 Dose: 4 unit Latanoprost (Xalatan 0.005% Ophth Soln) 1 drop EA EYE HS [facility] Last Admin: 04/10/19 20:51 Dose: 1 drop Magnesium Oxide (Magnesium Oxide) 400 mg PO DAILY [facility] Nitroglycerin (Nitrostat) 0.4 mg PO Q5MIN PRN PRN Reason: Chest Pain Nystatin (Mycostatin Powder) 0 gm TOP BID [facility] Last Admin: 04/10/19 20:51 Dose: 1 applic Ondansetron HCl (Zofran Odt) 4 mg PO Q6H PRN PRN Reason: Nausea/Vomiting Last Admin: 04/10/19 10:39 Dose: 4 mg Ondansetron HCl (Zofran) 4 mg IVP Q6H PRN PRN Reason: Nausea/Vomiting Last Admin: 04/09/19 21:30 Dose: 4 mg Pregabalin (Lyrica) 50 mg PO BID [facility] Last Admin: 04/10/19 20:47 Dose: 50 mg Senna/Docusate Sodium (Senokot S) 2 tab PO BIDPRN PRN PRN Reason: Constipation Sodium Chloride (Flush - Normal Saline) 10 ml IVF Q12HR [facility] Last Admin: 04/10/19 20:56 Dose: 10 ml Sodium Chloride (Flush - Normal Saline) 10 ml IVF PRN PRN PRN Reason: Saline Flush Timolol Maleate (Timoptic 0.5% Ophth Soln) 1 drop EA EYE Q12HR [facility] Last Admin: 04/10/19 20:55 Dose: Not Given Vital Signs & Weight: Vital Signs Temp Pulse Resp BP BP Pulse Ox 04/11/19 03:11 97.9 F 87 18 147/63 H 93 L 04/10/19 23:15 97.9 F 62 20 145/62 H 93 L 04/10/19 20:55 56 L 04/10/19 20:00 98.2 F 56 L 18 94/45 L 94 L Admit Weight 179 lb Weight 179 lb 1.6 oz - Physical Exam General: alert & oriented x3 Neck: supple neck Cardiac: regular rate and rhythm, no murmur Lungs: clear to auscultation Neuro: grossly intact Abdomen: unremarkable Extremities: no clubbing - Labs Result Diagrams: 04/10/19 04:24 04/09/19 04:10 Troponin/CKMB CK-MB (CK-2) 3.1 ng/mL (0-6.6) 04/09/19 14:03 Troponin I 0.708 ng/mL (< 0.028) H* 04/09/19 14:03 - Assessment/Plan Assessment/Plan: 1. NSTEMI - II 2. Paroxysmal AFib 3. HTN 4. Anemia 5. History of CAD s/p CABG 6. Abdominal pain Decrease CCB secondary to low HR Increase troponin type II KS from afib and abdominal pain Pt not interested in any further studies from a CV standpoint. Given comorbidites, I would agree. Recommend continued med treatment OK for DC from CV standpoint anytime Rec ASA, statin, and toprol XL 25mgQHS
[2019-04-11] MEDS: Aspirin 81 mg Enteric Coated Tablet PO SCH (08:43)
[2019-04-11] MEDS: Cyclobenzaprine 10 MG TAB PO SCH (08:43)
[2019-04-11] MEDS: Famotidine 20 MG TAB PO SCH (08:43)
[2019-04-11] MEDS: DULoxetine 60 MG CAP PO SCH (08:43)
[2019-04-11] MEDS: Brimonidine Tartrate 0.2% Ophth Soln 5 ml Bottle EA EYE SCH ×2 (08:44→21:18)
[2019-04-11] MEDS: Timolol 0.5% Ophth Soln 5 ml Bottle EA EYE SCH ×2 (08:44→21:19)
[2019-04-11] MEDS: Magnesium Oxide 400 MG TAB PO SCH (08:44)
[2019-04-11] MEDS: Nystatin Powder 15 GM BOT TOP SCH ×2 (08:45→21:19)
[2019-04-11] MEDS: HYDROcodone/Acetaminophen 5/325 mg Tablet PO PRN ×2 (08:49→21:17)
[2019-04-11] MEDS: Pregabalin 50 MG CAP PO SCH ×2 (08:50→21:16)
--- NOTE | 2019-04-11 11:05 | PDOC.HOSPP ---
- Subjective Encounter Date: 04/11/19 Encounter Time: 11:02 Subjective: confusing - Objective Vital Signs & Weight: Vital Signs (12 hours) Temp Pulse Pulse Resp BP BP BP 04/11/19 09:04 83 160/69 H 04/11/19 08:44 87 04/11/19 08:00 98.4 F 83 18 142/65 H 04/11/19 03:11 97.9 F 87 18 147/63 H 04/10/19 23:15 97.9 F 62 20 145/62 H Pulse Ox 04/11/19 09:04 04/11/19 08:44 04/11/19 08:00 95 04/11/19 03:11 93 L 04/10/19 23:15 93 L Weight Admit Weight 179 lb Weight 179 lb 1.6 oz I&O: 04/10/19 04/11/19 04/12/19 06:59 06:59 06:59 Intake Total 720 960 Output Total 600 1000 Balance 120 -40 Result Diagrams: 04/10/19 04:24 04/09/19 04:10 Additional Labs: Accuchecks 04/11/19 04/11/19 04/10/19 10:36 05:14 20:35 POC Glucose 165 H 171 H 143 H 04/10/19 04/10/19 16:43 10:37 POC Glucose 229 H 192 H Hospitalist ROS - Medication Medications: Active Medications Generic Name Dose Route Start Last Admin Trade Name Freq PRN Reason Stop Dose Admin Hydrocodone Bitart/Acetaminophen 1 tab 04/08/19 15:00 04/11/19 08:49 [place] 5/325 PO 1 tab Q4H PRN Administration Moderate Pain (4-6) Atorvastatin Calcium 40 mg 04/08/19 21:00 04/10/19 20:47 Lipitor PO 40 mg HS VISHAL Administration Brimonidine Tartrate 1 drop 04/08/19 21:00 04/11/19 08:44 Alphagan 0.2% Ophth Soln EA EYE Not Given Q12HR VISHAL Cyclobenzaprine HCl 5 mg 04/11/19 09:00 04/11/19 08:43 Flexeril PO 5 mg DAILY VISHAL Administration Duloxetine HCl 60 mg 04/09/19 09:00 04/11/19 08:43 Cymbalta PO 60 mg DAILY VISHAL Administration Famotidine 20 mg 04/09/19 09:00 04/11/19 08:43 Pepcid PO 20 mg DAILY VISHAL Administration Insulin Glargine 30 units/ 0.3 mls @ 0 mls/hr 04/08/19 21:00 04/10/19 20:56 Miscellaneous Medication SC 0.3 mls HS VISHAL Administration Insulin Human Lispro 0 units 04/08/19 15:42 04/10/19 18:10 Humalog SC 4 unit .MODERATE SLIDING SC PRN Administration Moderate Correctional Scale Latanoprost 1 drop 04/08/19 21:00 04/10/19 20:51 Xalatan 0.005% Ophth Soln EA EYE 1 drop HS VISHAL Administration Magnesium Oxide 400 mg 04/11/19 09:00 04/11/19 08:44 Magnesium Oxide PO 400 mg DAILY VISHAL Administration Nystatin 0 gm 04/09/19 21:00 04/11/19 08:45 Mycostatin Powder TOP 1 applic BID VISHAL Administration Ondansetron HCl 4 mg 04/08/19 15:00 04/10/19 10:39 Zofran Odt PO 4 mg Q6H PRN Administration Nausea/Vomiting Ondansetron HCl 4 mg 04/08/19 15:00 04/09/19 21:30 Zofran IVP 4 mg Q6H PRN Administration Nausea/Vomiting Pregabalin 50 mg 04/08/19 21:00 04/11/19 08:50 Lyrica PO 50 mg BID VISHAL Administration Sodium Chloride 10 ml 04/09/19 21:00 04/11/19 08:45 Flush - Normal Saline IVF 10 ml Q12HR VISHAL Administration Timolol Maleate 1 drop 04/08/19 21:00 04/11/19 08:44 Timoptic 0.5% Ophth Soln EA EYE Not Given Q12HR VISHAL - Exam General Appearance: awake alert Neck: no JVD Heart: RRR, no murmur Respiratory: CTAB Gastrointestinal: soft, normal bowel sounds Extremities: no edema Hosp A/P (1) NSTEMI (non-ST elevated myocardial infarction) Code(s): I21.4 - NON-ST ELEVATION (NSTEMI) MYOCARDIAL INFARCTION Status: Acute (2) Atrial fibrillation, transient Code(s): I48.91 - UNSPECIFIED ATRIAL FIBRILLATION Status: Chronic (3) KAYLEN (iron deficiency anemia) Code(s): D50.9 - IRON DEFICIENCY ANEMIA, UNSPECIFIED Status: Acute Qualifiers: Iron deficiency anemia type: unspecified iron deficiency Qualified Code(s) : D50.9 - Iron deficiency anemia, unspecified (4) Uncontrolled diabetes mellitus Code(s): E11.65 - TYPE 2 DIABETES MELLITUS WITH HYPERGLYCEMIA Status: Chronic Qualifiers: Diabetes mellitus type: type 2 (5) CAD (coronary artery disease) Code(s): I25.10 - ATHSCL HEART DISEASE OF [place] CORONARY ARTERY W/O ANG PCTRS Status: Chronic Qualifiers: Coronary Disease-Associated Artery/Lesion type: [place] artery [place] vs. transplanted heart: [place] heart Associated angina: without angina Qualified Code(s): I25.10 - Atherosclerotic heart disease of [place] coronary artery without angina pectoris - Plan cont ASA, statin FOBT, consider endoscopy, family
[2019-04-11] MEDS: Atorvastatin Calcium 40 MG TAB PO SCH (21:16)
[2019-04-11] MEDS: Insulin Glargine 30 UNITS in Pre-Filled Syringe SC SCH (21:17)
[2019-04-11] MEDS: Latanoprost 0.005% Ophth Soln 2.5 ml Bottle EA EYE SCH (21:18)
[2019-04-12] MEDS: Brimonidine Tartrate 0.2% Ophth Soln 5 ml Bottle EA EYE SCH ×2 (08:41→20:50)
[2019-04-12] MEDS: Timolol 0.5% Ophth Soln 5 ml Bottle EA EYE SCH ×2 (08:42→20:49)
[2019-04-12] MEDS: Aspirin 325 mg Enteric Coated Tablet PO SCH (08:43)
[2019-04-12] MEDS: Pregabalin 50 MG CAP PO SCH ×2 (08:43→20:48)
[2019-04-12] MEDS: Cyclobenzaprine 10 MG TAB PO SCH (08:45)
[2019-04-12] MEDS: Magnesium Oxide 400 MG TAB PO SCH (08:45)
[2019-04-12] MEDS: Famotidine 20 MG TAB PO SCH (08:45)
[2019-04-12] MEDS: DULoxetine 60 MG CAP PO SCH (08:45)
[2019-04-12] MEDS: Nystatin Powder 15 GM BOT TOP SCH ×2 (08:48→20:50)
[2019-04-12] MEDS: HYDROcodone/Acetaminophen 5/325 mg Tablet PO PRN ×3 (08:53→20:44)
--- NOTE | 2019-04-12 10:43 | PDOC.HOSPP ---
- Subjective Encounter Date: 04/12/19 Encounter Time: 10:41 Subjective: cont tocomplain of backpain,bladderpain - Objective Vital Signs & Weight: Vital Signs (12 hours) Temp Pulse Resp BP Pulse Ox 04/12/19 07:20 97.4 F L 86 16 151/65 H 94 L 04/12/19 03:21 98.1 F 97 18 191/74 H 94 L Weight Admit Weight 179 lb Weight 179 lb 1.6 oz I&O: 04/11/19 04/12/19 04/13/19 06:59 06:59 06:59 Intake Total 960 1320 Output Total 1000 3200 Balance -40 -1880 Result Diagrams: 04/10/19 04:24 04/09/19 04:10 Additional Labs: Accuchecks 04/12/19 04/12/19 04/11/19 07:40 05:31 20:44 POC Glucose 107 104 217 H 04/11/19 04/11/19 17:02 10:36 POC Glucose 162 H 165 H Hospitalist ROS - Medication Medications: Active Medications Generic Name Dose Route Start Last Admin Trade Name Freq PRN Reason Stop Dose Admin Hydrocodone Bitart/Acetaminophen 1 tab 04/08/19 15:00 04/12/19 08:53 [place] 5/325 PO 1 tab Q4H PRN Administration Moderate Pain (4-6) Aspirin 325 mg 04/12/19 09:00 04/12/19 08:43 Ecotrin PO 325 mg DAILY VISHAL Administration Atorvastatin Calcium 40 mg 04/08/19 21:00 04/11/19 21:16 Lipitor PO 40 mg HS VISHAL Administration Brimonidine Tartrate 1 drop 04/08/19 21:00 04/12/19 08:41 Alphagan 0.2% Ophth Soln EA EYE Not Given Q12HR VISHAL Cyclobenzaprine HCl 5 mg 04/11/19 09:00 04/12/19 08:45 Flexeril PO 5 mg DAILY VISHAL Administration Duloxetine HCl 60 mg 04/09/19 09:00 04/12/19 08:45 Cymbalta PO 60 mg DAILY VISHAL Administration Famotidine 20 mg 04/09/19 09:00 04/12/19 08:45 Pepcid PO 20 mg DAILY VISHAL Administration Insulin Glargine 30 units/ 0.3 mls @ 0 mls/hr 04/08/19 21:00 04/11/19 21:17 Miscellaneous Medication SC 0.3 mls HS VISHAL Administration Insulin Human Lispro 0 units 04/08/19 15:42 04/10/19 18:10 Humalog SC 4 unit .MODERATE SLIDING SC PRN Administration Moderate Correctional Scale Latanoprost 1 drop 04/08/19 21:00 04/11/19 21:18 Xalatan 0.005% Ophth Soln EA EYE 1 drop HS VISHAL Administration Magnesium Oxide 400 mg 04/11/19 09:00 04/12/19 08:45 Magnesium Oxide PO 400 mg DAILY VISHAL Administration Metoprolol Succinate 25 mg 04/12/19 09:00 04/12/19 08:43 Toprol Xl PO 25 mg DAILY VISHAL Administration Nystatin 0 gm 04/09/19 21:00 04/12/19 08:48 Mycostatin Powder TOP 1 applic BID VISHAL Administration Ondansetron HCl 4 mg 04/08/19 15:00 04/10/19 10:39 Zofran Odt PO 4 mg Q6H PRN Administration Nausea/Vomiting Ondansetron HCl 4 mg 04/08/19 15:00 04/09/19 21:30 Zofran IVP 4 mg Q6H PRN Administration Nausea/Vomiting Pregabalin 50 mg 04/08/19 21:00 04/12/19 08:43 Lyrica PO 50 mg BID VISHAL Administration Sodium Chloride 10 ml 04/09/19 21:00 04/12/19 08:49 Flush - Normal Saline IVF 10 ml Q12HR VISHAL Administration Timolol Maleate 1 drop 04/08/19 21:00 04/12/19 08:42 Timoptic 0.5% Ophth Soln EA EYE Not Given Q12HR VISHAL - Exam General Appearance: awake alert Neck: no JVD Heart: no murmur, irregular Respiratory: CTAB Gastrointestinal: soft, normal bowel sounds Extremities: no edema Hosp A/P (1) NSTEMI (non-ST elevated myocardial infarction) Code(s): I21.4 - NON-ST ELEVATION (NSTEMI) MYOCARDIAL INFARCTION Status: Acute (2) Atrial fibrillation, transient Code(s): I48.91 - UNSPECIFIED ATRIAL FIBRILLATION Status: Chronic (3) KAYLEN (iron deficiency anemia) Code(s): D50.9 - IRON DEFICIENCY ANEMIA, UNSPECIFIED Status: Acute Qualifiers: Iron deficiency anemia type: unspecified iron deficiency Qualified Code(s) : D50.9 - Iron deficiency anemia, unspecified (4) Uncontrolled diabetes mellitus Code(s): E11.65 - TYPE 2 DIABETES MELLITUS WITH HYPERGLYCEMIA Status: Chronic Qualifiers: Diabetes mellitus type: type 2 (5) CAD (coronary artery disease) Code(s): I25.10 - ATHSCL HEART DISEASE OF [place] CORONARY ARTERY W/O ANG PCTRS Status: Chronic Qualifiers: Coronary Disease-Associated Artery/Lesion type: [place] artery [place] vs. transplanted heart: [place] heart Associated angina: without angina Qualified Code(s): I25.10 - Atherosclerotic heart disease of [place] coronary artery without angina pectoris - Plan cont ASA, statin FOBT, recent endoscopy,colon incomplete AWAIT FOBT iv iron Bladderscan think!
[2019-04-12] MEDS ORDERED: Polyethylene Glycol 3350 17 GM Packet PO SCH (10:45)
[2019-04-12] MEDS: HumaLOG 300 UNITS/3 ML VIAL SC PRN ×2 (11:22→16:46)
[2019-04-12 15:58] LABS: Bacteria/HPF 4+ HPF (None Seen); Bilirubin Negative (Negative); Blood, Urine Trace (Negative); Clarity Turbid (Clear); Glucose, Urine (Dipstick) Normal (Negative); Leukocyte 500 Leu/uL (Negative); Nitrite Negative (Negative); Protein, Urine (Dipstick) 20 mg/dL (Neg-Trace); Squamous Epithelial None Seen HPF (0-3); Urobilinogen Normal mg/dL (Less than 2); WBC/HPF Greater than 50 HPF (0-3)
[2019-04-12 16:00] LABS: Urine Culture Reflex Yes Yes
--- NOTE | 2019-04-12 16:21 | PDOC.EVN ---
Event Note - Event Note Event Note: UA- TMTC WBC, pos esterase. C&S pending, ceftriaxone ivpb q 24h
[2019-04-12] MEDS ORDERED: cefTRIAXone Sodium 1 MG in Syringe 0 ML IVPB SCH (16:30)
[2019-04-12] MEDS: cefTRIAXone\\ROCEPHIN 1 GM in Sodium Chloride 0.9% 100 ML IVPB SCH (16:43)
[2019-04-12] MEDS: Atorvastatin Calcium 40 MG TAB PO SCH (20:48)
[2019-04-12] MEDS: Latanoprost 0.005% Ophth Soln 2.5 ml Bottle EA EYE SCH (20:48)
[2019-04-12] MEDS: Insulin Glargine 30 UNITS in Pre-Filled Syringe SC SCH (20:48)
[2019-04-13] MEDS: HYDROcodone/Acetaminophen 5/325 mg Tablet PO PRN (07:38)
[2019-04-13] MEDS: Brimonidine Tartrate 0.2% Ophth Soln 5 ml Bottle EA EYE SCH ×2 (08:57→20:46)
[2019-04-13] MEDS: Cyclobenzaprine 10 MG TAB PO SCH (08:58)
[2019-04-13] MEDS: Aspirin 325 mg Enteric Coated Tablet PO SCH (08:58)
[2019-04-13] MEDS: Pregabalin 50 MG CAP PO SCH ×2 (08:59→20:41)
[2019-04-13] MEDS: Ondansetron ODT 4 MG TAB PO PRN (08:59)
[2019-04-13] MEDS: Magnesium Oxide 400 MG TAB PO SCH (08:59)
[2019-04-13] MEDS: DULoxetine 60 MG CAP PO SCH (08:59)
[2019-04-13] MEDS: Famotidine 20 MG TAB PO SCH (08:59)
[2019-04-13] MEDS: Timolol 0.5% Ophth Soln 5 ml Bottle EA EYE SCH ×2 (09:00→20:42)
[2019-04-13] MEDS: Nystatin Powder 15 GM BOT TOP SCH ×2 (09:05→20:43)
--- NOTE | 2019-04-13 10:29 | PDOC.HOSPP ---
- Subjective Encounter Date: 04/13/19 Encounter Time: 10:26 Subjective: bladder spasm - Objective Vital Signs & Weight: Vital Signs (12 hours) Temp Pulse Resp BP Pulse Ox 04/13/19 09:57 97 04/13/19 07:32 97.6 F 82 19 142/65 H 97 04/13/19 05:38 98 04/13/19 03:27 97.5 F L 68 17 136/61 93 L 04/13/19 00:20 71 15 138/60 92 L Weight Admit Weight 182 lb 6 oz Weight 179 lb 1.6 oz I&O: 04/12/19 04/13/19 04/14/19 06:59 06:59 06:59 Intake Total 1320 240 Output Total 3200 780 Balance -6720 -540 Result Diagrams: 04/10/19 04:24 04/09/19 04:10 Additional Labs: Accuchecks 04/13/19 04/12/19 04/12/19 05:11 20:48 16:45 POC Glucose 108 139 H 187 H 04/12/19 10:35 POC Glucose 155 H Hospitalist ROS - Medication Medications: Active Medications Generic Name Dose Route Start Last Admin Trade Name Freq PRN Reason Stop Dose Admin Hydrocodone Bitart/Acetaminophen 1 tab 04/08/19 15:00 04/13/19 07:38 [place] 5/325 PO 1 tab Q4H PRN Administration Moderate Pain (4-6) Aspirin 325 mg 04/12/19 09:00 04/13/19 08:58 Ecotrin PO 325 mg DAILY VISHAL Administration Atorvastatin Calcium 40 mg 04/08/19 21:00 04/12/19 20:48 Lipitor PO 40 mg HS VISHAL Administration Brimonidine Tartrate 1 drop 04/08/19 21:00 04/13/19 08:57 Alph[place] 0.2% Ophth Soln EA EYE Not Given Q12HR VISHAL Cyclobenzaprine HCl 5 mg 04/11/19 09:00 04/13/19 08:58 Flexeril PO 5 mg DAILY VISHAL Administration Duloxetine HCl 60 mg 04/09/19 09:00 04/13/19 08:59 Cymbalta PO 60 mg DAILY VIHSAL Administration Famotidine 20 mg 04/09/19 09:00 04/13/19 08:59 Pepcid PO 20 mg DAILY VISHAL Administration Insulin Glargine 30 units/ 0.3 mls @ 0 mls/hr 04/08/19 21:00 04/12/19 20:48 Miscellaneous Medication SC Not Given HS VISHAL Ceftriaxone Sodium 1 gm/ 100 mls @ 200 mls/hr 04/12/19 16:30 04/12/19 16:43 Sodium Chloride IVPB 100 mls Q24HR VISHAL Administration Insulin Human Lispro 0 units 04/08/19 15:42 04/12/19 16:46 Humalog SC 2 unit .MODERATE SLIDING SC PRN Administration Moderate Correctional Scale Latanoprost 1 drop 04/08/19 21:00 04/12/19 20:48 Xalatan 0.005% Ophth Soln EA EYE 1 drop HS VISHAL Administration Magnesium Oxide 400 mg 04/11/19 09:00 04/13/19 08:59 Magnesium Oxide PO 400 mg DAILY VISHAL Administration Metoprolol Succinate 25 mg 04/12/19 09:00 04/13/19 08:59 Toprol Xl PO 25 mg DAILY VISHAL Administration Nystatin 0 gm 04/09/19 21:00 04/13/19 09:05 Mycostatin Powder TOP Not Given BID VISHAL Ondansetron HCl 4 mg 04/08/19 15:00 04/13/19 08:59 Zofran Odt PO 4 mg Q6H PRN Administration Nausea/Vomiting Ondansetron HCl 4 mg 04/08/19 15:00 04/09/19 21:30 Zofran IVP 4 mg Q6H PRN Administration Nausea/Vomiting Pregabalin 50 mg 04/08/19 21:00 04/13/19 08:59 Lyrica PO 50 mg BID VISHAL Administration Sodium Chloride 10 ml 04/09/19 21:00 04/13/19 09:00 Flush - Normal Saline IVF 10 ml Q12HR VISHAL Administration Timolol Maleate 1 drop 04/08/19 21:00 04/13/19 09:00 Timoptic 0.5% Ophth Soln EA EYE 1 drop Q12HR VISHAL Administration - Exam General Appearance: awake alert Neck: no JVD Heart: RRR, no murmur Respiratory: CTAB Gastrointestinal: soft, normal bowel sounds Extremities: no edema Hosp A/P (1) NSTEMI (non-ST elevated myocardial infarction) Code(s): I21.4 - NON-ST ELEVATION (NSTEMI) MYOCARDIAL INFARCTION Status: Acute (2) Atrial fibrillation, transient Code(s): I48.91 - UNSPECIFIED ATRIAL FIBRILLATION Status: Chronic (3) KAYLEN (iron deficiency anemia) Code(s): D50.9 - IRON DEFICIENCY ANEMIA, UNSPECIFIED Status: Acute Qualifiers: Iron deficiency anemia type: unspecified iron deficiency Qualified Code(s) : D50.9 - Iron deficiency anemia, unspecified (4) Uncontrolled diabetes mellitus Code(s): E11.65 - TYPE 2 DIABETES MELLITUS WITH HYPERGLYCEMIA Status: Chronic Qualifiers: Diabetes mellitus type: type 2 (5) CAD (coronary artery disease) Code(s): I25.10 - ATHSCL HEART DISEASE OF [place] CORONARY ARTERY W/O ANG PCTRS Status: Chronic Qualifiers: Coronary Disease-Associated Artery/Lesion type: [place] artery [place] vs. transplanted heart: [place] heart Associated angina: without angina Qualified Code(s): I25.10 - Atherosclerotic heart disease of [place] coronary artery without angina pectoris (6) UTI (urinary tract infection), bacterial Code(s): N39.0 - URINARY TRACT INFECTION, SITE NOT SPECIFIED; A49.9 - BACTERIAL INFECTION, UNSPECIFIED Status: Acute - Plan urine C&S-E coli-sens pending lactulose for constipation conr rocephen cont asa, statin
[2019-04-13] MEDS: HumaLOG 300 UNITS/3 ML VIAL SC PRN (11:47)
[2019-04-13] MEDS: cefTRIAXone\\ROCEPHIN 1 GM in Sodium Chloride 0.9% 100 ML IVPB SCH (15:40)
[2019-04-13] MEDS: Atorvastatin Calcium 40 MG TAB PO SCH (20:41)
[2019-04-13] MEDS: Latanoprost 0.005% Ophth Soln 2.5 ml Bottle EA EYE SCH (20:42)
[2019-04-13] MEDS: Insulin Glargine 30 UNITS in Pre-Filled Syringe SC SCH (20:43)
[2019-04-14] MEDS: Aspirin 325 mg Enteric Coated Tablet PO SCH (08:42)
[2019-04-14] MEDS: Cyclobenzaprine 10 MG TAB PO SCH (08:42)
[2019-04-14] MEDS: Pregabalin 50 MG CAP PO SCH ×2 (08:43→20:42)
[2019-04-14] MEDS: DULoxetine 60 MG CAP PO SCH (08:43)
[2019-04-14] MEDS: Famotidine 20 MG TAB PO SCH (08:43)
[2019-04-14] MEDS: HumaLOG 300 UNITS/3 ML VIAL SC PRN ×2 (08:44→11:54)
[2019-04-14] MEDS: Timolol 0.5% Ophth Soln 5 ml Bottle EA EYE SCH ×2 (08:45→20:43)
[2019-04-14] MEDS: Magnesium Oxide 400 MG TAB PO SCH (08:46)
[2019-04-14] MEDS: Nystatin Powder 15 GM BOT TOP SCH ×2 (08:46→20:45)
[2019-04-14] MEDS: Brimonidine Tartrate 0.2% Ophth Soln 5 ml Bottle EA EYE SCH ×2 (08:46→20:44)
--- NOTE | 2019-04-14 09:20 | PDOC.HOSPP ---
- Subjective Encounter Date: 04/14/19 Encounter Time: 09:18 Subjective: finally had BM, OW unchanged - Objective Vital Signs & Weight: Vital Signs (12 hours) Temp Pulse Resp BP Pulse Ox 04/14/19 07:59 92 L 04/14/19 07:26 97.6 F 92 17 171/72 H 92 L 04/14/19 03:04 98.2 F 86 20 152/67 H 92 L 04/14/19 00:00 98.5 F 84 20 144/62 H 93 L Weight Admit Weight 182 lb 6 oz Weight 179 lb 1.6 oz I&O: 04/13/19 04/14/19 04/15/19 06:59 06:59 06:59 Intake Total 240 1460 Output Total 780 2150 Balance -540 -690 Result Diagrams: 04/10/19 04:24 04/09/19 04:10 Additional Labs: Accuchecks 04/14/19 04/13/19 04/13/19 06:01 20:21 16:39 POC Glucose 179 H 190 H 158 H 04/13/19 10:46 POC Glucose 194 H Hospitalist ROS - Medication Medications: Active Medications Generic Name Dose Route Start Last Admin Trade Name Freq PRN Reason Stop Dose Admin Acetaminophen 650 mg 04/08/19 15:00 04/14/19 08:44 Tylenol PO 650 mg Q4H PRN Administration Headache/Fever/Mild Pain (1-3) Hydrocodone Bitart/Acetaminophen 1 tab 04/08/19 15:00 04/13/19 07:38 [place] 5/325 PO 1 tab Q4H PRN Administration Moderate Pain (4-6) Aspirin 325 mg 04/12/19 09:00 04/14/19 08:42 Ecotrin PO 325 mg DAILY VISHAL Administration Atorvastatin Calcium 40 mg 04/08/19 21:00 04/13/19 20:41 Lipitor PO 40 mg HS VISHAL Administration Brimonidine Tartrate 1 drop 04/08/19 21:00 04/14/19 08:46 [place] 0.2% Ophth Soln EA EYE Not Given Q12HR VISHAL Cyclobenzaprine HCl 5 mg 04/11/19 09:00 04/14/19 08:42 Flexeril PO 5 mg DAILY VISHAL Administration Duloxetine HCl 60 mg 04/09/19 09:00 04/14/19 08:43 Cymbalta PO 60 mg DAILY VISHAL Administration Famotidine 20 mg 04/09/19 09:00 04/14/19 08:43 Pepcid PO 20 mg DAILY VISHAL Administration Insulin Glargine 30 units/ 0.3 mls @ 0 mls/hr 04/08/19 21:00 04/13/19 20:43 Miscellaneous Medication SC Not Given HS VISHAL Insulin Human Lispro 0 units 04/08/19 15:42 04/14/19 08:44 Humalog SC 2 unit .MODERATE SLIDING SC PRN Administration Moderate Correctional Scale Latanoprost 1 drop 04/08/19 21:00 04/13/19 20:42 Xalatan 0.005% Ophth Soln EA EYE 1 drop HS VISHAL Administration Magnesium Oxide 400 mg 04/11/19 09:00 04/14/19 08:46 Magnesium Oxide PO 400 mg DAILY VISHAL Administration Metoprolol Succinate 25 mg 04/12/19 09:00 04/14/19 08:43 Toprol Xl PO 25 mg DAILY VISHAL Administration Nystatin 0 gm 04/09/19 21:00 04/14/19 08:46 Mycostatin Powder TOP 1 applic BID VISHAL Administration Ondansetron HCl 4 mg 04/08/19 15:00 04/13/19 08:59 Zofran Odt PO 4 mg Q6H PRN Administration Nausea/Vomiting Ondansetron HCl 4 mg 04/08/19 15:00 04/09/19 21:30 Zofran IVP 4 mg Q6H PRN Administration Nausea/Vomiting Pregabalin 50 mg 04/08/19 21:00 04/14/19 08:43 Lyrica PO 50 mg BID VISHAL Administration Sodium Chloride 10 ml 04/09/19 21:00 04/14/19 08:44 Flush - Normal Saline IVF 10 ml Q12HR VISHAL Administration Timolol Maleate 1 drop 04/08/19 21:00 04/14/19 08:45 Timoptic 0.5% Ophth Soln EA EYE 1 drop Q12HR VISHAL Administration - Exam General Appearance: awake alert Neck: no JVD Heart: RRR Respiratory: CTAB Gastrointestinal: soft Extremities: no edema Hosp A/P (1) NSTEMI (non-ST elevated myocardial infarction) Code(s): I21.4 - NON-ST ELEVATION (NSTEMI) MYOCARDIAL INFARCTION Status: Acute (2) Atrial fibrillation, transient Code(s): I48.91 - UNSPECIFIED ATRIAL FIBRILLATION Status: Chronic (3) KAYLEN (iron deficiency anemia) Code(s): D50.9 - IRON DEFICIENCY ANEMIA, UNSPECIFIED Status: Acute Qualifiers: Iron deficiency anemia type: unspecified iron deficiency Qualified Code(s) : D50.9 - Iron deficiency anemia, unspecified (4) Uncontrolled diabetes mellitus Code(s): E11.65 - TYPE 2 DIABETES MELLITUS WITH HYPERGLYCEMIA Status: Chronic Qualifiers: Diabetes mellitus type: type 2 (5) CAD (coronary artery disease) Code(s): I25.10 - ATHSCL HEART DISEASE OF [place] CORONARY ARTERY W/O ANG PCTRS Status: Chronic Qualifiers: Coronary Disease-Associated Artery/Lesion type: [place] artery [place] vs. transplanted heart: [place] heart Associated angina: without angina Qualified Code(s): I25.10 - Atherosclerotic heart disease of [place] coronary artery without angina pectoris (6) UTI (urinary tract infection), bacterial Code(s): N39.0 - URINARY TRACT INFECTION, SITE NOT SPECIFIED; A49.9 - BACTERIAL INFECTION, UNSPECIFIED Status: Acute - Plan deescalate to po antibx cont asa, statin placement
--- NOTE | 2019-04-14 17:32 | PDOC.EVN ---
Event Note - Event Note Event Note: now consider patient Dx non stemi type 2
[2019-04-14] MEDS: HYDROcodone/Acetaminophen 5/325 mg Tablet PO PRN (20:42)
[2019-04-14] MEDS: Atorvastatin Calcium 40 MG TAB PO SCH (20:42)
[2019-04-14] MEDS: Cefdinir 300 MG CAP PO SCH (20:42)
[2019-04-14] MEDS: Latanoprost 0.005% Ophth Soln 2.5 ml Bottle EA EYE SCH (20:44)
[2019-04-14] MEDS: Insulin Glargine 30 UNITS in Pre-Filled Syringe SC SCH (20:44)
[2019-04-15] MEDS: HYDROcodone/Acetaminophen 5/325 mg Tablet PO PRN (02:30)
[2019-04-15] MEDS: Cyclobenzaprine 10 MG TAB PO SCH (09:34)
[2019-04-15] MEDS: Aspirin 325 mg Enteric Coated Tablet PO SCH (09:34)
[2019-04-15] MEDS: Cefdinir 300 MG CAP PO SCH (09:34)
[2019-04-15] MEDS: Magnesium Oxide 400 MG TAB PO SCH (09:34)
[2019-04-15] MEDS: DULoxetine 60 MG CAP PO SCH (09:34)
[2019-04-15] MEDS: Pregabalin 50 MG CAP PO SCH (09:37)
[2019-04-15] MEDS: Famotidine 20 MG TAB PO SCH (09:37)
[2019-04-15] MEDS: HumaLOG 300 UNITS/3 ML VIAL SC PRN ×2 (09:39→12:23)
[2019-04-15] MEDS: Nystatin Powder 15 GM BOT TOP SCH (09:41)
[2019-04-15] MEDS: Brimonidine Tartrate 0.2% Ophth Soln 5 ml Bottle EA EYE SCH (09:42)
[2019-04-15] MEDS: Timolol 0.5% Ophth Soln 5 ml Bottle EA EYE SCH (09:43)
[2019-04-15 16:44] VITALS: BP 191/74; TEMP 97.8
--- NOTE | 2019-04-16 08:47 | DIS ---
DATE OF ADMISSION: 04/10/2019 DATE OF DISCHARGE: 04/15/2019 Shayna Mckinnon is an 88-year-old female, past medical history of high blood pressure, diabetes, atrial fibrillation, coronary artery disease presented to the hospital after being brought by the EMS. The patient had atrial fibrillation in RVR and was cardioverted on the way to the hospital by the EMS. The patient was admitted due to continued chest pain and shortness of breath. She was evaluated in the hospital with cardiac enzymes, Cardiology evaluation and medication review. The patient also was diagnosed with UTI. Troponins were evaluated and the patient diagnosed with a type 2 SD likely secondary due to atrial fibrillation in RVR. The patient currently is chest pain free. Medication review was done. Cardiology's recommendations were followed. The patient would be discharged home today. Anticoagulation was changed to aspirin and rate control was changed to The patient with over 3 days of antibiotics in hospital, no need to continue as an outpatient. The patient was oriented about her condition, treatment, followup plan, prefers to agree and understand. Job ID: [id number]
== END 2019-04-15 16:54 | disposition home health service (06) | DRG 281 ==
LOC: ERS 05:13 → ERHOLD 09:25 → 2NO 17:05 → OBSVTOIN 04-10 12:24
PROVIDERS: ADMIT Internal Medicine; ATTEND Internal Medicine
DX: I48.0 Paroxysmal atrial fibrillation (principal); I21.A1 Myocardial infarction type 2; N39.0 Urinary tract infection, site not specified; I25.10 Atherosclerotic heart disease of native coronary artery without angina pectoris; J44.9 Chronic obstructive pulmonary disease, unspecified; E78.00 Pure hypercholesterolemia, unspecified; E11.51 Type 2 diabetes mellitus with diabetic peripheral angiopathy without gangrene; G89.29 Other chronic pain; M54.5 Low back pain; Z96.649 Presence of unspecified artificial hip joint; E78.5 Hyperlipidemia, unspecified; E11.65 Type 2 diabetes mellitus with hyperglycemia; R25.2 Cramp and spasm; D50.9 Iron deficiency anemia, unspecified; B96.20 Unspecified Escherichia coli [E. coli] as the cause of diseases classified elsewhere; Z86.73 Personal history of transient ischemic attack (TIA), and cerebral infarction without residual deficits; Z87.891 Personal history of nicotine dependence; Z95.1 Presence of aortocoronary bypass graft; Z79.899 Other long term (current) drug therapy; Z79.4 Long term (current) use of insulin; Z79.01 Long term (current) use of anticoagulants
CPT/HCPCS: 36415; 36416; 71045; 74176; 80053; 80061; 81001; 82274; 82553; 82728; 83540; 83550; 83735; 83880; 84484; 85014; 85018; 85025; 87077; 87086; 87186; 93005; 94760; 96374; 96375; 96376; 99292; J0696; J1815; J2270; J2405; J3490; Q0162

== ENCOUNTER 2019-04-24 17:37 | Inpatient (IN) | payer MEDICARE, OTHER ==
[2019-04-24] MEDS ORDERED: Ondansetron PF 4 MG/2 ML Vial ONE ×2 (18:13→18:17)
[2019-04-24] MEDS ORDERED: Morphine 4 MG/ML VIAL ONE (18:13)
[2019-04-24 18:22] LABS: #Basophils 0.1 thou/uL (0.0-0.2); #Lymphocytes 1.4 thou/uL (1.20-3.40); #Monocytes 0.8 thou/uL (0.11-0.59); #Neutrophils 7.5 thou/uL (1.40-6.50); %Basophils 0.5 % (0.0-1.0); %Eosinophils 0.4 % (0.0-10.0); %Lymphocytes 14.1 % (21.0-51.0); %Monocytes 8.4 % (0.0-10.0); %Neutrophils 76.7 % (42.0-75.0); Hemoglobin 8.6 g/dL (12.0-16.0); Mean Corpuscular HGB CONC 33.7 g/dL (32.0-36.0); Mean Corpuscular Hemoglobin 31.1 pg (27.0-31.0); Mean Corpuscular Volume 92.4 fL (78.0-98.0); Platelet Count 394 thou/uL (130-400); RBC Distribution Width 14.1 % (11.5-14.5); Red Blood Cell (RBC) Count 2.77 mill/uL (4.20-5.40); White Blood Cell (WBC) Count 9.7 thou/uL (4.8-10.8)
[2019-04-24 18:29] LABS: INR-International Normal Ratio 1.3; PTT 44.9 SEC (22.9-36.1); Prothrombin Time 15.9 SEC (12.0-14.7)
--- NOTE | 2019-04-24 18:31 | RAD ---
XR Chest 1 View Portable HISTORY: Chest pain COMPARISON: 04/08/2019 FINDINGS: There are changes of median sternotomy. The heart is enlarged. There is mild pulmonary vasc ular congestion. No lobar consolidation, pneumothoraces or large effusions are seen. A right humeral head prostheses is again seen. There are degenerative changes in the left shoulder and postop changes of left rotator cuff repair.
[2019-04-24 18:43] LABS: ALT (SGPT) Less than 7 U/L (8-55); AST (SGOT) 10 U/L (5-34); Albumin 3.8 g/dL (3.4-4.8); Alkaline Phosphatase 92 U/L (40-110); Anion Gap 17 mmol/L (10-20); BUN (Urea Nitrogen) 26 mg/dL (9.8-20.1); Bilirubin, Total 0.4 mg/dL (0.2-1.2); Calc. Creatinine Clearance 0 mL/min (70-130); Calcium 9.2 mg/dL (7.8-10.44); Carbon Dioxide 19 mmol/L (23-31); Chloride 99 mmol/L (98-107); Estimated GFR-MDRD 41; Glucose 440 mg/dL (83-110); Lipase 7 U/L (8-78); Magnesium 1.7 mg/dL (1.6-2.6); Potassium 5.1 mmol/L (3.5-5.1); Protein, Total 6.8 g/dL (6.0-8.3); Sodium 130 mmol/L (136-145)
[2019-04-24 19:05] LABS: CKMB 4.1 ng/mL (0-6.6)
[2019-04-24] MEDS ORDERED: Aspirin Chewable 81 MG TAB ONE (20:04)
[2019-04-24] MEDS ORDERED: Diltiazem 125 MG/25 ML ONE (20:28)
[2019-04-24 20:39] LABS: Actual Bicarbonate (HCO3a) 16.4 mEq/L (22-28); Analyzer IN Cardio ER; Base Excess (BEa) -10.4 mEq/L (-2.0 to +3.0); Calcium, Ionized 1.18 mmol/L (1.12-1.30); Carboxyhemoglobin (COHb) 0.4 gm% (0.0-3.0); Hemoglobin (Hb) 9.2 g/dL (12.0-16.0); O2 Tension (PaO2) 85.6 mmHg (> 60.0); Potassium - ABG Lab 5.34 mmol/L (3.70-5.30)
--- NOTE | 2019-04-24 20:44 | CT ---
CT ABDOMEN AND PELVIS WITH IV CONTRAST: History: Abdominal pain. Comparison: 04-08-2019 FINDINGS: Bilateral pleural effusions are again seen. No calcified gallstones are noted. The liver, spleen, kidd creas, left adrenal gland, and kidneys are normal. There are several calcifications in the left adren al gland again seen. 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 No f ree air, free fluid or lymphadenopathy is seen in the abdomen or pelvis. There are bilateral THAs res ulting in artifact which reduces the sensitivity of the exam, especially for evaluate of pelvic yvonne nts. There are degenerative changes in the spine. IMPRESSION: 1. Stable bilateral pleural effusions. 2. No evidence of acute process. POS: OFF
[2019-04-24] MEDS ORDERED: Norepinephrine 8 MG/0.9% NS 250 ML ONE (21:05)
[2019-04-24 21:28] LABS: Lactic Acid 4.3 mmol/L (0.5-2.2)
[2019-04-24 21:54] LABS: Troponin I 0.432 ng/mL (< 0.028)
[2019-04-24 22:10] LABS: Puncture Site LRA; pH, Arterial 7.23 (7.35-7.45)
[2019-04-24] MEDS ORDERED: Cefepime 2 GM VIAL ONE (22:10)
[2019-04-24] MEDS ORDERED: Dextrose 5% in Water 1,000 ML IV PRN (22:13)
[2019-04-24] MEDS ORDERED: Dextrose 50% Abboject 50 ML SYRINGE SLOW IVP PRN (22:13)
[2019-04-24] MEDS ORDERED: Digoxin 0.5 MG/2 ML AMP ONE (22:42)
[2019-04-24] MEDS ORDERED: CCU Electrolyte Replacement 1 EACH IVPB SCH (22:59)
[2019-04-24] MEDS ORDERED: Norepinephrine 8 MG/0.9% NS 250 ML IVPB PRN (22:59)
[2019-04-24] MEDS ORDERED: Potassium Phosphate 12 MMOL in Sodium Chloride 0.9% 250 ML 250 ML IV PRN (23:11)
[2019-04-24] MEDS ORDERED: CCU ELECTROLYTE REPLACEMENT PROTOCOL FS PRN (23:11)
[2019-04-24] MEDS ORDERED: Potassium Chloride 20 MEQ TAB PO PRN (23:11)
[2019-04-24] MEDS ORDERED: Potassium Phosphate 15 MMOL in Sodium Chloride 0.9% 250 ML 250 ML IV PRN (23:11)
[2019-04-24] MEDS ORDERED: PHOS-NAK 1 PKT PACK PO PRN ×2 (23:11)
[2019-04-24] MEDS ORDERED: Potassium Chloride 40 MEQ in Sodium Chloride 0.9% 250 ML 250 ML IVPB PRN (23:11)
[2019-04-24] MEDS ORDERED: Magnesium 2 GM/50 ML 2 GM in Premix Bag 1 BAG IVPB PRN (23:11)
[2019-04-24] MEDS ORDERED: Potassium Chloride 40 MEQ in Premix Bag 1 BAG IVPB PRN (23:11)
[2019-04-24] MEDS ORDERED: Magnesium Oxide 400 MG TAB PO PRN ×2 (23:11)
[2019-04-24] MEDS ORDERED: Potassium Phosphate 9 MMOL in Sodium Chloride 0.9% 100 ML IVPB PRN (23:11)
[2019-04-24] MEDS ORDERED: Sodium Chloride 0.9% 1,000 ML IV SCH (23:15)
[2019-04-25 00:23] LABS: Lactic Acid 3.2 mmol/L (0.5-2.2)
[2019-04-25 00:41] VITALS: BMI 33.2
[2019-04-25] MEDS ORDERED: [UNRECOGNIZED DRUG - REMARK] IVPB PRN (01:19)
[2019-04-25] MEDS ORDERED: Enoxaparin Sodium 80 MG/0.8 ML SYRINGE SC SCH ×2 (01:30→21:00)
[2019-04-25] MEDS: HumaLOG 300 UNITS/3 ML VIAL SC PRN ×2 (01:32→06:14)
--- NOTE | 2019-04-25 01:55 | HP ---
CHIEF COMPLAINT: Shortness of breath. HISTORY OF PRESENT ILLNESS: Patient is an 88-year-old female with a past medical history of AFib, currently not on any anticoagulation, has a history of CAD, and obesity, who presents to the hospital with complaints of shortness of breath. Patient was recently discharged on April 15 for AFib with RVR. At that time, she was cardioverted on the way to the hospital. Patient at this time was found in a similar situation. She was found to be in AFib with rapid ventricular response. At this time, she was given IV diltiazem which dropped her pressures and at this time, she was resuscitated with a liter of fluid and then also was put on Levophed drip due to hypotension. Patient states that she has been having some chest pain, but denies any chest pressure. She states that she has a 7-pound dog that sits on her chest at times. Patient also complains of abdominal pain and I did review the patient's history from prior records. 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 She was evaluated by Cardiovascular Surgery who did not think it was a significant stenosis and recommended no treatment. The patient has been seen by EP. She at one point was put on anticoagulation, however, started having epistaxis to which point her anticoagulation was discontinued. Patient states today that she has been having ongoing shortness of breath. She is really not able to provide me anymore other history. She denies any fevers, chills, or any diarrhea. She is not very mobile either. PAST MEDICAL HISTORY: 1. History of AFib. 2. She has a history of CAD. 3. Hypertension. 4. Hyperlipidemia. SURGICAL HISTORY: She has had a total hip replacement. She has also had some sort of abdominal surgery. REVIEW OF SYSTEMS: All negative, except for the ones mentioned above in the HPI. SOCIAL HISTORY: She is a former smoker. Denies any alcohol use or drug use. She lives with her . She is currently a full code. FAMILY HISTORY: No history of heart disease or stroke. PHYSICAL EXAMINATION: VITAL SIGNS: Are as of the following; temperature of 98.8, heart rate of 109, blood pressure of 138/82, 16, and 92% on 2 L. GENERAL: She is awake, alert, and oriented x3. Does not appear in distress. HEENT: Normocephalic, atraumatic. No lymphadenopathy noted. Pupils equal and reactive to light. CV: S1 and S2 present. She is irregularly irregular. LUNGS: Diminished breath sounds to bilateral lower lungs. ABDOMEN: Soft. Bowel sounds are present x2. She does have tenderness upon palpation to bilateral lower abdominal area. EXTREMITIES: She does have some trace pitting edema. Pedal pulses are present. SKIN: She does have some excoriations to her chest into her lower legs. LABORATORY RESULTS: As of the following; WBCs of 9.7, hemoglobin 8.6, hematocrit of 25.6, and her platelets are 394. Chemistry; sodium of 130, potassium of 5.1, BUN of 26, creatinine 1.24, and glucose of 440. Her lactic acid initially was 4.3, then it went down to 3.4. Her troponin initially was indeterminate, then started trending upwards. She did have an abdominal pelvis CT and also a chest x-ray. The abdominal pelvis CT indicated stable bilateral pleural effusion. No evidence of acute processes and it was done with IV contrast. She also had a chest x-ray done which did not show any acute abnormalities either. ASSESSMENT AND PLAN: Patient is an 88-year-old female who presents to the hospital with shortness of breath, was found to be in atrial fibrillation and rapid ventricular response. 1. Atrial fibrillation with rapid ventricular response. She did receive diltiazem. She dropped her pressures. She was put on Levophed. She has been resuscitated with 1 L of normal saline. I will start her on some gentle hydration. Also, I have given her IV digoxin. Cardiology has been consulted. I will give her one dose of enoxaparin and we will continue to monitor. She may require EP for possible cardioversion. She has had flutter in the past. 2. Elevated lactic acid. This is most likely secondary to her problem #1. We will continue to monitor. She denies any fevers. She has mildly elevated neutrophils, and her urine is still pending. We will send a urine off. I do not believe she requires any antibiotics for now. 3. Elevated troponins. This is most likely secondary to her atrial fibrillation with rapid ventricular response. Again, I have given her a dose of Lovenox. We will continue to monitor. 4. Acute kidney injury. We will continue some gentle hydration and monitor her in the morning. 5. Hyponatremia. This could be most likely secondary to either volume overload. We will check serum osmolality. 6. Deep venous thrombosis prophylaxis. The patient will receive enoxaparin. Job ID: [id number]
[2019-04-25 02:26] LABS: Bacteria/HPF 1+ HPF (None Seen); Bilirubin Negative (Negative); Blood, Urine Negative (Negative); Clarity Turbid (Clear); Glucose, Urine (Dipstick) 500 mg/dL (Negative); Leukocyte 500 Leu/uL (Negative); Nitrite Negative (Negative); Protein, Urine (Dipstick) 50 mg/dL (Neg-Trace); RBC/HPF 0-3 HPF (0-3); Squamous Epithelial 0-3 HPF (0-3); Urobilinogen Normal mg/dL (Less than 2); WBC/HPF Greater than 50 HPF (0-3)
[2019-04-25 02:27] LABS: Urine Culture Reflex Yes Yes
[2019-04-25] MEDS ORDERED: Digoxin 0.5 MG/2 ML AMP SLOW IVP SCH (06:00)
[2019-04-25] MEDS ORDERED: Diltiazem 125 MG in Sodium Chloride 0.9% 100 ML IVPB SCH (06:30)
--- NOTE | 2019-04-25 12:40 | PDOC.PALCO ---
Palliative Care Consult - Consult Details Requesting Physician: Dr Junior Reason for Consult: goals of care, advance directives assistance, family support Family Members Present: None - Pertinent HPI 87 year old female who has previously been seen by Palliative Care to assist with goals of care. Mrs Mckinnon was recently discharged from the hospital on Apr 15 for Afib and RVR, She discharged home with Home Health services, she lives with her and is primarily wheelchair bound. Patient presented to the hospital with complaint of shortness of breath, patient is a poor historian and is unable to provide significant information. Emergency room evaluation identified atrial fib RVR, elevated troponins and lactic acid, hyponatremia, and acute kidney injury. She was admitted to CCU for medical management. OOHDNAR in chart, will verify with family the resuscitation status of patient secondary to her confusion. - Social History Smoking Status: Former smoker Smoking: quit greater than 1 year Alcohol Use: none Drug Use History: none Living Situation: independent, - Medications MAR Reviewed: Yes - Allergies Allergies/Adverse Reactions: Allergies Allergy/AdvReac Type Severity Reaction Status Date / Time iodine Allergy Verified 04/25/19 00:44 ketorolac tromethamine Allergy Verified 04/25/19 00:44 [From Toradol] sertraline HCl [From Zoloft] Allergy Verified 04/25/19 00:44 Sulfa (Sulfonamide Allergy Verified 04/25/19 00:44 Antibiotics) - Subjective Patient awake, alert, confused. Speech garbled and soft. Unable to perform a ROS as patient not currently reliable in response. - ROS Non Response: due to mental status - Objective Vital Signs: Vital Signs - Most Recent Temp Pulse Resp BP Pulse Ox 98.0 F 95 22 H 97 04/25/19 07:00 04/25/19 05:41 04/25/19 02:05 04/25/19 08:00 Palliative Performance Scale: 30 - Physical Exam Constitutional: encephalitic, ill appearing HEENT: EOMI, moist MMs Deviation from normal: Diminished to lower lobes, mildley labored when attempting to talk. O2 via Cardiovascular: irregular Gastrointestinal: non-tender Deviation from normal: Mildly distended Genitourinary: gould catheter Musculoskeletal: no clubbing Neurology: moves all 4 limbs Skin: bruising, fragile Deviation from normal: breakdown to coccyx, also with multiple areas of small skin abrasion Deviation from normal: Aggitated, confused, encephalopathic - Problem List (1) Palliative care encounter Code(s): Z51.5 - ENCOUNTER FOR PALLIATIVE CARE Current Visit: Yes Status: Acute (2) Atrial fibrillation with rapid ventricular response Code(s): I48.91 - UNSPECIFIED ATRIAL FIBRILLATION Current Visit: No Status: Acute (3) Anxiety Code(s): F41.9 - ANXIETY DISORDER, UNSPECIFIED Current Visit: No Status: Chronic (4) DM type 2 (diabetes mellitus, type 2) Current Visit: No Status: Chronic (5) Physical deconditioning Code(s): R53.81 - OTHER MALAISE Current Visit: No Status: Chronic - Plan/Recommendations Plan: *Spoke with Dr Garrison, he had spoken with the patient daughter in relation to options related to managing Atrial Fib and fragile state of patient with complex conditions. Daughter to arrive this afternoon to further discuss. *Revisit DNAR status with patient daughter *Order Biotene to be utilized after oral care to mitigate dry mucous membranes *Bisacodyl for constipation, daily until patient has a CM, then PRN Will visit with patient daughter and this afternoon to discuss comfort measures and palliative care with information also provided in relation to hospice depending on goal of care. Will also discuss resuscitation status and option of allowing a natural in the event of cardiac or respiratory event occurring. *Communicated with Dr Talamantes, Dr Garrison, and Dr Vernon Balbuena Palliative Care also following patient, please see notes in note section. Returned this afternoon to visit with patient ALVA Ordonez and patient sister Edwige. Discussed current health status with chronic conditions and disease trajectory. Addressed goal of care, transitioned patient to a DNAR and Mayra Balbuena had the PC registrar come and complete OOHDNAR. *Previously on [facility] program and wishing at this time to transition to Hospice. Mery contacted ANAHY Ray notified. [90] minutes spent on this encounter with >50% of the time in counseling and coordination of care. Thank you for this very appropriate consult.
[2019-04-25] MEDS ORDERED: Bisacodyl 5 MG TAB PO PRN (13:06)
--- NOTE | 2019-04-25 13:43 | CON ---
DATE OF CONSULTATION: REASON FOR CONSULTATION: Atrial fibrillation with rapid ventricular response. Chest pain and shortness of breath. HISTORY OF PRESENT ILLNESS: Ms. Mckinnon is an 88-year-old woman who I have seen and evaluated in the past. She has had multiple hospitalizations over the last year. She has had a total of eight hospitalizations in the last 12 months. They have all been for different reasons. Both admissions and ER visits. She recently presented with chest pain, shortness of breath and palpitations. She was found to be in atrial fibrillation with RVR and was placed on IV diltiazem and placed in the ICU. PAST MEDICAL HISTORY: CAD, status post bypass surgery in 2001, atrial fibrillation, CVA, hyperlipidemia, chronic low back pain and abdominal pain of unknown etiology, hypertension, dementia. ALLERGIES: IODINE. SOCIAL HISTORY: No current tobacco or alcohol use. HOME MEDICATIONS: Include: 1. Levemir. 2. NovoLog. 3. Flexeril. 4. Atorvastatin. 5. Gabapentin. 6. Amlodipine. 7. Aspirin. 8. . 9. Diltiazem. REVIEW OF SYSTEMS: Ten point review of systems difficult. She is currently confused. PHYSICAL EXAMINATION: GENERAL: Patient is a pleasant female who is in no acute distress. The patient appears their stated age. VITAL SIGNS: Blood pressure 103/49, pulse 94, temperature afebrile. NEUROLOGIC: Confusion. HEENT: Sclerae without icterus. Mouth has moist mucous membranes with normal pallor. NECK: No JVD. Carotid upstroke brisk. No bruits bilaterally. LUNGS: Clear to auscultation with unlabored respirations. BACK: No scoliosis or kyphosis. CARDIAC: Irregularly and irregular. No S3 or S4 noted. No significant rubs, murmurs, thrills, or gallops noted throughout the precordium. PMI is not displaced. There is no parasternal heave. ABDOMEN: Soft, nontender, nondistended. No peritoneal signs present. No hepatosplenomegaly. No abnormal striae. EXTREMITIES: 2+ femoral and 2+ dorsalis pedis pulses. No cyanosis, clubbing, or edema. SKIN: No gross abnormalities. PERTINENT LABORATORY DATA: Hemoglobin 8.6, peak troponin 0.6, glucose 400, creatinine 1.24, BUN 26, initial lactic acid level 4.4. IMPRESSION: 1. Atrial fibrillation with rapid ventricular response. 2. Chest pain. 3. Shortness of breath. 4. Coronary artery disease, status post bypass surgery. RECOMMENDATIONS: I had a long discussion with the patient's daughter, Edwige, about how to proceed. The patient is unable to give an appropriate history. She states her is in the room and the room is empty. There is underlying confusion. She has had multiple hospitalizations for similar symptoms in the past. I have been very hesitant to proceed with coronary angiography given her renal function, age, anemia, in addition to graphs that are almost 20 years old. I have discussed this with Edwige. We discussed proceeding with coronary angiography tomorrow. Knowing this risks versus continued medical therapy, palliative care. They have opted for the latter of their choices. I would certainly agree. She is currently on IV Cardizem and we will try and titrate down the IV Cardizem and place p.o. Cardizem. Palliative Care has been consulted. Also discussed DNR status with Edwige. They would like to discuss this with the family, but are leaning towards comfort care only. Job ID: [id number]
[2019-04-25] MEDS ORDERED: Lorazepam 2 MG/ML VIAL SLOW IVP PRN (16:46)
[2019-04-25] MEDS ORDERED: Morphine 4 MG/ML VIAL SLOW IVP PRN (16:47)
[2019-04-25] MEDS ORDERED: Lorazepam 2 MG/ML VIAL ONE (16:48)
[2019-04-25] MEDS: Morphine 4 MG/ML VIAL SLOW IVP PRN ×3 (17:22→21:26)
[2019-04-25] MEDS ORDERED: Non-Formulary Item 1 EACH (Insulin Detemir [Levemir] 10 UNIT) SQ SCH (21:00)
[2019-04-25] MEDS ORDERED: BIOTENE MOUTH SPRAY 44.3 ML MM SCH (21:00)
[2019-04-25] MEDS ORDERED: Insulin Glargine 10 UNITS in Pre-Filled Syringe 1 EACH SC SCH (21:00)
[2019-04-26] MEDS: Lorazepam 2 MG/ML VIAL SLOW IVP PRN ×2 (00:24→08:56)
[2019-04-26 05:40] VITALS: TEMP 98.4
[2019-04-26] MEDS: Morphine 4 MG/ML VIAL SLOW IVP PRN ×2 (06:07→09:07)
--- NOTE | 2019-04-26 16:10 | PDOC.PALPN ---
Palliative Progress Note - Subjective O2 via NC, does not open eyes or respond to verbal ques. Family at bedside. - Objective Vital Signs: Vital Signs - Most Recent Temp Pulse Resp BP Pulse Ox 98.4 F 123 H 24 H 90 L 04/26/19 04:00 04/25/19 16:35 04/25/19 16:35 04/26/19 08:00 - Physical Exam Constitutional: encephalitic, ill appearing, moderate distress HEENT: moist MMs Respiratory: diminished lung sound, labored respirations Cardiovascular: irregular Genitourinary: gould catheter Musculoskeletal: no clubbing, edema present Skin: bruising Deviation from normal: encephalopathic - Assessment (1) Palliative care encounter Code(s): Z51.5 - ENCOUNTER FOR PALLIATIVE CARE Status: Acute (2) Atrial fibrillation with rapid ventricular response Code(s): I48.91 - UNSPECIFIED ATRIAL FIBRILLATION Status: Acute (3) Anxiety Code(s): F41.9 - ANXIETY DISORDER, UNSPECIFIED Status: Chronic (4) DM type 2 (diabetes mellitus, type 2) Status: Chronic (5) Physical deconditioning Code(s): R53.81 - OTHER MALAISE Status: Chronic - Plan Plan: Transitioned patient to comfort measures 04/25. To transition to inpatient Hospice today 04/26. Discussed end of life with family, they are grieving appropriately. Continue with Ativan and Morphine as needed to provide comfort and optimal care as patient transitions to [facility] in patient hospice. Communicated with [facility]. [30] minutes spent on this encounter with >50% of the time in counseling and coordination of care. - ROS Non Response: due to mental status
--- NOTE | 2019-04-27 03:26 | DIS ---
DATE OF ADMISSION: 04/25/2019 DATE OF DISCHARGE: 04/26/2019 DISCHARGE DISPOSITION: Inpatient Hospice. DISCHARGE MEDICATIONS: Per Hospice. BRIEF HOSPITAL COURSE: The patient is an 88-year-old female with atrial fibrillation, coronary artery disease, hypertension, and hyperlipidemia, presented to the hospital with shortness of breath. A workup was consistent with atrial fibrillation with rapid ventricular response. She was started on Cardizem drip after which her blood pressure dropped. She was later started on Levophed drip. She was monitored in the intensive care unit. The patient was evaluated by Cardiology, Dr. Garrison. Due to overall decline, the patient and the family decided on inpatient hospice. The patient was excepted by [facility]. DIAGNOSTIC TESTS: Lactic acid 4.4. TSH 7.3. Creatinine 1.24, BUN 26, sodium 130. ABG showed pH of 7.23 with pCO2 of 40, bicarbonate 16.3 with pCO2 of 40. Troponin of 0.270. Repeat troponin was 0.6. Urine culture showed enterobacter. Please note that patient was seen and examined on the day of discharge. FINAL DIAGNOSES: 1. Generalized weakness multifactorial. 2. Atrial fibrillation with rapid ventricular response, requiring Cardizem drip. 3. Hypotension secondary to intravascular volume depletion requiring Levophed. 4. Severe sepsis secondary to Enterobacter urinary tract infection. 5. Acute hypoxic respiratory failure, requiring noninvasive positive pressure ventilation. 6. Type 2 myocardial infarction. 7. Coronary artery disease status post coronary artery bypass grafting. 8. Chest discomfort. 9. Hyponatremia. 10. Acute kidney [id number] kidney disease stage 3. 11. Chronic anemia. 12. Obesity with a body mass index of 34. 13. The family understands the above plan of care. Job ID: [id number]
--- NOTE | 2019-04-28 06:51 | PQF ---
KARLA LOVELL MALIK MD [id number] CLINICAL DOCUMENTATION CLARIFICATION FORM: POST DISCHARGE Addendum to original discharge summary date: ____ Late entry note date: __ DATE: 04/28/2019 ATTN: Perry Mota Please exercise your independent, professional judgment in responding to the clarification form. Clinical indicators are provided on the bottom of this form for your review In your clinical opinion based on clinical findings below, can you please identify condition as the reason for Inpatient admission if due to: Please check appropriate box(s): [x ] Sepsis [ x ] Atrial Fibrillation [ ] Hyponatremia [ ] Volume Depletion [ ] Other diagnosis [ ] Unable to determine In addition, please specify: Present on Admission (POA): [ x ] Yes [ ] No [ ] Unable to determine For continuity of documentation, please document condition throughout progress notes and discharge summary. Thank You. CLINICAL INDICATORS - SIGNS / SYMPTOMS / LABS Laboratory 04/24 WBC 9.7, Neutrophils 78.7%, Sodium 130, Lactic Acid 4.4, CK BM 4.1, Troponin 0.270, BNP 568.8 Microbiology 04/25 - Urine Culture: Enterobacter cloacae complex Vital signs 64/49, Pulse 132, Resp 22, Temp 97.6 ED Notes p11 04/25 patient arrives in the ER with active Afib with RVR and generally appears ill at this time. Initial HR 140 H&P p1 04/25 Dr Junior Complaints of SOB. Pt recently discharged on Apr 15 for Afib with RVR. At that time, she was cardioverted on the way to the hospital. Pt at this time found similar situation H&P p1 04/25 Dr Junior t this time, she was given IV Diltiazem which dropped her pressures. Put on Levophed drip due to hypotension H&P p1 04/25 Dr Junior the patient also complains of abdominal pain H&P p2 04/25 Dr Junior Elevated lactic acid and elevated troponin most likely secondary to Afib Discharge summary p1 04/26 Hypotension secondary to Volume depletion RISK FACTORS ED Notes p8 04/25 - HTN ED Notes p8 04/25 DM ED Notes p8 04/25 HLD ED Notes p8 04/25 CHF DS p2 04/26 CKD stage 3 H&P p1 04/25 88-year old Female H&P p1 04/25 - History of Afib not on any anticoagulation H&P p1 04/25 - CAD H&P p1 04/25 - Obesity H&P p1 04/25 - Former smoker H&P p3 04/25 - Acute kidney injury H&P p3 04/25 - Hyponatremia Discharge summary p1 04/26 Severe sepsis secondary to Enterobacter UTI Discharge summary p1 04/26 -Acute Hypoxic Respiratory failure TREATMENTS: MAY 15 Aspirin Chewable 81mg MAY 15 IV Cefepime 1gm MAY 15 IV Digoxin 0.25 MAY 15 IV Cardizem 5mg MAY 15 Lovenox 80mg SC MAY 15 IV Levophed 250ml MAY 15 IV Vancomycin 1gm MAY 15 IVF 1L ED Notes p11 04/25 CVC placement H&P p2 04/16 urine cultured ordered H&P p3 04/25 - Check serum osmolality Respiratory Panel 04/25 BiPAP Cardiology Consult 04/25 Nomi Sommer (This form is maintained as a part of the permanent medical record) 2014 [employer] All Rights Reserved [email or web address]
== END 2019-04-26 11:29 | disposition hospice, inpatient (51) | DRG 871 ==
LOC: ERS 17:37 → CCU 04-25 00:15
PROVIDERS: ADMIT Internal Medicine; ATTEND Internal Medicine
PROC: 5A09357 Assistance with Respiratory Ventilation, Less than 24 Consecutive Hours, Continuous Positive Airway Pressure (ICD-10-PCS; principal; 2019-04-25)
PROC: 3E043XZ Introduction of Vasopressor into Central Vein, Percutaneous Approach (ICD-10-PCS; 2019-04-25)
PROC: 06HY33Z Insertion of Infusion Device into Lower Vein, Percutaneous Approach (ICD-10-PCS; 2019-04-25)
DX: A41.59 Other Gram-negative sepsis (principal); I21.A1 Myocardial infarction type 2; J96.01 Acute respiratory failure with hypoxia; Z66 Do not resuscitate; Z51.5 Encounter for palliative care; N39.0 Urinary tract infection, site not specified; E87.1 Hypo-osmolality and hyponatremia; N17.9 Acute kidney failure, unspecified; I48.91 Unspecified atrial fibrillation; R65.20 Severe sepsis without septic shock; E86.9 Volume depletion, unspecified; I25.10 Atherosclerotic heart disease of native coronary artery without angina pectoris; N18.3 Chronic kidney disease, stage 3 (moderate); D63.1 Anemia in chronic kidney disease; E66.9 Obesity, unspecified; E78.5 Hyperlipidemia, unspecified; F41.9 Anxiety disorder, unspecified; G89.29 Other chronic pain; M54.5 Low back pain; E11.22 Type 2 diabetes mellitus with diabetic chronic kidney disease; Z95.1 Presence of aortocoronary bypass graft; Z68.34 Body mass index [BMI] 34.0-34.9, adult; Z87.891 Personal history of nicotine dependence; Z86.73 Personal history of transient ischemic attack (TIA), and cerebral infarction without residual deficits; Z91.041 Radiographic dye allergy status; Z79.899 Other long term (current) drug therapy; Z79.4 Long term (current) use of insulin; Z79.82 Long term (current) use of aspirin; Z88.2 Allergy status to sulfonamides; Z88.8 Allergy status to other drugs, medicaments and biological substances
CPT/HCPCS: 36415; 36416; 36556; 51702; 71045; 74177; 80053; 81001; 82553; 82805; 83605; 83690; 83735; 83880; 84443; 84484; 85025; 85610; 85730; 87077; 87086; 87186; 87804; 93005; 93306; 94660; 94760; 96361; 96365; 96366; 96367; 96375; 99292; J0692; J1160; J1650; J1815; J2060; J2270; J2405; J3370; J3490; J7050; Q9967

== ENCOUNTER 2019-04-26 11:39 | Inpatient (IN) | payer OTHER ==
[2019-04-26] MEDS ORDERED: Scopolamine 1.5 mg/72 hour Patch TOP PRN ×2 (11:59)
[2019-04-26] MEDS ORDERED: Ondansetron PF 4 MG/2 ML Vial IVP PRN (11:59)
[2019-04-26] MEDS ORDERED: Hyoscyamine Sulfate SL 0.125 mg Tablet SL PRN (11:59)
[2019-04-26] MEDS ORDERED: Haloperidol Lactate 5 MG/ML VIAL SLOW IVP PRN (11:59)
[2019-04-26] MEDS ORDERED: chlorproMAZINE HCl 25 MG in Sodium Chloride 0.9% 50 ML IVPB PRN (11:59)
[2019-04-26] MEDS ORDERED: diphenhydrAMINE 50 MG/ML VIAL IVP PRN (11:59)
[2019-04-26] MEDS: Lorazepam 2 MG/ML VIAL SLOW IVP PRN ×4 (12:16→17:53)
[2019-04-26] MEDS: Morphine 4 MG/ML VIAL SLOW IVP PRN ×4 (12:33→23:05)
[2019-04-26] MEDS: Sodium Chloride 0.9% 1,000 ML IV SCH (12:34)
--- NOTE | 2019-04-26 14:00 | PRG ---
DATE OF SERVICE: 04/26/2019 SUBJECTIVE: Ms. Mckinnon continues to decline. No current complaints. She is in and out of consciousness. Her heart rate appears controlled. OBJECTIVE: VITAL SIGNS: Blood pressure 120/70, pulse 100, respirations 20. LUNGS: Crackles noted bilaterally. HEART: Irregularly irregular. ABDOMEN: Soft, nontender, nondistended. EXTREMITIES: No edema. IMPRESSION: 1. Atrial fibrillation. 2. Shortness of breath. 3. Abdominal pain. 4. Coronary artery disease. 5. Status post bypass surgery. RECOMMENDATIONS: Again, I spoke with Ms. Mckinnon and her daughter today. She is a respiratory therapist Everyone is in agreement to proceed with comfort care only. They were seeking inpatient hospice from Ms. Mckinnon. From my standpoint, I have no further recommendations. Job ID: [id number]
[2019-04-27] MEDS: Lorazepam 2 MG/ML VIAL SLOW IVP PRN ×3 (02:54→20:43)
[2019-04-27] MEDS: Morphine 4 MG/ML VIAL SLOW IVP PRN ×4 (11:55→19:09)
[2019-04-27] MEDS: Sodium Chloride 0.9% 1,000 ML IV SCH (12:48)
[2019-04-27 19:49] VITALS: BP 137/64; TEMP 99.9
== END 2019-04-27 21:20 | disposition expired | DRG 951 ==
LOC: CCU 11:39 → ONC 17:40
PROVIDERS: ADMIT Family Medicine; ATTEND Family Medicine
DX: Z51.5 Encounter for palliative care (principal); E87.2 Acidosis; N17.9 Acute kidney failure, unspecified; E87.1 Hypo-osmolality and hyponatremia; Z66 Do not resuscitate; I48.91 Unspecified atrial fibrillation; R10.9 Unspecified abdominal pain; R06.02 Shortness of breath; I25.10 Atherosclerotic heart disease of native coronary artery without angina pectoris; I10 Essential (primary) hypertension; E78.5 Hyperlipidemia, unspecified; Z96.649 Presence of unspecified artificial hip joint; Z95.1 Presence of aortocoronary bypass graft
CPT/HCPCS: J1200; J2060; J2270